=== PATIENT | male | born 1950 | race Caucasian/White ===

== ENCOUNTER 2016-04-08 13:03 | Inpatient (IN) | payer MEDICARE ==
[2016-04-08] MEDS ORDERED: Aspirin Low Dose CHEW TAB* 81 MG PO ONE (13:49)
[2016-04-08 13:59] LABS: Hematocrit 29 % (42-52); Hemoglobin 8.8 g/dl (14.0-18.0); Mean Corpuscular HGB Conc 31 g/dl (31-36); Mean Corpuscular Hemoglobin 20 pg (27-31); Mean Platelet Volume 9 um3 (7.4-10.4); Red Cell Distribution Width 18 % (10.5-15); White Blood Count 8.9 10^3/ul (3.5-10.8)
[2016-04-08 14:00] LABS: Comments Flag Yes
[2016-04-08 14:01] LABS: Mean Corpuscular Volume 64 fL (80-94)
[2016-04-08 14:16] LABS: Albumin 3.1 g/dL (3.2-5.2); BUN/Creatinine Ratio 18.4 (8-20); Calcium 8.6 mg/dL (8.6-10.3); EGFR African American 37.1 (>60); EGFR Non-African American 28.9 (>60); Globulin 3.1 g/dL (2-4); Potassium 4.7 mmol/L (3.5-5.0); Total Bilirubin 0.3 mg/dL (0.2-1.0); Total Protein 6.2 g/dL (6.4-8.9)
[2016-04-08 14:31] LABS: Troponin I 0.06 ng/mL (<0.04)
--- NOTE | 2016-04-08 14:45 | RAD ---
Indication: Shortness of breath. 2 views of the chest including dual energy PA views demonstrate no mediastinal shift. Heart is of normal size and configuration. There is poor inspiratory effort. No alveolar consolidation is noted. IMPRESSION: No active cardiopulmonary disease is identified.
[2016-04-08 15:08] LABS: T4 6.84 g/dL (6.09-12.23)
[2016-04-08 15:09] LABS: TSH (Thyroid Stimulating Horm) 1.21 mcIU/mL (0.34-5.60)
[2016-04-08] MEDS ORDERED: Furosemide IV* 10 MG/ML 2 ML VIAL (20 MG) IV SLOW PU ONE (15:17)
--- NOTE | 2016-04-08 15:51 | ED ---
Lucia Silva Erika, scribed for Luis Perdomo MD on 04/08/16 at 1356 . Complex/Multi-Sys Presentation - HPI Summary HPI Summary: Patient is a 65-year-old male presenting to the ED with a CC of recent weight gain. Patient reports that he has gained 14 lbs in 3 weeks, and 9 lbs in the past 3 days. He notes swelling in all four extremities. Patient denies a diagnosis of CHF. Pt also reports a negative Ankle-brachial index test. He denies fever, chills, dizziness, chest pain, SOB, cough, abdominal pain, diarrhea, and constipation. He does note some mild urinary incontinence. PMHx HTN, diabetes, hyperlipidemia. PSHx cardiac stent - 12 years ago. FHx diabetes, lung cancer, cerebral hemorrhage. Pt is a former smoker, and does not drink. - History Of Current Complaint Chief Complaint: EDGeneral Time Seen by Provider: 04/08/16 13:36 Hx Obtained From: Patient Onset/Duration: Gradual Onset, Lasting Weeks, Worse Since - 3 days Timing: Constant Severity Currently: Moderate Severity Initially: Mild Aggravating Factor(s): Nothing Alleviating Factor(s): Nothing Associated Signs And Symptoms: Positive: Edema - all four extremities. Negative : Dizziness, SOB, Cough, Chest Pain, Diarrhea, Abdominal Pain, Fever - Allergies/Home Medications Allergies/Adverse Reactions: Allergies Allergy/AdvReac Type Severity Reaction Status Date / Time Erythromycin Allergy Intermediate Stomach Verified 04/08/16 13:32 Cramps PMH/Surg Hx/FS Hx/Imm Hx Endocrine/Hematology History: Reports: Hx Anticoagulant Therapy, Hx Diabetes - TYPE II, Hx Anemia Cardiovascular History: Reports: Hx Coronary Artery Disease, Hx Hypercholesterolemia, Hx Hypertension, Other Cardiovascular Problems/Disorders - cardiac cath w/ stents Denies: Hx Pacemaker/ICD Respiratory History: Reports: Hx Asthma GI History: Reports: Hx Gastroesophageal Reflux Disease - ON PRILOSEC History: Denies: Hx Renal Disease Musculoskeletal History: Reports: Hx Arthritis - KNEES Sensory History: Reports: Hx Cataracts, Hx Contacts or Glasses Denies: Hx Hearing Aid Opthamlomology History: Reports: Hx Cataracts, Hx Contacts or Glasses Psychiatric History: Denies: Hx Panic Disorder - Surgical History Surgery Procedure, Year, and Place: RIGHT KNEE SURGERY 1966. CARDIAC CATH WITH STENT 2004-[facility] FOR [address] HAND Hx Anesthesia Reactions: No Infectious Disease History: No Infectious Disease History: Reports: Hx of Known/Suspected MRSA Denies: Traveled Outside the [place] in Last 30 Days - Family History Known Family History: Positive: Hypertension, Diabetes, Other - lung cancer, cerebral hemorrhage - Social History Alcohol Use: None Hx Substance Use: No Substance Use Type: Reports: None Hx Tobacco Use: Yes Smoking Status (MU): Former Smoker Amount Used/How Often: APPROX PACK/DAY Review of Systems Negative: Fever, Chills Negative: Chest Pain Negative: Shortness Of Breath, Cough Negative: Abdominal Pain, Diarrhea Positive: incontinence - urinary, mild Positive: Edema - all four extremities All Other Systems Reviewed And Are Negative: Yes Physical Exam - Summary Physical Exam Summary: VITAL SIGNS: Reviewed. GENERAL: Patient is an obese male who is lying comfortable in the stretcher. Patient is not in any acute respiratory distress. HEAD AND FACE: No signs of trauma. No ecchymosis, hematomas or skull depressions. No sinus tenderness. EYES: PERRLA, EOMI x 2, No injected conjunctiva, no nystagmus. EARS: Hearing grossly intact. Ear canals and tympanic membranes are within normal limits. MOUTH: Oropharynx within normal limits. NECK: Supple, trachea is midline, no adenopathy, no JVD, no carotid bruit, no c- spine tenderness, neck with full ROM. CHEST: Symmetric, no tenderness at palpation LUNGS: Clear to auscultation bilaterally. No wheezing or crackles. CVS: Regular rate and rhythm, S1 and S2 present, no murmurs or gallops appreciated. ABDOMEN: Soft, non-tender. No signs of distention. No rebound no guarding, and no masses palpated. Bowel sounds are normal. EXTREMITIES: FROM in all major joints, Positve UE and LE swelling NEURO: Alert and oriented x 3. No acute neurological deficits. Speech is normal and follows commands. SKIN: Dry and warm Triage Information Reviewed: Yes Vital Signs On Initial Exam: Initial Vitals Temp Pulse Resp BP Pulse Ox 97.3 F 65 16 147/74 99 04/08/16 13:05 04/08/16 13:05 04/08/16 13:05 04/08/16 13:05 04/08/16 13:05 Vital Signs Reviewed: Yes Diagnostics - Vital Signs Vital Signs Temp Pulse Resp BP Pulse Ox 04/08/16 13:05 97.3 F 65 16 147/74 99 - Laboratory Result Diagrams: 04/08/16 13:50 04/08/16 13:50 Lab Statement: Any lab studies that have been ordered have been reviewed, and results considered in the medical decision making process. - Radiology CXR Radiology Interpretation Completed By: Radiologist - IMPRESSION: No active cardiopulmonary disease is identified. - EKG 14:44 Cardiac Rate: Bradycardia - at 58 bpm EKG Rhythm: Sinus Bradycardia EKG Interpretation: No ST elevation Complex Multi-Symp Course/Dx Assessment/Plan: Patient is a 65-year-old male presenting to the ED with a CC of recent weight gain. Patient reports that he has gained 14 lbs in 3 weeks, and 9 lbs in the past 3 days. He notes swelling in all four extremities. Patient denies a diagnosis of CHF. Pt also reports a negative Ankle-brachial index test. He denies fever, chills, dizziness, chest pain, SOB, cough, abdominal pain, diarrhea, and constipation. He does note some mild urinary incontinence. Test results show hypochromic microcytic anemia and acute on chronic renal failure. Creatine kinase is elevated at 339, CKMP of 26.6, myoglobin of 338.3, and troponin of 0.06. Albumin is also 3.1 and total protein is 6.2. CXR shows no acute pathology. EKG shows sinus bradycardia at [address] elevation. I believe that the pt has a new onset of CHF, worsening renal failure, and hypoalbuminemia, which would contribute to his anasarca. In the ED course, the pt does not have any CP or SOB. He has no complaints except for the swelling. He was given aspirin for the elevated troponin and Lasix for the CHF exacerbation. It seems that the pt is intravascularly depleted in combination with being overloaded. I discussed the case with Dr. Lin who accepted the pt for admission. He is hemodynamically stable and A&Ox3. - Diagnoses Differential Diagnoses/HQI/PQRI: Other - CHF, Renal failure, Hypoalbuminemia, Anemia Provider Diagnoses: CHF (congestive heart failure), Acute on chronic renal failure, Anemia, Hypoalbuminemia - Physician Notifications Discussed Care Of Patient With: Dr. Lin (hospitalist) at 15:16 - agrees to admit Discharge - Discharge Plan Condition: Stable Disposition: ADMITTED TO [facility] Referrals: Mario Oakley MD [Primary Care Provider] - The documentation as recorded by the Lucia lopez Erika accurately reflects the service I personally performed and the decisions made by , Luis Perdomo MD.
--- NOTE | 2016-04-08 17:38 | PN ---
Hospitalist Progress Note HOSPITALIST ADDENDUM Case reviewed and d/w Peter CORTEZ. Mr. Guzman is a 65yo M with PMH of HTN, DM, HLD, CKD, referred from his PCP's office due to progressive LE edema, now with 30lbs weight gain. Will admit for cardiac w/u of possible new CHF (?right sided failure) vs renal disease (DM related nephrotic syndrome?). Agree with current management.
[2016-04-08 18:33] LABS: Ferritin 283.7 ng/mL (24-336)
[2016-04-08 18:37] LABS: Folate 11.94 ng/mL (>3.99)
[2016-04-08] MEDS: Metoprolol Tartrate TAB* 50 mg PO SCH (19:19)
[2016-04-08] MEDS: Atorvastatin* 20 MG TAB PO SCH (19:20)
--- NOTE | 2016-04-08 20:04 | RAD ---
HISTORY: Abnormal lab values, evaluate for hydronephrosis COMPARISONS: None relevant TECHNIQUE: Multiple transverse and longitudinal ultrasound images were obtained of the kidneys using grayscale and color Doppler imaging. FINDINGS: RIGHT KIDNEY: The right kidney is normal in shape, size, contour, and echogenicity. There is no hydronephrosis or nephrolithiasis. The right kidney measures 10.7 x 7 x 5.5 cm. LEFT KIDNEY: The left kidney is normal in shape, size, contour, and echogenicity. There is no hydronephrosis or nephrolithiasis. The left kidney measures 12.8 x 6.2 x 4.5 cm. BLADDER: No images are submitted of the bladder. AORTA AND IVC: No images are submitted of the vasculature. RETROPERITONEUM: Unremarkable. OTHER: None. IMPRESSION: NO HYDRONEPHROSIS
[2016-04-08 20:48] LABS: Urine Bacteria Absent (Absent); Urine Bilirubin Negative (Negative); Urine Glucose 2+(150 mg/dL) (Negative); Urine Nitrite Negative (Negative)
--- NOTE | 2016-04-08 21:51 | HP ---
ADMISSION HISTORY AND PHYSICAL: DATE OF ADMISSION: 04/08/16 PRIMARY CARE PROVIDER: Dr. Oakley. ADMITTING PROVIDER: DIEGO Barrett SUPERVISING PHYSICIAN: Dr. You Clarke. * (DICTATED BY DIEGO BARRETT) CHIEF COMPLAINT: Edema. HISTORY OF PRESENT ILLNESS: This is a 65-year-old gentleman with a history of chronic kidney disease, insulin dependent diabetes, hypertension, intermittent low back pain, history of bilateral lower extremity DVTs for which she is still anticoagulated with Coumadin, peripheral neuropathy and coronary artery disease , status post PCI as well as hypertension, hyperlipidemia who presented to the emergency department at the recommendation of his primary care provider with profound edema. The patient believes that he has gained at lease 20 pounds in the last few weeks and has notable edema in his left arm and both of his legs. He states that he has been careful with his diet and despite this has noticed significant weight gain. He denies any associated shortness of breath, however. No cough or recent illness. He is on Lasix and states that he has had a little diuresis despite this. The patient was diagnosed with bilateral lower extremity DVTs sounds like about 6 months ago. He was originally anticoagulated on Xarelto and then switched to Coumadin a few weeks ago because of the cost of Xarelto and it sounds like there was an interruption in his anticoagulation for about 5 days or so. The patient initially thought that the DVTs were spontaneous, but it sounds like they might have been associated with a prolonged car ride as well. The only other new medication that patient reports is Lyrica for his peripheral neuropathy and that was started a couple of weeks ago as well. The patient denies any chest pain or palpations. He denies any abdominal pain, nausea or vomiting. He has noticed some increased weakness in the last couple of months. He is unable to sit or stand after sitting in a chair without some assistance. PAST MEDICAL HISTORY: 1. Insulin dependent diabetes. 2. Bilateral DVT for which she is anticoagulated on Coumadin without history of PE. 3. Chronic kidney disease. 4. Hypertension. 5. History of vertigo. 6. Chronic anemia. 7. Intermittent low back pain. 8. Hyperlipidemia. 9. Coronary artery disease, status post PCI without history of heart failure. 10. Peripheral neuropathy. PAST SURGICAL HISTORY: 1. Carpal tunnel release. 2. Right knee arthroplasty. 3. PCI. 4. Benign cyst excision over his left chest. HOME MEDICATIONS: 1. Albuterol inhalers 2 puffs inhaled q.6 hours as needed for shortness of breath. 2. Allopurinol 300 mg p.o. daily. 3. Atorvastatin 20 mg p.o. daily. 4. Colchicine 0.6 mg p.o. b.i.d. as needed. 5. Trulicity 1.5 mg subcu weekly. 6. Furosemide 20 mg p.o. daily. 7. Lantus 40 units subcu twice daily. 8. Humalog KwikPen 25 units subcu with meals 3 times daily. 9. Lisinopril 40 mg p.o. daily. 10. Metoprolol tartrate 50 mg p.o. twice daily. 11. Omeprazole 20 mg p.o. daily. 12. Lyrica 50 mg p.o. twice daily. 13. Silvadene apply topically twice daily as needed. 14. Coumadin 5 mg p.o. daily. FAMILY HISTORY: The patient denies any family history of anemia or clotting disorders. His mother of a hemorrhagic stroke in her 40s. SOCIAL HISTORY: The patient quit smoking about 22 years ago, had about a 20- pack- year smoking history, rare alcohol consumption. Lives at home with his and granddaughter. REVIEW OF SYSTEMS: As noted above in HPI and otherwise negative. PHYSICAL EXAMINATION GENERAL: This is a pleasant 65-year-old gentleman in no acute distress who appears her stated age. VITAL SIGNS: Temperature 97.3 degrees Fahrenheit, pulse 65 beats per minute, respiratory rate 16 per minute, oxygen saturation 99% on room air, and blood pressure 147/74 mmHg. HEENT: Head is normocephalic, atraumatic with moist mucous membranes. NECK: Free of lymphadenopathy. No obvious JVD. RESPIRATORY: Lungs are clear to auscultation without wheezes, crackles or rhonchi. CARDIOVASCULAR: Heart has a regular rate and rhythm without murmurs, rubs or gallops. ABDOMEN: Soft and nontender to palpation. EXTREMITIES: The patient has marked edema in his left hand especially and also notable in his left distal arm. Both lower extremities have significant edema that appears to be somewhat chronic in nature. Right upper extremity does not appear to have any edema. No significant subcutaneous edema appreciated over his abdomen or back. SKIN: The patient has what looks to be chronic venous stasis changes over his lower extremities bilaterally, but otherwise no acute concerning changes. DIAGNOSTIC STUDIES/LABORATORY DATA: CBC shows a white blood cell count of 8900 , hemoglobin of 8.8 g/dL, which is severely microcytic with an MCV of 64 and elevated RDW to 18, platelet count of 117,000. Comprehensive metabolic panel shows a sodium of 141 mmol/L, potassium 4.7 mmol/L, BUN 42, creatinine 2.28. Random glucose 96 mg/dL. Lactic acid 1.4. Transaminases and total bilirubin within normal limits. Total creatine kinase mildly elevated at 339. Myoglobin elevated at 338. Troponin mildly elevated at 0.06. BNP is normal 61. TSH is normal at 1.21. IMAGING: Chest x-ray shows no acute disease. EKG shows normal sinus rhythm. ASSESSMENT AND PLAN: This is a 65-year-old gentleman with insulin dependent diabetes, hypertension, hyperlipidemia, chronic kidney disease, chronic anemia, history of deep venous thrombosis, peripheral neuropathy and coronary artery disease who presents with marked edema and weight gain without complaints of dyspnea. 1. Edema - differential diagnosis is still quite long. His edema seems to be somewhat focal affecting his left upper extremity and both lower extremities. He does give a history of bilateral deep venous thromboses that occurred after a car ride and he interrupted his anticoagulation for about a week a couple of weeks ago which seemed to correspond with his increased edema. Wonder if he has new clots that may be contributing to his acute symptoms. We will check a D -dimer and if positive, we will get a Doppler of his left upper extremity and both lower extremities to evaluate for deep venous thrombosis. We will also check a renal ultrasound specifically looking for hydronephrosis. Urinalysis is pending help to identify signs of nephrotic syndrome but again, he does not looking diffusely edematous which would be more consistent with renal pathology. He does not have any evidence of left heart failure as he has no associated pulmonary edema, but could consider right heart failure. He is a quite large man. Perhaps untreated sleep apnea could contribute to pulmonary hypertension and subsequent right heart failure. We will obtain echocardiogram. In terms of symptomatic relief though, we will start with diuresing him with IV Lasix, monitor his renal function closely. 2. Chronic kidney disease. His creatinine appears to be slightly above his baseline. Last creatinine from about a month ago was 2.02 and is 2.2 today, somewhere between about 2 seems to be near his baseline. His estimated GFR is 28 today. Baseline is probably stage 3 chronic kidney disease. We will monitor this closely and avoid nephrotoxic agents during his hospital stay. 3. History of deep venous thrombosis. Now anticoagulated with Coumadin. INR not checked in the emergency department, but this has been ordered and is pending. 4. Profound microcytic anemia. Hemoglobin is 8.8. His baseline seems to be near 10 and he has a profound microcytosis. This microcytosis appears to be chronic in nature, suspected that beta thalassemia might be the most likely etiology. The patient denies family history of anemia, but it does have Mediterranean heritage. We will check iron studies along with B12 and folate. 5. Morbid obesity with a BMI of 41. 6. Insulin dependent diabetes - we will continue his home regimen of Lantus and Humalog and we will check glucose at meal time. 7. Peripheral neuropathy. We will continue his Lyrica. 8. Hypertension. We will hold his Lisinopril in the setting of slightly worsening renal function, but continue his beta-christian. 9. Hyperlipidemia. Continue atorvastatin. 10. Code status. The patient is full code. 11. Healthcare proxy is his . 12. DVT prophylaxis. The patient is anticoagulated on Coumadin. DISPOSITION: The patient is being admitted to observation status for profound edema, but no complaints of dyspnea. Further workup is pending at this time. Anticipate possible discharge tomorrow. DIEGO BARRETT CC: Dr. Oakley * [id number]/[facility] #: [id number] PERRY
[2016-04-08] MEDS: Pregabalin CAP(*) 50 MG PO SCH (22:06)
[2016-04-08] MEDS: Insulin GLARGINE(*) 1 UNITS UNIT SUBCUT SCH (22:08)
[2016-04-09] MEDS: Nystatin TOP POWDER* 15 GM BTL TOPICAL SCH ×3 (00:30→20:40)
[2016-04-09] MEDS ORDERED: Saline NASAL SPRAY 0.65%* BTL BOTH NARES PRN (03:19)
[2016-04-09 06:29] LABS: Hematocrit 27 % (42-52); Hemoglobin 8.2 g/dl (14.0-18.0); Mean Corpuscular HGB Conc 30 g/dl (31-36); Mean Corpuscular Hemoglobin 19 pg (27-31); Mean Platelet Volume 9 um3 (7.4-10.4); Red Blood Count 4.22 10^6/ul (4.0-5.4); Red Cell Distribution Width 18 % (10.5-15); White Blood Count 6.6 10^3/ul (3.5-10.8)
[2016-04-09 06:30] LABS: Add Diff/Slide Review? Slide Review Added; Comments Flag Yes; Mean Corpuscular Volume 64 fL (80-94)
[2016-04-09 06:41] LABS: BUN/Creatinine Ratio 19.7 (8-20); EGFR African American 39.1 (>60); EGFR Non-African American 30.4 (>60); Potassium 4.5 mmol/L (3.5-5.0)
[2016-04-09] MEDS ORDERED: Furosemide IV* 10 MG/ML VIAL (40 MG) IV SCH (09:00)
[2016-04-09] MEDS ORDERED: Warfarin TAB(*) 5 MG PO SCH (09:00)
[2016-04-09] MEDS: Pregabalin CAP(*) 50 MG PO SCH ×2 (10:30→20:39)
[2016-04-09] MEDS: Metoprolol Tartrate TAB* 50 mg PO SCH ×2 (10:31→16:59)
[2016-04-09] MEDS: Omeprazole CAP* 20 MG PO SCH (10:31)
[2016-04-09] MEDS: Allopurinol TAB* 300 MG PO SCH (10:32)
[2016-04-09] MEDS: Insulin LISPRO* 1 UNITS UNIT SUBCUT SCH ×3 (10:33→16:59)
[2016-04-09] MEDS: Insulin GLARGINE(*) 1 UNITS UNIT SUBCUT SCH ×2 (10:38→20:38)
[2016-04-09] MEDS ORDERED: Insulin LISPRO* 1 UNITS UNIT SUBCUT ONE (13:26)
--- NOTE | 2016-04-09 14:06 | RAD ---
Indication: Left hand swelling. Duplex Doppler sonography of the left upper extremity deep venous system was performed. Bilaterally the internal jugular veins demonstrates normal phasic flow. The subclavian veins demonstrates adequate augmentation bilaterally with normal phasic flow. The left axillary vein, brachial vein, basilic vein, cephalic vein, radial vein and ulnar vein are patent and compressible. IMPRESSION: No evidence of deep venous thrombosis of the left upper extremity is noted.
--- NOTE | 2016-04-09 15:49 | ECHO ---
Patient: CONOR MARROQUIN Rec#: [id number] : 1950 Date: 04/09/2016 Age: 65y Height: 180 cm / 70.9 in Weight: 131 kg / 288.7 lbs Sex: M BSA: 2.46 Room#: [facility] Admit Date#: 04/08/2016 Type: Inpatient Referring: Peter Cross Reading: Jason Puga MD [employer] Specialist: Garett Hua RDCS CC: Mario Oakley MD Transthoracic Echocardiogram Indication: CHF EDMA BP: 161/60 HR: 69 Rhythm: NSR Findings History: DM,VERTIGO,anemia, HLD,CAD PCIDVT CKD Technical Comments: The study quality is fair. The study is technically limited due to poor parasternal windows. The study is technically limited due to patient body habitus. Left Ventricle: The left ventricular chamber size is normal. There is no left ventricular hypertrophy. Global left ventricular wall motion and contractility are within normal limits. There is normal left ventricular systolic function. The estimated ejection fraction is 55-60%. Closer to 55% Abnormal left ventricular diastolic filling is observed, consistent with impaired relaxation. Left Atrium: The left atrium is mildly dilated. Right Ventricle: The right ventricular cavity size is normal. The right ventricular global systolic function is normal. Right Atrium: The right atrial cavity size is normal. Aortic Valve: The aortic valve is trileaflet. There is no evidence of aortic regurgitation. There is no evidence of aortic stenosis. Mitral Valve: The mitral valve leaflets appear normal. There is a trace of mitral regurgitation. There is no evidence of mitral stenosis. Tricuspid Valve: There is trace tricuspid regurgitation. Pulmonic Valve: The pulmonic valve structure is not well visualized. Pericardium: There is no pericardial effusion. Aorta: There is no dilatation of the ascending aorta. There is no dilatation of the aortic arch. There is no dilation of the aortic root. Pulmonary Artery: The main pulmonary artery is not well visualized. Venous: The venous system is not well visualized. Summary: There was not any prior study for comparison. Conclusions The left ventricular chamber size is normal. There is normal left ventricular systolic function. The estimated ejection fraction is 55-60%. Closer to 55% Abnormal left ventricular diastolic filling is observed, consistent with impaired relaxation. The left atrium is mildly dilated. There is a trace of mitral regurgitation. There is trace tricuspid regurgitation. Measurements Name Value Normal Range RVIDd (AP) 2D 2.5 cm (0.9 - 2.6) RVDdMajor (2D) 2.5 cm (2.2 - 4.4) RAd ISD 4CH 5.2 cm (3.4 - 4.9) RA (A4C)W 2.7 cm (2.9 - 4.6) IVSd (2D) 1.3 cm (0.6 - 1) LVPWd (2D) 1 cm (0.6 - 1) LVIDd (2D) 4.9 cm (3.6 - 5.4) LVIDs (2D) 3.6 cm - LV FS (2D) 27 % (25 - 45) Aortic Annulus 2.3 cm (1.4 - 2.6) Ao root diameter (2D) 3.5 cm (2.1 - 3.5) Ascending Ao 3.3 cm (2.1 - 3.4) Aortic arch 2.6 cm (1.8 - 3.4) LA dimension (AP) 2D 4.7 cm (2.3 - 3.8) LAd ISD 4CH 5.8 cm (2.9 - 5.3) LA ISD 4CH W 3.4 cm (2.5 - 4.5) Name Value Normal Range LA ESV SP 4CH (A/L) 102 ml - LA ESV SP 2CH (A/L) 103 ml - LA ESV BP (A/L) 103 ml - LA ESV BP (A/L) index 41.81 ml/m2 - LA ESV SP 4CH (MOD) 95 ml - LA ESV SP 2CH (MOD) 95 ml - Name Value Normal Range MV E-wave Vmax 0.54 m/sec - MV deceleration time 206 msec - MV A-wave Vmax 0.71 m/sec - MV E:A ratio 0.75 ratio - LV septal e' Vmax 0.06 m/sec - LV lateral e' Vmax 0.08 m/sec - LV E:e' septal ratio 9 ratio - LV E:e' lateral ratio 6.75 ratio - Name Value Normal Range LVOT diameter 2.1 cm - LVOT Vmax 1.1 m/sec - Name Value Normal Range PV Vmax 1 m/sec -
--- NOTE | 2016-04-09 16:38 | PN ---
Subjective Date of Service: 04/09/16 Interval History: Patient seen this morning and again in the afternoon. Feels that the swelling of the arm has improved. Denies chest pain, SOB. No recent changes in diet or medication aside from transition to coumadin from xarelto. Family History: Unchanged from Admission Social History: Unchanged from Admission Past Medical History: Unchanged from Admission Objective Active Medications: Allopurinol (Zyloprim Tab*) 300 mg PO QAM [facility] Last Admin: 04/09/16 10:32 Dose: 300 mg Atorvastatin Calcium (Lipitor*) 20 mg PO QPM [facility] Last Admin: 04/08/16 19:20 Dose: 20 mg Furosemide (Lasix Iv*) 40 mg IV DAILY [facility] Last Admin: 04/09/16 10:40 Dose: 40 mg Furosemide (Lasix Iv*) 40 mg IV ONCE ONE Stop: 04/09/16 16:33 Insulin Glargine (Lantus(*)) 40 units SUBCUT BID [facility] Last Admin: 04/09/16 10:38 Dose: 40 units Insulin Human Lispro (Humalog*) 25 units SUBCUT AC [facility] Last Admin: 04/09/16 13:28 Dose: 25 units Metoprolol Tartrate (Lopressor Tab*) 50 mg PO BID WITH MEALS [facility] Last Admin: 04/09/16 10:31 Dose: 50 mg Nystatin (Nystatin Top Powder*) 1 applic TOPICAL BID [facility] Last Admin: 04/09/16 10:49 Dose: 1 applic Omeprazole (Prilosec Cap*) 20 mg PO DAILY@0730 [facility] Last Admin: 04/09/16 10:31 Dose: 20 mg Pharmacy Profile Note (Coumadin Per Pharmacy*) 1 note FOLLOW UP .PER PHARMACY PROTOC [facility] PRN Reason: Protocol Pregabalin (Lyrica Cap(*)) 50 mg PO BID [facility] Last Admin: 04/09/16 10:30 Dose: 50 mg Sodium Chloride (Sodium Chloride 0.65% Nasal [place]*) 1 spray BOTH NARES Q4H PRN PRN Reason: DRYNESS/CONGESTION Last Admin: 04/09/16 03:30 Dose: 1 spray Vital Signs 04/08/16 04/08/16 04/08/16 19:30 21:51 22:06 Temperature 98.2 F Pulse Rate 67 66 Respiratory 16 20 Rate Blood Pressure 173/76 (mmHg) O2 Sat by Pulse 96 Oximetry 04/08/16 04/09/16 04/09/16 23:35 00:06 01:00 Temperature 98.4 F Pulse Rate 64 67 Respiratory 16 18 Rate Blood Pressure 177/76 (mmHg) O2 Sat by Pulse 98 Oximetry 04/09/16 04/09/16 04/09/16 10:30 11:29 12:30 Temperature 98.5 F Pulse Rate 65 Respiratory 15 16 16 Rate Blood Pressure 151/65 (mmHg) O2 Sat by Pulse 90 Oximetry 04/09/16 14:41 Temperature 98.5 F Pulse Rate 61 Respiratory Rate Blood Pressure 154/70 (mmHg) O2 Sat by Pulse 98 Oximetry Oxygen Devices in Use Now: None Appearance: Middle-aged, M, sitting in chair in NAD Eyes: No Scleral Icterus Ears/Nose/Mouth/Throat: Mucous Membranes Moist Neck: NL Appearance and Movements; NL JVP Respiratory: Symmetrical Chest Expansion and Respiratory Effort, Clear to Auscultation Cardiovascular: NL Sounds; No Murmurs; No JVD, RRR Abdominal: NL Sounds; No Tenderness; No Distention Lymphatic: No Cervical Adenopathy Extremities: - - B/L LE edema to thighs B/L, some L hand edema on dorsum Neurological: Alert and Oriented x 3 Result Diagrams: 04/09/16 05:47 04/09/16 05:47 Microbiology and Other Data: Microbiology 04/08/16 20:20 Skin and Soft Tissue MRSA/MSSA (PCR - Final Leg Right Mrsa Negative S.aureus Negative Gram Stain - Final Wound Culture - Preliminary Strep Agalactiae - (Group B) Assess/Plan/Problems-Billing Assessment: LUE edema and B/L LE edema in a 65 yo M with hx of HTN, CAD s/p PCI, DM, ROBSON on CPAP, HLD, CKD, B/L LE DVTs on coumadin - Patient Problems (1) Edema Current Visit: Yes Comment: Has had long standing edema and states he has been on Lasix for years. Albumin is slightly low, renal function is mostly unchanged. Renal US normal. Echo shows some diastolic dysfunction however no changes on the R side of the heart. LUE doppler negative. Seems to be responding to IV Lasix. Will redose this evening. He may need higher doses of Lasix with his CKD. (2) Troponin I above reference range Current Visit: Yes Comment: Mild elevation. Patient with no complaints of chest pain, no WMA on echo. No further testing at this time. (3) CKD (chronic kidney disease) Current Visit: Yes Comment: Seems to be at baseline (4) Microcytic anemia Current Visit: Yes Comment: Diagnosed with thal minor on Dr. Nunes's outpatient notes. Hb down a bit. Has had some slight bleeding from the nose, INR is elevated. Continue to hold coumadin. (5) DVT (deep venous thrombosis) Current Visit: Yes Comment: INR supratherapeutic, holding coumadin. As per Dr. Nunes patient may need life-long AC (6) Diabetes Current Visit: Yes Comment: Continue home insulin regimen (7) HTN (hypertension) Current Visit: Yes Comment: Continue metoprolol, will resart Lisinopril on d/ c (8) DVT prophylaxis Current Visit: Yes Comment: Coumadin Status and Disposition: Inpatient for additional IV diuresis
[2016-04-09] MEDS ORDERED: Furosemide IV* 10 MG/ML 10 ML VIAL (100 MG) IV ONE (16:45)
[2016-04-09] MEDS: Atorvastatin* 20 MG TAB PO SCH (16:59)
[2016-04-10 05:45] LABS: Comments Flag Yes; Hematocrit 25 % (42-52); Hemoglobin 7.7 g/dl (14.0-18.0); Mean Corpuscular HGB Conc 31 g/dl (31-36); Mean Corpuscular Hemoglobin 19 pg (27-31); Mean Corpuscular Volume 63 fL (80-94); Mean Platelet Volume 9 um3 (7.4-10.4); Red Blood Count 3.97 10^6/ul (4.0-5.4); Red Cell Distribution Width 18 % (10.5-15)
[2016-04-10 05:55] LABS: BUN/Creatinine Ratio 18.2 (8-20); Calcium 7.7 mg/dL (8.6-10.3); EGFR African American 35.7 (>60); EGFR Non-African American 27.8 (>60); Potassium 4.6 mmol/L (3.5-5.0)
[2016-04-10] MEDS: Pregabalin CAP(*) 50 MG PO SCH (08:11)
[2016-04-10] MEDS: Metoprolol Tartrate TAB* 50 mg PO SCH ×2 (08:12→17:20)
[2016-04-10] MEDS: Allopurinol TAB* 300 MG PO SCH (08:12)
[2016-04-10] MEDS: Nystatin TOP POWDER* 15 GM BTL TOPICAL SCH (08:12)
[2016-04-10] MEDS: Omeprazole CAP* 20 MG PO SCH (08:12)
[2016-04-10] MEDS: Insulin LISPRO* 1 UNITS UNIT SUBCUT SCH ×3 (09:00→17:20)
[2016-04-10] MEDS: Insulin GLARGINE(*) 1 UNITS UNIT SUBCUT SCH (09:01)
--- NOTE | 2016-04-10 11:20 | PN ---
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 Subjective: []Weakness, loss of proximal muscle strength for several months, swelling in arm. He is stable today. Less urination with lasix. Wants to go home. No SOB. No fever or chills Allopurinol (Zyloprim Tab*) 300 mg PO QAM [facility] Last Admin: 04/10/16 08:12 Dose: 300 mg Atorvastatin Calcium (Lipitor*) 20 mg PO QPM [facility] Last Admin: 04/09/16 16:59 Dose: 20 mg Insulin Glargine (Lantus(*)) 40 units SUBCUT BID [facility] Last Admin: 04/10/16 09:01 Dose: 40 units Insulin Human Lispro (Humalog*) 25 units SUBCUT AC [facility] Last Admin: 04/10/16 09:00 Dose: 25 units Metoprolol Tartrate (Lopressor Tab*) 50 mg PO BID WITH MEALS [facility] Last Admin: 04/10/16 08:12 Dose: 50 mg Nystatin (Nystatin Top Powder*) 1 applic TOPICAL BID [facility] Last Admin: 04/10/16 08:12 Dose: 1 applic Omeprazole (Prilosec Cap*) 20 mg PO DAILY@0730 [facility] Last Admin: 04/10/16 08:12 Dose: 20 mg Pharmacy Profile Note (Coumadin Per Pharmacy*) 1 note FOLLOW UP .PER PHARMACY PROTOC [facility] PRN Reason: Protocol Pregabalin (Lyrica Cap(*)) 50 mg PO BID [facility] Last Admin: 04/10/16 08:11 Dose: 50 mg Sodium Chloride (Sodium Chloride 0.65% Nasal [place]*) 1 spray BOTH NARES Q4H PRN PRN Reason: DRYNESS/CONGESTION Last Admin: 04/09/16 03:30 Dose: 1 spray Warfarin Sodium (Coumadin Tab(*)) 2 mg PO ONCE ONE Stop: 04/10/16 17:01 Objective: [] Vital Signs Temp Pulse Resp BP Pulse Ox 98.0 F 70 18 152/73 99 04/10/16 07:25 04/10/16 07:25 04/10/16 08:11 04/10/16 07:25 04/10/16 07:25 HEENT: mucosa moist, pale CTA RRR S1S2 [place], NT ND sitting Ext - chronic SIDDHARTHA. Pitting edema left hand and forearm, no rash Assessment: []Upper extremity edema is unexplained at this time, not related to anemia. Chronic anemia and director long term care anticoagulation for DVT. Progression of anemia is not explained by thalassmeia trait. Ddx: Low B12, progressive renal insufficiency, marrow dysfunction. Plan: []1. Will send additional studies anemia today: B12, SPEP, Retic Count, erythropoeitin, LDH now 2. Transfuse 1 UPRBC 3. Will follow up next week in clinc, does not need to wait in house for results. 4. Muscle weakness, check CK 5. Continue coumadin, no indication of acute DVT
[2016-04-10] MEDS ORDERED: Acetaminophen TAB* 325 MG PO ONE (11:22)
[2016-04-10] MEDS ORDERED: diPHENhydraMINE PO* 25 MG PO ONE (11:22)
[2016-04-10 12:09] LABS: Corrected Retic Count 1.1 % (0.5-1.5)
[2016-04-10 14:31] VITALS: BP 159/71
[2016-04-10] MEDS ORDERED: Warfarin TAB(*) 2 MG PO ONE (17:00)
[2016-04-10] MEDS: Atorvastatin* 20 MG TAB PO SCH (17:44)
--- NOTE | 2016-04-11 03:21 | DS ---
CC: Dr. Oakley; Dr. Nunes DISCHARGE SUMMARY: DATE OF ADMISSION: 04/08/16 DATE OF DISCHARGE: 04/10/16 PRIMARY CARE PHYSICIAN: Dr. Oakley. PRINCIPAL DISCHARGE DIAGNOSES: 1. Weight gain, edema. 2. Anemia. SECONDARY DIAGNOSES: 1. Chronic kidney disease. 2. History of microcytic anemia. 3. Bilateral deep venous thromboses, on Coumadin. 4. Hypertension. 5. Hyperlipidemia. 6. Coronary artery disease, status post PCI. 7. Peripheral neuropathy. STUDIES DONE DURING HOSPITALIZATIONS: Chest x-ray, impression: No active cardiopulmonary disease i s noted. Renal ultrasound, impression: No hydronephrosis. Transthoracic echocardiogram, conclusion: Left ventricular chamber size is normal. There is normal left ventricular systolic function. Estimated ejection fraction is 55% to 60%. Abnormal left ventr icular diastolic filling is observed consistent with impaired relaxation. Left atrium is mildly dil ated. There is trace mitral regurgitation. There is trace tricuspid regurgitation. Left upper extremity Doppler, impression: No evidence of DVT in the left upper extremity. HISTORY OF PRESENT ILLNESS AND HOSPITAL SUMMARY: Please see the full history and physical by DIEGO Canales, for full details. Briefly, Mr. Guzman is a 65-year- old male with a past medical hist ory as above, who presented to the hospital with complaints of weight gain, worsening edema particul corey in the left upper extremity. The patient states he had chronic swelling in part of his left mazariegos nd for sometime; however, this worsened recently. He is having difficulty seeing his knuckles. The patient was given IV Lasix over the course of the hospitalization with some improvement in his symp toms. He had an upper extremity ultrasound that did not show any evidence of DVT and an echo that w as largely unremarkable. While hospitalized, the patient's chronic anemia seemed to be worsening. Dr. Nunes, who has seen him as an outpatient, was consulted. He ordered a panel of testing including SPEP, vitamin B2, and a n umber of other labs that are pending at this time. The patient mentioned to Dr. Nunes that he had be en having some proximal muscle weakness. The patient did note to have elevated CKs and myoglobin on admission that were trending down on recheck. The patient was instructed to hold his statin for no w to see if there is any improvement over the next days and follow up with his PCP regarding this. The patient had progressive anemia here in the hospital. Dr. Nunes ordered 1 unit of packed red bloo d cell that was transfused prior to discharge. The patient was given a prescription for a repeat CB C and BMP on 04/13/16 prior to his outpatient appointment with his PCP. He will also follow up as a n outpatient with Dr. Nunes who recommended continued anticoagulation for his previous DVTs. TIME SPENT: Total time spent on this discharge 45 minutes. This is just a summary of hospitalization. Please see the full medical record for further details. [id number]/CPS #: [id number]
[2016-04-11 16:58] LABS: Gamma Globulin 0.4 g/dL (0.6-1.6); Total Protein(PEP) 4.6 g/dL (6.3 - 7.9)
== END 2016-04-10 16:47 | disposition home or self-care (01) | DRG 948 ==
LOC: ED 13:03 → MEDTELE 15:25 → INTOOBSV 16:39 → OBSVTOIN 16:39
PROVIDERS: ADMIT Internal Medicine; ATTEND Hospitalist
PROC: 5A09357 Assistance with Respiratory Ventilation, Less than 24 Consecutive Hours, Continuous Positive Airway Pressure (ICD-10-PCS; principal; 2016-04-09)
PROC: 30233N1 Transfusion of Nonautologous Red Blood Cells into Peripheral Vein, Percutaneous Approach (ICD-10-PCS; 2016-04-10)
DX: R60.9 Edema, unspecified (principal); E11.22 Type 2 diabetes mellitus with diabetic chronic kidney disease; E11.42 Type 2 diabetes mellitus with diabetic polyneuropathy; I08.1 Rheumatic disorders of both mitral and tricuspid valves; Z68.41 Body mass index [BMI] 40.0-44.9, adult; R63.5 Abnormal weight gain; I12.9 Hypertensive chronic kidney disease with stage 1 through stage 4 chronic kidney disease, or unspecified chronic kidney disease; E78.5 Hyperlipidemia, unspecified; I25.10 Atherosclerotic heart disease of native coronary artery without angina pectoris; Z86.718 Personal history of other venous thrombosis and embolism; D53.9 Nutritional anemia, unspecified; M62.81 Muscle weakness (generalized); Z95.5 Presence of coronary angioplasty implant and graft; Z83.3 Family history of diabetes mellitus; Z80.1 Family history of malignant neoplasm of trachea, bronchus and lung; Z82.3 Family history of stroke; Z87.891 Personal history of nicotine dependence; Z88.1 Allergy status to other antibiotic agents; J45.909 Unspecified asthma, uncomplicated; K21.9 Gastro-esophageal reflux disease without esophagitis; M13.862 Other specified arthritis, left knee; M13.861 Other specified arthritis, right knee; Z82.49 Family history of ischemic heart disease and other diseases of the circulatory system; E66.9 Obesity, unspecified; Z96.651 Presence of right artificial knee joint; N18.3 Chronic kidney disease, stage 3 (moderate); D50.9 Iron deficiency anemia, unspecified; E66.01 Morbid (severe) obesity due to excess calories; G47.33 Obstructive sleep apnea (adult) (pediatric); R79.89 Other specified abnormal findings of blood chemistry; R04.0 Epistaxis; D56.3 Thalassemia minor
CPT/HCPCS: 36415; 71020; 76775; 80048; 80053; 81003; 81015; 82550; 82553; 82728; 82746; 83036; 83540; 83550; 83605; 83615; 83874; 83880; 84155; 84165; 84252; 84436; 84443; 84484; 85025; 85045; 85379; 85610; 86850; 86900; 86901; 86922; 87070; 87077; 87184; 87186; 87205; 87640; 87641; 93005; 94660; 94760; 99232; A9270-GY; G0378; J1940; P9040

== ENCOUNTER 2016-06-22 15:42 | Emergency (ER) | payer MEDICARE ==
--- NOTE | 2016-06-22 17:45 | RAD ---
INDICATION: Diabetes mellitus, ulcer evaluate for osteomyelitis. TECHNIQUE: 3 views of the right middle finger were obtained. FINDINGS: There is soft tissue swelling and an ulcer present in the dorsal soft tissues at the level of the middle phalanx. No significant focal osseous abnormality is seen. Joint spaces appear maintained. IMPRESSION: SOFT TISSUE ULCER AND SWELLING, NO EVIDENCE FOR OSTEOMYELITIS. IF THE CLINICAL SUSPICION FOR OSTEOMYELITIS IS HIGH CONSIDER MR IMAGING.
[2016-06-22 18:18] VITALS: BP 181/86
--- NOTE | 2016-06-22 18:46 | UC ---
Qasim Silva Janilya, scribed for Summer Germain MD on 06/22/16 at 1700 . Skin Complaint HPI - HPI Summary HPI Summary: A 66 y/o male came in to [facility] presenting w/ a gradual onset of constant right 3rd finger sore starting 3 days ago. Pt states the finger progressively got swollen and hot. Pt used Neosporin on the area and bandaged the finger. Pt reports no feeling of the finger due to hx of neuropathy. PMHx DM. Lab from Dr. Ramos on 06/22/2016: creatinine of 3.21 H., Glucose was 261, fasting this am. - History of Current Complaint Chief Complaint: UCWounds Stated Complaint: FINGER SKIN COMPLAINT Hx Obtained From: Patient Onset/Duration: Gradual Onset, Lasting Days, Still Present Skin Exposure Onset/Duration: Days Ago Timing: Constant Onset Severity: Moderate Current Severity: Moderate Pain Intensity: 0 Pain Scale Used: 0-10 Numeric Location: Hand (Right) - middle finger between PIP and DIP, dorsum Character: Redness Aggravating: Nothing Alleviating: Nothing Associated Signs & Symptoms: Positive: Drainage, Red Streaks Related History: Diabetes - Allergy/Home Medications Allergies/Adverse Reactions: Allergies Allergy/AdvReac Type Severity Reaction Status Date / Time Erythromycin Allergy Intermediate Stomach Verified 06/22/16 16:12 Cramps Review of Systems Constitutional: Negative Skin: Other - sore of right 3rd finger Eyes: Negative ENT: Negative Respiratory: Negative Cardiovascular: Negative Gastrointestinal: Negative Genitourinary: Negative Motor: Negative Neurovascular: Negative Musculoskeletal: Negative Neurological: Negative Psychological: Negative All Other Systems Reviewed And Are Negative: Yes PMH/Surg Hx/FS Hx/Imm Hx Previously Healthy: No Endocrine History Of: Reports: Diabetes Cardiovascular History Of: Reports: Cardiac Disorders - CHF, stent placement, Hypertension, Congestive Heart Failure Denies: Pacemaker/ICD Respiratory History Of: Reports: Asthma GI/ History Of: Denies: Renal Disease Other History Of: Anticoagulant Therapy - Surgical History Surgical History: Yes Surgery Procedure, Year, and Place: RIGHT KNEE SURGERY 1966. CARDIAC CATH WITH STENT 2004-[facility] FOR [address] HAND[address] BILAT CATARACTS - Family History Known Family History: Positive: Hypertension, Diabetes, Other - lung cancer, cerebral hemorrhage - Social History Alcohol Use: None Substance Use Type: None Smoking Status (MU): Former Smoker Amount Used/How Often: 1ppd Length of Time of Smoking/Using Tobacco: 41 years Have You Smoked in the Last Year: No When Did the Patient Quit Smoking/Using Tobacco: 2002 - Immunization History Most Recent Influenza Vaccination: 2016 Most Recent Tetanus Shot: UTD Most Recent Pneumonia Vaccination: UTD Physical Exam Triage Information Reviewed: Yes Appearance: Well-Appearing, Well-Nourished, Pain Distress Vital Signs: Initial Vital Signs Temp 97.0 F 06/22/16 16:06 Pulse 100 06/22/16 16:06 Resp 20 06/22/16 16:06 BP 178/85 06/22/16 16:06 Pulse Ox 95 06/22/16 16:06 elevated BP noted Vital Signs Reviewed: Yes Eyes: Positive: Conjunctiva Clear ENT: Positive: Normal ENT inspection, Hearing grossly normal. Negative: Muffled /hoarse voice Neck: Positive: Supple Respiratory: Positive: No respiratory distress Cardiovascular: Positive: RRR, Pulses Normal, Brisk Capillary Refill Musculoskeletal: Positive: Strength Intact, ROM Intact Neurological: Positive: Alert, Muscle Tone Normal, Other: - Sensation not intact Psychological Exam: Normal Skin Exam: Other - 2 cm ulcerated draining area on the right 3rd finger dorsum between PIP and DIP joint w/ red streak on lateral aspect to the MCP joint Diagnostics - Radiology finger Xray Interpretation: No Acute Changes - IMPRESSION: SOFT TISSUE ULCER AND SWELLING, NO EVIDENCE FOR OSTEOMYELITIS. IF THE CLINICAL SUSPICION FOR OSTEOMYELITIS IS HIGH CONSIDER MR IMAGING. Radiology Interpretation Completed By: Radiologist Course/Dx - Differential Diagnoses - Skin Complaint Differential Diagnoses: Abscess, Cellulitis, Other - MRSA, osteomyelitis - Diagnoses Provider Diagnoses: Ulcerated finger lesion in DM with neuropathy and Chronic Kidney disease, stage 3. HTN in poor control. Discharge - Discharge Plan Condition: Stable Disposition: HOME Prescriptions: Cephalexin CAP* [Keflex 500 CAP*] 500 mg PO TID #30 cap Patient Education Materials: Cellulitis (ED) Referrals: Josh Reynolds MD [Medical Doctor] - 2 Days Mario Oakley MD [Primary Care Provider] - 2 Days Additional Instructions: Please have your blood pressure checked within a month because it was elevated today. You need strict control of your diabetes and hypertension to help your kidney function. You need strict control of your diabetes to help heal the wound on your finger. Change the dressing on your wound daily. If the red streak goes beyond your middle finger knuckle, you need to go to the closest emergency room immediately. Take your antibiotic as directed. We will contact you if the antibiotic needs to be changed based on the wound culture results. The documentation as recorded by the Qasim lopez Janilya accurately reflects the service I personally performed and the decisions made by me, Summer Germain MD.
== END 2016-06-22 18:30 | disposition home or self-care (01) ==
LOC: UCEAST 15:42
DX: E11.622 Type 2 diabetes mellitus with other skin ulcer (principal); J45.909 Unspecified asthma, uncomplicated; E11.22 Type 2 diabetes mellitus with diabetic chronic kidney disease; I13.0 Hypertensive heart and chronic kidney disease with heart failure and stage 1 through stage 4 chronic kidney disease, or unspecified chronic kidney disease; N18.9 Chronic kidney disease, unspecified; I50.9 Heart failure, unspecified; Z88.3 Allergy status to other anti-infective agents; Z87.891 Personal history of nicotine dependence
CPT/HCPCS: 73140; 87070; 87205; 99212; G0463

== ENCOUNTER 2016-07-17 11:19 | Inpatient (IN) | payer MEDICARE ==
[2016-07-17] MEDS ORDERED: NS 0.9% 1000 ML* 1,000 ML IV ONE (11:58)
--- NOTE | 2016-07-17 12:39 | RAD ---
Indication: Weakness. Recent diagnosis of advanced chronic kidney disease. Diabetic. Comparison: June 05, 2016 Technique: Upright AP 1219 hours Report: Suboptimal inspiration with resulting mild crowding of the pulmonary markings/subsegmental atelectasis. No confluent pulmonary consolidation to suggest pneumonia. Negative for pleural effusion or pneumothorax. Negative for cardiomegaly. Unremarkable central pulmonary vasculature and mediastinal contours. IMPRESSION: Low lung volumes with minimal subsegmental atelectasis.
[2016-07-17 13:17] LABS: Hematocrit 17 % (42-52); Mean Corpuscular HGB Conc 30 g/dl (31-36); Mean Corpuscular Hemoglobin 20 pg (27-31); Mean Corpuscular Volume 67 fL (80-94); Mean Platelet Volume 9 um3 (7.4-10.4); Red Cell Distribution Width 20 % (10.5-15); White Blood Count 5.8 10^3/ul (3.5-10.8)
[2016-07-17 13:22] LABS: Albumin 3.1 g/dL (3.2-5.2); Calcium 8.5 mg/dL (8.6-10.3); Comments Flag Yes; EGFR African American 18.4 (>60); EGFR Non-African American 14.3 (>60); Globulin 2.7 g/dL (2-4); Total Bilirubin 0.2 mg/dL (0.2-1.0); Total Protein 5.8 g/dL (6.4-8.9)
[2016-07-17 13:24] LABS: Add Diff/Slide Review? Slide Review Added
[2016-07-17 13:25] LABS: Hemoglobin 5.2 g/dl (14.0-18.0)
[2016-07-17] MEDS ORDERED: Phytonadione INJ (Adult)* 10 MG/ML 1 ML AMP SUBCUT ONE (13:26)
[2016-07-17 13:27] LABS: Potassium 8.1 mmol/L (3.5-5.0)
[2016-07-17] MEDS ORDERED: Dextrose 50% Syringe 50 ML* 25 GM/50 ML SYRINGE IV PUSH PRN ×2 (13:38→19:09)
[2016-07-17] MEDS ORDERED: Sodium Polystyrene ORAL.SOL* 15 GM/60 ML BTL PO ONE (13:38)
[2016-07-17] MEDS ORDERED: Calcium Gluconate INJ* 1 GM in NS 0.9% 50 ML* 50 ML IVPB ONE (13:38)
[2016-07-17] MEDS ORDERED: Insulin REGULAR(*) 1 UNITS UNIT IV PUSH ONE (13:38)
[2016-07-17 13:52] LABS: BUN/Creatinine Ratio 36.5 (8-20)
[2016-07-17 14:10] LABS: Eosinophils % 1 % (0-6); Immature Granulocytes 2 % (0-9); Neutrophil % 74 % (38-83)
[2016-07-17 14:12] LABS: Calcium 8.3 mg/dL (8.6-10.3); EGFR African American 18.9 (>60); EGFR Non-African American 14.7 (>60)
[2016-07-17 14:13] LABS: Microcytosis 3+
[2016-07-17 14:14] LABS: Target Cells 1+; Tear Drop Cells 1+
[2016-07-17 14:15] LABS: Potassium 7.6 mmol/L (3.5-5.0)
[2016-07-17 14:16] LABS: Add Path Review? YES
[2016-07-17 15:04] LABS: Urine Bacteria Absent (Absent); Urine Bilirubin Negative (Negative); Urine Glucose 2+(150 mg/dL) (Negative); Urine Nitrite Negative (Negative)
[2016-07-17] MEDS ORDERED: Albuterol HFA INHALER* 8 gm MDI INH PRN (15:46)
[2016-07-17] MEDS ORDERED: Pantoprazole IV* 80 MG in NS 0.9% 250 ML* 250 ML IVPB ONE (15:47)
[2016-07-17] MEDS: NS 0.9% 1000 ML* 1,000 ML IV SCH (17:04)
[2016-07-17 17:49] LABS: Calcium 8.5 mg/dL (8.6-10.3); EGFR African American 20.1 (>60); EGFR Non-African American 15.6 (>60)
[2016-07-17] MEDS: Insulin REGULAR(*) 1 UNITS UNIT SUBCUT SCH ×2 (17:51→22:18)
[2016-07-17 17:52] LABS: Potassium 7.4 mmol/L (3.5-5.0)
[2016-07-17 18:07] LABS: BUN/Creatinine Ratio 36.4 (8-20)
[2016-07-17] MEDS: Pantoprazole IV* 80 MG in NS 0.9% 250 ML* 250 ML IVPB SCH (18:28)
[2016-07-17] MEDS ORDERED: Insulin REGULAR(*) 1 UNITS UNIT SUBCUT ONE (19:11)
[2016-07-17] MEDS ORDERED: Metoclopramide IV* 5 MG/ML 2 ML VIAL IV SLOW PU ONE (19:19)
[2016-07-17] MEDS: Sodium Polystyrene ORAL.SOL* 15 GM/60 ML BTL PO SCH (20:27)
--- NOTE | 2016-07-17 20:48 | ED ---
Brent Silva Billy, scribed for Luis Perdomo MD on 07/17/16 at 1200 . Complex/Multi-Sys Presentation - HPI Summary HPI Summary: This patient is a 66 year-old male coming to [facility] from Dr. Ramos's office for evaluation of several complaints. He reports weakness and shortness of breath. He had one episode of melena 4 days ago and has not had any BM since then. He was on Coumadin but he stopped taking it 2 days ago. Denies pain. - History Of Current Complaint Chief Complaint: EDGIBleed Time Seen by Provider: 07/17/16 11:51 Hx Obtained From: Patient Onset/Duration: Gradual Onset Timing: Constant Severity Currently: Moderate Severity Initially: Moderate Aggravating Factor(s): none Alleviating Factor(s): none Associated Signs And Symptoms: Positive: Weakness, SOB, Melena, Other - constipation - Allergies/Home Medications Allergies/Adverse Reactions: Allergies Allergy/AdvReac Type Severity Reaction Status Date / Time Erythromycin AdvReac Intermediate Stomach Verified 07/17/16 13:43 Cramps Home Medications: Home Medications Metoprolol Tartrate TAB* [Lopressor TAB*] 50 mg PO BID 07/17/16 [History Confirmed 07/17/16] Omeprazole CAP* [Prilosec CAP* 20 MG] 20 mg PO DAILY 07/17/16 [History Confirmed 07/17/16] Sulfamethox/Trimethoprim DS* [Bactrim DS 800/160 TAB*] 1 tab PO BID 07/17/16 [ History Confirmed 07/17/16] PMH/Surg Hx/FS Hx/Imm Hx Endocrine/Hematology History: Reports: Hx Anticoagulant Therapy, Hx Diabetes, Hx Anemia Cardiovascular History: Reports: Hx Congestive Heart Failure, Hx Coronary Artery Disease, Hx Hypercholesterolemia, Hx Hypertension, Other Cardiovascular Problems/Disorders - cardiac cath w/ stents Denies: Hx Pacemaker/ICD Respiratory History: Reports: Hx Asthma GI History: Reports: Hx Gastroesophageal Reflux Disease - ON PRILOSEC History: Denies: Hx Renal Disease Musculoskeletal History: Reports: Hx Arthritis - KNEES Sensory History: Reports: Hx Cataracts - removed bilat, Hx Contacts or Glasses Denies: Hx Hearing Aid Opthamlomology History: Reports: Hx Cataracts - removed bilat, Hx Contacts or Glasses Psychiatric History: Denies: Hx Panic Disorder - Surgical History Surgery Procedure, Year, and Place: RIGHT KNEE SURGERY 1966. CARDIAC CATH WITH STENT 2005-[facility] FOR [address] HAND[address] 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, Hx Shingles Denies: Traveled Outside the [place] in Last 30 Days - Family History Known Family History: Positive: Hypertension, Diabetes, Other - lung cancer, cerebral hemorrhage - Social History Alcohol Use: None Hx Substance Use: No Substance Use Type: Reports: None Hx Tobacco Use: Yes Smoking Status (MU): Former Smoker Amount Used/How Often: 1ppd Length of Time of Smoking/Using Tobacco: 41 years Have You Smoked in the Last Year: No Review of Systems Positive: Shortness Of Breath Gastrointestinal: Other - melena, constipation Positive: Weakness All Other Systems Reviewed And Are Negative: Yes Physical Exam - Summary Physical Exam Summary: VITAL SIGNS: Reviewed. GENERAL: Patient is an obese pale male who is lying comfortable in the stretcher. Patient is not in any acute respiratory distress. HEAD AND FACE: Normocephalic and atraumatic. EYES: PERRLA, EOMI x 2, No injected conjunctiva. EARS: Hearing grossly intact. Ear canals and tympanic membranes are WNL. MOUTH: Oropharynx within normal limits. NECK: Supple, trachea is midline, no adenopathy, no JVD. CHEST: Symmetric, no tenderness at palpation LUNGS: Clear to auscultation bilaterally. No wheezing or crackles. CVS: RRR,, S1 and S2 present, no murmurs or gallops appreciated. ABDOMEN: Soft obese, non-tender. Positive bowel sounds. No rebound no guarding , and no masses palpated. No abdominal bruit or pulsations. RECTAL EXAM: Normal sphincter tone. Positive melena. EXTREMITIES: FROM in all major joints, no edema, no cyanosis or clubbing. NEURO: Alert and oriented x 3. No acute neurological deficits. Speech is normal. SKIN: Dry and warm and pale. Triage Information Reviewed: Yes Vital Signs On Initial Exam: Initial Vitals Temp Pulse Resp BP Pulse Ox 97.3 F 70 20 144/45 100 07/17/16 11:23 07/17/16 11:23 07/17/16 11:23 07/17/16 11:23 07/17/16 11:23 Vital Signs Reviewed: Yes Diagnostics - Vital Signs Vital Signs Temp Pulse Resp BP Pulse Ox 07/17/16 11:26 97.8 F 75 20 144/45 100 07/17/16 11:23 97.3 F 70 20 144/45 100 - Laboratory Lab Results: Lab Results 07/17/16 07/17/16 07/17/16 Range/Units 12:50 12:50 12:50 WBC (3.5-10.8) 10^3/ul RBC (4.0-5.4) 10^6/ul Hgb (14.0-18.0) g/dl Hct (42-52) % MCV (80-94) fL MCH (27-31) pg MCHC (31-36) g/dl RDW (10.5-15) % Plt Count (150-450) 10^3/ul MPV (7.4-10.4) um3 Immature Gran % (Auto) (0-9) % Neut % (Auto) Lymph % (Auto) Rawlins % (Auto) Eos % (Auto) Baso % (Auto) Absolute Neuts (auto) (1.5-7.7) 10^3/ul Absolute Lymphs (auto) (1.0-4.8) 10^3/ul Absolute Monos (auto) (0-0.8) 10^3/ul Absolute Eos (auto) (0-0.6) 10^3/ul Absolute Basos (auto) (0-0.2) 10^3/ul Absolute Nucleated RBC 10^3/ul Neutrophils % (38-83) % Band Neutrophils % (0-8) % Lymphocytes % (25-47) % Monocytes % (0-13) % Eosinophils % (0-6) % Nucleated RBC % Normal RBC Morphology Microcytosis Target Cells Tear Drop Cells Hem Pathologist Commnt INR (Anticoag Therapy) 4.59 H (0.89-1.11) APTT 55.4 H (26.0-36.3) seconds Sodium 138 (133-145) mmol/L Potassium 8.1 H* (3.5-5.0) mmol/L Chloride 118 H (101-111) mmol/L Carbon Dioxide 15 L (22-32) mmol/L Anion Gap 5 (2-11) mmol/L BUN 152 H (6-24) mg/dL Creatinine 4.17 H (0.67-1.17) mg/dL Est GFR ( Amer) 18.4 (>60) Est GFR (Non-Af Amer) 14.3 (>60) BUN/Creatinine Ratio 36.5 H (8-20) Glucose 257 H (70-100) mg/dL Calcium 8.5 L (8.6-10.3) mg/dL Total Bilirubin 0.20 (0.2-1.0) mg/dL AST 13 (13-39) U/L ALT 11 (7-52) U/L Alkaline Phosphatase 96 (34-104) U/L Total Protein 5.8 L (6.4-8.9) g/dL Albumin 3.1 L (3.2-5.2) g/dL Globulin 2.7 (2-4) g/dL Albumin/Globulin Ratio 1.1 (1-3) Urine Color Urine Appearance Urine pH (5-9) Ur Specific Surry (1.010-1.030) Urine Protein (Negative) Urine Ketones (Negative) Urine Blood (Negative) Urine Nitrate (Negative) Urine Bilirubin (Negative) Urine Urobilinogen (Negative) Ur Leukocyte Esterase (Negative) Urine WBC (Auto) (Absent) Urine RBC (Auto) (Absent) Ur Squamous Epith Cells (Absent) Amorphous Crystals (Absent) Urine Bacteria (Absent) Urine Glucose (Negative) Blood Type O Positive Antibody Screen Negative Crossmatch See Detail 07/17/16 07/17/16 07/17/16 Range/Units 12:50 13:48 14:00 WBC 5.8 (3.5-10.8) 10^3/ul RBC 2.60 L (4.0-5.4) 10^6/ul Hgb 5.2 L* (14.0-18.0) g/dl Hct 17 L (42-52) % MCV 67 L (80-94) fL MCH 20 L (27-31) pg MCHC 30 L (31-36) g/dl RDW 20 H (10.5-15) % Plt Count 121 L (150-450) 10^3/ul MPV 9 (7.4-10.4) um3 Immature Gran % (Auto) 2 (0-9) % Neut % (Auto) Not Reportable Lymph % (Auto) Not Reportable Rawlins % (Auto) Not Reportable Eos % (Auto) Not Reportable Baso % (Auto) Not Reportable Absolute Neuts (auto) 4.4 (1.5-7.7) 10^3/ul Absolute Lymphs (auto) 1.2 (1.0-4.8) 10^3/ul Absolute Monos (auto) 0.2 (0-0.8) 10^3/ul Absolute Eos (auto) 0.1 (0-0.6) 10^3/ul Absolute Basos (auto) 0 (0-0.2) 10^3/ul Absolute Nucleated RBC 0 10^3/ul Neutrophils % 74 (38-83) % Band Neutrophils % 2 (0-8) % Lymphocytes % 20 L (25-47) % Monocytes % 3 (0-13) % Eosinophils % 1 (0-6) % Nucleated RBC % 0.2 Normal RBC Morphology Not Reportable Microcytosis 3+ Target Cells 1+ Tear Drop Cells 1+ Hem Pathologist Commnt Pending INR (Anticoag Therapy) (0.89-1.11) APTT (26.0-36.3) seconds Sodium 139 (133-145) mmol/L Potassium 7.6 H* (3.5-5.0) mmol/L Chloride 118 H (101-111) mmol/L Carbon Dioxide 16 L (22-32) mmol/L Anion Gap 5 (2-11) mmol/L BUN 143 H (6-24) mg/dL Creatinine 4.09 H (0.67-1.17) mg/dL Est GFR ( Amer) 18.9 (>60) Est GFR (Non-Af Amer) 14.7 (>60) BUN/Creatinine Ratio 35.0 H (8-20) Glucose 242 H (70-100) mg/dL Calcium 8.3 L (8.6-10.3) mg/dL Total Bilirubin (0.2-1.0) mg/dL AST (13-39) U/L ALT (7-52) U/L Alkaline Phosphatase (34-104) U/L Total Protein (6.4-8.9) g/dL Albumin (3.2-5.2) g/dL Globulin (2-4) g/dL Albumin/Globulin Ratio (1-3) Urine Color Yellow Urine Appearance Cloudy Urine pH 5.0 (5-9) Ur Specific Surry 1.015 (1.010-1.030) Urine Protein 3+(>=500 mg/dl) H (Negative) Urine Ketones Negative (Negative) Urine Blood 1+ H (Negative) Urine Nitrate Negative (Negative) Urine Bilirubin Negative (Negative) Urine Urobilinogen Negative (Negative) Ur Leukocyte Esterase Negative (Negative) Urine WBC (Auto) Trace(0-5/hpf) (Absent) Urine RBC (Auto) 1+(3-5/hpf) H (Absent) Ur Squamous Epith Cells Present H (Absent) Amorphous Crystals Present H (Absent) Urine Bacteria Absent (Absent) Urine Glucose 2+(150 mg/dl) H (Negative) Blood Type Antibody Screen Crossmatch Result Diagrams: 07/17/16 12:50 07/17/16 17:25 Lab Statement: Any lab studies that have been ordered have been reviewed, and results considered in the medical decision making process. - Radiology CXR Radiology Interpretation Completed By: Radiologist - Low lung volumes with minimal subsegmental atelectasis. - EKG 1340 EKG Interpretation: NSR 78 bpm, RBBB Re-Evaluation - Re-Evaluation First Eval Re-Evaluation Time: 12:54 Complex Multi-Symp Course/Dx Assessment/Plan: This patient is a 66 year-old male coming to [facility] from Dr. Ramos's office for evaluation of several complaints. He reports weakness and shortness of breath. He had one episode of melena 4 days ago and has not had any BM since then. He was on Coumadin but he stopped taking it 2 days ago. Denies pain. Test results show Hgb of 5.2, Hct of 17. INR is 4.59. Potassium is 7.6, chloride is 118, CO2 16, BUN and creatinine shows acute on chronic renal failure with BUN of 143 and creatinine of 4.09. Calcium is 8.3. UA shows 3+ protein and 1+ blood. The rectal exam shows that the patient had melena. Therefore I believed that the patient has an upper GI bleed. We obtained two IV accesses even though the patient was hemodynamically stable. The patient was given two units packed RBC transfusions and he was also transfused fresh, frozen plasma and given vitamin K since the patient was taking Coumadin. The patient was given protonix. For the hypokalemia, he was given insulin, dextrose , calcium gluconate, kayexalate. At this point, I discussed my findings with Dr. Whitley from GI, and he will consult for the patient. I also discussed the case with Dr. Cardoza from the ICU services who recommends admission to the ICU with admission to the hospitalist services. I also discussed the case with Dr. Goldman who accepted the patient for admission. - Diagnoses Differential Diagnoses/HQI/PQRI: Other - Symptomatic anemia, GI bleed. Provider Diagnoses: GI bleed, Hyperkalemia, Acute on chronic renal failure - Physician Notifications Discussed Care Of Patient With: Dr. Goldman (hospitalist) at 1345: accepts admission. Dr. Cardoza (layout mechanic) at 1348: admit to ICU under the hospitalist. Dr. Whitley () at 1353: will consult for this patient. - Critical Care Time Critical Care Time: 30-74 min Discharge - Discharge Plan Condition: Critical Disposition: ADMITTED TO [facility] documentation as recorded by the Brent lopez Billy accurately reflects the service I personally performed and the decisions made by me, Luis Perdomo MD.
--- NOTE | 2016-07-17 21:49 | HP ---
CC: Dr. Oakley HISTORY AND PHYSICAL: DATE OF ADMISSION: 07/17/16 PRIMARY CARE PHYSICIAN: Dr. Oakley. CHIEF COMPLAINT: Weakness, dyspnea on exertion. HISTORY OF PRESENT ILLNESS: Mr. Guzman is a pleasant 66-year-old man with past medical history of h ypertension; hyperlipidemia; CAD, status post PCI; bilateral lower extremity DVTs, on Coumadin; CKD; peripheral neuropathy; microcytic anemia; and diabetes who presents to the hospital with dyspnea on exertion and melena. The patient states starting about a week ago, he felt a bit weaker than usual . He states he would get tired when walking distances and need to rest and felt weak in the legs. He would get short of breath. About 4 or 5 days ago, he noticed that he had a black stool. This wa s on Wednesday. He states he has not had a bowel movement since then. He had been on Coumadin and sto pped it on Wednesday. He also states he was taken off diuretics a few days ago, although the reason for this is unclear. He states he has had significant weight loss of about 40 pounds since starting the diuretic on May 30, which was initially started by Dr. Krishna. The patient was hospitalized earlier this year for edema, although echocardiogram at that time was relatively normal. The patien t has been following up with Dr. Ramos and he went to see him in the office today and due to these complaints, Dr. Ramos sent him right down to the emergency department. The patient does also endor se taking ibuprofen frequently. He states he has been taking about 4 a day for the past 10 years. He denies any fever, chills, or abdominal pain. Has had a decreased appetite as of late. No nausea or vomiting. Would not say he has felt confused, but "murky." He states the lower extremity edema has been improved. PAST MEDICAL HISTORY: 1. CKD. 2. Bilateral lower extremity DVTs, on Coumadin, which occurred about a year ago. 3. Hypertension. 4. Hyperlipidemia. 5. CAD, status post PCI. 6. Peripheral neuropathy. 7. Microcytic anemia. 8. Diabetes. PAST SURGICAL HISTORY: 1. Right knee arthroplasty. 2. Carpal tunnel, benign cyst. ALLERGIES: The patient reports allergy to ERYTHROMYCIN. FAMILY HISTORY: Significant for mother with stroke. SOCIAL HISTORY: The patient is a former 26-aegr-agec smoker, quit 12 years ago. Denies any alcohol or illicit drug use. REVIEW OF SYSTEMS: A 12-point review of systems negative except for that noticed in the HPI. PHYSICAL EXAMINATION GENERAL: The patient is a pleasant, middle-aged gentleman sitting in chair in no apparent distress. VITAL SIGNS: On admission, temperature 97.3, heart rate of 70, respiratory rate of 20, O2 saturatio n 100% on room air, blood pressure 144/45. HEENT: Head: Normocephalic, atraumatic. Eyes: Pale conjunctivae. Pupils equal, round, reactive to light and accommodation. ENT: Clear posterior oropharynx. Moist mucous membranes. NECK: No cervical adenopathy. LUNGS: Clear to auscultation bilaterally. No wheezes, rales, or rhonchi. CARDIOVASCULAR: Regular rate and rhythm. S1 and S2 present. No murmurs, gallops, or rubs. ABDOMEN: Soft, obese, nontender, nondistended. Bowel sounds are positive. EXTREMITIES: Trace lower extremity edema. Chronic skin changes. NEUROLOGIC: The patient is alert and oriented x3. No focal neurological deficits. LABS AND DIAGNOSTICS: White blood cell count of 5.8, hemoglobin of 5.2, hematocrit of 17, platelet s of 121. INR 4.59. Sodium of 139, potassium of 8.1 with a repeat of 7.6, chloride of 118, carbon dioxide of 16, BUN of 143, creatinine of 4.09, glucose of 242. LFTs within normal limits. Albumin of 3.1. Urine protein was 3+, urine blood 1+, urine rbc's 1+. Chest x-ray personally reviewed shows low lung volumes, no acute disease, some atelectasis. EKG shows normal sinus rhythm with right bundle branch block. ASSESSMENT AND PLAN: Acute blood loss anemia, acute kidney injury on chronic kidney disease in a 66 -year-old male with past medical history of hypertension; hyperlipidemia; coronary artery disease, s tatus post percutaneous coronary intervention; bilateral lower extremity deep venous thrombosis, on Coumadin; chronic kidney disease; peripheral neuropathy; microcytic anemia; diabetes. 1. Acute blood loss anemia secondary to GI bleed: Seems like this is likely an upper GI bleed with the melena and the patient's significantly elevated BUN, although this had been high in the past. His ibuprofen use is certainly concerning. The patient was ordered 2 units of packed red blood cell s, FFP, received vitamin K in the emergency department. GI was consulted. I will start the patient on Protonix drip. We will recheck his CBC and INR in the morning. 2. Acute kidney injury on chronic kidney disease: The patient has potentially a number of underlyi ng causes for this including NSAID use, overdiuresis, blood loss. He also has significant hyperkalem ia with some peak T waves. The patient is receiving calcium gluconate, insulin, D50, and Kayexalate in the emergency department. He received 1 L IV fluid bolus down there. We will continue on 75 cc an hour in addition to the blood products he is getting. We will recheck a BMP in a few hours to en sure his potassium is improving. 3. History of deep venous thrombosis, on Coumadin: Hold Coumadin for now. Recheck INR in the [facility]. 4. Hypertension: For now, we will hold metoprolol, lisinopril. 5. Diabetes: Continue home Lantus. We will write for regular insulin sliding scale while the amy ent is n.p.o. 6. Hyperlipidemia: Continue home statin. 7. DVT prophylaxis: SCDs. 8. Code status: The patient is full code. TIME SPENT: Total time spent on this admission, 65 minutes with over half the time spent face-to-fa ce with the patient in counseling and coordinating care. [id number]/[facility] #: [id number]
[2016-07-17] MEDS: Insulin GLARGINE(*) 1 UNITS UNIT SUBCUT SCH (22:16)
[2016-07-17 22:30] LABS: Calcium 9.2 mg/dL (8.6-10.3); EGFR African American 20.9 (>60); EGFR Non-African American 16.2 (>60)
[2016-07-17 22:33] LABS: Potassium 6.8 mmol/L (3.5-5.0)
[2016-07-17 22:48] LABS: BUN/Creatinine Ratio 38.7 (8-20)
--- NOTE | 2016-07-17 23:52 | CONS ---
GASTROENTEROLOGY CONSULT: DATE OF CONSULT: 07/16/16 CONSULTING PHYSICIANS: Riaz Goldman, Conrado Ramos , Mario Oakley, Diony Nunes * REASON FOR CONSULT: Black stool and hemoglobin 5.2 in a man with severe chronic renal disease and a history of DVT, on warfarin. HISTORY OF PRESENT ILLNESS: This 66-year-old man first consulted Dr. Ramos 2 months ago has been feeling weak over the last couple of months. He started feeling even weaker 2 weeks ago. He did not have any specific gastrointestinal issues and said he was not having heartburn or vomiting. He was having a bowel movement daily of a normal color, he felt reasonably well on Mother's Day. On 07/13/16, however, his stool was black and he had a second black stool and felt weaker and anorectic. He has not had any more stools at all. He states he has never had black stools before. He characteristically has not had any gastrointestinal issues other than heartburn for which he was placed on omeprazole several years ago. He Prilosec and it was converted over to omeprazole generic relatively recently. He had upper endoscopy on 09/29/12, though does not remember it. There was a little bit of gastritis. CLOtest was negative. He had colonoscopy at that time also, which showed a hyperplastic polyp in the rectum. PAST MEDICAL HISTORY: 1. Morbid obesity - he has had a bariatric consult once. 2. Chronic renal disease. 3. Hypertension. 4. History of bilateral lower extremity DVTs in early 2015. He was on Plavix and aspirin at that time and that was mysterious. Plavix was stopped and Xarelto given and then converted over to warfarin due to expense. 5. Coronary artery disease - coronary stent 12 years ago. 6. Chronic anemia - he has had a Hematology consult in the past. 7. Peripheral neuropathy - workup details not available. 8. Right total knee. 9. Diabetes. MEDICATIONS: At home: 1. Bactrim 1 b.i.d. 2. Warfarin 5. 3. Atorvastatin 20. 4. Allopurinol 300. 5. Metoprolol 50 b.i.d. 6. Lisinopril 40%. 7. Insulin lispro and Lantus, 8. Omeprazole 20. 9. Ketoconazole cream. SOCIAL HISTORY: He is . REVIEW OF SYSTEMS: He has had MRSA infections of his lower feet. He has not had syncope, seizures, CVA, blood clots in any area besides his legs, jaundice or hepatitis. PHYSICAL EXAMINATION: He is a morbidly obese man lying in bed with the CPAP attached and he is receiving Kayexalate and insulin glucose infusion because of potassium of 8.1 at 1 p.m. today. Abdomen is obese, soft and nontender. He is alert and oriented. Legs are grossly obese. Rectal deferred. DIAGNOSTIC STUDIES/LAB DATA: Creatinine had been in the 2 since January 2016 and then it is 3 on 06/22/16 jumping to 4 by 2 days ago. IMPRESSION: This man with diabetes, morbid obesity and significant chronic renal disease, on warfarin because of a history of deep venous thromboses, now has a first time melena. He had an EGD that was fairly unremarkable with a negative CLOtest, November 2012. His current bleeding is a little unusual in that setting especially since his INR excess was relatively modest to 5.43. He had a similar INR overshoot 04/08/16 at 6.30 that actually went as high as 6.80 with no apparent bleeding then. Although, all the data does not exactly get together logically, he clearly needs EGD when his metabolic situation is stabilized. [id number]/[facility] #: [id number] [facility]PITALEstella
[2016-07-18 00:44] LABS: Hematocrit 19 % (42-52)
[2016-07-18 00:47] LABS: Comments Flag Yes
[2016-07-18] MEDS ORDERED: Phytonadione Oral Solution* 5 MG/25 ML UDC PO ONE (01:00)
[2016-07-18] MEDS: Sodium Polystyrene ORAL.SOL* 15 GM/60 ML BTL PO SCH (01:52)
[2016-07-18 06:24] LABS: Hematocrit 21 % (42-52); Mean Corpuscular HGB Conc 31 g/dl (31-36); Mean Corpuscular Hemoglobin 23 pg (27-31); Mean Corpuscular Volume 74 fL (80-94); Mean Platelet Volume 9 um3 (7.4-10.4); Red Blood Count 2.77 10^6/ul (4.0-5.4); Red Cell Distribution Width 25 % (10.5-15); White Blood Count 4.8 10^3/ul (3.5-10.8)
[2016-07-18 06:30] LABS: Comments Flag Yes
[2016-07-18 06:31] LABS: Hemoglobin 6.3 g/dl (14.0-18.0)
[2016-07-18 06:35] LABS: BUN/Creatinine Ratio 35.9 (8-20); Blood Urea Nitrogen 130 mg/dL (6-24); CO2 Carbon Dioxide 15 mmol/L (22-32); Calcium 8.4 mg/dL (8.6-10.3); Chloride 126 mmol/L (101-111); EGFR African American 21.7 (>60); EGFR Non-African American 16.9 (>60); Glucose 71 mg/dL (70-100); Sodium 147 mmol/L (133-145)
[2016-07-18] MEDS: Insulin REGULAR(*) 1 UNITS UNIT SUBCUT SCH ×3 (06:47→18:38)
[2016-07-18] MEDS: Pantoprazole IV* 80 MG in NS 0.9% 250 ML* 250 ML IVPB SCH ×3 (07:58→18:39)
[2016-07-18] MEDS: Insulin GLARGINE(*) 1 UNITS UNIT SUBCUT SCH ×2 (09:00→20:41)
[2016-07-18] MEDS ORDERED: Sodium Polystyrene ORAL.SOL* 15 GM/60 ML BTL PO ONE (09:01)
[2016-07-18] MEDS ORDERED: Meperidine SYRINGE* 50 MG/ML ONE (10:58)
[2016-07-18] MEDS ORDERED: Midazolam* 1 MG/ML 10 ML VIAL (10 MG) ONE (10:59)
--- NOTE | 2016-07-18 14:12 | PN ---
Subjective Date of Service: 07/18/16 Interval History: Interviewed and examined patient at bedside; Discussed case with Dr. Goldman ; Reviewed previous notes and radiology results; Notice hgb is still very low (6.2) despite 3 units prbc since yesterday. Additional units ordered by me. CBC ordered for 4 PM Potassium still elevated; Kayexelate ordered Awaiting EGD for presumed upper GI bleed given NSAID use and dark stools, elevated BUN, etc. Patient otherwise in good spirits. Family History: Unchanged from Admission Social History: Unchanged from Admission Past Medical History: Unchanged from Admission Objective Active Medications: . Albuterol (Ventolin Hfa Inhaler*) 2 puff INH Q6H PRN PRN Reason: DYSPNEA Atorvastatin Calcium (Lipitor*) 20 mg PO QPM [facility] Dextrose (D50w Syringe 50 Ml*) 25 gm IV PUSH ONCE PRN PRN Reason: hyperkalemia Last Admin: 07/17/16 15:23 Dose: 25 gm Sodium Chloride (Ns 0.9% 1000 Ml*) 1,000 mls @ 75 mls/hr IV PER RATE [facility] Last Admin: 07/17/16 17:04 Dose: 75 mls/hr Pantoprazole Sodium 80 mg/ (Sodium Chloride) 250 mls @ 25 mls/hr IVPB Q10H [facility] Last Admin: 07/18/16 12:00 Dose: Not Given Insulin Glargine (Lantus(*)) 40 units SUBCUT BID [facility] Last Admin: 07/18/16 09:00 Dose: Not Given Insulin Human Regular (Insulin Regular(*)) 0 - 10 units SUBCUT Q6HR [facility] PRN Reason: Protocol Last Admin: 07/18/16 12:30 Dose: Not Given . Vital Signs 07/17/16 07/17/16 07/17/16 14:30 15:00 16:02 Temperature Pulse Rate 66 Respiratory 12 14 Rate Blood Pressure 105/41 110/85 135/63 (mmHg) O2 Sat by Pulse 97 Oximetry 07/17/16 07/17/16 07/17/16 16:03 16:04 16:15 Temperature 97.6 F 97.6 F Pulse Rate 85 73 Respiratory 16 16 Rate Blood Pressure 135/63 105/81 (mmHg) O2 Sat by Pulse 99 98 Oximetry Appearance: elderly, obese Eyes: No Scleral Icterus Ears/Nose/Mouth/Throat: - - scattered oral lesions - patient says he has recently suffered a mucositis-like picture. Neck: NL Appearance and Movements; NL JVP Respiratory: Symmetrical Chest Expansion and Respiratory Effort Cardiovascular: NL Sounds; No Murmurs; No JVD Abdominal: NL Sounds; No Tenderness; No Distention Lymphatic: No Cervical Adenopathy Extremities: No Clubbing, Cyanosis, - - + lower extremity edema Neurological: Alert and Oriented x 3 Lines/Tubes/Other Access: Clean, Dry and Intact Peripheral IV Nutrition: - - NPO for EGD Result Diagrams: 07/18/16 05:30 07/18/16 07:25 Microbiology and Other Data: Microbiology 07/17/16 21:28 Transfusion Reaction Culture - Preliminary Blood Bag Culture Under Incubation Transfusion Reaction Gram Stain - Final Assess/Plan/Problems-Billing . Assessment: 66 yo man with acute on chronic anemia, presumably from Upper GI bleed given history of heavy NSAID use. Concomitant renal failure -- CKD stage III-IV, with ineffective erythropoiesis. Current Medications: - Albuterol (Ventolin Hfa Inhaler) 2 puff INH Q6H PRN DYSPNEA - Atorvastatin Calcium (Lipitor) 20 mg PO QPM - Dextrose (D50w Syringe 50 Ml) 25 gm IV PUSH ONCE PRN hyperkalemia - NS @ 75 mls/hr - Protonix gtt - lantus 40 units SUBCUT BID - Insulin Human Regular SSI by Protocol . - Patient Problems (1) Acute blood loss anemia Current Visit: Yes Status: Acute Priority: High Code(s): D62 - ACUTE POSTHEMORRHAGIC ANEMIA Comment: - 2 PIV - additional 2 units prbc - total of 5 - recheck cbc at 4 PM and again in AM - IVF ongoing - IV PPI - EGD for source determination (2) Upper GI hemorrhage Current Visit: Yes Status: Acute Priority: High Code(s): K92.2 - GASTROINTESTINAL HEMORRHAGE, UNSPECIFIED Comment: - NSAID use is a strong predisposing factor - PPI gtt ongoing - transfuse given ineffective increase in hgb after 3 units given. - follow cbc (hgb) and hemodynamic / clinical parameters (3) CKD (chronic kidney disease) Current Visit: No Status: Acute Code(s): N18.9 - CHRONIC KIDNEY DISEASE, UNSPECIFIED Comment: - Cr a bit elevated wrt to baseline - Anemia of chronic disease is his baseline . (4) Diabetes Current Visit: No Status: Acute Priority: High Code(s): E11.9 - TYPE 2 DIABETES MELLITUS WITHOUT COMPLICATIONS Comment: - Continue home insulin regimen (5) Microcytic anemia Current Visit: No Status: Acute Code(s): D50.9 - IRON DEFICIENCY ANEMIA, UNSPECIFIED Comment: - Thal minor as per Dr. Nunes's outpatient notes. - Microcytic anemia
[2016-07-18 16:41] LABS: Hematocrit 27 % (42-52); Hemoglobin 8.7 g/dl (14.0-18.0); Mean Corpuscular HGB Conc 32 g/dl (31-36); Mean Corpuscular Hemoglobin 24 pg (27-31); Mean Corpuscular Volume 75 fL (80-94); Mean Platelet Volume 9 um3 (7.4-10.4); Red Blood Count 3.56 10^6/ul (4.0-5.4); White Blood Count 5.8 10^3/ul (3.5-10.8)
[2016-07-18 16:44] LABS: Add Diff/Slide Review? Manual Diff Added; Comments Flag Yes; Red Cell Distribution Width 25 % (10.5-15)
[2016-07-18] MEDS ORDERED: Atorvastatin* 20 MG TAB PO SCH (18:00)
[2016-07-18 18:07] LABS: Eosinophils % 6 % (0-6); Immature Granulocytes 1 % (0-9); Metamyelocytes % 1 % (0-2); Neutrophil % 60 % (38-83)
[2016-07-18 18:08] LABS: Hypochromasia 1+; Microcytosis 1+; Polychromasia 1+
[2016-07-18 18:09] LABS: Basophilic Stippling 1+
[2016-07-18] MEDS: Atorvastatin* 20 MG TAB PO SCH (20:41)
[2016-07-18] MEDS: NS 0.9% 1000 ML* 1,000 ML IV SCH (20:46)
[2016-07-19] MEDS: Insulin REGULAR(*) 1 UNITS UNIT SUBCUT SCH ×5 (00:10→23:41)
--- NOTE | 2016-07-19 03:59 | PRO ---
DATE: 07/17/16 - ROOM #[id number] REFERRING PHYSICIANS: Mario Oakley MD; Conrado Ramos MD* PROCEDURE: Upper gastrointestinal endoscopy through to proximal jejunum. INDICATION: A 66-year-old man with chronic renal disease, diabetes, and bilateral DVTs about a year ago on warfarin came in with melena. As an outpatient, he has been on low dose aspirin and omeprazole 20 mg. He does not have any acid peptic complaints currently, being completely satisfied with reflux control on the omeprazole. He has been transfused a couple of units and his elevated potassium treated now at 5.9, sodium 147, INR 1.92 six hours ago. ENDOSCOPIST: Dr. Whitley. MEDICATIONS: Midazolam 2.5, meperidine 25. FINDINGS: He is a morbidly obese man in the ICU, lying in bed, in no respiratory distress, O2 saturation 92%. He seems quite calm. EGD: Larynx - limited views show no gross pathology and no blood. Esophagus - easily entered and the mucosa is normal in the upper, mid, and lower esophagus with the EG junction at 40 appearing snug without erosions or any chronic changes. There is no hiatal hernia and no laxity. Stomach - generally normal mucosa and normal rugal pattern. No blood is seen. In retroflexion with distention, very subtle pinpoint gastropathy pattern is evident in the mid fundus. It is mild. No varices are seen. There is no blood or bleeding. The antrum has a fair amount of bubbles and there is no blood or abnormality noted until the bubbles are washed clear and then a splotchy mild erythema pattern is seen nonspecific, but potentially an early form of "watermelon stomach." The gastropathy is fairly symmetric and without any actual erosions or granularity which would be against H. pylori or NSAID effect. Pylorus appears normal. Duodenum - the bulb and second through fourth portions appear normal. Jejunum - estimated 15 to 20 cm seen as the patient was quite calm without any gagging and cooperated perfectly. Slow withdrawal from the jejunal point showed no AVMs or red points whatsoever. IMPRESSION: Subtle gastropathy, gastric fundus and somewhat more impressive gastric antrum - the leading possible culprit for accelerated oozing if the INR is out of control, though cannot rule out a lesion more distally in the jejunum. The clinical pattern so far does not suggest that a colonoscopy would be useful. [id number]/[facility] #: [id number] MTDD
[2016-07-19] MEDS: Pantoprazole IV* 80 MG in NS 0.9% 250 ML* 250 ML IVPB SCH ×2 (04:54→17:13)
[2016-07-19 05:34] LABS: Hematocrit 25 % (42-52); Hemoglobin 7.9 g/dl (14.0-18.0); Mean Corpuscular HGB Conc 32 g/dl (31-36); Mean Corpuscular Hemoglobin 24 pg (27-31); Mean Corpuscular Volume 75 fL (80-94); Mean Platelet Volume 8 um3 (7.4-10.4); Red Blood Count 3.35 10^6/ul (4.0-5.4); White Blood Count 5.3 10^3/ul (3.5-10.8)
[2016-07-19 05:35] LABS: BUN/Creatinine Ratio 34.5 (8-20); Calcium 8.1 mg/dL (8.6-10.3); EGFR African American 28.7 (>60); EGFR Non-African American 22.3 (>60); Magnesium 1.6 mg/dL (1.9-2.7); Phosphorus 3.8 mg/dL (2.5-5.0)
[2016-07-19 05:50] LABS: Comments Flag Yes; Red Cell Distribution Width 24 % (10.5-15)
[2016-07-19] MEDS: Insulin GLARGINE(*) 1 UNITS UNIT SUBCUT SCH ×2 (09:00→22:17)
[2016-07-19] MEDS ORDERED: Pantoprazole IV* 40 MG IV SCH (14:00)
--- NOTE | 2016-07-19 16:55 | PN ---
Subjective Date of Service: 07/19/16 Interval History: . patient in good spirits. denies pain eating ok sitting in chair still very weak. observing hgb -- appropriate bump in response to 4th and 5th units prbc, but still not a large buffer for further losses. . Family History: Unchanged from Admission Social History: Unchanged from Admission Past Medical History: Unchanged from Admission Objective Active Medications: . Albuterol (Ventolin Hfa Inhaler*) 2 puff INH Q6H PRN PRN Reason: DYSPNEA Atorvastatin Calcium (Lipitor*) 20 mg PO [facility]EDTIME [facility] Last Admin: 07/18/16 20:41 Dose: 20 mg Dextrose (D50w Syringe 50 Ml*) 25 gm IV PUSH ONCE PRN PRN Reason: hyperkalemia Last Admin: 07/17/16 15:23 Dose: 25 gm Insulin Glargine (Lantus(*)) 40 units SUBCUT BID [facility] Last Admin: 07/19/16 09:00 Dose: Not Given Insulin Human Regular (Insulin Regular(*)) 0 - 10 units SUBCUT Q6HR [facility] PRN Reason: Protocol Last Admin: 07/19/16 14:17 Dose: 3 units Pantoprazole Sodium (Protonix Iv*) 40 mg IV Q12H [facility] . Vital Signs 07/18/16 07/18/16 07/18/16 17:00 17:15 18:00 Temperature Pulse Rate 90 87 86 Respiratory 16 16 12 Rate Blood Pressure 197/87 203/76 (mmHg) O2 Sat by Pulse 98 97 97 Oximetry 07/18/16 07/18/16 07/18/16 19:00 19:36 20:00 Temperature 98.2 F Pulse Rate 89 93 Respiratory 13 15 Rate Blood Pressure (mmHg) O2 Sat by Pulse 98 99 Oximetry Appearance: elderly, good spirits Eyes: No Scleral Icterus Ears/Nose/Mouth/Throat: Clear Oropharnyx Neck: Trachea Midline Respiratory: Symmetrical Chest Expansion and Respiratory Effort Cardiovascular: NL Sounds; No Murmurs; No JVD Abdominal: No Hepatosplenomegaly, - - obese Extremities: - - 1+ lower extremity edema Skin: No Rash or Ulcers Lines/Tubes/Other Access: Clean, Dry and Intact Peripheral IV Nutrition: Taking PO's Result Diagrams: 07/19/16 05:04 07/19/16 05:04 Microbiology and Other Data: Microbiology 07/17/16 21:28 Transfusion Reaction Culture - Preliminary Blood Bag Culture Under Incubation Transfusion Reaction Gram Stain - Final Assess/Plan/Problems-Billing . Assessment: 66 yo man with acute on chronic anemia, presumably from Upper GI bleed given history of heavy NSAID use. Concomitant renal failure -- CKD stage III-IV, with ineffective erythropoiesis. Current Medications: - Albuterol (Ventolin Hfa Inhaler) 2 puff INH Q6H PRN DYSPNEA - Atorvastatin Calcium (Lipitor) 20 mg PO QPM - Dextrose (D50w Syringe 50 Ml) 25 gm IV PUSH ONCE PRN hyperkalemia - NS - stopped - Protonix IV BID - lantus 40 units SUBCUT BID - Insulin Human Regular SSI by Protocol . - Patient Problems (1) Acute blood loss anemia Current Visit: Yes Status: Acute Priority: High Code(s): D62 - ACUTE POSTHEMORRHAGIC ANEMIA Comment: - 2 PIV - total of 5 units prbc - recheck cbc does not indicate further bleeding, especially given IVF ( dilution effect) - IVF stopped - IV PPI (gtt to bolus; convert to oral tomorrow) - EGD for source determination --> gastritis/gastropathy (2) Upper GI hemorrhage Current Visit: Yes Status: Acute Priority: High Code(s): K92.2 - GASTROINTESTINAL HEMORRHAGE, UNSPECIFIED Comment: - NSAID use is a strong predisposing factor - PPI gtt / now boluses - transfuse given ineffective increase in hgb after 3 units given -- better with /. - follow cbc (hgb) and hemodynamic / clinical parameters. (3) CKD (chronic kidney disease) Current Visit: No Status: Acute Code(s): N18.9 - CHRONIC KIDNEY DISEASE, UNSPECIFIED Comment: - Cr improved; presumably 2/2 better intravascular volume - Anemia of chronic renal failure (4) Diabetes Current Visit: No Status: Acute Priority: High Code(s): E11.9 - TYPE 2 DIABETES MELLITUS WITHOUT COMPLICATIONS Comment: - Continue home insulin regimen (5) Microcytic anemia Current Visit: No Status: Acute Code(s): D50.9 - IRON DEFICIENCY ANEMIA, UNSPECIFIED Comment: - Thal minor as per Dr. Nunes's outpatient notes. - Microcytic anemia; mcv 66 on admission. subsequent mcv's are confounded by transfused rbc's.
[2016-07-19 18:08] LABS: Ferritin 422.4 ng/mL (24-336)
[2016-07-19] MEDS: Pantoprazole IV* 40 MG IV SCH (18:37)
[2016-07-19] MEDS ORDERED: amLODIPine TAB* 5 MG PO ONE (18:45)
[2016-07-19] MEDS: Atorvastatin* 20 MG TAB PO SCH (20:23)
[2016-07-20] MEDS: Insulin REGULAR(*) 1 UNITS UNIT SUBCUT SCH ×2 (06:26→13:17)
[2016-07-20 07:03] LABS: Corrected Retic Count 1.9 % (0.5-1.5); Hematocrit 25 % (42-52); Hemoglobin 8.1 g/dl (14.0-18.0); Immature Retic Fraction 0.61; Mean Corpuscular HGB Conc 32 g/dl (31-36); Mean Corpuscular Hemoglobin 24 pg (27-31); Mean Corpuscular Volume 76 fL (80-94); Mean Platelet Volume 8 um3 (7.4-10.4); Red Blood Count 3.36 10^6/ul (4.0-5.4); White Blood Count 6.4 10^3/ul (3.5-10.8)
[2016-07-20 07:04] LABS: Comments Flag Yes; Red Cell Distribution Width 24 % (10.5-15)
[2016-07-20 07:05] LABS: Add Diff/Slide Review? Slide Review Added
[2016-07-20] MEDS: Pantoprazole IV* 40 MG IV SCH (07:08)
[2016-07-20 07:15] LABS: BUN/Creatinine Ratio 30.5 (8-20); EGFR African American 34.4 (>60); EGFR Non-African American 26.8 (>60); Potassium 4.9 mmol/L (3.5-5.0)
[2016-07-20 07:26] LABS: Basophilic Stippling 1+; Target Cells 1+; Tear Drop Cells 1+
[2016-07-20 07:32] VITALS: BP 152/70
[2016-07-20] MEDS ORDERED: amLODIPine TAB* 5 MG PO SCH (09:00)
[2016-07-20] MEDS: Insulin GLARGINE(*) 1 UNITS UNIT SUBCUT SCH (09:31)
--- NOTE | 2016-07-20 16:52 | PN ---
Hospitalist Progress Note . HOSPITALIST DISCHARGE NOTE: See dc instructions and summary by me. Patient stable for dc dc instructions reviewed with the patient at the bedside. DC patient home today.
--- NOTE | 2016-07-21 13:29 | DS ---
CC: Dr. Oakley; Dr. Ramos; Dr. Som Nunes; Dr. Jose Whitley DISCHARGE SUMMARY: DATE OF ADMISSION: 07/17/16 DATE OF DISCHARGE: 07/20/16 STATUS DURING HOSPITALIZATION: Inpatient. PRIMARY CARE PROVIDER: Dr. Mario Oakley. OUTPATIENT DISPUTE RESOLUTION SPECIALIST: Dr. Ramos. OUTPATIENT ASSOCIATE CURATOR: Dr. Som Nunes. CONSULTING RISK MANAGEMENT ANALYST: Dr. Jose Whitley. PRINCIPAL DISCHARGE DIAGNOSES: 1. Acute upper gastrointestinal bleed with acute blood loss anemia and hypovolemic shock, requiring 5 units of packed red blood cells. 2. Acute on chronic renal failure with elevated creatinine to 4.17, up from baseline of around 2 and 2.43, which is his discharge creatinine, as well as hyperkalemia to 8.1 at admission, with discharge value of 4.9, and ongoing metabolic acidosis secondary to renal failure. SECONDARY DIAGNOSES: 1. Baseline microcytic anemia secondary to thalassemia minor trait. 2. Diabetes mellitus. 3. History of bilateral deep venous thrombosis about a year ago - on warfarin in the outpatient setting. 4. Chronic headaches with copious use of NSAIDs in the outpatient setting and NSAID related renal disease (intrarenal failure). 5. Hypertension. 6. Hyperlipidemia. 7. Coronary artery disease - status post PCI. 8. Peripheral neuropathy. DISCHARGE MEDICATION REGIMEN: 1. Amlodipine 10 mg by mouth daily (new) 2. Increased omeprazole to 40 mg by mouth daily, up from 20. 3. Stop warfarin. 4. Stop Bactrim. 5. Insulin glargine 40 units subcutaneously twice daily. 6. Lisinopril 40 mg by mouth daily (see discussion below). 7. Albuterol HFA inhaler two puffs inhaled every 6 hours as needed for dyspnea. 8. Pregabalin/Lyrica 50 mg by mouth twice daily. 9. Lispro 25 units subcu 3 times daily or based on blood sugar readings. 10. Allopurinol 300 mg by mouth in the morning. 11. Lipitor 20 mg by mouth in the evening. 12. Collagenase enzymatic debridement, apply to affected area daily - third finger wound. 13. Ketoconazole 2% cream apply twice daily to digit wound as above. 14. Metoprolol 50 mg by mouth twice daily. HISTORY OF PRESENT ILLNESS AND HOSPITAL COURSE: Please see the thorough H and P by Dr. Riaz Goldman on 07/17/16. In brief, Mr. Guzman is a pleasant, but complicated 66-year-old gentleman with a past medical history including bilateral extremity DVTs, on Coumadin, as well as CKD, with baseline creatinine of around 2 in so far as I can tell, as well as peripheral neuropathy based on microcytic anemia with mention of thalassemia minor trait in outpatient Hematology notes, as well as diabetes, who came to the hospital with worsening dyspnea on exertion and melena. The patient has felt a bit weaker than usual over the past few days. He would get tired with walking and needs to rest and felt weak in his legs. The patient had black stool starting 5 days prior to admission. He did not have any bowel movements between then and the day before admission. The patient was recently taken off diuretics thinking that there was overly aggressive weight loss and he reports about 40 pounds off since 05/30, where as the diuretics were initially started by Dr. Krishna of Cardiology. The patient saw Dr. Ramos, his finisher wallboard and plasterboard, in the outpatient setting, who sent him straight to the emergency room upon hearing these complaints as well as the patient's report of also taking ibuprofen very frequently. The patient reported to me directly that he was taking this on a daily basis even when he did not need it, and he felt it just made him feel better. The patient was noted to have a hemoglobin of 5.2 during his ER evaluation and an INR of 4.59. The patient's potassium, of great concern, was 8.1, with repeat of 7.6. The patient was urgently admitted to the ICU. His EKG did not show peak T waves or evidence of imminent torsades, but he was aggressively treated with IV insulin, calcium gluconate, and aggressive fluids. He was also given several doses of Kayexalate. He was ordered 3 units of packed red blood cells in his first night and he only marginally responded and received a fourth and fifth unit of blood the next morning, at which time his hemoglobin did respond into the 8's. The patient felt subjectively better. He was also transfused 2 units of FFP and also received vitamin K. The patient's Coumadin was obviously held. He was started on a Protonix drip and presumption was an upper GI bleed. The patient ultimately proceeded to EGD once his potassium was stabilized and his vital signs were within normal limits and his other lab work normalized. The patient did not have any active bleeding noted on EGD. Please see the EGD report by Dr. Jose Whitley, which was on 07/18/16. The patient had subtle gastropathy with gastric fundus and somewhat more impressive gastric antrum bleeding, possible culprit for the accelerated oozing if the INR is out of control, though could not rule out a lesion more distally in the jejunum. The patient had normalization of his stools throughout the remainder of the hospitalization. He was restarted on a normal diet. He did well with this and had no dyspnea on exertion. He did ambulate before leaving and did quite well. His creatinine trended downward from an admission value of 4.17, down to a discharge valve of 2.43, and was steadily declining, and in terms of his baseline creatinine, I notice that he had a value of 1.98 in May 2015 and a value of 2.02 in January 2016, so I estimate that is approximately his baseline. With respect to other lab derangements I note he has got an ongoing metabolic acidosis likely secondary to his ongoing CKD, and his sugars are in the 100 to 200 range (typical for him). He is mildly iron deficient and also has anemia of chronic renal failure. The patient is asked to repeat labs later this week and follow up with Dr. Ramos. The question for Dr. Nunes in follow up is whether he needs anticoagulation; my understanding is that he had DVTs approximately 8 months ago and was started on anticoagulation. It would be reasonable, from my perspective, to hold anticoagulation for another week or so and then restart if needed. I will leave the choice of agent to Dr. Nunes and perhaps a NOAC, and in particular Eliquis, might be an option given his INR on presentation was 4.59. With respect to his hypertension, he was started on amlodipine as his systolic blood pressures were in the 180 range consistently during the hospitalization. This might have been a result of his blood transfusions. It was more consistent that he needed additional blood pressure control. I note that although he has got substantial renal dysfunction, his creatinine was downward trending. His ROSA can be reevaluated (considering his creatinine and recent hyperkalemia) but I will defer that to Dr. Ramos, of course. Mr. Guzman is a complicated patient, he can back to the emergency room if he has any worrisome symptoms including, but not limited to, dark stools, further GI bleeding, dyspnea on exertion or any other worrisome symptoms. The patient said he would comply with that instruction. CONDITION ON DISCHARGE: Stable. [id number]/[facility] #: [id number] MTDD
== END 2016-07-20 13:40 | disposition home or self-care (01) | DRG 377 ==
LOC: ED 11:19 → ICU 14:20 → MED 07-19 13:23
PROVIDERS: ADMIT Hospitalist; ATTEND Internal Medicine
PROC: 30233N1 Transfusion of Nonautologous Red Blood Cells into Peripheral Vein, Percutaneous Approach (ICD-10-PCS; principal; 2016-07-17)
PROC: 30233K1 Transfusion of Nonautologous Frozen Plasma into Peripheral Vein, Percutaneous Approach (ICD-10-PCS; 2016-07-17)
PROC: 0DJ08ZZ Inspection of Upper Intestinal Tract, Via Natural or Artificial Opening Endoscopic (ICD-10-PCS; 2016-07-18)
DX: K92.1 Melena (principal); R57.1 Hypovolemic shock; N17.9 Acute kidney failure, unspecified; E87.2 Acidosis; D62 Acute posthemorrhagic anemia; E11.22 Type 2 diabetes mellitus with diabetic chronic kidney disease; J98.11 Atelectasis; I13.10 Hypertensive heart and chronic kidney disease without heart failure, with stage 1 through stage 4 chronic kidney disease, or unspecified chronic kidney disease; N18.3 Chronic kidney disease, stage 3 (moderate); D63.1 Anemia in chronic kidney disease; E87.5 Hyperkalemia; I25.10 Atherosclerotic heart disease of native coronary artery without angina pectoris; E78.5 Hyperlipidemia, unspecified; E11.43 Type 2 diabetes mellitus with diabetic autonomic (poly)neuropathy; K31.9 Disease of stomach and duodenum, unspecified; E11.42 Type 2 diabetes mellitus with diabetic polyneuropathy; G44.89 Other headache syndrome; I45.10 Unspecified right bundle-branch block; Z79.01 Long term (current) use of anticoagulants; Z86.718 Personal history of other venous thrombosis and embolism; Z88.1 Allergy status to other antibiotic agents; Z79.1 Long term (current) use of non-steroidal anti-inflammatories (NSAID); Z87.891 Personal history of nicotine dependence; Z96.651 Presence of right artificial knee joint; Z82.3 Family history of stroke; Z79.899 Other long term (current) drug therapy; E66.9 Obesity, unspecified; Z68.37 Body mass index [BMI] 37.0-37.9, adult; Z95.5 Presence of coronary angioplasty implant and graft
CPT/HCPCS: 36415; 71010; 80048; 80053; 81003; 81015; 82270; 82330; 82728; 83540; 83550; 83615; 83735; 84100; 84466; 85014; 85018; 85025; 85045; 85060; 85610; 85730; 86078; 86850; 86900; 86901; 86922; 86927; 87641; 93005; 94660; 94760; A9270-GY; J0610; J2250; J3430; P9016; P9017; P9040

== ENCOUNTER → 2016-12-08 18:06 | Emergency (ER) | payer MEDICARE ==
[~2016-12-08 18:06] MED LIST: Sodium Polystyrene ORAL.SOL* 15 GM/60 ML BTL PO ONE
--- NOTE | 2016-12-08 23:44 | ED ---
Gelacio Silva Benjamin, scribed for Adan Veronica MD on 12/08/16 at 2318 . Complex/Multi-Sys Presentation - HPI Summary HPI Summary: 66yo male was advised by his PCP to go to the ED. Pt had blood work done earlier today at his PCPs office for a routine checkup and his blood revealed high potassium level. Pt states that he is asymptomatic. - History Of Current Complaint Chief Complaint: EDGeneral Time Seen by Provider: 12/08/16 23:06 Hx Obtained From: Patient Onset/Duration: Gradual Onset, Lasting Hours Severity Currently: None Location: Negative - Allergies/Home Medications Allergies/Adverse Reactions: Allergies Allergy/AdvReac Type Severity Reaction Status Date / Time Erythromycin AdvReac Intermediate Stomach Verified 07/17/16 13:43 Cramps PMH/Surg Hx/FS Hx/Imm Hx Endocrine/Hematology History: Reports: Hx Anticoagulant Therapy, Hx Diabetes, Hx Anemia Cardiovascular History: Reports: Hx Congestive Heart Failure, Hx Coronary Artery Disease, Hx Hypercholesterolemia, Hx Hypertension, Other Cardiovascular Problems/Disorders - cardiac cath w/ stents Denies: Hx Pacemaker/ICD Respiratory History: Reports: Hx Asthma, Hx Chronic Obstructive Pulmonary Disease (COPD), Hx Sleep Apnea GI History: Reports: Hx Gastroesophageal Reflux Disease - ON PRILOSEC Denies: Hx Diverticulosis History: Denies: Hx Chronic Renal Failure, Hx Renal Disease Musculoskeletal History: Reports: Hx Arthritis - KNEES, Hx Back Problems Sensory History: Reports: Hx Cataracts - removed bilat, Hx Contacts or Glasses Denies: Hx Hearing Aid Opthamlomology History: Reports: Hx Cataracts - removed bilat, Hx Contacts or Glasses Psychiatric History: Denies: Hx Panic Disorder - Surgical History Surgery Procedure, Year, and Place: RIGHT KNEE SURGERY 1966. CARDIAC CATH WITH STENT 2004-[facility] FOR [address] HAND[address] 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, Hx Shingles Denies: Hx Hepatitis, Traveled Outside the [place] in Last 30 Days - Family History Known Family History: Positive: Hypertension, Diabetes, Other - lung cancer, cerebral hemorrhage - Social History Lives: With Family Alcohol Use: None Hx Substance Use: No Substance Use Type: Reports: None Hx Tobacco Use: Yes Smoking Status (MU): Former Smoker Type: Cigarettes Amount Used/How Often: 1ppd Length of Time of Smoking/Using Tobacco: 41 years Have You Smoked in the Last Year: No Review of Systems Constitutional: Negative Eyes: Negative ENT: Negative Cardiovascular: Negative Respiratory: Negative Gastrointestinal: Negative Genitourinary: Negative Musculoskeletal: Negative Skin: Negative Neurological: Negative Psychological: Normal All Other Systems Reviewed And Are Negative: Yes Physical Exam Triage Information Reviewed: Yes Vital Signs On Initial Exam: Initial Vitals Temp Pulse Resp BP Pulse Ox 98.6 F 65 20 175/68 97 12/08/16 18:25 12/08/16 18:25 12/08/16 18:25 12/08/16 18:25 12/08/16 18:25 Vital Signs Reviewed: Yes Appearance: Positive: Well-Appearing, No Pain Distress, Well-Nourished Skin: Positive: Warm, Skin Color Reflects Adequate Perfusion, Dry Head/Face: Positive: Normal Head/Face Inspection Eyes: Positive: EOMI, MELISSA ENT: Positive: Normal ENT inspection Neck: Positive: Supple, Nontender Respiratory/Lung Sounds: Positive: Clear to Auscultation, Breath Sounds Present Cardiovascular: Positive: RRR, Pulses are Symmetrical in both Upper and Lower Extremities Abdomen Description: Positive: Nontender, Soft Bowel Sounds: Positive: Present Musculoskeletal: Positive: Strength/ROM Intact Neurological: Positive: Sensory/Motor Intact, Alert, Oriented to Person Place, Time Psychiatric: Positive: Affect/Mood Appropriate Diagnostics - Vital Signs Vital Signs Temp Pulse Resp BP Pulse Ox 12/08/16 22:00 98.2 F 64 16 174/69 97 12/08/16 19:30 97.3 F 66 16 160/66 98 12/08/16 18:25 98.6 F 65 20 175/68 97 - Laboratory Lab Statement: Any lab studies that have been ordered have been reviewed, and results considered in the medical decision making process. Re-Evaluation - Re-Evaluation First Eval Re-Evaluation Time: 23:16 Comment: Reviewed pt's lab results. Complex Multi-Symp Course/Dx Course Of Treatment: Reviewed pts medication and allergy lists. High blood pressure noted. Consulted Dr. Horner (Hospitalist) at 2317 hour regarding pt's case. I RECOMMENDED A RECHECK OF HIS POTASSIUM TO DETERMINE TREATMENT. PATIENT DECLINED A RECHECK OF HIS POTASSIUM IN THE EMERGENCY DEPARTMENT. HE WISHES TO GO HOME AT THIS TIME, HE WILL F/U WITH HIS DOCTOR TOMORROW. WE DISCUSSED TREATING WITH KAYEXALTE; PATIENT WAS WILLING TO BE TREATED. THE EKG HAS MINIMAL T PEAKING, THE PATIENT HAS NOT HAD A LOW POTASSIUM IN THE PAST. TREATING WITH A 1/2 DOSE DUE TO THE POSSIBILITY OF THIS AFTERNOONS K BEING HEMOLIZED GIVING A FALSE HIGH. THE 1/2 DOSE DECREASES THE RISK OF DROPPING THE K TOO LOW. - Diagnoses Provider Diagnoses: Hyperkalemia, Chronic renal insufficiency Discharge - Discharge Plan Condition: Stable Disposition: HOME Patient Education Materials: Hyperkalemia (ED) Referrals: Mario Oakley MD [Primary Care Provider] - Additional Instructions: FOLLOW UP WITH YOUR DOCTOR TOMORROW TO HAVE YOUR POTASSIUM RECHECKED. YOU DECLINED TO HAVE YOUR POTASSIUM RECHECKED IN THE EMERGENCY DEPARTMENT. WE GAVE YOU KAYEXALATE 15 GMS. RETURN TO THE EMERGENCY DEPARTMENT FOR ANY WORSENING OF YOUR CONDITION OR QUESTIONS OR CONCERNS. The documentation as recorded by the Gelacio lopez Benjamin accurately reflects the service I personally performed and the decisions made by me, Adan Veronica MD.
[2016-12-09 02:43] VITALS: BP 185/81
== END | disposition home or self-care (01) ==
LOC: ED 18:06
DX: N18.9 Chronic kidney disease, unspecified (principal); E87.5 Hyperkalemia; Z79.01 Long term (current) use of anticoagulants; Z87.891 Personal history of nicotine dependence
CPT/HCPCS: 93005; 99282; A9270-GY

== ENCOUNTER 2016-12-10 13:37 | Emergency (ER) | payer MEDICARE ==
[2016-12-10] MEDS ORDERED: Aspirin Low Dose CHEW TAB* 81 MG PO ONE (14:16)
--- NOTE | 2016-12-10 14:54 | RAD ---
INDICATION: Hyperkalemia. COMPARISON: Comparison is made with a prior CT angiogram of the chest from June 18, 2015 and prior chest x-ray studies from June 05, 2016 and November 16, 2016. TECHNIQUE: A portable view of the chest was obtained. FINDINGS: The heart is within normal limits in size. There is increased density in the left hilar region suggestive of an infiltrate or hilar mass. The lungs are underinflated otherwise clear. No pleural effusion is seen. The results of this exam were discussed with the referring clinician. IMPRESSION: INCREASED DENSITY IN THE LEFT HILUM MOST CONSISTENT WITH AN INFILTRATE OR HILAR MASS. RECOMMEND A CT OF THE CHEST WITH CONTRAST FOR FURTHER EVALUATION.
[2016-12-10 15:26] LABS: Hematocrit 26 % (42-52); Mean Corpuscular HGB Conc 31 g/dl (31-36); Mean Corpuscular Hemoglobin 20 pg (27-31); Mean Platelet Volume 9 um3 (7.4-10.4); Red Blood Count 4.03 10^6/ul (4.0-5.4); Red Cell Distribution Width 18 % (10.5-15); White Blood Count 7.2 10^3/ul (3.5-10.8)
[2016-12-10 15:29] LABS: Comments Flag Yes
[2016-12-10 15:30] LABS: Mean Corpuscular Volume 64 fL (80-94)
[2016-12-10 15:40] LABS: Albumin 3.3 g/dL (3.2-5.2); BUN/Creatinine Ratio 16.5 (8-20); Calcium 8.1 mg/dL (8.6-10.3); EGFR African American 22.5 (>60); EGFR Non-African American 17.5 (>60); Globulin 3.2 g/dL (2-4); Magnesium 1.5 mg/dL (1.9-2.7); Total Bilirubin 0.3 mg/dL (0.2-1.0); Total Protein 6.5 g/dL (6.4-8.9)
[2016-12-10 15:41] LABS: Potassium 5.1 mmol/L (3.5-5.0)
[2016-12-10 15:42] LABS: Troponin I 0.02 ng/mL (<0.04)
[2016-12-10 16:12] LABS: TSH (Thyroid Stimulating Horm) 3.98 mcIU/mL (0.34-5.60)
--- NOTE | 2016-12-10 16:55 | RAD ---
INDICATION: Enlarged hilum on chest radiograph. COMPARISON: Chest radiograph of the same date and June 18, 2015 CT. TECHNIQUE: Multidetector CT images were obtained from the lung apices to the upper abdomen. Evaluation of the viscera is limited without IV contrast. REPORT: Low lung volumes with mild bibasilar subsegmental atelectasis. No focal pulmonary lesions evident. Negative for pleural effusion or pneumothorax. Negative for axillary, mediastinal, or hilar lymphadenopathy. Negative for cardiomegaly or pericardial effusion. Coronary artery calcifications. Normal diameter thoracic aorta with mild atherosclerotic calcification. Dependent sludge and stones at the gallbladder. No suspicious focal osseous lesions evident. IMPRESSION: No pulmonary or hilar mass evident. Radiographic appearance reflects low lung volumes with crowding of the hilar structures.
[2016-12-10 18:12] VITALS: BP 150/60
--- NOTE | 2016-12-11 08:30 | ED ---
Anita Silva Alfonso, scribed for Luis Perdomo MD on 12/10/16 at 1415 . Complex/Multi-Sys Presentation - HPI Summary HPI Summary: This patient is a 66 year old M presenting to [facility] accompanied by with a chief complaint of hyperkalemia since a few days ago. The patient rates the pain 0/10 in severity. Symptoms aggravated by nothing. Symptoms alleviated by nothing. Patient reports low blood sugar and weakness. Patient denies CP, and SOB. - History Of Current Complaint Chief Complaint: EDWeakness Time Seen by Provider: 12/10/16 14:08 Hx Obtained From: Patient Onset/Duration: Gradual Onset, Lasting Days, Still Present Timing: Constant Aggravating Factor(s): nothing Alleviating Factor(s): nothing Associated Signs And Symptoms: Positive: Other - Patient reports low blood sugar and weakness. Patient denies CP, and SOB. - Allergies/Home Medications Allergies/Adverse Reactions: Allergies Allergy/AdvReac Type Severity Reaction Status Date / Time Erythromycin AdvReac Intermediate Stomach Verified 12/10/16 14:47 Cramps PMH/Surg Hx/FS Hx/Imm Hx Endocrine/Hematology History: Reports: Hx Anticoagulant Therapy, Hx Diabetes, Hx Anemia Cardiovascular History: Reports: Hx Congestive Heart Failure, Hx Coronary Artery Disease, Hx Hypercholesterolemia, Hx Hypertension, Other Cardiovascular Problems/Disorders - cardiac cath w/ stents Denies: Hx Pacemaker/ICD Respiratory History: Reports: Hx Asthma, Hx Chronic Obstructive Pulmonary Disease (COPD), Hx Sleep Apnea GI History: Reports: Hx Gastroesophageal Reflux Disease - ON PRILOSEC Denies: Hx Diverticulosis History: Denies: Hx Chronic Renal Failure, Hx Renal Disease Musculoskeletal History: Reports: Hx Arthritis - KNEES, Hx Back Problems Sensory History: Reports: Hx Cataracts - removed bilat, Hx Contacts or Glasses Denies: Hx Hearing Aid Opthamlomology History: Reports: Hx Cataracts - removed bilat, Hx Contacts or Glasses Psychiatric History: Denies: Hx Panic Disorder - Surgical History Surgery Procedure, Year, and Place: RIGHT KNEE SURGERY 1966. CARDIAC CATH WITH STENT 2004-[facility] FOR [address] HAND[address] BILAT CATARACTS Hx Anesthesia Reactions: No - Immunization History Date of Tetanus Vaccine: UTD Date of Influenza Vaccine: 2016 Infectious Disease History: Reports: Hx of Known/Suspected MRSA - 2008, Hx Shingles Denies: Hx Hepatitis - Family History Known Family History: Positive: Hypertension, Diabetes, Other - lung cancer, cerebral hemorrhage - Social History Alcohol Use: None Hx Substance Use: No Substance Use Type: Reports: None Hx Tobacco Use: Yes Smoking Status (MU): Former Smoker Type: Cigarettes Amount Used/How Often: 1ppd Length of Time of Smoking/Using Tobacco: 41 years Have You Smoked in the Last Year: No Review of Systems Positive: Other - hyperkalemia, low blood sugar Negative: Chest Pain Negative: Shortness Of Breath Positive: Weakness All Other Systems Reviewed And Are Negative: Yes Physical Exam - Summary Physical Exam Summary: VITAL SIGNS: Reviewed. GENERAL: Patient is a well-developed and obese male who is lying comfortable in the stretcher. Patient is not in any acute respiratory distress. HEAD AND FACE: No signs of trauma. No ecchymosis, hematomas or skull depressions. No sinus tenderness. EYES: PERRLA, EOMI x 2, No injected conjunctiva, no nystagmus. EARS: Hearing grossly intact. Ear canals and tympanic membranes are within normal limits. MOUTH: Oropharynx within normal limits. NECK: Supple, trachea is midline, no adenopathy, no JVD, no carotid bruit, no c- spine tenderness, neck with full ROM. CHEST: Symmetric, no tenderness at palpation LUNGS: Clear to auscultation bilaterally. No wheezing or crackles. CVS: Regular rate and rhythm, S1 and S2 present, no murmurs or gallops appreciated. ABDOMEN: Soft, non-tender. No signs of distention. No rebound no guarding, and no masses palpated. Bowel sounds are normal. EXTREMITIES: FROM in all major joints, no edema, no cyanosis or clubbing. NEURO: Alert and oriented x 3. No acute neurological deficits. Speech is normal and follows commands. SKIN: Dry and warm Triage Information Reviewed: Yes Vital Signs On Initial Exam: Initial Vitals Temp Pulse Resp BP Pulse Ox 97.3 F 56 18 114/46 97 12/10/16 14:00 12/10/16 14:00 12/10/16 14:00 12/10/16 14:00 12/10/16 14:00 Vital Signs Reviewed: Yes Diagnostics - Vital Signs Vital Signs Temp Pulse Resp BP Pulse Ox 12/10/16 14:00 97.3 F 56 18 114/46 97 - Laboratory Result Diagrams: 12/10/16 14:55 12/10/16 14:55 Lab Statement: Any lab studies that have been ordered have been reviewed, and results considered in the medical decision making process. - Radiology CXR Radiology Interpretation Completed By: Radiologist - INCREASED DENSITY IN THE LEFT HILUM MOST CONSISTENT WITH AN INFILTRATE OR HILAR MASS. RECOMMEND A CT OF THE CHEST WITH CONTRAST FOR FURTHER EVALUATION. ED physician has reviewed this radiology report and agrees. - CT chest CT Interpretation Completed By: Radiologist - No pulmonary or hilar mass evident. Radiographic appearance reflects low lung volumes with crowding of the hilar structures. ED physician has reviewed this radiology report and agrees. - EKG 1441 Cardiac Rate: Bradycardia - BPM 52 EKG Rhythm: Sinus Bradycardia EKG Interpretation: prolonged MD interval and RBBB Complex Multi-Symp Course/Dx Assessment/Plan: This patient is a 66 year old M presenting to [facility] accompanied by with a chief complaint of hyperkalemia since a few days ago. The patient rates the pain 0/10 in severity. Symptoms aggravated by nothing. Symptoms alleviated by nothing. Patient reports low blood sugar and weakness. Patient denies CP, and SOB. Test results shows mild anemia similar to his baseline, potassium of 5.1, BUN of 58, and creatinine of 3.51 which is similar to his chronic renal failure, glucose of 117, and CPK of 241. An EKG reveals sinus bradycardia, prolonged MD interval, and RBBB. CXR reveals INCREASED DENSITY IN THE LEFT HILUM MOST CONSISTENT WITH AN INFILTRATE OR HILAR MASS. RECOMMEND A CT OF THE CHEST WITH CONTRAST FOR FURTHER EVALUATION. ED physician has reviewed this radiology report and agrees. In the ED course the patient has remained stable and he has no complaints. Radiologist recommended a CT chest. CT Chest reveals No pulmonary or hilar mass evident. Radiographic appearance reflects low lung volumes with crowding of the hilar structures. ED physician has reviewed this radiology report and agrees. At this time all symptoms are improved. The patients blood work at baseline. Therefore he will be discharged to home with PCP follow up. The patient is agreeable with this plan. The patient is hemodynamically stable and alert and oriented x3. - Diagnoses Provider Diagnoses: Weakness, Hyperkalemia Discharge - Discharge Plan Condition: Stable Disposition: HOME Patient Education Materials: Weakness (ED), Hyperkalemia (ED) Referrals: Mario Oakley MD [Primary Care Provider] - 3 Days Additional Instructions: RETURN TO THE EMERGENCY DEPARTMENT FOR CHANGING OR WORSENING SYMPTOMS. The documentation as recorded by the Anita lopez Alfonso accurately reflects the service I personally performed and the decisions made by , Luis Perdomo MD.
== END 2016-12-10 18:12 | disposition home or self-care (01) ==
LOC: ED 13:37
DX: R53.1 Weakness (principal); E87.5 Hyperkalemia; E16.2 Hypoglycemia, unspecified; I50.9 Heart failure, unspecified; I25.10 Atherosclerotic heart disease of native coronary artery without angina pectoris; I10 Essential (primary) hypertension; Z95.5 Presence of coronary angioplasty implant and graft; E78.00 Pure hypercholesterolemia, unspecified; J44.9 Chronic obstructive pulmonary disease, unspecified; K21.9 Gastro-esophageal reflux disease without esophagitis; M17.0 Bilateral primary osteoarthritis of knee; Z98.42 Cataract extraction status, left eye; Z98.41 Cataract extraction status, right eye; Z86.14 Personal history of Methicillin resistant Staphylococcus aureus infection; Z88.1 Allergy status to other antibiotic agents; Z87.891 Personal history of nicotine dependence
CPT/HCPCS: 36415; 71010; 71250; 80053; 82550; 82553; 83605; 83735; 83880; 84443; 84484; 85025; 93005; 99282

== ENCOUNTER 2017-02-12 14:38 | Inpatient (IN) | payer MEDICARE ==
[2017-02-12 15:48] LABS: Hematocrit 26 % (42-52); Hemoglobin 7.9 g/dl (14.0-18.0); Mean Corpuscular HGB Conc 30 g/dl (31-36); Mean Corpuscular Hemoglobin 20 pg (27-31); Mean Platelet Volume 9 um3 (7.4-10.4); Red Blood Count 3.98 10^6/ul (4.0-5.4); Red Cell Distribution Width 19 % (10.5-15); White Blood Count 7.4 10^3/ul (3.5-10.8)
[2017-02-12 15:50] LABS: Comments Flag Yes; Mean Corpuscular Volume 65 fL (80-94)
--- NOTE | 2017-02-12 16:01 | RAD ---
HISTORY: Confusion, hypertension COMPARISONS: None TECHNIQUE: Multiple contiguous axial CT scans were obtained of the head without intravenous contrast. FINDINGS: HEMORRHAGE/INFARCT: There is no hemorrhage or acute infarct. MASSES/SHIFT: There is no mass or shift. EXTRA-AXIAL SPACES: There are no extra-axial fluid collections. SULCI AND VENTRICLES: The sulci and ventricles are normal in size and position for the patient's stated age. CEREBRUM: There are no focal parenchymal abnormalities. BRAINSTEM: There are no focal parenchymal abnormalities. CEREBELLUM: There are no focal parenchymal abnormalities. VESSELS: The vessels are grossly normal. PARANASAL SINUSES: The paranasal sinuses are clear. ORBITS: The orbits are unremarkable. BONES AND SOFT TISSUE: No bone or soft tissue abnormalities are noted. OTHER: None IMPRESSION: NO ACUTE INTRACRANIAL PATHOLOGY.
[2017-02-12 16:03] LABS: Albumin 3.7 g/dL (3.2-5.2); BUN/Creatinine Ratio 20.6 (8-20); C Reactive Protein 30.39 mg/L (< 5.00); Calcium 7.3 mg/dL (8.6-10.3); EGFR African American 16.6 (>60); EGFR Non-African American 12.9 (>60); Globulin 3.4 g/dL (2-4); Total Bilirubin 0.3 mg/dL (0.2-1.0); Total Protein 7.1 g/dL (6.4-8.9)
[2017-02-12 16:04] LABS: Troponin I 0.02 ng/mL (<0.04)
[2017-02-12 16:06] LABS: Potassium 5.3 mmol/L (3.5-5.0)
--- NOTE | 2017-02-12 16:28 | RAD ---
HISTORY: Hypotension, malaise COMPARISONS: December 10, 2016 VIEWS: 1: frontal portable view of the chest at 3:59 PM FINDINGS: LINES AND TUBES: None. CARDIOMEDIASTINAL SILHOUETTE: The cardiomediastinal silhouette is normal for portable technique. PLEURA: The costophrenic angles are sharp. No pleural abnormalities are noted. LUNG PARENCHYMA: The lung volumes are low. The lungs are clear accounting for the phase of respiration. ABDOMEN: The upper abdomen is clear. There is no subphrenic gas. BONES AND SOFT TISSUES: There is remote posttraumatic deformity to the left clavicle. IMPRESSION: LOW LUNG VOLUMES. NO ACTIVE CARDIOPULMONARY DISEASE.
[2017-02-12 17:17] LABS: Erythrocyte Sed Rate 99 mm/Hr (0-40)
--- NOTE | 2017-02-12 17:42 | ADMNOTE ---
Subjective Date of Service: 02/12/17 Interval History: ADMISSION HISTORY AND PHYSICAL EXAM: Allergies Allergy/AdvReac Type Severity Reaction Status Date / Time Erythromycin AdvReac Intermediate Stomach Verified 12/10/16 14:47 Cramps Home Medications Medication Instructions Recorded Confirmed Type Pregabalin CAP(*) [Lyrica CAP(*)] 50 mg PO BID 04/08/16 02/12/17 History Atorvastatin* [Lipitor 20 MG*] 20 mg PO QPM #0 04/10/16 02/12/17 Rx Metoprolol Tartrate TAB* 50 mg PO BID 07/17/16 02/12/17 History [Lopressor TAB*] amLODIPine TAB* [Norvasc 5 mg TAB*] 10 mg PO DAILY #30 tab 07/20/16 02/12/17 Rx Bumetanide TAB* [Bumex 2 MG TAB*] 2 mg PO DAILY 02/12/17 02/12/17 History DOXYcycline CAP(*) [DOXYcycline 100 mg PO TID 02/12/17 02/12/17 History 100MG CAP(*)] Fluticasone NASAL SPRAY 50MCG* 2 spray BOTH NARES DAILY 02/12/17 02/12/17 History [Flonase NASAL SPRAY 50MCG*] Insulin GLARGINE(*) [Lantus(*)] 40 units SUBCUT BID 02/12/17 02/12/17 History Ipratropium [place] (Nasal) 0.03 % BOTH NARES DAILY PRN 02/12/17 02/12/17 History [Ipratropium [place]] Lisinopril TAB* [Prinivil TAB*] 20 mg PO DAILY 02/12/17 02/12/17 History Metolazone TAB* [Zaroxolyn TAB*] 2.5 mg PO EVERY OTHER DAY 02/12/17 02/12/17 History Warfarin TAB(*) [Coumadin TAB(*)] 3 mg PO MOTUWETHFR 02/12/17 02/12/17 History Warfarin TAB(*) [Coumadin TAB(*)] 5 mg PO SUSA 02/12/17 02/12/17 History HPI: His states his main problem at this moment is his confusion. The patient states he has gained 10 lbs and has more swollen legs and has trouble walking. He says he urinates less than he used to. He saw Dr. Oakley today who scheduled some blood tests and imaging tests, some of which were to be done today. Family History: Findings - mother had a CVA Social History: Findings - Lives with his who is his SDM. No alcohol or tobacco use. Past Medical History: Findings - BL DVT's, thall minor, DM, CAD s/p PCI, HTN, CKD Review of Systems - Measurements Intake and Output: Intake and Output Last 24 Hours 02/10/17 02/11/17 02/12/17 02/13/17 06:59 06:59 06:59 06:59 Weight 290 lb - Review of Systems Constitutional Symptoms: Positive: Weight Gain - 10 lbs in a month Dermatology: Positive: Normal HEENT: Positive: Normal Thyroid: Positive: Normal Pulmonary: Positive: Normal Gastroenterology: Positive: Normal Genital - Urinary: Positive: Other - oliguria Musculoskeletal: Negative: Joint Pain, Joint Stiffness, Arthritis, Osteoporosis, Low Back Pain , Sciatica, Joint Deformities, Kyphoscoliosis, Other Endocrinology: Positive: Obesity, Diabetes Mellitus Hematologic/Lymphatic: Positive: Anemia Neurology: Positive: Other - confusion Psychiatry: Positive: Normal Allergic/Immunologic: Negative: Hx Anaphylaxis, Hx Angioedema, Hx Environmental, Hx Seasonal, Athsma, Hx HIV, Immunocompromise, Swollen Glands LymphNodes, Other Objective Vital Signs - 8 hr 02/12/17 14:40 Temperature 95.5 F Pulse Rate 89 Respiratory 19 Rate Blood Pressure 111/70 (mmHg) O2 Sat by Pulse 99 Oximetry Oxygen Devices in Use Now: None Appearance: Alert, sitting on the edge of ED stretcher. Somewhat anxious, otherwise looks comfortable. Eyes: No Scleral Icterus Neck: NL Appearance and Movements; NL JVP, No Thyroid Enlargement, Masses Respiratory: Symmetrical Chest Expansion and Respiratory Effort, Clear to Auscultation, Clear to Percussion Cardiovascular: NL Sounds; No Murmurs; No JVD, RRR, No Edema, - Extremities: No Clubbing, Cyanosis, - - 2-3+ brawny edema BL Skin: No Nodules or Sclerosis, - - lower legs hyperpigmented Neurological: Alert and Oriented x 3, NL Sensation Result Diagrams: 02/12/17 15:34 02/12/17 15:34 Microbiology and Other Data: Microbiology 02/12/17 16:50 Influenza Types A,B Antigen (CAROLYN) - Final Nasopharyngeal Specimen received for Influenza A/B Molecular testing Assess/Plan/Problems-Billing Assessment: - Patient Problems (1) SCHUYLER (acute kidney injury) Current Visit: Yes Status: Acute Code(s): N17.9 - ACUTE KIDNEY FAILURE, UNSPECIFIED SNOMED Code(s): 20091947 Comment: Acute on chronic renal failure. PVR by scan was 19 ml in the evening of the day of admission. Hold diuretics. BMP 02/13. Kayexalate 30 gm po in ED ordered 02/12. (2) DVT (deep venous thrombosis) Current Visit: No Status: Acute Code(s): I82.409 - ACUTE EMBOLISM AND THOMBOS UNSP DEEP VN UNSP LOWER EXTREMITY SNOMED Code(s): 727954165 Comment: INR supratherapeutic, holding coumadin. Vit K 5 mg PO 02/12. INR 02/13. (3) Microcytic anemia Current Visit: No Status: Acute Code(s): D50.9 - IRON DEFICIENCY ANEMIA, UNSPECIFIED SNOMED Code(s): 850742401 Comment: Thal minor as per Dr. Nunes's outpatient notes. CBC 02/13 (4) Diabetes Current Visit: No Status: Acute Priority: High Code(s): E11.9 - TYPE 2 DIABETES MELLITUS WITHOUT COMPLICATIONS SNOMED Code(s): 22021174 Comment: Much lower Lantus dose ordered. Lispro by SS. (5) HTN (hypertension) Current Visit: No Status: Acute Code(s): I10 - ESSENTIAL (PRIMARY) HYPERTENSION SNOMED Code(s): 81865951 Comment: Hold amlodipine and cut metoprolol in half.
[2017-02-12] MEDS ORDERED: Sodium Polystyrene ORAL.SOL* 15 GM/60 ML BTL PO ONE (18:08)
[2017-02-12] MEDS ORDERED: Dextrose 50% Syringe 50 ML* 25 GM/50 ML SYRINGE IV PUSH PRN (18:19)
[2017-02-12] MEDS ORDERED: Phytonadione Oral Solution* 5 MG/25 ML UDC PO ONE (18:56)
--- NOTE | 2017-02-12 21:35 | ED ---
Mikael Silva Tiffany, scribed for Summer Germain MD on 02/12/17 at 1635 . Neurological HPI - HPI Summary HPI Summary: This patient is a 66 year old M presenting to [facility] accompanied by female with a chief complaint of bilateral leg weakness that has worsened since two days ago. The patient has been unable to ambulate the last few days. The patient rates the pain 0/10 in severity. Symptoms aggravated by nothing. Symptoms alleviated by nothing. His denies leg pain. He reports more forgetfulness than usual, weaker than usual, speech slower and thoughts are longer than usual. He also states 10 pound weight gain this week. He reports dizziness yesterday, low blood pressure, and blood sugar running lower than usual. - History of Current Complaint Chief Complaint: EDNeurologicalDeficit Stated Complaint: UNABLE TO WALK Time Seen by Provider: 02/12/17 14:53 Hx Obtained From: Patient, Medical Records, Other: - Dr. Oakley, Dr. Ramos Onset/Duration: Gradual Onset, Still Present, Worse Since - Two days ago Timing: Constant Onset Severity: Moderate Current Severity: Moderate Neurological Deficit Location: Generalized Pain Intensity: 0 Pain Scale Used: 0-10 Numeric Character: Weak, Unable To Describe - feels funny in his head, "not dizzy" Aggravating: Nothing Alleviating: Nothing Associated Signs and Symptoms: Positive: Unsteady Gait - states unable to walk, Weakness - Weaker than usual. Negative: Pain - NEGATIVE: leg pain TPA Considered: No - no definite time of onset Related Hx: Medication Non-Comliant - Additional Pertinent History Primary Care Physician: [id number] Referred By: PCP - Allergy/Home Medications Allergies/Adverse Reactions: Allergies Allergy/AdvReac Type Severity Reaction Status Date / Time Erythromycin AdvReac Intermediate Stomach Verified 12/10/16 14:47 Cramps Home Medications: Home Medications Bumetanide TAB* [Bumex 2 MG TAB*] 2 mg PO DAILY 02/12/17 [History Confirmed ] DOXYcycline CAP(*) [DOXYcycline 100MG CAP(*)] 100 mg PO TID 02/12/17 [History Confirmed 02/12/17] Fluticasone NASAL SPRAY 50MCG* [Flonase NASAL SPRAY 50MCG*] 2 spray BOTH NARES DAILY 02/12/17 [History Confirmed 02/12/17] Insulin GLARGINE(*) [Lantus(*)] 40 units SUBCUT BID 02/12/17 [History Confirmed 02/12/17] Ipratropium [place] (Nasal) [Ipratropium [place]] 0.03 % BOTH NARES DAILY PRN [History Confirmed 02/12/17] Lisinopril TAB* [Prinivil TAB*] 20 mg PO DAILY 02/12/17 [History Confirmed 02/12] Metolazone TAB* [Zaroxolyn TAB*] 2.5 mg PO EVERY OTHER DAY 02/12/17 [History Confirmed 02/12/17] Warfarin TAB(*) [Coumadin TAB(*)] 3 mg PO MOTUWETHFR 02/12/17 [History Confirmed 02/12/17] Warfarin TAB(*) [Coumadin TAB(*)] 5 mg PO SUSA 02/12/17 [History Confirmed 02/12] PMH/Surg Hx/FS Hx/Imm Hx Previously Healthy: No Endocrine/Hematology History: Reports: Hx Anticoagulant Therapy, Hx Diabetes, Hx Anemia Cardiovascular History: Reports: Hx Congestive Heart Failure, Hx Coronary Artery Disease, Hx Hypercholesterolemia, Hx Hypertension, Other Cardiovascular Problems/Disorders - cardiac cath w/ stents Denies: Hx Pacemaker/ICD Respiratory History: Reports: Hx Asthma, Hx Chronic Obstructive Pulmonary Disease (COPD), Hx Sleep Apnea GI History: Reports: Hx Gastroesophageal Reflux Disease - ON PRILOSEC Denies: Hx Diverticulosis History: Denies: Hx Chronic Renal Failure, Hx Renal Disease Musculoskeletal History: Reports: Hx Arthritis - KNEES, Hx Back Problems Sensory History: Reports: Hx Cataracts - removed bilat, Hx Contacts or Glasses Denies: Hx Hearing Aid Opthamlomology History: Reports: Hx Cataracts - removed bilat, Hx Contacts or Glasses Psychiatric History: Denies: Hx Panic Disorder - Surgical History Surgery Procedure, Year, and Place: RIGHT KNEE SURGERY 1966. CARDIAC CATH WITH STENT 2004-[facility] FOR [address] HAND[address] 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 Cardiovascular: Negative Respiratory: Negative Positive: Other - 10 pound weight gain Positive: Other - NEGATIVE: leg pain Neurological: Other - unable to ambulate, more forgetfulness than usual, weaker than usual, speech slower and thoughts are longer than usual, dizziness Psychological: Normal All Other Systems Reviewed And Are Negative: Yes Physical Exam Triage Information Reviewed: Yes Vital Signs On Initial Exam: Initial Vitals Temp Pulse Resp BP Pulse Ox 95.5 F 89 19 111/70 99 02/12/17 14:40 02/12/17 14:40 02/12/17 14:40 02/12/17 14:40 02/12/17 14:40 Vital Signs Reviewed: Yes Appearance: Positive: No Pain Distress, Ill-Appearing, Obese Skin: Positive: Warm, Skin Color Reflects Adequate Perfusion, Scaly Skin/ Lesions - bilat lower extrem, trophic changes, Other - Trophic changes in bilateral legs Head/Face: Positive: Normal Head/Face Inspection Eyes: Positive: EOMI, Conjunctiva Clear ENT: Positive: Normal ENT inspection Neck: Positive: Supple, Nontender, No Lymphadenopathy Respiratory/Lung Sounds: Positive: Clear to Auscultation, Breath Sounds Present , Other - No respiratory distress Cardiovascular: Positive: Normal - Brisk capillary refill, RRR, Pulses are Symmetrical in both Upper and Lower Extremities, Leg Edema Left, Leg Edema Right. Negative: Murmur Abdomen Description: Positive: Nontender, Soft Musculoskeletal: Positive: Strength/ROM Intact Neurological: Positive: Sensory/Motor Intact, Alert, Oriented to Person Place, Time, Facial Symmetry, Speech Normal Psychiatric: Positive: Normal - Dazey Coma Scale Best Eye Response: 4 - Spontaneous Best Motor Response: 6 - Obeys Commands Best Verbal Response: 5 - Oriented - 15 Diagnostics - Vital Signs Vital Signs Temp Pulse Resp BP Pulse Ox 02/12/17 14:40 95.5 F 89 19 111/70 99 - Laboratory Lab Results: Lab Results 02/12/17 02/12/17 02/12/17 Range/Units 15:34 15:34 15:34 WBC 7.4 (3.5-10.8) 10^3/ul RBC 3.98 L (4.0-5.4) 10^6/ul Hgb 7.9 L (14.0-18.0) g/dl Hct 26 L (42-52) % MCV 65 L (80-94) fL MCH 20 L (27-31) pg MCHC 30 L (31-36) g/dl RDW 19 H (10.5-15) % Plt Count 98 L (150-450) 10^3/ul MPV 9 (7.4-10.4) um3 Neut % (Auto) 65.1 (38-83) % Lymph % (Auto) 23.3 L (25-47) % Isabela % (Auto) 7.4 (1-9) % Eos % (Auto) 3.1 (0-6) % Baso % (Auto) 1.1 (0-2) % Absolute Neuts (auto) 4.8 (1.5-7.7) 10^3/ul Absolute Lymphs (auto) 1.7 (1.0-4.8) 10^3/ul Absolute Monos (auto) 0.6 (0-0.8) 10^3/ul Absolute Eos (auto) 0.2 (0-0.6) 10^3/ul Absolute Basos (auto) 0.1 (0-0.2) 10^3/ul Absolute Nucleated RBC 0.02 10^3/ul Nucleated RBC % 0.3 ESR Pending Sodium 141 (133-145) mmol/L Potassium 5.3 H (3.5-5.0) mmol/L Chloride 111 (101-111) mmol/L Carbon Dioxide 18 L (22-32) mmol/L Anion Gap 12 H (2-11) mmol/L BUN 94 H (6-24) mg/dL Creatinine 4.56 H (0.67-1.17) mg/dL Est GFR ( Amer) 16.6 (>60) Est GFR (Non-Af Amer) 12.9 (>60) BUN/Creatinine Ratio 20.6 H (8-20) Glucose 177 H (70-100) mg/dL Lactic Acid (0.5-2.0) mmol/L Calcium 7.3 L (8.6-10.3) mg/dL Total Bilirubin 0.30 (0.2-1.0) mg/dL AST 20 (13-39) U/L ALT 19 (7-52) U/L Alkaline Phosphatase 195 H (34-104) U/L Total Creatine Kinase 246 H (10-223) U/L Troponin I 0.02 (<0.04) ng/mL C-Reactive Protein 30.39 H (< 5.00) mg/L B-Natriuretic Peptide 98 ( - 100) pg/mL Total Protein 7.1 (6.4-8.9) g/dL Albumin 3.7 (3.2-5.2) g/dL Globulin 3.4 (2-4) g/dL Albumin/Globulin Ratio 1.1 (1-3) 12/15/17 Range/Units 15:34 WBC (3.5-10.8) 10^3/ul RBC (4.0-5.4) 10^6/ul Hgb (14.0-18.0) g/dl Hct (42-52) % MCV (80-94) fL MCH (27-31) pg MCHC (31-36) g/dl RDW (10.5-15) % Plt Count (150-450) 10^3/ul MPV (7.4-10.4) um3 Neut % (Auto) (38-83) % Lymph % (Auto) (25-47) % Isabela % (Auto) (1-9) % Eos % (Auto) (0-6) % Baso % (Auto) (0-2) % Absolute Neuts (auto) (1.5-7.7) 10^3/ul Absolute Lymphs (auto) (1.0-4.8) 10^3/ul Absolute Monos (auto) (0-0.8) 10^3/ul Absolute Eos (auto) (0-0.6) 10^3/ul Absolute Basos (auto) (0-0.2) 10^3/ul Absolute Nucleated RBC 10^3/ul Nucleated RBC % ESR Sodium (133-145) mmol/L Potassium (3.5-5.0) mmol/L Chloride (101-111) mmol/L Carbon Dioxide (22-32) mmol/L Anion Gap (2-11) mmol/L BUN (6-24) mg/dL Creatinine (0.67-1.17) mg/dL Est GFR ( Amer) (>60) Est GFR (Non-Af Amer) (>60) BUN/Creatinine Ratio (8-20) Glucose (70-100) mg/dL Lactic Acid 2.3 H* (0.5-2.0) mmol/L Calcium (8.6-10.3) mg/dL Total Bilirubin (0.2-1.0) mg/dL AST (13-39) U/L ALT (7-52) U/L Alkaline Phosphatase (34-104) U/L Total Creatine Kinase (10-223) U/L Troponin I (<0.04) ng/mL C-Reactive Protein (< 5.00) mg/L B-Natriuretic Peptide ( - 100) pg/mL Total Protein (6.4-8.9) g/dL Albumin (3.2-5.2) g/dL Globulin (2-4) g/dL Albumin/Globulin Ratio (1-3) Result Diagrams: 02/12/17 15:34 02/12/17 15:34 Lab Statement: Any lab studies that have been ordered have been reviewed, and results considered in the medical decision making process. - Radiology CXR Radiology Interpretation Completed By: Radiologist - LOW LUNG VOLUMES. NO ACTIVE CARDIOPULMONARY DISEASE. ED physician has reviewed this radiology report. - CT Brain CT Interpretation Completed By: Radiologist - NO ACUTE INTRACRANIAL PATHOLOGY. ED physician has reviewed this radiology report. - EKG 15:42 Cardiac Rate: NL EKG Rhythm: Sinus Bradycardia - 48 BPM EKG Interpretation: First degree AV block (273), RBBB (166), prolonged QTC (524) EKG Comparison: No Significant Change - Compared to 12/10/16 Re-Evaluation - Re-Evaluation First Eval Re-Evaluation Time: 18:49 Change: Unchanged Comment: The patient had a regular follow up doctors appointment today for his R middle finger at 11:00. He told the doctor that he was not urinating enough and was gaining weight. The doctor sent him to the hospital to get a Doppler in his legs and bloodwork but he wasnt able to schedule himself for either. At 14: 15, he decided to come to the ER. Patient reports that his legs are always swelling and he requests that Doppler be done. He denies dizziness, lightheadedness, and numbness. Course/Dx - Course Course Of Treatment: An EKG reveals sinus bradycardia at 48 bpm, first degree AV block (273), right bundle branch block (166), prolonged QTC (524), no change compared to 12/10/16. CXR reveals, per radiologist, LOW LUNG VOLUMES. NO ACTIVE CARDIOPULMONARY DISEASE. CT Brain reveals, per radiologist, NO ACUTE INTRACRANIAL PATHOLOGY. Test results with significant abnormalities including lactic acid 2.3 and INR 6.30, worsening renal function, GFR 12, K+ 5.3, HB 7.9. I was made aware of the elevated lactic acid at 16:06. We discussed patient care with Dr. Hamilton, hospitalist, who will admit patient. Dr. Oakley (PCP) requested that the patient gets bilateral Dopplers. Dr. Ramos advised to not hydrate the patient and give the patient Bictria 15 cc three times a day. The patient is agreeable with this plan. Pt was given Kayexalate in ED. Vit K 5mg po was ordered in ED, but not given. Assessment/Plan: Allergies noted. Pt medications reviewed this visit. - Differential Dx Differential Diagnoses Neuro: Positive: Cerebrovascular Accident, Hyperthermia, Hypoxia, Intracranial Bleed, Metabolic Abnormality - Diagnoses Provider Diagnoses: CKD (chronic kidney disease), Poorly controlled diabetes mellitus, Prolonged INR, Anemia, Hyperkalemia, Bradycardia - Physician Notifications Discussed Care Of Patient With: Raul Hamilton Time Discussed With Above Provider: 17:13 Instructed by Provider To: Other - Dr. Hamilton, hospitalist, will admit patient. At 18:58, Dr. Oakley (PCP) requested that the patient gets bilateral Dopplers. At 19:02, Dr. Ramos advised to not hydrate the patient and give the patient Bictria 15 cc three times a day instead. - Critical Care Time Critical Care Time: 30-74 min - 30min Discharge - Discharge Plan Condition: Good Disposition: ADMITTED TO [facility] documentation as recorded by the Mikael lopez Tiffany accurately reflects the service I personally performed and the decisions made by , Summer Germain MD.
[2017-02-12] MEDS: Insulin LISPRO* 1 UNITS UNIT SUBCUT SCH (21:56)
[2017-02-12] MEDS: Sodium Citrate/Citric Acid* 15 ML UDC PO SCH (21:56)
[2017-02-12] MEDS: Insulin GLARGINE(*) 1 UNITS UNIT SUBCUT SCH (21:56)
[2017-02-12] MEDS: Metoprolol Succinate XL TAB* 25 MG PO SCH (22:02)
[2017-02-13 00:07] LABS: Urine Bacteria Absent (Absent); Urine Bilirubin Negative (Negative); Urine Glucose 2+(150 mg/dL) (Negative); Urine Nitrite Negative (Negative)
[2017-02-13 07:31] LABS: Hematocrit 25 % (42-52); Hemoglobin 7.7 g/dl (14.0-18.0); Mean Corpuscular HGB Conc 31 g/dl (31-36); Mean Corpuscular Hemoglobin 20 pg (27-31); Mean Platelet Volume 9 um3 (7.4-10.4); Red Blood Count 3.83 10^6/ul (4.0-5.4); Red Cell Distribution Width 18 % (10.5-15); White Blood Count 5.6 10^3/ul (3.5-10.8)
[2017-02-13 07:39] LABS: Comments Flag Yes; Mean Corpuscular Volume 64 fL (80-94)
[2017-02-13 07:50] LABS: BUN/Creatinine Ratio 21.9 (8-20); EGFR African American 16.4 (>60); EGFR Non-African American 12.8 (>60); Potassium 4.8 mmol/L (3.5-5.0)
--- NOTE | 2017-02-13 08:35 | RAD ---
INDICATION: Pain and swelling. History of DVT COMPARISON: June 18, 2015 TECHNIQUE: Duplex interrogation of the Lowerextremity was performed. FINDINGS: Deep veins: The common femoral, great saphenous, profunda femoris, proximal, mid, and distal deep femoral, popliteal and posterior tibial veins are patent. The peroneal veins are not identified. This may be related to edema. There is normal compressibility, augmentation, and phasic flow. Superficial veins: There are no findings of superficial thrombophlebitis. Popliteal fossa:There is no evidence of a popliteal cyst. Soft tissues: Bilateral calf edema edema. IMPRESSION: NO EVIDENCE OF DEEP VENOUS THROMBOSIS. MILDLY LIMITED EVALUATION THE TIBIAL VESSELS. THE PERONEAL VESSELS NOT SEEN DUE TO EDEMA.
[2017-02-13] MEDS: Metoprolol Succinate XL TAB* 25 MG PO SCH ×2 (08:57→21:13)
[2017-02-13] MEDS: Insulin LISPRO* 1 UNITS UNIT SUBCUT SCH ×4 (08:57→21:14)
[2017-02-13] MEDS: Sodium Citrate/Citric Acid* 15 ML UDC PO SCH ×3 (08:57→21:13)
[2017-02-13] MEDS: Insulin GLARGINE(*) 1 UNITS UNIT SUBCUT SCH ×2 (08:57→21:15)
--- NOTE | 2017-02-13 10:38 | PN ---
Subjective Date of Service: 02/13/17 Interval History: Seen and examined this AM Agrees that he was confused yesterday but feels better and more lucid this AM He does not think his legs are more swollen over the last week but had gained 10lbs Notes that he has been urinating less over the last week (usually urinated 200cc per void now down to 100cc per void) Family History: Findings - mother had a CVA Social History: Findings - Lives with his who is his SDM. No alcohol or tobacco use. Past Medical History: Findings - BL DVT's, thall minor, DM, CAD s/p PCI, HTN, CKD Objective Active Medications: Atorvastatin Calcium (Lipitor*) 20 mg PO QPM [facility] Citric Acid/Sodium Citrate (Bicitra*) 15 ml PO TID [facility] Last Admin: 02/13/17 08:57 Dose: 15 ml Dextrose (D50w Syringe 50 Ml*) 12.5 gm IV PUSH .FOR FS < 60 - SS PRN PRN Reason: FS < 60 Fluticasone Propionate (Flonase Nasal [place] 50mcg*) 2 spray BOTH NARES DAILY [facility] Insulin Glargine (Lantus(*)) 15 units SUBCUT Q12H [facility] Last Admin: 02/13/17 08:57 Dose: 15 units Insulin Human Lispro (Humalog*) 0 units SUBCUT ACHS [facility] PRN Reason: Protocol Last Admin: 02/13/17 08:57 Dose: 3 units Metoprolol Succinate (Toprol Xl Tab*) 25 mg PO BID [facility] Last Admin: 02/13/17 08:57 Dose: 25 mg Vital Signs - 8 hr 02/13/17 02/13/17 02/13/17 03:51 08:00 08:54 Temperature 97.9 F Pulse Rate 55 59 Respiratory 16 18 16 Rate Blood Pressure 126/61 120/55 (mmHg) O2 Sat by Pulse 95 96 Oximetry 02/13/17 10:09 Temperature Pulse Rate 61 Respiratory Rate Blood Pressure (mmHg) O2 Sat by Pulse Oximetry Oxygen Devices in Use Now: None Appearance: obese, sitting in chair, NAD Ears/Nose/Mouth/Throat: Clear Oropharnyx, Mucous Membranes Moist Neck: NL Appearance and Movements; NL JVP, Trachea Midline Respiratory: Symmetrical Chest Expansion and Respiratory Effort, Clear to Auscultation Cardiovascular: RRR Abdominal: NL Sounds; No Tenderness; No Distention, No Hepatosplenomegaly Lymphatic: No Cervical Adenopathy Extremities: - - 3+ pitting edema Skin: - - right 3rd finger and left 1st finger with dark well circumscribed ulceration, skin break down over right pretibial region Neurological: Alert and Oriented x 3 Result Diagrams: 02/13/17 07:18 02/13/17 07:18 Additional Lab and Data: Lab Results 02/12/17 02/12/17 02/12/17 Range/Units 15:34 15:34 15:34 WBC 7.4 (3.5-10.8) 10^3/ul RBC 3.98 L (4.0-5.4) 10^6/ul Hgb 7.9 L (14.0-18.0) g/dl Hct 26 L (42-52) % MCV 65 L (80-94) fL MCH 20 L (27-31) pg MCHC 30 L (31-36) g/dl RDW 19 H (10.5-15) % Plt Count 98 L (150-450) 10^3/ul MPV 9 (7.4-10.4) um3 Neut % (Auto) 65.1 (38-83) % Lymph % (Auto) 23.3 L (25-47) % [place] % (Auto) 7.4 (1-9) % Eos % (Auto) 3.1 (0-6) % Baso % (Auto) 1.1 (0-2) % Absolute Neuts (auto) 4.8 (1.5-7.7) 10^3/ul Absolute Lymphs (auto) 1.7 (1.0-4.8) 10^3/ul Absolute Monos (auto) 0.6 (0-0.8) 10^3/ul Absolute Eos (auto) 0.2 (0-0.6) 10^3/ul Absolute Basos (auto) 0.1 (0-0.2) 10^3/ul Absolute Nucleated RBC 0.02 10^3/ul Nucleated RBC % 0.3 ESR Pending Sodium 141 (133-145) mmol/L Potassium 5.3 H (3.5-5.0) mmol/L Chloride 111 (101-111) mmol/L Carbon Dioxide 18 L (22-32) mmol/L Anion Gap 12 H (2-11) mmol/L BUN 94 H (6-24) mg/dL Creatinine 4.56 H (0.67-1.17) mg/dL Est GFR ( Amer) 16.6 (>60) Est GFR (Non-Af Amer) 12.9 (>60) BUN/Creatinine Ratio 20.6 H (8-20) Glucose 177 H (70-100) mg/dL Lactic Acid (0.5-2.0) mmol/L Calcium 7.3 L (8.6-10.3) mg/dL Total Bilirubin 0.30 (0.2-1.0) mg/dL AST 20 (13-39) U/L ALT 19 (7-52) U/L Alkaline Phosphatase 195 H (34-104) U/L Total Creatine Kinase 246 H (10-223) U/L Troponin I 0.02 (<0.04) ng/mL C-Reactive Protein 30.39 H (< 5.00) mg/L B-Natriuretic Peptide 98 ( - 100) pg/mL Total Protein 7.1 (6.4-8.9) g/dL Albumin 3.7 (3.2-5.2) g/dL Globulin 3.4 (2-4) g/dL Albumin/Globulin Ratio 1.1 (1-3) // Range/Units 15:34 WBC (3.5-10.8) 10^3/ul RBC (4.0-5.4) 10^6/ul Hgb (14.0-18.0) g/dl Hct (42-52) % MCV (80-94) fL MCH (27-31) pg MCHC (31-36) g/dl RDW (10.5-15) % Plt Count (150-450) 10^3/ul MPV (7.4-10.4) um3 Neut % (Auto) (38-83) % Lymph % (Auto) (25-47) % [place] % (Auto) (1-9) % Eos % (Auto) (0-6) % Baso % (Auto) (0-2) % Absolute Neuts (auto) (1.5-7.7) 10^3/ul Absolute Lymphs (auto) (1.0-4.8) 10^3/ul Absolute Monos (auto) (0-0.8) 10^3/ul Absolute Eos (auto) (0-0.6) 10^3/ul Absolute Basos (auto) (0-0.2) 10^3/ul Absolute Nucleated RBC 10^3/ul Nucleated RBC % ESR Sodium (133-145) mmol/L Potassium (3.5-5.0) mmol/L Chloride (101-111) mmol/L Carbon Dioxide (22-32) mmol/L Anion Gap (2-11) mmol/L BUN (6-24) mg/dL Creatinine (0.67-1.17) mg/dL Est GFR ( Amer) (>60) Est GFR (Non-Af Amer) (>60) BUN/Creatinine Ratio (8-20) Glucose (70-100) mg/dL Lactic Acid 2.3 H* (0.5-2.0) mmol/L Calcium (8.6-10.3) mg/dL Total Bilirubin (0.2-1.0) mg/dL AST (13-39) U/L ALT (7-52) U/L Alkaline Phosphatase (34-104) U/L Total Creatine Kinase (10-223) U/L Troponin I (<0.04) ng/mL C-Reactive Protein (< 5.00) mg/L B-Natriuretic Peptide ( - 100) pg/mL Total Protein (6.4-8.9) g/dL Albumin (3.2-5.2) g/dL Globulin (2-4) g/dL Albumin/Globulin Ratio (1-3) Microbiology and Other Data: Microbiology 02/12/17 16:50 Influenza Types A,B Antigen (CAROLYN) - Final Nasopharyngeal Specimen received for Influenza A/B Molecular testing Assess/Plan/Problems-Billing Assessment: 66 yo M h/o DVT, GIB, thalassemia minor, DM2, HTN, CKD, CAD p/w LE swelling, confusion - Patient Problems (1) Acute on chronic renal failure Comment: Weight gain and decreased UOP seem to coincide with initiation of doxycycline. Possible AIN all though less common with doxycycline. Hold doxy Elevate legs and wrap Restart bumex, hold metolazone Renal consult (2) Supratherapeutic INR Comment: Hold coumadin recheck CBC and INR in AM (3) Diabetes Comment: c/w lower dose lantus in setting of [place]ER lispro SS (4) HTN (hypertension) Comment: Hold amlodipine/lispro Decrease metoprolol dose by 1/2 (5) Metabolic encephalopathy Comment: suspect in setting of uremia improving monitor (6) Anemia Comment: Multifactoral - acute illness, SCHUYLER, thal minor Repeat CBC tomorrow Consult renal and inquire about early EPO (7) DVT (deep venous thrombosis) Comment: INR supratherapeutic, holding coumadin. Vit K 5 mg PO 02/12.
[2017-02-13] MEDS: Fluticasone NASAL SPRAY 50MCG* 16 gm SPRAY BTL BOTH NARES SCH (11:53)
[2017-02-13] MEDS: Atorvastatin* 20 MG TAB PO SCH (17:26)
[2017-02-14 06:06] LABS: Hematocrit 23 % (42-52); Hemoglobin 7.2 g/dl (14.0-18.0); Mean Corpuscular HGB Conc 32 g/dl (31-36); Mean Corpuscular Hemoglobin 20 pg (27-31); Mean Platelet Volume 9 um3 (7.4-10.4); Red Blood Count 3.52 10^6/ul (4.0-5.4); Red Cell Distribution Width 18 % (10.5-15); White Blood Count 8.3 10^3/ul (3.5-10.8)
[2017-02-14 06:14] LABS: BUN/Creatinine Ratio 22.5 (8-20); Calcium 6.5 mg/dL (8.6-10.3); EGFR Non-African American 13.2 (>60); Potassium 4.6 mmol/L (3.5-5.0)
[2017-02-14 06:22] LABS: Comments Flag Yes; Mean Corpuscular Volume 64 fL (80-94)
[2017-02-14] MEDS: Metoprolol Succinate XL TAB* 25 MG PO SCH ×2 (08:51→22:21)
[2017-02-14] MEDS: Sodium Citrate/Citric Acid* 15 ML UDC PO SCH ×3 (08:51→22:22)
[2017-02-14] MEDS: Insulin LISPRO* 1 UNITS UNIT SUBCUT SCH ×4 (08:51→22:34)
[2017-02-14] MEDS: Insulin GLARGINE(*) 1 UNITS UNIT SUBCUT SCH ×2 (08:51→22:20)
[2017-02-14] MEDS: Fluticasone NASAL SPRAY 50MCG* 16 gm SPRAY BTL BOTH NARES SCH (09:54)
[2017-02-14] MEDS ORDERED: Furosemide IV* 10 MG/ML VIAL (40 MG) IV SLOW PU ONE (15:14)
--- NOTE | 2017-02-14 15:22 | PN ---
Subjective Date of Service: 02/14/17 Interval History: Increased SOB overnight, feels better sitting up in chair Legs feel less swollen Family History: Findings - mother had a CVA Social History: Findings - Lives with his who is his SDM. No alcohol or tobacco use. Past Medical History: Findings - BL DVT's, thall minor, DM, CAD s/p PCI, HTN, CKD Objective Active Medications: Atorvastatin Calcium (Lipitor*) 20 mg PO QPM [facility] Last Admin: 02/13/17 17:26 Dose: 20 mg Citric Acid/Sodium Citrate (Bicitra*) 15 ml PO TID [facility] Last Admin: 02/14/17 13:00 Dose: 15 ml Dextrose (D50w Syringe 50 Ml*) 12.5 gm IV PUSH .FOR FS < 60 - SS PRN PRN Reason: FS < 60 Fluticasone Propionate (Flonase Nasal [place] 50mcg*) 2 spray BOTH NARES DAILY [facility] Last Admin: 02/14/17 09:54 Dose: Not Given Furosemide (Lasix Iv*) 40 mg IV SLOW PU ONCE ONE Stop: 02/14/17 15:15 Insulin Glargine (Lantus(*)) 15 units SUBCUT Q12H [facility] Last Admin: 02/14/17 08:51 Dose: 15 units Insulin Human Lispro (Humalog*) 0 units SUBCUT ACHS [facility] PRN Reason: Protocol Last Admin: 02/14/17 13:00 Dose: 6 units Metoprolol Succinate (Toprol Xl Tab*) 25 mg PO BID [facility] Last Admin: 02/14/17 08:51 Dose: 25 mg Vital Signs - 8 hr 02/14/17 02/14/17 02/14/17 07:52 08:00 11:26 Temperature 97.1 F 97.6 F Pulse Rate 65 59 Respiratory 16 20 20 Rate Blood Pressure 135/58 132/58 (mmHg) O2 Sat by Pulse 90 94 Oximetry Oxygen Devices in Use Now: Nasal Cannula Appearance: sitting in chair, nad Eyes: No Scleral Icterus, PERRLA Ears/Nose/Mouth/Throat: Clear Oropharnyx, Mucous Membranes Moist Neck: NL Appearance and Movements; NL JVP, Trachea Midline Respiratory: Symmetrical Chest Expansion and Respiratory Effort, - - decreased in bases, no rales Cardiovascular: RRR Abdominal: NL Sounds; No Tenderness; No Distention, No Hepatosplenomegaly Lymphatic: No Cervical Adenopathy, No Axillary Adenopathy Extremities: - - 2+ le edema Skin: - - right 3rd finger left 1st fingers with well circumscribed lesion with dark center Neurological: Alert and Oriented x 3 Result Diagrams: 02/14/17 05:35 02/14/17 05:35 Additional Lab and Data: Lab Results 02/12/17 02/12/17 02/12/17 Range/Units 15:34 15:34 15:34 WBC 7.4 (3.5-10.8) 10^3/ul RBC 3.98 L (4.0-5.4) 10^6/ul Hgb 7.9 L (14.0-18.0) g/dl Hct 26 L (42-52) % MCV 65 L (80-94) fL MCH 20 L (27-31) pg MCHC 30 L (31-36) g/dl RDW 19 H (10.5-15) % Plt Count 98 L (150-450) 10^3/ul MPV 9 (7.4-10.4) um3 Neut % (Auto) 65.1 (38-83) % Lymph % (Auto) 23.3 L (25-47) % [place] % (Auto) 7.4 (1-9) % Eos % (Auto) 3.1 (0-6) % Baso % (Auto) 1.1 (0-2) % Absolute Neuts (auto) 4.8 (1.5-7.7) 10^3/ul Absolute Lymphs (auto) 1.7 (1.0-4.8) 10^3/ul Absolute Monos (auto) 0.6 (0-0.8) 10^3/ul Absolute Eos (auto) 0.2 (0-0.6) 10^3/ul Absolute Basos (auto) 0.1 (0-0.2) 10^3/ul Absolute Nucleated RBC 0.02 10^3/ul Nucleated RBC % 0.3 ESR Pending Sodium 141 (133-145) mmol/L Potassium 5.3 H (3.5-5.0) mmol/L Chloride 111 (101-111) mmol/L Carbon Dioxide 18 L (22-32) mmol/L Anion Gap 12 H (2-11) mmol/L BUN 94 H (6-24) mg/dL Creatinine 4.56 H (0.67-1.17) mg/dL Est GFR ( Amer) 16.6 (>60) Est GFR (Non-Af Amer) 12.9 (>60) BUN/Creatinine Ratio 20.6 H (8-20) Glucose 177 H (70-100) mg/dL Lactic Acid (0.5-2.0) mmol/L Calcium 7.3 L (8.6-10.3) mg/dL Total Bilirubin 0.30 (0.2-1.0) mg/dL AST 20 (13-39) U/L ALT 19 (7-52) U/L Alkaline Phosphatase 195 H (34-104) U/L Total Creatine Kinase 246 H (10-223) U/L Troponin I 0.02 (<0.04) ng/mL C-Reactive Protein 30.39 H (< 5.00) mg/L B-Natriuretic Peptide 98 ( - 100) pg/mL Total Protein 7.1 (6.4-8.9) g/dL Albumin 3.7 (3.2-5.2) g/dL Globulin 3.4 (2-4) g/dL Albumin/Globulin Ratio 1.1 (1-3) //17 Range/Units 15:34 WBC (3.5-10.8) 10^3/ul RBC (4.0-5.4) 10^6/ul Hgb (14.0-18.0) g/dl Hct (42-52) % MCV (80-94) fL MCH (27-31) pg MCHC (31-36) g/dl RDW (10.5-15) % Plt Count (150-450) 10^3/ul MPV (7.4-10.4) um3 Neut % (Auto) (38-83) % Lymph % (Auto) (25-47) % [place] % (Auto) (1-9) % Eos % (Auto) (0-6) % Baso % (Auto) (0-2) % Absolute Neuts (auto) (1.5-7.7) 10^3/ul Absolute Lymphs (auto) (1.0-4.8) 10^3/ul Absolute Monos (auto) (0-0.8) 10^3/ul Absolute Eos (auto) (0-0.6) 10^3/ul Absolute Basos (auto) (0-0.2) 10^3/ul Absolute Nucleated RBC 10^3/ul Nucleated RBC % ESR Sodium (133-145) mmol/L Potassium (3.5-5.0) mmol/L Chloride (101-111) mmol/L Carbon Dioxide (22-32) mmol/L Anion Gap (2-11) mmol/L BUN (6-24) mg/dL Creatinine (0.67-1.17) mg/dL Est GFR ( Amer) (>60) Est GFR (Non-Af Amer) (>60) BUN/Creatinine Ratio (8-20) Glucose (70-100) mg/dL Lactic Acid 2.3 H* (0.5-2.0) mmol/L Calcium (8.6-10.3) mg/dL Total Bilirubin (0.2-1.0) mg/dL AST (13-39) U/L ALT (7-52) U/L Alkaline Phosphatase (34-104) U/L Total Creatine Kinase (10-223) U/L Troponin I (<0.04) ng/mL C-Reactive Protein (< 5.00) mg/L B-Natriuretic Peptide ( - 100) pg/mL Total Protein (6.4-8.9) g/dL Albumin (3.2-5.2) g/dL Globulin (2-4) g/dL Albumin/Globulin Ratio (1-3) Microbiology and Other Data: Microbiology 02/12/17 16:50 Influenza Types A,B Antigen (CAROLYN) - Final Nasopharyngeal Specimen received for Influenza A/B Molecular testing Assess/Plan/Problems-Billing Assessment: 66 yo M h/o DVT, GIB, thalassemia minor, DM2, HTN, CKD, CAD p/w LE swelling, confusion - Patient Problems (1) Acute on chronic renal failure Comment: Weight gain and decreased UOP seem to coincide with initiation of cephalexin (was not doxy- I confirmed with pharmacy) Suspect AIN in setting of cephalsporin Elevate legs and wrap lasix 40IV today Renal consult (2) Supratherapeutic INR Comment: Hold coumadin recheck CBC and INR in AM (3) Diabetes Comment: c/w lower dose lantus in setting of [place] lispro SS (4) HTN (hypertension) Comment: Hold amlodipine/lispro Decrease metoprolol dose by 1/2 (5) Metabolic encephalopathy Comment: suspect in setting of uremia improving monitor (6) Anemia Comment: Multifactoral - acute illness, SCHUYLER, thal minor Repeat CBC tomorrow Consult renal and inquire about early EPO (7) DVT (deep venous thrombosis) Comment: INR supratherapeutic, holding coumadin. Vit K 5 mg PO 02/12.
[2017-02-14] MEDS: Atorvastatin* 20 MG TAB PO SCH (16:43)
[2017-02-15 05:48] LABS: Hematocrit 22 % (42-52); Hemoglobin 6.9 g/dl (14.0-18.0); Mean Corpuscular HGB Conc 31 g/dl (31-36); Mean Corpuscular Hemoglobin 20 pg (27-31); Mean Platelet Volume 9 um3 (7.4-10.4); Red Blood Count 3.45 10^6/ul (4.0-5.4); Red Cell Distribution Width 18 % (10.5-15); White Blood Count 6.9 10^3/ul (3.5-10.8)
[2017-02-15 05:50] LABS: Comments Flag Yes; Mean Corpuscular Volume 64 fL (80-94)
[2017-02-15] MEDS: Insulin LISPRO* 1 UNITS UNIT SUBCUT SCH ×2 (07:33→11:58)
[2017-02-15 07:50] LABS: BUN/Creatinine Ratio 24.6 (8-20); EGFR African American 18.3 (>60); EGFR Non-African American 14.3 (>60); Potassium 4.4 mmol/L (3.5-5.0)
[2017-02-15 08:08] LABS: Calcium 6.4 mg/dL (8.6-10.3)
[2017-02-15] MEDS: Sodium Citrate/Citric Acid* 15 ML UDC PO SCH ×2 (08:58→13:26)
[2017-02-15] MEDS: Metoprolol Succinate XL TAB* 25 MG PO SCH (08:58)
[2017-02-15] MEDS: Insulin GLARGINE(*) 1 UNITS UNIT SUBCUT SCH (08:59)
[2017-02-15] MEDS: Fluticasone NASAL SPRAY 50MCG* 16 gm SPRAY BTL BOTH NARES SCH (09:02)
[2017-02-15] MEDS ORDERED: Epoetin Alfa* 10,000 UNITS/ML VIAL SUBCUT ONE (10:43)
[2017-02-15] MEDS ORDERED: Calcitriol CAP* 0.25 MCG PO ONE (12:27)
[2017-02-15 14:52] LABS: Ferritin 524.8 ng/mL (24-336)
[2017-02-15 15:50] VITALS: BP 151/73
[2017-02-15] MEDS ORDERED: Fluticasone NASAL SPRAY 50MCG* 16 gm SPRAY BTL BOTH NARES SCH (21:00)
--- NOTE | 2017-02-16 04:03 | PN ---
PROGRESS NOTE: DATE OF SERVICE: 02/15/17 HISTORY: Mr. Guzman is a 66-year-old gentleman, well known to me from previous consultations and outpatient management. He presented with 10 pounds of fluid and worsening renal function, which has been attributed to a probable episode of acute interstitial nephritis secondary to one of the cephalosporins. He is feeling much better at the present time and feels he is ready to go home. He denies chest pain. He still has some shortness of breath and is using oxygen. His edema is mobilizing nicely. His blood pressure is 139/52 with an O2 saturation of 90%, pulse was 72. He maintains a significant anemia with a hemoglobin of 6.9, which is down from 7.9 3 days ago. He has microcytic indices , which has been a long-term finding for him. He maintains a low-grade metabolic acidosis. His creatinine is 4.19 with a BUN of 103. Calcium of 6.4 with an albumin of 3.7. He probably needs to be on some calcitriol 0.25 mcg daily. I agree with the decision to start him on some erythropoietin. We should probably check stools for occult blood again because of his previously known gastrointestinal bleeding. IMPRESSION: 1. Chronic renal insufficiency with [id number] deterioration of renal function. 2. Possible acute interstitial nephritis. 3. Anemia of chronic renal disease. 4. Metabolic acidosis. 5. Hypocalcemia. I have a long discussion with him today about the potential for renal replacement therapy and at some point soon, we should probably make a referral for a vascular access. I will be discussing the case with Dr. Ovalles. [id number]/[facility] #: [id number] PERRY
--- NOTE | 2017-02-16 14:50 | DS ---
CC: Dr. Oakley.* DISCHARGE SUMMARY: DATE OF ADMISSION: 02/12/17 DATE OF DISCHARGE: 02/15/17 PRIMARY CARE PROVIDER: Dr. Oakley. PRIMARY DIAGNOSIS: Acute on chronic kidney failure secondary to suspected acute interstitial nephritis. SECONDARY DIAGNOSES: 1. Hypertension. 2. Atrial fibrillation. 3. Anemia. 4. Supratherapeutic INR. 5. Altered mental status. 6. Thalassemia minor. 7. History of coronary artery disease. 8. History of diabetes. MEDICATIONS ON DISCHARGE: 1. Atorvastatin 20 mg in the evening. 2. Flonase 2 sprays both nares daily. 3. Ipratropium 0.03% both nares daily as needed. 4. Coumadin 3 mg daily. 5. Lyrica 50 mg twice daily. 6. Lisinopril 20 mg daily. 7. Metoprolol 25 mg twice daily. 8. Insulin glargine 15 units twice daily. 9. Insulin Humalog per home sliding dose. 10. Calcitriol 0.25 mg daily. 11. Bumetanide 1 mg daily. PERTINENT LABORATORY DATA: Creatinine on presentation 4.5, peaked at 4.6, down to 4.19 on discharge. BUN peaked at 103. Hemoglobin ranged between 6.9 and 7.9 , 6.9 on discharge. INR 7.0, decreased to 2.8 on on discharge. HISTORY OF PRESENT ILLNESS: This is a 66-year-old man with past medical history as outlined. On the day of admission, presented to the hospital with 1 day of effusion as noted by his , chronic renal failure as well as supratherapeutic INR. No evidence of active GI bleed. His hemoglobin remained relatively stable throughout the course of the hospital stay. His kidney function was notably worse and treated with cephalexin for suspected secondarily superinfected wound on his finger. Suspect acute interstitial nephritis in the setting of cephalosporin, although this is not the most common drug to cause this illness. His kidney function continued to improve, however, his BUN remained elevated. He was noted to have toxic metabolic encephalopathy in the setting of uremia. The patient's medications were adjusted significant prior to his discharge including a significantly less dose of insulin; lower doses, Bumex; lower dose, antihypertensives. The patient felt well back to his baseline on the day of admission. His legs were wrapped and elevated during the course of his hospital stay. His INR normalized. He received 10,000 units of Epogen prior to discharge, started on calcitriol. He was seen in consultation with Dr. Ramos, who will see him in the office. There are no complications in this patient's hospital stay. At followup, please; 1. Multiple labs were ordered for him to be checked prior to followup including CBC, BMP, and INR. Please follow CBC for hemoglobin stability after you receive an Epogen. Please follow BMP for stability of creatinine on different doses of Bumex and INR for continued stability on lower doses of Coumadin. 2. Please follow blood pressure for continued stability on lower doses of antihypertensives. 3. Please follow glucose for continued stability on lower doses of insulin. Up - titrate as necessary. 4. Please ensure follow up with Dr. Ramos as the patient is rapidly progressing towards need for dialysis, which Dr. Ramos discussed with the patient. Reasons to return to the hospital included but not limited to recurring or worsening symptoms, chest pain, shortness of breath, nausea, vomiting, lightheadedness, bleeding from any source, dark black stool, bright red blood from any location, lightheadedness, loss of consciousness, near loss of consciousness, increased fatigue were discussed with the patient and he acknowledged understanding. TIME SPENT: Greater than 60 minutes was spent in discharge of this patient, greater than half was spent [id number] with the patient. [id number]/[facility] #: [id number] MTDD
== END 2017-02-15 18:00 | disposition home or self-care (01) | DRG 682 ==
LOC: ED 14:38 → MEDTELE 18:03
PROVIDERS: ADMIT Internal Medicine; ATTEND Internal Medicine
DX: N17.9 Acute kidney failure, unspecified (principal); G93.41 Metabolic encephalopathy; E11.22 Type 2 diabetes mellitus with diabetic chronic kidney disease; I48.91 Unspecified atrial fibrillation; E83.51 Hypocalcemia; N10 Acute pyelonephritis; I13.10 Hypertensive heart and chronic kidney disease without heart failure, with stage 1 through stage 4 chronic kidney disease, or unspecified chronic kidney disease; N18.9 Chronic kidney disease, unspecified; I25.10 Atherosclerotic heart disease of native coronary artery without angina pectoris; D63.1 Anemia in chronic kidney disease; D56.3 Thalassemia minor; R79.1 Abnormal coagulation profile; Z88.1 Allergy status to other antibiotic agents; Z79.01 Long term (current) use of anticoagulants; Z79.4 Long term (current) use of insulin; Z79.899 Other long term (current) drug therapy; Z82.3 Family history of stroke
CPT/HCPCS: 36415; 70450; 71010; 80048; 80053; 81003; 81015; 82550; 82728; 83540; 83550; 83605; 83880; 84484; 85025; 85610; 85652; 85730; 86140; 87040; 87502; 93005; 93970; 94660; 94760; A9270-GY; J0885; J1940

== ENCOUNTER → 2017-04-14 21:36 | Emergency (ER) | payer MEDICARE | END | disposition left against medical advice (07) | LOC: ED 21:36 | DX: R79.9 Abnormal finding of blood chemistry, unspecified (principal); Z53.21 Procedure and treatment not carried out due to patient leaving prior to being seen by health care provider | CPT/HCPCS: 99281 ==

== ENCOUNTER 2017-04-15 08:48 | Emergency (ER) | payer MEDICARE ==
--- OUTSIDE RECORDS SUMMARY | 2017-04-15 09:13 | XMS REPORT ---
:1950 External Reference #:[id number] Author Organization [employer] Address [address] [address] Phone [phone] Care Team Providers Name Role Phone Mario Oakley MD Primary Care Physician Unavailable Payers Type Date Identification Numbers Payment Subscriber Provider Health Maintenance Effective: Policy Number: Medicare Blue Conor Mendoza (O) 03/01/2015 [id number] o Group Number: [id number] [address] [address] PayID: [id number] SUDHAKAR Romero [address] Commercial Effective: Policy Number: Bsoptions Zelda Marroquin 12/31/2011 [id number] Expires: 02/28/2013 Group Name: [facility] [place] [address] [address] PayID: [id number] SUDHAKAR Romero [id number] Problems Date Description Provider Status Onset: 03/29/2011 Diabetes mellitus Ifrah Valdovinos M.D. Active Onset: 03/31/2013 Coronary arteriosclerosis Serge Krishna M.D. Active Onset: 03/31/2013 Essential hypertension Serge Krishna M.D. Active Onset: 03/31/2013 Precordial pain Serge Krishna M.D. 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 Recreational Drug Use Denies Drug Use Daily Caffeine Consumes on average 2 cups of regular coffee per day Exercise Type/Frequency Does not exercise Allergies, Adverse Reactions, Alerts Date Description Reaction Status Severity Comments 11/23/2006 Erythromycin active GI Upset Medications Medication Date Status Form Strength Qnty SIG Indications Ordering Provider Amlodipine 07/22/ Active Tablets 10mg 90tab 1 by mouth Serge Besylate 2016 s every day Clara Krishna M.D. Albuterol 01/08/ Active Aerosol 90mcg/Act 5gm 2 puffs po R06.02 Luis Bullock 2010 qid prn (pt Gala, not using) Kimmy Lopressor 03/19/ Active Tablets 50mg 180ta 1 po bid Candido 2009 bs Clara Gale M.D.,FACP Accu-Check 12/28/ Active 100un bid prn 250.00 Luis Chicasva Test 2007 [place] M.D. Elio Stockings 06/28/ Active 1Pair use daily Luis Bullock 2007 for leg peggy Cedeño M.D. Prilosec OTC 11/23/ Active Tablets DR 20mg 90tab 1 po qd Luis Bullock 2006 neel Cedeño M.D. Lantus / Active Solution 100Unit/M 40 units bid Unknown Solostar 0000 Pen-Inject L Folic Acid / Active Tablets 1mg take one Unknown 0000 capsule/tabl et daily by mouth Lyrica / Active Capsules 50mg 1 by mouth Unknown 0000 twice a day Lisinopril / Active Tablets 40mg 1 by mouth Unknown 0000 every day Humalog / Active Solution 25 units tid Unknown Kwikpen 0000 Pen-Inject Allopurinol 0000/ Active Tablets 300mg 1 by mouth Unknown 0000 every day Magnesium 00/00/ Active Tablets 400mg 2 by mouth Unknown 0000 every day Vitamin D3 00/00/ Active 1 daily Unknown 0000 Calcium 00/00/ Active 1 daily Unknown 0000 Warfarin 00/ Active Tablets 4mg 1 tab every , Sodium 0000 day (next Jeanne, Inr PA 11/13/16) ( oversees) Diuril 06/05/ Hx Suspension 250mg/5ML R60.1 Serge Krishna 06/05/ Kimmy 2017 Bumetanide 06/05/ Hx Tablets 2mg 90tab 2 tabs daily R60.1 Serge 2017 s prn for D. Brand, weight gain M.D. >3lbs one day to next (No longer using) Metolazone 06/05/ Hx Tablets 2.5mg 30tab 1 by mouth R60.1 Serge 2017 s 1/2 hour D. Brand, before Bumex M.D. prn for sig weight gain (No longer using) Atorvastatin 06/04/ Hx Tablets 80mg 1 by mouth Serge Calcium 2016 - every day D. Brand, 06/05/ M.D. 2016 Tramadol 10/12/ Hx Tablets 37.5-325m 30tab 1 tab by Ishaan Hydrochloride/ 2013 - g s mouth every , Acetaminophen 06/08/ 4-6 hours as M.D. 2016 needed for pain Atorvastatin 07/21/ Hx Tablets 20mg 90tab take 1 Serge Calcium 2012 - tablet at D. Brand, 06/03/ bedtime M.D. 2016 Albuterol 10/10/ Hx Aerosol 90mcg/Act 2 puffs po 786.05 Luis Bullock 2010 - qid prn Gala M.D. 2010 Lisinopril/Hyd 08/08/ Hx Tablets 20-12.5mg 90tab 1 po qd Luis garcialorothiazswetha 2010 [place] 03/30/ M.D. 2013 Pen [place] 04/15/ Hx 32G X 30uni qday with Rachid 03/04" ts Graysontoza Pachikara 03/30/ , M.D. 2013 Albuterol 04/14/ Hx 1unit 2 puffs po 786.05 Luis Bullock Inhaler 2010 up to qid Gala 10/10/ prn M.D. 2010 Victoza 04/14/ Hx Solution 18mg/3ML 1pen 250.00 Luis Bullock 2010 - Gala, 03/30/ M.D. 2013 Bactrim DS 12/18/ Hx Tablets 800-160mg 28tab 1 po bid for Luis Bullock 2008 - s 7 days Gala M.D. 2010 Levitra 06/11/ Hx Tablets 20mg 10tab 1 tablet po Luis Bullock 2008 - qd prn (Pt Gala, 06/08/ no longer M.D. 2017 taking) Pravastatin 06/05/ Hx Tablets 40mg 90tab 1 po qd Luis Bullock Sodium 2008 s Gala, M.D. 2013 Metoprolol 12/28/ Hx Tablets ER 50mg 180ta 1 po bid Luis Bullock Succinate ER 2007 - 24HR manohar Cedeño, M.D. 2009 Glucophage 11/22/ Hx Tablets 500mg 360ta 2 po bid 250.00 Candido 2007 - manohar Gale, M.D.,FACP 2014 Celebrex 11/21/ Hx Capsules 200mg 30cap 1 po qd Luis Bullock 2007 Gala, M.D. 2007 Flexeril 11/21/ Hx Tablets 10mg 90tab 1 po tid prn Luis Bullock 2007 neel Cedeño, M.D. 2008 Lisinopril/Hyd 08/02/ Hx Tablets 20-12.5 90tab 1 po qd Luis Bullock rochlorothiazi 2007 [place] M.D. 2010 K-Dur 06/28/ Hx Tablets ER 20Meq 36tab 1 po qd Candido 2007 - s deboraw-f with Clara Gale, 03/30/ rupert Oneal,FACP 2014 Plavix 11/23/ Hx Tablets 75mg 30tab 1 po qd Luis Bullock 2006 s Gala, M.D. 2016 Glucophage XR / Hx Tablets 500mg 120ta 2 po bid Luis Delarosa - manohar Cedeño, M.D. 2007 Glyburide / Hx Tablets 5mg 180ta 1 po bid Candido - manohar Gale, M.D.,FACP 2014 Zocor / Hx Tablets 40mg 90tab 1 po qhs Luis Cedeño, M.D. 2009 Hyzaar / Hx Tablets 50-12.5 90tab 1 po qd Luis Bullock - neel Cedeño, M.D. 2008 Actos 00/00/ Hx Tablets 30mg 60tab 1 po qd Candido 0000 - s Ran Gale, 03/30/ marquis 2 Kimmy,[facility] 2014 months supply pt is going out of state Cialis // Hx Tablets 20mg 10tab 1 Tab PO shrutin Isamar, 0000 - s MD Alphonso 2008 Plavix /00/ Hx Tablets 75mg 1 po qd Luis E. 0000 - Gala, 11/23/ M.D. 2006 Metoprolol / Hx Tablets 25mg 180ta 1 po bid Luis E. Tartrate - bs Gala, 12/28/ M.D. 2007 Lasix / Hx Tablets 40mg 36tab Unknown 0000 - s 2013 Byetta / Hx Solution 5mcg/0.02 bid Unknown 0000 - ML 2010 Asa / Hx 325mg 90uni 1 po qd Unknown 0000 - ts 2016 Lisinopril 00/ Hx Tablets 40mg 90tab 1 po qd Unknown 0000 - s 2016 Lasix /00/ Hx Tablets 20mg 1 tablet Unknown 0000 - alternating tablets 2017 daily. Glimepiride 00/ Hx Tablets 4mg 90tab 1 po bid Unknown 0000 - s 2016 Metformin HCL 00/ Hx Tablets 850mg 180ta 1 po daily 250.00 Unknown 0000 - bs 2016 Bydureon / Hx Suspension 2mg once weekly Unknown 0000 - Rec 2016 Tradjenta 00/ Hx Tablets 5mg 90tab po qd Unknown 0000 - s 2016 Hydralazine 00/ Hx Tablets 50mg 1 by mouth Unknown HCL 0000 - three times 07/18/ a day 2016 Isosorbide /00/ Hx Tablets ER 60mg 1 by mouth Unknown Mononitrate ER 0000 - 24HR every day 2016 Ventolin HFA / Hx Aerosol 108(90Bas 2 puffs by Unknown 0000 - e) mouth four 05/05/ mcg/Act times a day 2017 as needed Warfarin /00/ Hx Tablets 3mg as directed Unknown Sodium - 2016 Aspirin Adult 00/ Hx Tablets DR 325mg 1 by mouth Unknown Low Dose 0000 every day Stool Softener / Hx Tablets 8.6-50mg 1 tab po Unknown Plus Laxative 0000 daily Amlodipine / Hx Tablets 5mg 1 by mouth Unknown Besylate 0000 - every day 2016 Atorvastatin / Hx Tablets 20mg take 1 Unknown Calcium 0000 tablet at bedtime Metoprolol / Hx Tablets 50mg 1 by mouth Unknown Tartrate 0000 - twice a day 2016 Immunizations CPT Code Status Date Vaccine Lot # [id number] Given 01/03/2009 Influenza Virus Vaccine, Pandemic Formulation 76128 Given 01/03/2009 Administration Swine Flu Shot 13307 Given 12/24/2008 Influenza Virus 3Yrs & Over [id number] 66053 Given 12/29/2007 Influenza Virus 3Yrs & Over 80065 Given 12/29/2007 Influenza Virus 3Yrs & Over 91293 Given 01/04/2007 Pneumonia Vaccine 67372 Given 01/04/2007 Pneumonia Vaccine 34815 Given 01/04/2007 Influenza Virus 3Yrs & Over 77769 Given 10/05/2004 Pneumovax (History By Patient) 82902 Given 01/25/2000 Td (History By Patient) Vital Signs Date Vital Result Comment 03/23/2017 Height 70 inches 5'10" Weight 294.00 lb Heart Rate 62 /min BP Systolic 140 mmHg BP Diastolic 82 mmHg Respiratory Rate 16 /min Body Temperature 98.2 F BMI (Body Mass Index) 42.2 kg/m2 11/11/2016 Height 70 inches 5'10" Weight 281.50 lb Heart Rate 70 /min BP Systolic Sitting 138 mmHg Rue lrg cuff BP Diastolic Sitting 68 mmHg Rue lrg cuff BP Systolic Standing 128 mmHg Rue lrg cuff BP Diastolic Standing 66 mmHg Rue lrg cuff Respiratory Rate 16 /min BMI (Body Mass Index) 40.4 kg/m2 Ejection Fraction 55-60% -echo 08/12/2016 Height 70 inches 5'10" Weight 274.00 lb Heart Rate 72 /min BP Systolic 142 mmHg BP Diastolic 74 mmHg Body Temperature 97.5 F BMI (Body Mass Index) 39.3 kg/m2 07/22/2016 Height 70 inches 5'10" Weight 287.00 lb with shoes Heart Rate 96 /min BP Systolic Sitting 158 mmHg Rue lrg cuff BP Diastolic Sitting 80 mmHg Rue lrg cuff BP Systolic Standing 150 mmHg Rue lrg cuff BP Diastolic Standing 80 mmHg Rue lrg cuff Respiratory Rate 17 /min BMI (Body Mass Index) 41.2 kg/m2 Ejection Fraction 55% 04/09/2016-echo 06/16/2016 Height 70 inches 5'10" Weight 290.00 lb with shoes Heart Rate 100 /min BP Systolic Sitting 156 mmHg Rue lg cuff BP Diastolic Sitting 80 mmHg Rue lg cuff Respiratory Rate 17 /min BMI (Body Mass Index) 41.6 kg/m2 Ejection Fraction 55% - 60% echo 04/09/16 06/09/2016 Height 70 inches 5'10" Weight 299.00 lb Heart Rate 80 /min BP Systolic Sitting 146 mmHg LA lrg cuff BP Diastolic Sitting 72 mmHg LA lrg cuff BMI (Body Mass Index) 42.9 kg/m2 Ejection Fraction 55% - 60% echo 04/09/16 06/05/2016 Height 70 inches 5'10" Weight 311.00 lb no shoes perpatient this Am Heart Rate 90 /min BP Systolic Sitting 182 mmHg Rue lrg cuff BP Diastolic Sitting 82 mmHg Rue lrg cuff Respiratory Rate 20 /min BMI (Body Mass Index) 44.6 kg/m2 Ejection Fraction 55-60% 04/09/2016-echo 01/04/2014 Height 70 inches 5'10" Weight 266.00 lb Body Temperature 98.3 F BMI (Body Mass Index) 38.2 kg/m2 11/23/2013 Height 70 inches 5'10" Heart Rate 68 /min BP Systolic 132 mmHg BP Diastolic 80 mmHg 11/17/2013 Height 70 inches 5'10" Heart Rate 69 /min BP Systolic 147 mmHg BP Diastolic 84 mmHg 10/12/2013 Height 70 inches 5'10" Weight 266.00 lb Heart Rate 75 /min BP Systolic 136 mmHg BP Diastolic 80 mmHg BMI (Body Mass Index) 38.2 kg/m2 03/31/2013 Height 69.5 inches 5'9.50" Weight 273.00 lb no shoes, 9 Lbs decrease from 07/21/12 Heart Rate 70 /min BP Systolic Sitting 138 mmHg LA, Lg cuff BP Diastolic Sitting 78 mmHg LA, Lg cuff BP Systolic Standing 126 mmHg BP Diastolic Standing 74 mmHg Respiratory Rate 18 /min BMI (Body Mass Index) 39.7 kg/m2 04/14/2010 Weight 298.00 lb Heart Rate 98 /min O2 % BldC Oximetry 88 % 10/28/2009 Weight 302.00 lb Heart Rate 79 /min BP Systolic Sitting 160 mmHg BP Diastolic Sitting 82 mmHg 12/18/2008 Weight 303.00 lb up 11# Heart Rate 76 /min BP Systolic Sitting 160 mmHg BP Diastolic Sitting 78 mmHg O2 % BldC Oximetry 92 % 06/11/2008 Height 70 inches 5'10" Weight 294.00 lb Heart Rate 72 /min BP Systolic Sitting 114 mmHg BP Diastolic Sitting 68 mmHg BMI (Body Mass Index) 42.2 kg/m2 06/11/2008 Height 70 inches 5'10" 06/29/2007 Height 70 inches 5'10" Weight 310.00 lb Heart Rate 80 /min BP Systolic Sitting 150 mmHg BP Diastolic Sitting 90 mmHg BMI (Body Mass Index) 44.5 kg/m2 11/23/2006 Height 70 inches 5'10" Weight 304.00 lb Heart Rate 86 /min BP Systolic Sitting 150 mmHg BP Diastolic Sitting 84 mmHg BMI (Body Mass Index) 43.6 kg/m2 Results Test Date Test Result H/L Range Note Wound Culture/Sensi 09/22/2016 Wound/Misc SEE RESULT BELOW 1 Culture-Gram Stain Xray 08/12/2016 Shoulder Right 2+ <pending> VWS Comp Metabolic Panel 07/17/2016 Sodium 138 mmol/L 133-145 2 Chloride 118 mmol/L High 101-111 2 Co2 Carbon Dioxide 15 mmol/L Low 22-32 2 Glucose 257 mg/dL High 70-100 2 Creatinine 4.17 mg/dL High 0.67-1.17 2 Calcium 8.5 mg/dL Low 8.6-10.3 2 Total Protein 5.8 g/dL Low 6.4-8.9 2 Albumin 3.1 g/dL Low 3.2-5.2 2 Globulin 2.7 g/dL 2-4 2 Albumin/Globulin Ratio 1.1 1-3 2 Total Bilirubin 0.20 mg/dL 0.2-1.0 2 Alkaline Phosphatase 96 U/L 34-104 2 Alt 11 U/L 7-52 2 Ast 13 U/L 13-39 2 Egfr Non- 14.3 >60 2 Egfr 18.4 >60 2, 3 Potassium 8.1 mmol/L High 3.5-5.0 2, 4 Anion Gap 5 mmol/L 2-11 2 Blood Urea Nitrogen 152 mg/dL High 6-24 2 BUN/Creatinine Ratio 36.5 High 8-20 2 Laboratory test finding 07/17/2016 Packed Cells SEE RESULTS BELO <SEE 2, 5 NOTE> Fresh Frozen Plasma SEE RESULTS BELO <SEE NOTE> 2, 6 Inr/Protime 07/17/2016 Inr 4.59 High 0.89-1.11 2 Type & Screen 07/17/2016 Patient Blood Type O Positive 2 Antibody Screen NEGATIVE 2 Laboratory test 07/17/2016 Partial Thrombo 55.4 seconds High 26.0-36.3 2 finding Time PTT Laboratory test 07/09/2016 Point of Care 154 mg/dL High 74-106 7 finding Glucose Laboratory test 07/06/2016 Surgical SEE RESULT BELOW 8, 9 finding Pathology Wound Culture/Sensi 06/25/2016 Wound/Misc SEE RESULT BELOW 10 Culture-Gram Stain Laboratory test 06/17/2016 Packed Cells SEE RESULTS BELO 11, 12 finding <SEE NOTE> Type & Screen 06/17/2016 Patient Blood O Positive 11 Type Antibody Screen NEGATIVE 11 Laboratory test finding 06/17/2016 Ferritin 496.0 ng/mL High 24-336 11 Vitamin B12 460 pg/mL 180-914 11, 13 Vitamin D Total 25(Oh) < 7.0 ng/mL Low 30-50 11 CKMB 06/17/2016 CKMB ng/mL 11.7 ng/mL High 0.6-6.3 11 Iron & Iron Binding 06/17/2016 Total Iron Binding 237 g/dL Low 250- 450 11 Capacity Capacity Iron 75 g/dL 50-212 11 Unsaturated Iron Binding 162 g/dL 11 % Iron Saturation 32 % 15-55 11 Laboratory test finding 06/17/2016 Uric Acid 8.2 mg/dL High 4.4-7.6 11 Phosphorus 4.2 mg/dL 2.5-5.0 11 Magnesium 1.5 mg/dL Low 1.9-2.7 11 Lipid Profile (Trig/Chol/HDL) 06/17/2016 Triglycerides 148 mg/dL 11, 14 Cholesterol 205 mg/dL 11, 15 HDL Cholesterol 36.6 mg/dL 11, 16 LDL Cholesterol 139 mg/dL 11, 17 Comp Metabolic Panel 06/17/2016 Sodium 141 mmol/L 133-145 11 Chloride 104 mmol/L 101-111 11 Co2 Carbon Dioxide 26 mmol/L 22-32 11 Glucose 249 mg/dL High 70-100 11 Blood Urea Nitrogen 53 mg/dL High 6-24 11 Creatinine 2.53 mg/dL High 0.67-1.17 11 BUN/Creatinine Ratio 20.9 High 8-20 11 Calcium 8.1 mg/dL Low 8.6-10.3 11 Total Protein 6.0 g/dL Low 6.4-8.9 11 Albumin 3.0 g/dL Low 3.2-5.2 11 Globulin 3.0 g/dL 2-4 11 Albumin/Globulin Ratio 1.0 1-3 11 Total Bilirubin 0.50 mg/dL 0.2-1.0 11 Alkaline Phosphatase 184 U/L High 34-104 11 Alt 19 U/L 7-52 11 Egfr Non- 25.5 >60 11 Egfr 32.8 >60 11, 18 Potassium 4.7 mmol/L 3.5-5.0 11 Anion Gap 11 mmol/L 2-11 11 Ast 27 U/L 13-39 11 Manual Differential 06/17/2016 Neutrophil % 72 % 38-83 11 Lymphocytes % 14 % Low 25-47 11 Monocytes % 10 % 0-13 11 Eosinophils % 2 % 0-6 11 Reactive Lymph % 2 % 0-6 11 Microcytosis 2+ 11 Hypochromasia 1+ 11 Tear Drop Cells 1+ 11 Retic Count 06/17/2016 Retic Count 1.8 % High 0.5-1.5 11 Corrected Retic Count 1.2 % 0.5-1.5 11 Maturation Factor Retic 1.5 11 Retic Index 0.80 11 Mean Retic Volume 99.4 11 Immature Retic Fraction 0.60 11 RBC Retic Count 4.62 10^6/uL 4.6-6.2 11 Hematocrit for Retic CNT 30 % Low 42-52 11 CBC Auto Diff 06/17/2016 White Blood Count 5.6 10^3/uL 3.5-10.8 11 Red Blood Count 4.62 10^6/uL 4.0-5.4 11 Hemoglobin 8.9 g/dL Low 14.0-18.0 11 Hematocrit 30 % Low 42-52 11 Mean Corpuscular Volume 65 fL Low 80-94 11 Mean Corpuscular Hemoglobin 19 pg Low 27-31 11 Mean Corpuscular HGB Conc 30 g/dL Low 31-36 11 Red Cell Distribution Width 19 % High 10.5-15 11 Platelet Count 170 10^3/uL 150-450 11 Mean Platelet Volume 9 um3 7.4-10.4 11 Abs Nucleated RBC 0.01 10^3/uL 11 Abs Neutrophils 4.0 10^3/uL 1.5-7.7 11 Abs Lymphocytes 0.8 10^3/uL Low 1.0-4.8 11 Abs Monocytes 0.6 10^3/uL 0-0.8 11 Abs Eosinophils 0.3 10^3/uL 0-0.6 11 Abs Basophils 0 10^3/uL 0-0.2 11 Laboratory test finding 06/17/2016 B-Type Natriuretic 98 pg/mL 11, 19 Peptide BNP Alkaline Phos 06/17/2016 Alkaline Phosphatase 198 U/L 45 - 115 Isoenzymes Alp Liver 1% 71.8 % 27.8-76.3 Alp Liver 1 142.2 IU/L 16.2-70.2 Alp Liver 2% 12.2 % 0.0-8.0 Alp Liver 2 24.2 IU/L 0.0-5.8 Alp Bone % 16.0 % 19.1-67.7 Alp Bone 31.7 IU/L 12.1-42.7 Alp Intestine % 0.0 % 0.0-20.6 Alp Intestine 0.0 IU/L 0.0-11.0 Alp Placental NotPresent 20 Laboratory test finding 06/17/2016 Erythropoietin 22.6 mIU/mL 2.6 - 18.5 21 Urinalysis Profile 06/17/2016 Urine Color Yellow Urine Appearance Clear Urine Specific [place] 1.013 1.010-1.030 Urine pH 7.0 5-9 Urine Urobilinogen Negative Negative Urine Ketones Negative Negative Urine Protein 3+(>=500 mg/dL) Negative Urine Leukocytes Negative Negative Urine Blood 1+ Negative Urine Nitrite Negative Negative Urine Bilirubin Negative Negative Urine Glucose 3+(>=500 mg/dL) Negative Urine White Blood Cell Trace(0-5/hpf) Absent Urine Red Blood Cell 3+(>10/hpf) Absent Urine Bacteria Absent Absent Urine Squamous Epithelial Cell Present Absent Urine Hyaline Casts Present Absent Laboratory test finding 06/08/2016 B-Type Natriuretic 118 pg/mL High 22 Peptide BNP Basic Metabolic Panel 06/08/2016 Sodium 144 mmol/L 133-145 Potassium 4.1 mmol/L 3.5-5.0 Chloride 109 mmol/L 101-111 Glucose 102 mg/dL High 70-100 Blood Urea Nitrogen 50 mg/dL High 6-24 Creatinine 3.00 mg/dL High 0.67-1.17 BUN/Creatinine Ratio 16.7 8-20 Calcium 7.7 mg/dL Low 8.6-10.3 Egfr Non- 21.0 >60 Egfr 27.0 >60 23 Co2 Carbon Dioxide 26 mmol/L 22-32 Anion Gap 9 mmol/L 2-11 Laboratory test finding 06/05/2016 B-Type Natriuretic <pending> Peptide BNP Laboratory test finding 06/04/2016 B-Type Natriuretic 178 pg/mL High 24 Peptide BNP Urinalysis Profile 06/04/2016 Urine Color Yellow Urine Appearance Clear Urine Specific [place] 1.013 1.010-1.030 Urine pH 5.0 5-9 Urine Urobilinogen Negative Negative Urine Ketones Negative Negative Urine Protein 3+(>=500 mg/dL) Negative Urine Leukocytes Negative Negative Urine Blood 1+ Negative Urine Nitrite Negative Negative Urine Bilirubin Negative Negative Urine Glucose 1+(50 mg/dL) Negative Urine White Blood Cell Trace(0-5/hpf) Absent Urine Red Blood Cell 2+(6-10/hpf) Absent Urine Bacteria Absent Absent Urine Squamous Epithelial Cell Present Absent Urine Hyaline Casts Present Absent Urine Granular Casts Present Absent Laboratory test finding 06/04/2016 Ferritin 587.7 ng/mL High 24-336 Vitamin B12 382 pg/mL 180-914 25 CBC Auto Diff 06/04/2016 White Blood Count 7.1 10^3/uL 3.5-10.8 Red Blood Count 3.83 10^6/uL Low 4.0-5.4 Hemoglobin 7.6 g/dL Low 14.0-18.0 Hematocrit 25 % Low 42-52 Mean Corpuscular Volume 66 fL Low 80-94 26 Mean Corpuscular Hemoglobin 20 pg Low 27-31 Mean Corpuscular HGB Conc 30 g/dL Low 31-36 Red Cell Distribution Width 21 % High 10.5-15 Platelet Count 148 10^3/uL Low 150-450 Mean Platelet Volume 9 um3 7.4-10.4 Abs Neutrophils 5.3 10^3/uL 1.5-7.7 Abs Lymphocytes 1.1 10^3/uL 1.0-4.8 Abs Monocytes 0.5 10^3/uL 0-0.8 Abs Eosinophils 0.1 10^3/uL 0-0.6 Abs Basophils 0.1 10^3/uL 0-0.2 Abs Nucleated RBC 0.02 10^3/uL Granulocyte % 74.9 % 38-83 Lymphocyte % 15.1 % Low 25-47 Monocyte % 7.5 % 1-9 Eosinophil % 1.7 % 0-6 Basophil % 0.8 % 0-2 Nucleated Red Blood Cells % 0.3 Retic Count 06/04/2016 Maturation Factor Retic 2.0 RBC Retic Count 3.83 10^6/uL Low 4.6-6.2 Hematocrit for Retic CNT 25 % Low 42-52 Retic Count 3.0 % High 0.5-1.5 Corrected Retic Count 1.7 % High 0.5-1.5 Retic Index 0.90 Mean Retic Volume 103.8 Immature Retic Fraction 0.56 Comp Metabolic Panel 06/04/2016 Sodium 144 mmol/L 133-145 Potassium 4.8 mmol/L 3.5-5.0 Chloride 114 mmol/L High 101-111 Co2 Carbon Dioxide 22 mmol/L 22-32 Anion Gap 8 mmol/L 2-11 Glucose 67 mg/dL Low 70-100 Blood Urea Nitrogen 51 mg/dL High 6-24 Creatinine 2.83 mg/dL High 0.67-1.17 BUN/Creatinine Ratio 18.0 8-20 Calcium 7.4 mg/dL Low 8.6-10.3 Total Protein 5.1 g/dL Low 6.4-8.9 Albumin 2.6 g/dL Low 3.2-5.2 Globulin 2.5 g/dL 2-4 Albumin/Globulin Ratio 1.0 1-3 Total Bilirubin 0.30 mg/dL 0.2-1.0 Alkaline Phosphatase 219 U/L High 34-104 Alt 14 U/L 7-52 Ast 17 U/L 13-39 Egfr Non- 22.4 >60 Egfr 28.9 >60 27 Lipid Profile (Trig/Chol/HDL) 06/04/2016 Triglycerides 80 mg/dL 28 Cholesterol 135 mg/dL 29 HDL Cholesterol 33.6 mg/dL 30 LDL Cholesterol 85 mg/dL 31 Iron & Iron Binding Capacity 06/04/2016 Iron 48 g/dL Low 50-212 Unsaturated Iron Binding 156 g/dL Total Iron Binding Capacity 204 g/dL Low 250-450 % Iron Saturation 24 % 15-55 Laboratory test finding 06/04/2016 Uric Acid 7.5 mg/dL 4.4-7.6 Phosphorus 4.1 mg/dL 2.5-5.0 Magnesium 1.5 mg/dL Low 1.9-2.7 Creatine Kinase(CK) 220 U/L 10-223 Lipid Profile (Trig/Chol/HDL) 10/15/2012 Triglycerides 250 mg/dL High 40- 200 Cholesterol 146 mg/dL Less than 200 HDL Cholesterol 34 mg/dL Low 40-60 32 Cholesterol/HDL Ratio 4.3 Average 1-4.44 LDL Cholesterol 62.0 Less Than 100 33 Laboratory test finding 10/15/2012 Ast 24 U/L 12-42 34 Creatine Kinase 192 U/L 0-200 35 Laboratory test finding 05/29/2011 Vancomycin Trough 19.9 High 5-10 36 Laboratory test finding 05/22/2011 Vancomycin Trough 17.0 High 5-10 37 Laboratory test finding 05/22/2011 Vancomycin Trough 33.6 High 5-10 38 CBC No Diff 05/19/2011 White Blood Count 5.3 CUMM 4.8-10.8 Red Cell Count 4.24 CUMM Low 4.6-6.2 Hemoglobin 9.2 g/dL Low 14.0-18.0 Hematocrit 30 % Low 42-52 Mean Corpuscular Volume 69 um3 Low 80-94 Mean Corpuscular Hemoglob 22 pg Low 27-31 Mean Corpuscular HGB Cone 31 g/dL Low 32-36 Redcell Distribution WDTH 17 % High 10.5-15 Platelet Count 320 CUMM 150-450 Mean Platelet Volume 7.9 um3 7.4-10.4 Laboratory test finding 05/19/2011 C Reactive Protein 1.1 mg/dL High Less Than 0.5 Hemoglobin A1c 10 % High Less Than 6.0 39 Comp Metabolic Panel 05/19/2011 Sodium 138 mmol/L 135-145 Potassium 4.0 mmol/L 3.5-5.0 Chloride 103 mmol/L 101-111 Co2 (Carbon Dioxide) 23.0 mmol/L 22-32 Anion Gap 12.0 mmol/L High 2-11 40 Glucose 179 mg/dL High 70-100 BUN 11 mg/dL 6-24 Creatinine 0.9 mg/dL 0.50-1.40 One Over Creatinine 1.11 BUN/Creatinine Ratio 12.2 8-20 Calcium 8.3 mg/dL 8.1-9.9 Total Protein 6.7 GM/DL 6.2-8.1 Albumin 3.1 GM/DL Low 3.2-5.2 Globulin 3.6 GM/DL 2-4 Albumin/Globulin Ratio 0.9 Low 1-3 Bilirubin Total 0.6 mg/dL 0.4-1.5 41 Alkaline Phosphatase 75 U/L 39-117 Alt (SGPT) 26 U/L 17-63 Ast (Sgot) 30 U/L 12-42 eGFR Non- 85.5 > 60 eGFR 110.0 > 60 42 Laboratory test finding 05/16/2011 C Reactive Protein 2.7 mg/dL High Less Than 0.5 Hemoglobin A1c 10.4 % High Less Than 6.0 43 Comp Metabolic Panel 05/16/2011 Sodium 139 mmol/L 135-145 Potassium 4.4 mmol/L 3.5-5.0 Chloride 103 mmol/L 101-111 Co2 (Carbon Dioxide) 24.0 mmol/L 22-32 Anion Gap 12.0 mmol/L High 2-11 44 Glucose 244 mg/dL High 70-100 BUN 13 mg/dL 6-24 Creatinine 1.1 mg/dL 0.50-1.40 One Over Creatinine 0.90 BUN/Creatinine Ratio 11.8 8-20 Calcium 8.6 mg/dL 8.1-9.9 Total Protein 6.3 GM/DL 6.2-8.1 Albumin 3.1 GM/DL Low 3.2-5.2 Globulin 3.2 GM/DL 2-4 Albumin/Globulin Ratio 1.0 1-3 Bilirubin Total 0.6 mg/dL 0.4-1.5 45 Alkaline Phosphatase 73 U/L 39-117 Alt (SGPT) 25 U/L 17-63 Ast (Sgot) 23 U/L 12-42 eGFR Non- 67.8 > 60 eGFR 87.2 > 60 46 CBC No Diff 05/16/2011 White Blood Count 6.4 CUMM 4.8-10.8 Red Cell Count 4.30 CUMM Low 4.6-6.2 Hemoglobin 9.3 g/dL Low 14.0-18.0 Hematocrit 30 % Low 42-52 Mean Corpuscular Volume 69 um3 Low 80-94 Mean Corpuscular Hemoglob 22 pg Low 27-31 Mean Corpuscular HGB Cone 31 g/dL Low 32-36 Redcell Distribution WDTH 17 % High 10.5-15 Platelet Count 339 CUMM 150-450 Mean Platelet Volume 7.6 um3 7.4-10.4 Laboratory test finding 05/15/2011 Vancomycin Trough 12.3 High 5-10 47 Laboratory test finding 05/14/2011 Erythrocyte Sed Rate 86 MM/HR High 0- 20 BUN 10 mg/dL 6-24 Creatinine 05/14/2011 Creatinine 0.9 mg/dL 0.50-1.40 One Over Creatinine 1.11 eGFR Non- 85.5 > 60 eGFR 110.0 > 60 48 Laboratory test finding 05/14/2011 C Reactive Protein 3.5 mg/dL High Less Than 0.5 Comp Metabolic Panel 02/07/2011 Sodium 140 mmol/L 135-145 Potassium 5.5 mmol/L High 3.5-5.0 Chloride 101 mmol/L 101-111 Co2 (Carbon Dioxide) 24.0 mmol/L 22-32 Anion Gap 15.0 mmol/L High 2-11 49 Glucose 240 mg/dL High 70-100 BUN 21 mg/dL 6-24 Creatinine 1.1 mg/dL 0.50-1.40 One Over Creatinine 0.90 BUN/Creatinine Ratio 19.1 8-20 Calcium 10.1 mg/dL High 8.1-9.9 Total Protein 6.8 GM/DL 6.2-8.1 Albumin 4.1 GM/DL 3.2-5.2 Globulin 2.7 GM/DL 2-4 Albumin/Globulin Ratio 1.5 1-3 Bilirubin Total 1.2 mg/dL 0.4-1.5 50 Alkaline Phosphatase 73 U/L 39-117 Alt (SGPT) 32 U/L 17-63 Ast (Sgot) 49 U/L High 12-42 eGFR Non- 68.1 > 60 eGFR 87.5 > 60 51 Laboratory test finding 02/07/2011 Troponin-I 0.01 NG/ML 0-0.06 52 CBC Auto Diff 02/07/2011 White Blood Count 9.8 CUMM 4.8-10.8 Red Cell Count 5.30 CUMM 4.6-6.2 Hemoglobin 11.8 g/dL Low 14.0-18.0 Hematocrit 37 % Low 42-52 Mean Corpuscular Volume 70 um3 Low 80-94 Mean Corpuscular Hemoglob 22 pg Low 27-31 Mean Corpuscular HGB Cone 32 g/dL 32-36 Redcell Distribution WDTH 18 % High 10.5-15 Platelet Count 210 CUMM 150-450 Mean Platelet Volume 8.4 um3 7.4-10.4 53 Manual Differential 02/07/2011 Polysegmented Neutrophil 81 % 38-83 Lymphocyte 14 % Low 25-47 Monocyte 3 % 0-13 Eosinophil 2 % 0-6 Absolute Neutrophil Count 7.9 Anisocytosis SLIGHT Laboratory test finding 02/07/2011 Magnesium 1.5 mg/dL Low 1.7-2.6 Protime 02/07/2011 Inr 0.87 Low 0.88-1.13 54 Protime 10.2 SEC Low 10.3-13.5 55 Laboratory test finding 02/07/2011 PTT (Aptt) 26.4 25.15-38.53 D Dimer Quantitative 264 NG/ML High Less Than 230 56 Erythrocyte Sed Rate 24 MM/HR High 0-20 Laboratory test finding 04/14/2010 Hemoglobin A1c 11.5 High 5-7 DR Cedeño's Lab Panel 10/28/2009 TSH 1.68 MIU/ML 0.34-5.60 Comp Metabolic Panel 10/28/2009 Sodium 139 mmol/L 135-145 Potassium 4.6 mmol/L 3.5-5.0 Chloride 106 mmol/L 101-111 Co2 (Carbon Dioxide) 24.0 mmol/L 22-32 Anion Gap 9.0 mmol/L 2-11 57 Glucose 243 mg/dL High 70-100 58 BUN 14 mg/dL 6-24 Creatinine 0.90 mg/dL 0.50-1.40 One Over Creatinine 1.10 BUN/Creatinine Ratio 15.6 8-20 Calcium 9.3 mg/dL 8.1-9.9 59 Total Protein 7.2 GM/DL 6.2-8.1 Albumin 4.2 GM/DL 3.2-5.2 Globulin 3.0 GM/DL 2-4 Albumin/Globulin Ratio 1.4 1-3 Bilirubin Total 0.8 mg/dL 0.4-1.5 60 Alkaline Phosphatase 58 U/L 39-117 Alt (SGPT) 31 U/L 17-63 Ast (Sgot) 33 U/L 12-42 eGFR Non- 91.5 > 60 eGFR 110.7 > 60 61 Lipid Profile (Trig/Chol/HDL) 10/28/2009 Triglyceride 227 mg/dL High 40- 200 Cholesterol 158 mg/dL Less Than 200 62 High Density Lipoprotein 35 mg/dL Low 40-60 63 Cholesterol/HDL Ratio 4.51 AVERAGE 1-4.97 Low Density Lipoprotein 78 mg/dL Less Than 100 64 CBC With Electronic Diff 10/28/2009 White Blood Count 5.7 CUMM 4.8-10.8 Red Cell Count 5.27 CUMM 4.6-6.2 Hemoglobin 12.0 g/dL Low 14.0-18.0 Hematocrit 38 % Low 42-52 Mean Corpuscular Volume 72 um3 Low 80-94 Mean Corpuscular Hemoglob 23 pg Low 27-31 Mean Corpuscular HGB Cone 32 g/dL 32-36 Redcell Distribution WDTH 20 % High 10.5-15 Platelet Count 198 CUMM 150-450 Mean Platelet Volume 7.2 um3 Low 7.4-10.4 65 Laboratory test finding 10/28/2009 PSA,Diagnostic 0.41 NG/ML 0-4 66 Manual Differential 10/28/2009 Polysegmented Neutrophil 44 % 38-83 Band Neutrophil 1 % 0-8 Lymphocyte 41 % 25-47 Monocyte 8 % 0-13 Atypical Lymph 6 % 0-6 Absolute Neutrophil Count 2.5 Anisocytosis SLIGHT Polychromasia SLIGHT Laboratory test finding 10/28/2009 Hemoglobin A1c 8.5 High 5-7 Basic Metabolic Panel 12/21/2008 Sodium 136 mmol/L 135-145 Potassium 5.6 mmol/L High 3.5-5.0 Chloride 99 mmol/L Low 101-111 Co2 (Carbon Dioxide) 25.0 mmol/L 22-32 Anion Gap 12.0 mmol/L High 2-11 67 Glucose 328 mg/dL High 70-100 68 BUN 16 mg/dL 6-24 Creatinine 0.90 mg/dL 0.50-1.40 One Over Creatinine 1.10 BUN/Creatinine Ratio 17.8 8-20 Calcium 9.6 mg/dL 8.1-9.9 69 eGFR Non- 91.8 > 60 eGFR 111.1 > 60 70 Laboratory test finding 12/21/2008 Albumin 3.8 GM/DL 3.6-5.4 Prealbumin 31.7 mg/dL 18-38 71 CBC With Electronic Diff 12/21/2008 White Blood Count 6.6 CUMM 4.8-10.8 Red Cell Count 5.03 CUMM 4.6-6.2 Hemoglobin 11.3 g/dL Low 14.0-18.0 Hematocrit 36 % Low 42-52 Mean Corpuscular Volume 72 um3 Low 80-94 Mean Corpuscular Hemoglob 22 pg Low 27-31 Mean Corpuscular HGB Cone 31 g/dL Low 32-36 Redcell Distribution WDTH 19 % High 10.5-15 Platelet Count 259 CUMM 150-450 Mean Platelet Volume 7.7 um3 7.4-10.4 Gran % 64.1 % 38-83 Lymph % 27.2 % 25-47 Mononuclear % 6.0 % 1-9 Eosinophil % 2.2 % 0-6 Basophil % 0.5 % 0-2 Abs Lymphs 1.8 1.0-4.8 Abs Mononuclear 0.4 0-0.8 Absolute Neutrophil Count 4.3 1.5-7.7 Abs Eosinophils 0.1 0-0.6 Abs Basophils 0 0-0.2 72 Morph 12/21/2008 Anisocytosis 3+ Hypochromasia 1+ Polychromasia 1+ Laboratory test finding 12/21/2008 Hemoglobin A1c 10.0 % High Less Than 6.0 73 Transferrin 211 mg/dL 170-340 74 Laboratory test finding 01/05/2008 Hemoglobin A1c 11.2 % High <6.0 75 CBC With Electronic Diff 01/05/2008 White Blood Count 6.0 CUMM 4.8-10.8 Red Cell Count 5.04 CUMM 4.6-6.2 Hemoglobin 11.3 g/dL Low 14.0-18.0 Hematocrit 35 % Low 42-52 Mean Corpuscular Volume 70 um3 Low 80-94 76 Mean Corpuscular Hemoglob 22 pg Low 27-31 Mean Corpuscular HGB Cone 32 g/dL 32-36 Redcell Distribution WDTH 18 % High 10.5-15 77 Platelet Count 199 CUMM 150-450 Mean Platelet Volume 8.1 um3 7.4-10.4 Gran % 55.2 % 38-83 Lymph % 34.2 % 20-45 Mononuclear % 7.8 % 1-9 Eosinophil % 2.3 % 0-6 Basophil % 0.5 % 0-2 Abs Lymphs 2.0 1.0-4.8 Abs Mononuclear 0.5 0-0.8 Absolute Neutrophil Count 3.3 1.5-7.7 Abs Eosinophils 0.1 0-0.6 Abs Basophils 0 0-0.2 78 Comp Metabolic Panel 01/05/2008 Sodium 139 mmol/L 135-145 Potassium 4.8 mmol/L 3.5-5.0 Chloride 102 mmol/L 101-111 Co2 (Carbon Dioxide) 26.0 mmol/L 22-32 Anion Gap 11.0 mmol/L 2-11 79 Glucose 300 mg/dL High 70-100 80 BUN 24 mg/dL 6-24 Creatinine 0.75 mg/dL 0.50-1.40 One Over Creatinine 1.30 BUN/Creatinine Ratio 32.0 High 8-20 Calcium 9.5 mg/dL 8.1-9.9 81 Total Protein 7.0 GM/DL 6.2-8.1 Albumin 3.8 GM/DL 3.6-5.4 Globulin 3.2 GM/DL 2-4 Albumin/Globulin Ratio 1.2 1-3 Bilirubin Total 0.9 mg/dL 0.4-1.5 Alkaline Phosphatase 77 U/L 39-117 Alt (SGPT) 41 U/L 17-63 Ast (Sgot) 39 U/L 12-42 Lipid Profile (Trig/Chol/HDL) 01/05/2008 Triglyceride 350 mg/dL High 40- 200 Cholesterol 166 mg/dL Less Than 200 82 High Density Lipoprotein 39 mg/dL Low 40-60 83 Cholesterol/HDL Ratio 4.26 AVERAGE 1-4.97 Low Density Lipoprotein 57 mg/dL Less Than 100 84 Laboratory test finding 01/05/2008 TSH 2.46 MIU/ML 0.34-5.60 PSA Screening 0.27 NG/ML 0-4 85 CBC With Electronic Diff 06/29/2007 White Blood Count 6.3 CUMM 4.8-10.8 86 Abs Basophils 0 0-0.2 86 Abs Eosinophils 0.1 0-0.6 86 Absolute Neutrophil Count 3.5 1.5-7.7 86 Abs Lymphs 2.2 1.0-4.8 86 Abs Mononuclear 0.5 0-0.8 86 Basophil % 0.6 % 0-2 86 Hematocrit 39 % Low 42-52 86, 87 Hemoglobin 12.3 g/dL Low 14.0-18.0 86 Eosinophil % 1.7 % 0-6 86 Gran % 54.6 % 38-83 86 Lymph % 35.5 % 20-45 86 Mean Corpuscular HGB Cone 32 g/dL 32-36 86 Mean Corpuscular Hemoglob 22 pg Low 27-31 86 Mean Corpuscular Volume 68 um3 Low 80-94 86, 88 Mean Platelet Volume 8.3 um3 7.4-10.4 86 Mononuclear % 7.6 % 1-9 86 Platelet Count 248 CUMM 150-450 86 Red Cell Count 5.66 CUMM 4.6-6.2 86 Redcell Distribution WDTH 17 % High 10.5-15 86 Comp Metabolic Panel 06/29/2007 One Over Creatinine 1.11 86 Anion Gap 8.0 mmol/L 2-11 86, 89 Albumin/Globulin Ratio 1.2 1-3 86 Albumin 4.0 GM/DL 3.6-5.4 86 Alkaline Phosphatase 71 U/L 39-117 86 Alt (SGPT) 33 U/L 17-63 86 Ast (Sgot) 31 U/L 12-42 86 BUN 15 mg/dL 6-24 86 Calcium 9.3 mg/dL 8.7-10.2 86 Chloride 104 mmol/L 101-111 86 Co2 (Carbon Dioxide) 27.0 mmol/L 22-32 86 Globulin 3.4 GM/DL 2-4 86 Glucose 181 mg/dL High 70-105 86 Potassium 4.3 mmol/L 3.5-5.0 86 Sodium 139 mmol/L 135-145 86 Bilirubin Total 0.7 mg/dL 0.4-1.5 86 Total Protein 7.4 GM/DL 6.2-8.1 86 BUN/Creatinine Ratio 16.7 8-20 86 Creatinine 0.9 mg/dL 0.5-1.4 86 Laboratory test finding 06/29/2007 TSH 2.28 MIU/ML 0.34-5.60 86 Hemoglobin A1c 7.9 % High <6.0 86, 90 Iron & Iron Binding Capacity 06/29/2007 Iron Total 144 g/dL 45-182 86 Total Iron Binding Capacity 318 g/dL 250-450 86 % Iron Saturation 45 % 15-55 86 Unsaturated Iron Binding 174 g/dL 86 Stool Parasite 01/05/2007 Stool Parasite NO PARASITE 91, 92 Identification Identification OBSE <SEE NOTE> Laboratory test 11/24/2006 Hemoglobin A1c 8.5 % High <6. 93, 94 finding 0 Morph 11/24/2006 Basophilic Stippling OCC 93 Microcytosis SLIGHT 93 Polychromasia 1+ 93 Target Cells FEW 93 CBC With Electronic Diff 11/24/2006 White Blood Count 4.6 CUMM Low 4.8- 10.8 93 Abs Basophils 0 0-0.2 93 Abs Eosinophils 0.1 0-0.6 93 Absolute Neutrophil Count 2.1 1.5-7.7 93 Abs Lymphs 2.0 1.0-4.8 93 Abs Mononuclear 0.4 0-0.8 93 Basophil % 0.5 % 0-2 93 Hematocrit 38 % Low 42-52 93, 95 Hemoglobin 11.7 g/dL Low 14.0-18.0 93 Eosinophil % 1.6 % 0-6 93 Gran % 45.5 % 38-83 93 Lymph % 42.9 % 20-45 93 Mean Corpuscular HGB Cone 31 g/dL Low 32-36 93 Mean Corpuscular Hemoglob 22 pg Low 27-31 93 Mean Corpuscular Volume 70 um3 Low 80-94 93, 96 Mean Platelet Volume 8.0 um3 7.4-10.4 93 Mononuclear % 9.5 % High 1-9 93 Platelet Count 243 CUMM 150-450 93 Red Cell Count 5.39 CUMM 4.6-6.2 93 Redcell Distribution WDTH 18 % High 10.5-15 93, 97 Laboratory test finding 11/24/2006 PSA Screening 0.29 NG/ML 0-4 93, 98 TSH 2.71 MIU/ML 0.34-5.60 93 Lipid Profile 11/24/2006 Cholesterol/HDL Ratio 5.13 AVERAGE High 1-4.97 93 (Trig/Chol/HDL) Cholesterol 200 mg/dL Less Than 200 93, 99 Triglyceride 363 mg/dL High 40-200 93 High Density Lipoprotein 39 mg/dL Low 40-60 93, 100 Low Density Lipoprotein 88 mg/dL Less Than 100 93, 101 Comp Metabolic Panel 11/24/2006 One Over Creatinine 1.25 93 Anion Gap 8.0 mmol/L 2-11 93, 102 Albumin/Globulin Ratio 1.3 1-3 93 Albumin 3.6 GM/DL 3.6-5.4 93 Alkaline Phosphatase 67 U/L 39-117 93 Alt (SGPT) 28 U/L 17-63 93 Ast (Sgot) 30 U/L 12-42 93 BUN 12 mg/dL 6-24 93 Calcium 9.2 mg/dL 8.7-10.2 93 Chloride 108 mmol/L 101-111 93 Co2 (Carbon Dioxide) 26.0 mmol/L 22-32 93 Globulin 2.8 GM/DL 2-4 93 Glucose 229 mg/dL High 70-105 93 Potassium 4.2 mmol/L 3.5-5.0 93 Sodium 142 mmol/L 135-145 93 Bilirubin Total 0.7 mg/dL 0.4-1.5 93 Total Protein 6.4 GM/DL 6.2-8.1 93 BUN/Creatinine Ratio 15.0 8-20 93 Creatinine 0.8 mg/dL 0.5-1.4 93 1 SEE RESULT BELOW Name: CONOR MARROQUIN : [address]: Jeison Cho MD Acct: [id number] Unit: [id number] AGE: 66 Location: WOUND Re09/22/16 SEX: M Status: REG REF SPEC: [id number] ADALID: 09/22/16 [facility] DR: Jeison Cho MD REQ: [id number] RECD: 09/22/16 STATUS: HERLINDA SHAY DR: Mario Oakley MD PC _ SOURCE: WOUND SPDESC: ORDERED: Culture Stain Procedure Result Reported Site Wound/Misc Gram Stain Final 09/23/16- 0752 ML No Neutrophils Observed 1+ Epithelial Cells No Organisms Seen Wound/Misc Culture Final 09/25/16- 0838 ML Organism 1 STREP AGALACTIAE - (GROUP B) Quantity 1+ 1. STREP AGALACTIAE - (GROUP B) M.I.C. RX --------- ------ Ampicillin <=0.25 S Penicillin <=0.12 S Clindamycin <=0.25 S Levofloxacin 1 S Linezolid 1 S * Moxifloxacin <=0.25 S * Quinupristin/Dalfopristin <=0.25 S Tetracycline >=16 R Tigecycline <=0.12 S Vancomycin <=0.5 S Imipenem-Deduced S * Ampicillin/Sulbactam-Deduced S Cefazolin-Deduced S CONTINUED ON NEXT PAGE * ML=Testing performed at Main Lab DEPARTMENT OF PATHOLOGY, [address] [place] [address] Shar Burch M.D. Director [facility] # [id number] Patient: CARACONOR Viet [id number] (Continued) Specimen: [id number] Collected: 09/22/16-1429 Received: 09/22/16-145 (Continued) Procedure Result Reported Site Wound/Misc Culture Final (continued) * These antibiotics are not available in the [facility] Formulary Contact the Microbiology Department for any additional antibiotic reporting. * ML - MAIN LAB ([facility]) . END OF REPORT * ML=Testing performed at Main Lab DEPARTMENT OF PATHOLOGY, [address] [place] [address] Shar Burch M.D. Director [facility] # [id number] 2 STEVEN 3 Because ethnic data is not always readily available, this report includes an eGFR for both -Americans and non- Americans. The National Kidney Disease Education Program (NKDEP) does not endorse the use of the MDRD equation for patients that are not between the ages of 18 and 70, are , have extremes of body size, muscle mass, or nutritional status, or are non- or non-. According to the National Kidney Foundation, irrespective of diagnosis, the stage of the disease is based on the level of kidney function: Stage Description GFR(mL/min/1.73 m(2)) 1 Kidney damage with normal or decreased GFR 90 2 Kidney damage with mild decrease in GFR 60-89 3 Moderate decrease in GFR 30-59 4 Severe decrease in GFR 15-29 5 Kidney failure <15 (or dialysis) 4 Critical Result K:8.1 Called to [id number] at: 13:26:02 by:[id number] Read back by:[id number] 5 SEE RESULTS BELOW [id number] OP PC TRANSFUSED 07/17/16 1535 [id number] OP PC TRANSFUSED 07/17/16 1813 [id number] OP PC TRANSFUSED 07/18/16 0939 [id number] OP PC TRANSFUSED 07/18/16 0237 [id number] OP PC TRANSFUSED 07/18/16 1246 6 SEE RESULTS BELOW [id number] OP FFP TRANSFUSED 07/17/16 1730 [id number] OP FFP TRANSFUSED 07/17/16 1539 7 Email Campaign Specialist: [id number] SEE RESULT BELOW Name: CONOR MARROQUIN : [address]: Justin Vo MD Acct: [id number] Unit: [id number] AGE: 66 Location: [facility] Re07/06/16 SEX: M Status: REG REF SPEC: [id number] ADALID: 07/06/16-1329 [facility] DR: Justin Vo MD REQ: [id number] RECD: 07/06/16117 STATUS: SHANNAN SHAY DR: Brayan Oakley MD PC _ ORDERED: LEVEL 4 COMMENTS: [id number] FINAL DIAGNOSIS Skin, right middle finger, biopsy: -- Fungal dermatitis with ulceration, budding yeast forms; see comment. COMMENT: The fungal elements seen are morphologically compatible with Olga species. There is no evidence of pyoderma gangrenosum or necrobiosis lipoidica diabeticorum. Dr. Burch reviewed this case in intradepartmental consultation and agrees with the diagnosis. CLINICAL HISTORY Non-healing wound dorsum right middle finger PRE-OPERATIVE DIAGNOSIS Idiopathic ulcer in a diabetic; rule out pyoderma gangrenosum versus necrobiosis lipoidica diabeticorum versus neuropathic ulcer. GROSS DESCRIPTION The specimen is received in formalin labeled, Incisional Biopsy Non-healing Wound Dorsum Right Middle Finger, and consists of two white-pink irregular skin fragments measuring 0.5 x 0.2 x 0.2 cm and 0.7 x 0.3 x 0.2 cm. The larger fragment is inked, serially sectioned and the specimen is entirely submitted in one cassette. CONTINUED ON NEXT PAGE * ML=Testing performed at Main Lab DEPARTMENT OF PATHOLOGY, [address] [place] [address] Shar Burch M.D. Director [facility] # [id number] RUN DATE: 07/07/16 [facility] LAB LIVE PAGE 2 Patient: CARACONOR [id number] (Continued) MICROSCOPIC DESCRIPTION (Continued) MICROSCOPIC DESCRIPTION Histologic sections show an incisional biopsy of skin excised to include mid reticular dermis. Compact hyper-orthokeratosis is seen with numerous budding yeasts and hyphal elements in the stratum corneum. Yeasts are round to ovoid intermediate in size. The epidermis is focally ulcerated with adjacent acanthosis and expansion of the granular layer. In the area of ulceration there is a perivascular lymphohistiocytic inflammatory infiltrate. Neutrophils are not prominent. Signed (signature on file) Janell King MD 11/15 1554 END OF REPORT * ML=Testing performed at Main Lab DEPARTMENT OF PATHOLOGY, [address] [place] [address] Shar Burch M.D. Director [facility] # [id number] 10 SEE RESULT BELOW Name: CONOR MARROQUIN : [address]: Jeison Cho MD Acct: [id number] Unit: [id number] AGE: 66 Location: WOUND Re06/25/16 SEX: M Status: REG REF SPEC: [id number] ADALID: 06/25/16 [facility] DR: Jeison Cho MD REQ: [id number] RECD: 06/25/16 STATUS: HERLINDA SHAY DR: Mario Oakley MD PC _ SOURCE: WOUND SPDESC: ORDERED: Culture Stain QUERIES: Specimen Description RIGHT #3 DIGIT Procedure Result Reported Site Wound/Misc Gram Stain Final 06/25/16- 6 ML No Neutrophils Observed No Organisms Seen Wound/Misc Culture Final 06/29/16- 832 ML Organism 1 ENTEROCOCCUS FAECALIS Quantity 1+ 1. ENTEROCOCCUS FAECALIS M.I.C. RX --------- ------ Ampicillin <=2 S Penicillin <=0.12 S Ciprofloxacin <=0.5 S Erythromycin 1 I Levofloxacin 0.5 S Linezolid <=0.5 S * Quinupristin/Dalfopristin R Tetracycline >=16 R Imipenem-Deduced S * Ampicillin/Sulbactam-Deduced S * These antibiotics are not available in the [facility] Formulary Contact the Microbiology Department for any additional antibiotic reporting. * ML - MAIN LAB ([facility]) . END OF REPORT * ML=Testing performed at Main Lab DEPARTMENT OF PATHOLOGY, [address] [place] [address] Shar Burch M.D. Director [facility] # [id number] 11 ANEMIA 12 SEE RESULTS BELOW [id number] OP PC TRANSFUSED 06/17/16 1125 13 Normal Range 180 to 914 Indeterminate Range 145 to 180 Deficient Range <145 14 Desirable <150 Borderline high 150-199 High 200-499 Very High >500 15 Desirable <200 Borderline high 200-239 High >239 16 Low <40 Desirable: 40-60 High: >60 17 Desirable: <100 mg/dL Near Optimal: 100-129 mg/dL Borderline High: 130-159 mg/dL High: 160-189 mg/dL Very High: >189 mg/dL 18 Because ethnic data is not always readily available, this report includes an eGFR for both -Americans and non- Americans. The National Kidney Disease Education Program (NKDEP) does not endorse the use of the MDRD equation for patients that are not between the ages of 18 and 70, are , have extremes of body size, muscle mass, or nutritional status, or are non- or non-. According to the National Kidney Foundation, irrespective of diagnosis, the stage of the disease is based on the level of kidney function: Stage Description GFR(mL/min/1.73 m(2)) 1 Kidney damage with normal or decreased GFR 90 2 Kidney damage with mild decrease in GFR 60-89 3 Moderate decrease in GFR 30-59 4 Severe decrease in GFR 15-29 5 Kidney failure <15 (or dialysis) 19 >100 to <200 pg/mL: likely compensated congestive heart failure (CHF) 200 to 400 pg/mL: likely moderate CHF >400 pg/mL: likely moderate to severe CHF 20 REFERENCE VALUE Not present Test Performed by: [facility] [address] [id number] 21 Test Performed by: [facility] [address] [id number] 22 >100 to <200 pg/mL: likely compensated congestive heart failure (CHF) 200 to 400 pg/mL: likely moderate CHF >400 pg/mL: likely moderate to severe CHF 23 Because ethnic data is not always readily available, this report includes an eGFR for both -Americans and non- Americans. The National Kidney Disease Education Program (NKDEP) does not endorse the use of the MDRD equation for patients that are not between the ages of 18 and 70, are , have extremes of body size, muscle mass, or nutritional status, or are non- or non-. According to the National Kidney Foundation, irrespective of diagnosis, the stage of the disease is based on the level of kidney function: Stage Description GFR(mL/min/1.73 m(2)) 1 Kidney damage with normal or decreased GFR 90 2 Kidney damage with mild decrease in GFR 60-89 3 Moderate decrease in GFR 30-59 4 Severe decrease in GFR 15-29 5 Kidney failure <15 (or dialysis) 24 >100 to <200 pg/mL: likely compensated congestive heart failure (CHF) 200 to 400 pg/mL: likely moderate CHF >400 pg/mL: likely moderate to severe CHF 25 Normal Range 180 to 914 Indeterminate Range 145 to 180 Deficient Range <145 26 Consistent with previous results on 04/13/16. 27 Because ethnic data is not always readily available, this report includes an eGFR for both -Americans and non- Americans. The National Kidney Disease Education Program (NKDEP) does not endorse the use of the MDRD equation for patients that are not between the ages of 18 and 70, are , have extremes of body size, muscle mass, or nutritional status, or are non- or non-. According to the National Kidney Foundation, irrespective of diagnosis, the stage of the disease is based on the level of kidney function: Stage Description GFR(mL/min/1.73 m(2)) 1 Kidney damage with normal or decreased GFR 90 2 Kidney damage with mild decrease in GFR 60-89 3 Moderate decrease in GFR 30-59 4 Severe decrease in GFR 15-29 5 Kidney failure <15 (or dialysis) 28 Desirable <150 Borderline high 150-199 High 200-499 Very High >500 29 Desirable <200 Borderline high 200-239 High >239 30 Low <40 Desirable: 40-60 High: >60 31 Desirable: <100 mg/dL Near Optimal: 100-129 mg/dL Borderline High: 130-159 mg/dL High: 160-189 mg/dL Very High: >189 mg/dL 32 HDL Interpretation: Undesirable: High Risk: Less than 40 mg/dL Desirable: Low Risk: Greater than 60 mg/dL 33 LDL Interpretation: Low Risk Optimal Level: LDL Less than 100 mg/dL Near or Above Optimal: LDL 100-129 mg/dL Borderline High Risk: LDL 130-159 mg/dL High Risk: LDL 160-189 mg/dL Very High Risk: LDL Greater than 189 mg/dL 34 FASTING 35 FASTING 36 The detection limit for VANCOMYCIN is 3.5 ug/ml . Values less than 3.5 ug/ml cannot be accurately measured. . RECOMMENDED VANC. TROUGH LEVELS FOR FOLLOWING INFECTIONS: Bacterial meningitis* 15-20 mcg/ml Healthcare associated pneumonia+ 15-20 mcg/ml Ventilator associated pneumonia+ 15-20 mcg/ml Hospital associated pneumonia+ 15-20 mcg/ml Infective Endocarditis# 10-15 mcg/ml * Clin infect Dis 2004; 39:1267-84 + AM J Respir Crit Care Med 2005; 171:388-416 # Circulation 2005; 111:[id number] 37 The detection limit for VANCOMYCIN is 3.5 ug/ml . Values less than 3.5 ug/ml cannot be accurately measured. . RECOMMENDED VANC. TROUGH LEVELS FOR FOLLOWING INFECTIONS: Bacterial meningitis* 15-20 mcg/ml Healthcare associated pneumonia+ 15-20 mcg/ml Ventilator associated pneumonia+ 15-20 mcg/ml Hospital associated pneumonia+ 15-20 mcg/ml Infective Endocarditis# 10-15 mcg/ml * Clin infect Dis 2004; 39:1267-84 + AM J Respir Crit Care Med 2005; 171:388-416 # Circulation 2005; 111:[id number] 38 The detection limit for VANCOMYCIN is 3.5 ug/ml . Values less than 3.5 ug/ml cannot be accurately measured. . RECOMMENDED VANC. TROUGH LEVELS FOR FOLLOWING INFECTIONS: Bacterial meningitis* 15-20 mcg/ml Healthcare associated pneumonia+ 15-20 mcg/ml Ventilator associated pneumonia+ 15-20 mcg/ml Hospital associated pneumonia+ 15-20 mcg/ml Infective Endocarditis# 10-15 mcg/ml * Clin infect Dis 2004; 39:1267-84 + AM J Respir Crit Care Med 2005; 171:388-416 # Circulation 2005; 111:[id number] 39 THERAPEUTIC TARGET FOR THE TREATMENT OF DIABETES MELLITUS PATIENTS IS <7% HBA1C, AND IN SELECTIVE PATIENTS <6.0%. PLEASE REFER TO [employer] DIABETIC CARE GUIDELINES FOR FURTHER INFORMATION. 40 Anion gap measurement may be of limited value in the presence of any alkalosis, especially in a combined acid base disorder. . 41 A metabolite of Naproxen, O-desmethylnaproxen, has been shown to interfere with the Jendrassik-Kishore method for measuring total bilirubin. Samples from patients who have taken Naproxen have shown spurious elevation in total bilirubin levels. 42 Because ethnic data is not always readily available, this report includes an eGFR for both -Americans and non- Americans. The National Kidney Disease Education Program (NKDEP) does not endorse the use of the MDRD equation for patients that are not between the ages of 18 and 70, are , have extremes of body size, muscle mass, or nutritional status, or are non- or non-. According to the National Kidney Foundation, irrespective of diagnosis, the stage of the disease is based on the level of kidney function: Stage Description GFR(mL/min/1.73 m(2)) 1 Kidney damage with normal or decreased GFR 90 2 Kidney damage with mild decrease in GFR 60-89 3 Moderate decrease in GFR 30-59 4 Severe decrease in GFR 15-29 5 Kidney failure <15 (or dialysis) 43 THERAPEUTIC TARGET FOR THE TREATMENT OF DIABETES MELLITUS PATIENTS IS <7% HBA1C, AND IN SELECTIVE PATIENTS <6.0%. PLEASE REFER TO [employer] DIABETIC CARE GUIDELINES FOR FURTHER INFORMATION. 44 Anion gap measurement may be of limited value in the presence of any alkalosis, especially in a combined acid base disorder. . 45 A metabolite of Naproxen, O-desmethylnaproxen, has been shown to interfere with the Jendrassik-Kishore method for measuring total bilirubin. Samples from patients who have taken Naproxen have shown spurious elevation in total bilirubin levels. 46 Because ethnic data is not always readily available, this report includes an eGFR for both -Americans and non- Americans. The National Kidney Disease Education Program (NKDEP) does not endorse the use of the MDRD equation for patients that are not between the ages of 18 and 70, are , have extremes of body size, muscle mass, or nutritional status, or are non- or non-. According to the National Kidney Foundation, irrespective of diagnosis, the stage of the disease is based on the level of kidney function: Stage Description GFR(mL/min/1.73 m(2)) 1 Kidney damage with normal or decreased GFR 90 2 Kidney damage with mild decrease in GFR 60-89 3 Moderate decrease in GFR 30-59 4 Severe decrease in GFR 15-29 5 Kidney failure <15 (or dialysis) 47 The detection limit for VANCOMYCIN is 3.5 ug/ml . Values less than 3.5 ug/ml cannot be accurately measured. . RECOMMENDED VANC. TROUGH LEVELS FOR FOLLOWING INFECTIONS: Bacterial meningitis* 15-20 mcg/ml Healthcare associated pneumonia+ 15-20 mcg/ml Ventilator associated pneumonia+ 15-20 mcg/ml Hospital associated pneumonia+ 15-20 mcg/ml Infective Endocarditis# 10-15 mcg/ml * Clin infect Dis 2004; 39:1267-84 + AM J Respir Crit Care Med 2005; 171:388-416 # Circulation 2005; 111:b740-x664 48 Because ethnic data is not always readily available, this report includes an eGFR for both -Americans and non- Americans. The National Kidney Disease Education Program (NKDEP) does not endorse the use of the MDRD equation for patients that are not between the ages of 18 and 70, are , have extremes of body size, muscle mass, or nutritional status, or are non- or non-. According to the National Kidney Foundation, irrespective of diagnosis, the stage of the disease is based on the level of kidney function: Stage Description GFR(mL/min/1.73 m(2)) 1 Kidney damage with normal or decreased GFR 90 2 Kidney damage with mild decrease in GFR 60-89 3 Moderate decrease in GFR 30-59 4 Severe decrease in GFR 15-29 5 Kidney failure <15 (or dialysis) 49 Anion gap measurement may be of limited value in the presence of any alkalosis, especially in a combined acid base disorder. . 50 A metabolite of Naproxen, O-desmethylnaproxen, has been shown to interfere with the Jendrassik-Severy method for measuring total bilirubin. Samples from patients who have taken Naproxen have shown spurious elevation in total bilirubin levels. 51 Because ethnic data is not always readily available, this report includes an eGFR for both -Americans and non- Americans. The National Kidney Disease Education Program (NKDEP) does not endorse the use of the MDRD equation for patients that are not between the ages of 18 and 70, are , have extremes of body size, muscle mass, or nutritional status, or are non- or non-. According to the National Kidney Foundation, irrespective of diagnosis, the stage of the disease is based on the level of kidney function: Stage Description GFR(mL/min/1.73 m(2)) 1 Kidney damage with normal or decreased GFR 90 2 Kidney damage with mild decrease in GFR 60-89 3 Moderate decrease in GFR 30-59 4 Severe decrease in GFR 15-29 5 Kidney failure <15 (or dialysis) 52 New Reference Range and Interpretation effective 12/02/2001 TnI (ng/ml) INTERPRETATION Less Than 0.06 ng/mL NOT SUPPORTIVE OF DIAGNOSIS OF [place] 0.06 - 0.50 ng/ml INDETERMINATE: SUGGEST SERIAL STUDIES IF CLINICALLY INDICATED. Greater than 0.5 ng/mL CONSISTENT WITH DIAGNOSIS OF [place] . 53 Lymphopenia % 2+ Microcytosis 1+ Anisocytosis 54 Recommended INR for Patients on Oral Anticoagulants Prophylaxis 2.0 - 3.0 Treatment of thrombosis 2.0 - 3.0 Prevention of embolism 2.0 - 3.0 Prevention of embolism from prosthetic heart valves 2.5 - 3.5 55 DIAGNOSIS,TREATMENT,AND THERAPY MUST BE BASED ON THE INR VALUE ALONE. 56 VERBAL TO JOVANNA BY ANJALI at 0311 on 02/07/11. Results read back accurately. Please note: The following may produce a false positive D Dimer test: - Rheumatoid factor greater than 1400 IU/ml - Plasma hemoglobin greater than 0.5 gm/dl - Bilirubin greater than 18 mg/dl - Triglycerides greater than 1327 mg/dl - FDP greater than 10 ug/ml . 57 Anion gap measurement may be of limited value in the presence of any alkalosis, especially in a combined acid base disorder. . 58 Note change in reference range as of 10/20/07. The change was based on recommendations from the [place] [employer]. 59 Please note change in reference range effective 07 . 60 A metabolite of Naproxen, O-desmethylnaproxen, has been shown to interfere with the Jendrassik-Kishore method for measuring total bilirubin. Samples from patients who have taken Naproxen have shown spurious elevation in total bilirubin levels. 61 Because ethnic data is not always readily available, this report includes an eGFR for both -Americans and non- Americans. The National Kidney Disease Education Program (NKDEP) does not endorse the use of the MDRD equation for patients that are not between the ages of 18 and 70, are , have extremes of body size, muscle mass, or nutritional status, or are non- or non-. According to the National Kidney Foundation, irrespective of diagnosis, the stage of the disease is based on the level of kidney function: Stage Description GFR(mL/min/1.73 m(2)) 1 Kidney damage with normal or decreased GFR 90 2 Kidney damage with mild decrease in GFR 60-89 3 Moderate decrease in GFR 30-59 4 Severe decrease in GFR 15-29 5 Kidney failure <15 (or dialysis) 62 CHOLESTEROL INTERPRETATION: Desirable: Less than 200 MG/DL Borderline-High Risk: 200-239 MG/DL High-Risk: 240 MG/DL and over 63 HDL INTERPRETATION: Undesirable: High Risk: Less than 40 MG/DL Desirable: Low Risk: Greater than 60 MG/DL 64 LDL INTERPRETATION: Low Risk Optimal Level: LDL Less than 100 MG/DL Near or Above Optimal: LDL 100-129 MG/DL Borderline High Risk: LDL 130-159 MG/DL High Risk: LDL 160-189 MG/DL Very High Risk: LDL Greater than 189 MG/DL 65 1+ Microcytosis 2+ Anisocytosis 66 * SERUM LEVELS OF PSA MEASURED USING THE [employer] ACCESS HYBRITECH IMMUNOASSAY SHOULD NOT BE INTERPRETED ABSOLUTE EVIDENCE OF THE PRESENCE OR ABSENCE OF DISEASE. THE PSA VALUE SHOULD BE USED IN CONJUNCTION WITH OTHER PERTINENT CLINICAL DIAGNOSTIC PROCEDURES. A PSA value in the range of 0.1 to 0.6 ng/ml is indeterminate if being used as an indicator of recurrent or residual disease. . 67 Anion gap measurement may be of limited value in the presence of any alkalosis, especially in a combined acid base disorder. . 68 Note change in reference range as of 10/20/07. The change was based on recommendations from the [place] [employer]. 69 Please note change in reference range effective 07 . 70 Because ethnic data is not always readily available, this report includes an eGFR for both -Americans and non- Americans. The National Kidney Disease Education Program (NKDEP) does not endorse the use of the MDRD equation for patients that are not between the ages of 18 and 70, are , have extremes of body size, muscle mass, or nutritional status, or are non- or non-. According to the National Kidney Foundation, irrespective of diagnosis, the stage of the disease is based on the level of kidney function: Stage Description GFR(mL/min/1.73 m(2)) 1 Kidney damage with normal or decreased GFR 90 2 Kidney damage with mild decrease in GFR 60-89 3 Moderate decrease in GFR 30-59 4 Severe decrease in GFR 15-29 5 Kidney failure <15 (or dialysis) 71 Please note the change in Reference Range effective 2003 . 72 1+ Microcytosis 1+ Anisocytosis 73 THERAPEUTIC TARGET FOR THE TREATMENT OF DIABETES MELLITUS PATIENTS IS <7% HBA1C, AND IN SELECTIVE PATIENTS <6.0%. PLEASE REFER TO [place] [employer] DIABETIC CARE GUIDELINES FOR FURTHER INFORMATION. 74 Test Performed by: [facility] Dpt of Lab Med and Pathology [address] [place] [id number] Pneumatic System Conveyor Operator: Blake Lim III, M.D. 75 THERAPEUTIC TARGET FOR THE TREATMENT OF DIABETES MELLITUS PATIENTS IS <7% HBA1C, AND IN SELECTIVE PATIENTS <6.0%. PLEASE REFER TO [place] [employer] DIABETIC CARE GUIDELINES FOR FURTHER INFORMATION. 76 CONSISTENT WITH PREVIOUS RESULTS 77 CONSISTENT WITH PREVIOUS RESULTS 78 1+ Microcytosis 1+ Anisocytosis 79 Anion gap measurement may be of limited value in the presence of any alkalosis, especially in a combined acid base disorder. . 80 Note change in reference range as of 10/20/07. The change was based on recommendations from the [place] Diabetes [employer]. 81 Please note change in reference range effective 07 . 82 CHOLESTEROL INTERPRETATION: Desirable: Less than 200 MG/DL Borderline-High Risk: 200-239 MG/DL High-Risk: 240 MG/DL and over 83 HDL INTERPRETATION: Undesirable: High Risk: Less than 40 MG/DL Desirable: Low Risk: Greater than 60 MG/DL 84 LDL INTERPRETATION: Low Risk Optimal Level: LDL Less than 100 MG/DL Near or Above Optimal: LDL 100-129 MG/DL Borderline High Risk: LDL 130-159 MG/DL High Risk: LDL 160-189 MG/DL Very High Risk: LDL Greater than 189 MG/DL 85 * SERUM LEVELS OF PSA MEASURED USING THE [employer] ACCESS HYBRITECH IMMUNOASSAY SHOULD NOT BE INTERPRETED ABSOLUTE EVIDENCE OF THE PRESENCE OR ABSENCE OF DISEASE. THE PSA VALUE SHOULD BE USED IN CONJUNCTION WITH OTHER PERTINENT CLINICAL DIAGNOSTIC PROCEDURES. A PSA value in the range of 0.1 to 0.6 ng/ml is indeterminate if being used as an indicator of recurrent or residual disease. . 86 PATIENT MAY HAVE RESULTS PER DOCTOR'S AUTHORIZATION. Questions regarding this report should be directed to your doctor. 87 2+ Microcytosis 1+ Anisocytosis 88 CONSISTENT WITH PREVIOUS RESULTS 89 Anion gap measurement may be of limited value in the presence of any alkalosis, especially in a combined acid base disorder. . 90 THERAPEUTIC TARGET FOR THE TREATMENT OF DIABETES MELLITUS PATIENTS IS <7% HBA1C, AND IN SELECTIVE PATIENTS <6.0%. PLEASE REFER TO [place] [employer] DIABETIC CARE GUIDELINES FOR FURTHER INFORMATION. 91 FOREIGN OBJECT FOUND IN STOOL 92 NO PARASITE OBSERVED OBJECT RESEMBLES VEGETABLE MATTER (PETE) OR MATERIAL FROM UNDISSOLVED PILL CAPSULE. 93 PATIENT MAY HAVE RESULTS PER DOCTOR'S AUTHORIZATION. Questions regarding this report should be directed to your doctor. 94 THERAPEUTIC TARGET FOR THE TREATMENT OF DIABETES MELLITUS PATIENTS IS <7% HBA1C, AND IN SELECTIVE PATIENTS <6.0%. PLEASE REFER TO [place] [employer] DIABETIC CARE GUIDELINES FOR FURTHER INFORMATION. 95 1+ Microcytosis 1+ Anisocytosis 96 CONSISTENT WITH PREVIOUS RESULTS 97 CONSISTENT WITH PREVIOUS RESULTS 98 * SERUM LEVELS OF PSA MEASURED USING THE [employer] ACCESS HYBRITECH IMMUNOASSAY SHOULD NOT BE INTERPRETED ABSOLUTE EVIDENCE OF THE PRESENCE OR ABSENCE OF DISEASE. THE PSA VALUE SHOULD BE USED IN CONJUNCTION WITH OTHER PERTINENT CLINICAL DIAGNOSTIC PROCEDURES. A PSA value in the range of 0.1 to 0.6 ng/ml is indeterminate if being used as an indicator of recurrent or residual disease. . 99 Classification: Borderline High . 10 Classification: Low 0 . 10 CALCULATED LDL APPROXIMATES THE VALUE OF A DIRECT LDL 1 MEASUREMENT. Classification: Optimal Level . 10 Anion gap measurement may be of limited value in the 2 presence of any alkalosis, especially in a combined acid base disorder. . Procedures Date CPT Code Description Status 10/20/2016 46215 Removal Devitalization Tissue Wound Less Than Equal 20 Completed Square CM 10/13/2016 29746 Removal Devitalization Tissue Wound Less Than Equal 20 Completed Square CM 10/06/2016 96712 Removal Devitalization Tissue Wound Less Than Equal 20 Completed Square CM 09/29/2016 09510 Removal Devitalization Tissue Wound Less Than Equal 20 Completed Square CM 09/22/2016 07510 Removal Devitalization Tissue Wound Less Than Equal 20 Completed Square CM 07/23/2016 09807 Debridement Skin,& sq Tissue Completed 06/25/2016 88987 Debridement Skin,& sq Tissue Completed 06/05/2016 94205 EKG Tracing & Interpretation Completed 04/09/2016 11526 ECHO Transthorasic Realtime 2D W Doppler & Color Completed Flow Hosp 11/07/2013 28431 Carpal Tunnel Release Completed 07/21/2012 41315 EKG Tracing & Interpretation Completed 07/01/2011 87935 Hyperbaric Oxygen Therapy By Physician Completed 06/29/2011 76605 Hyperbaric Oxygen Therapy By Physician Completed 06/24/2011 34668 Hyperbaric Oxygen Therapy By Physician Completed 06/16/2011 25529 Hyperbaric Oxygen Therapy By Physician Completed 06/11/2011 25248 Hyperbaric Oxygen Therapy By Physician Completed 12/18/2008 24974 Noninvasive Ear Or Pulse Oximetry For Oxygen Saturation Completed 08/19/2001 Colonoscopy Completed Encounters Type Date Location Provider CPT E/M Dx Office Visit 02/15/2017 [facility], Juan Ovalles, 43789 N17.9 12:38p Hospitalists M.DAlka N18.4 I25.10 E10.8 Office Visit 02/14/2017 12:38p [facility], Juan Ovalles, 58506 N17.9 Hospitalists M.DAlka N18.4 I25.10 E10.8 Office Visit 02/13/2017 12:37p [facility], Juan Ovalles, 75439 N17.9 Hospitalists M.DAlka N18.4 E10.8 I25.10 Office Visit 02/12/2017 12:36p [facility], Raul Hamilton, 28922 N17.9 Hospitalists M.DAlka N18.4 I25.10 E10.8 Office Visit 12/08/2016 2:15p [facility] Jeison Cho, 73927 S61.202D At [facility].Clara E11.622 I10 E78.5 I89.0 Office Visit 11/24/2016 1:30p [facility] Cho, 53914 S61.202D [facility] E[facility].622 I10 E78.5 I89.0 Office Visit 11/11/2016 11:30a [facility] Of Serge Krishna, 78556 N18.3 [facility] Kimmy I25.10 I12.9 Office Visit 11/03/2016 2:00p [facility] Jeison Cho, 85092 S61.202D [facility] E11.622 I10 E78.5 Office Visit 08/28/2016 9:30a [facility] [place] [address] E11.622 [facility] E78.5 E11.40 I10 E66.01 N18.3 Office Visit 08/12/2016 1:30p [facility] Primitivo Varner M.D. 66028 M65.812 C.MGema Office Visit 08/04/2016 1:00p [facility] At Jeison Cho, 00559 E11.622 [facility] Kimmy E78.5 E11.40 I10 E66.01 N18.3 Office Visit 07/22/2016 11:00a [facility] Serge Krishna, 16632 R06.02 [facility] Kimmy N18.4 I50.9 I25.10 Office Visit 07/20/2016 11:32a [facility], Quique Wilks, 52741 D62 Hospitalists M.D. N17.9 N18.4 E87.5 Office Visit 07/19/2016 11:31a [facility], Quique Wilks, 01382 D62 Hospitalists M.D. N17.9 N18.4 E87.5 Office Visit 07/18/2016 11:31a [facility], Quique Wilks, 58733 D62 Hospitalists M.D. N17.9 N18.4 E87.5 Office Visit 07/17/2016 11:30a [facility], [place] [address] D62 Hospitalists N17.9 N18.4 E87.5 Office Visit 07/09/2016 1:52p [facility] Jeison Cho, 24443 L98.491 At [facility] MGalo E11.622 Office Visit 07/02/2016 2:19p [facility] Salima Booth DNP, 36646 L98.491 At [facility] RN, LAW OFFICE RECEPTIONIST-AYANA E11.622 Z86.14 Office Visit 06/25/2016 1:02p [facility] At Jeison Cho, 22098 E11.622 [facility] Kimmy Office Visit 06/16/2016 2:00p [facility] DIEGO Montano 73665 R60.1 [employer] R06.02 N18.4 Office Visit 06/09/2016 1:00p [facility] DIEGO Montano 17431 N18.4 R06.02 R60.1 Office Visit 06/05/2016 10:15a [facility] Serge Krishna, 95320 R60.1 [employer] M.DAlka I50.9 I25.10 N18.3 Office Visit 04/10/2016 1:33p [facility] [address] R60.1 Hospitalists E11.9 D50.9 Z86.718 Office Visit 04/09/2016 1:32p [facility] [place] [address] R60.1 Hospitalists E11.9 Z79.4 Z86.718 Office Visit 04/08/2016 1:31p [facility] [address] R60.1 Assoc, [place] Hospitalists E11.9 Z79.4 Z86.718 Office Visit 02/19/2014 2:00p [facility] Trudy Ramirez, 76824 354.0 Jennifer Oneal 727.03 Office Visit 10/12/2013 1:30p [facility] Trudy Ramirez, 04292 354.0 Of Jennifer Oneal Office Visit 03/31/2013 1:30p [facility] Serge Elizabeth Tomi, 98439 414.01 [employer] M.DAlka 401.9 786.51 Office Visit 07/21/2012 1:30p [facility] Serge Krishna, 22971 414.9 [facility] M.DAlka 250.00 401.9 Office Visit 04/14/2010 9:00a DO Not Use [employer] 97015 786.05 [facility] M.D. 250.00 272.2 Office Visit 10/28/2009 10:20a DO Not Use [employer] [facility], 61091 250.00 [facility] M.DAlka 401.1 272.2 780.57 Office Visit 12/18/2008 3:45p DO Not Use [employer] [facility], 25811 682.7 [facility].D. 250.00 401.1 414.01 272.2 780.57 Office Visit 06/11/2008 3:00p [facility], 40270 250.00 [facility] M.DAlka 414.01 272.2 401.1 Office Visit 12/29/2007 2:30p [facility], 21022 V04.81 [facility] 401.1 786.05 250.00 Office Visit 06/29/2007 11:30a [facility], 84619 782.3 [facility] 250.00 414.01 401.1 Office Visit 11/23/2006 3:45p [facility], 26609 250.00 [facility] 414.01 401.1 Plan of Care Future Appointment(s):04/12/2017 11:00 am - Magda Holcomb MD at [facility]03/23/2017 - Justin Melendez M.D.R23.8 Other skin changesFollow up:As needed
[2017-04-15 10:18] LABS: INR 5.57 (0.77-1.02)
[2017-04-15] MEDS ORDERED: Phytonadione INJ* 1 MG/0.5 ML ML IM ONE (10:37)
[2017-04-15 11:22] VITALS: BP 141/67
--- NOTE | 2017-04-16 16:21 | ED ---
Antonio Silva Angela, scribed for Luis Perdomo MD on 04/15/17 at 0935 . Complex/Multi-Sys Presentation - HPI Summary HPI Summary: This pt is a 67 y/o male [facility]. Pt reports he had routine blood work done yesterday and last night he received a call from his PCP (Dr. Oakley) to tell him about his elevated INR. Pt was told to come to the ED. He took vitamin K and coumadin last night. Pt currently denies any complains. He denies bloody stools, hematemeis, hematuria, bleeding from anywhere, chest pain, abd pain. He states his last bowel movement was this morning and it was normal. - History Of Current Complaint Chief Complaint: EDGeneral Hx Obtained From: Patient Onset/Duration: Lasting Days - 1 Timing: Days - 1 Severity Currently: None Location: Negative Aggravating Factor(s): nothing Alleviating Factor(s): nothing Associated Signs And Symptoms: Negative: SOB, Chest Pain, Abdominal Pain, Hematemesis, Other - bloody stools, bleeding from anywhere - Allergies/Home Medications Allergies/Adverse Reactions: Allergies Allergy/AdvReac Type Severity Reaction Status Date / Time erythromycin base AdvReac Intermediate Stomach Verified 04/15/17 10:42 Cramps PMH/Surg Hx/FS Hx/Imm Hx Endocrine/Hematology History: Reports: Hx Anticoagulant Therapy, Hx Diabetes, Hx Anemia Cardiovascular History: Reports: Hx Congestive Heart Failure, Hx Coronary Artery Disease, Hx Hypercholesterolemia, Hx Hypertension, Other Cardiovascular Problems/Disorders - cardiac cath w/ stents Denies: Hx Pacemaker/ICD Respiratory History: Reports: Hx Asthma, Hx Chronic Obstructive Pulmonary Disease (COPD), Hx Sleep Apnea GI History: Reports: Hx Gastroesophageal Reflux Disease - ON PRILOSEC Denies: Hx Diverticulosis History: Reports: Hx Acute Renal Failure Denies: Hx Chronic Renal Failure, Hx Renal Disease Musculoskeletal History: Reports: Hx Back Problems Denies: Hx Arthritis, Hx Osteoporosis Sensory History: Reports: Hx Cataracts - removed bilat, Hx Contacts or Glasses Denies: Hx Hearing Aid Opthamlomology History: Reports: Hx Cataracts - removed bilat, Hx Contacts or Glasses Psychiatric History: Denies: Hx Panic Disorder - Surgical History Surgery Procedure, Year, and Place: RIGHT KNEE SURGERY 1967. CARDIAC CATH WITH STENT 2004-[facility] FOR 1.[address] HAND[address] 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, Hx Shingles Denies: Hx Hepatitis, Traveled Outside the [place] in Last 30 Days - Family History Known Family History: Positive: Unknown, Hypertension, Diabetes, Other - lung cancer, cerebral hemorrhage - Social History Alcohol Use: Rare Hx Substance Use: No Substance Use Type: Reports: None Hx Tobacco Use: Yes Smoking Status (MU): Former Smoker Type: Cigarettes Amount Used/How Often: 1ppd Length of Time of Smoking/Using Tobacco: 41 years Have You Smoked in the Last Year: No Review of Systems Negative: Fever, Chills Negative: Chest Pain Negative: Abdominal Pain, Other - bloody stools, hematemesis Negative: hematuria All Other Systems Reviewed And Are Negative: Yes Physical Exam - Summary Physical Exam Summary: VITAL SIGNS: Reviewed. GENERAL: Patient is a well-developed and nourished male who is lying comfortable in the stretcher. Patient is not in any acute respiratory distress. HEAD AND FACE: No signs of trauma. No ecchymosis, hematomas or skull depressions. No sinus tenderness. EYES: PERRLA, EOMI x 2, No injected conjunctiva, no nystagmus. EARS: Hearing grossly intact. Ear canals and tympanic membranes are within normal limits. MOUTH: Oropharynx within normal limits. NECK: Supple, trachea is midline, no adenopathy, no JVD, no carotid bruit, no c- spine tenderness, neck with full ROM. CHEST: Symmetric, no tenderness at palpation LUNGS: Clear to auscultation bilaterally. No wheezing or crackles. CVS: Regular rate and rhythm, S1 and S2 present, no murmurs or gallops appreciated. ABDOMEN: Soft, non-tender. No signs of distention. No rebound no guarding, and no masses palpated. Bowel sounds are normal. EXTREMITIES: FROM in all major joints, no edema, no cyanosis or clubbing. NEURO: Alert and oriented x 3. No acute neurological deficits. Speech is normal and follows commands. SKIN: Dry and warm Triage Information Reviewed: Yes Vital Signs On Initial Exam: Initial Vitals Temp Pulse Resp BP Pulse Ox 97.8 F 65 18 144/67 94 02/15/18 08:54 04/15/17 08:54 04/15/17 08:54 04/15/17 08:54 04/15/17 08:54 Vital Signs Reviewed: Yes Diagnostics - Vital Signs Vital Signs Temp Pulse Resp BP Pulse Ox 04/15/17 08:54 97.8 F 65 18 144/67 94 - Laboratory Lab Statement: Any lab studies that have been ordered have been reviewed, and results considered in the medical decision making process. Complex Multi-Symp Course/Dx Assessment/Plan: This pt is a 67 y/o male presenting to [facility] for an elevated INR of 5. Pt reports he had routine blood work done yesterday and last night he received a call from his PCP (Dr. Oakley) to tell him about his elevated INR. Pt was told to come to the ED. He took vitamin K and coumadin last night. Pt currently denies any complains. He denies bloody stools, hematemeis, hematuria, bleeding from anywhere, chest pain, abd pain. He states his last bowel movement was this morning and it was normal. INR is 5.57. The pt has no bleeding site. Pt was given vitamin K and was requested not to take Coumadin today. Pt will follow up with his PCP tomorrow for a repeat INR level. Pt is hemodynamically stable, alert and oriented x3. He was recommended to return to the ED if he develops any type of bleeding. Pt understands and agrees. - Diagnoses Provider Diagnoses: Elevated INR Discharge - Discharge Plan Condition: Stable Disposition: HOME Patient Education Materials: Elevated INR (ED) Referrals: Mario Oakley MD [Primary Care Provider] - Additional Instructions: STOP taking Coumadin for 1 day. Please follow up with your primary care provider , Dr. Oakley. RETURN TO THE ED FOR ANY WORSENING SYMPTOMS. The documentation as recorded by the Antonio lopez Angela accurately reflects the service I personally performed and the decisions made by me, Luis Perdomo MD.
== END 2017-04-15 11:21 | disposition home or self-care (01) ==
LOC: ED 08:48
DX: R79.1 Abnormal coagulation profile (principal); I25.10 Atherosclerotic heart disease of native coronary artery without angina pectoris; Z87.19 Personal history of other diseases of the digestive system; Z87.891 Personal history of nicotine dependence; Z79.01 Long term (current) use of anticoagulants; Z86.79 Personal history of other diseases of the circulatory system
CPT/HCPCS: 36415; 85610; 96372; 99282; J3430

== ENCOUNTER 2017-04-30 22:24 | Emergency (ER) | payer MEDICARE ==
[2017-04-30] MEDS ORDERED: Furosemide IV* 10 MG/ML 10 ML VIAL (100 MG) IV ONE (23:27)
[2017-05-01 00:17] LABS: EGFR Non-African American 12.9 (>60)
[2017-05-01 00:29] LABS: Urine Appearance Clear; Urine Blood 1+ (Negative); Urine Color Yellow; Urine Ketones Negative (Negative); Urine Protein 3+(>=500 mg/dL) (Negative); Urine Specific Gravity 1.009 (1.010-1.030); Urine Urobilinogen Negative (Negative)
[2017-05-01 01:09] LABS: Hematocrit 26 % (42-52); Hemoglobin 7.7 g/dl (14.0-18.0); Mean Corpuscular HGB Conc 30 g/dl (31-36); Mean Corpuscular Hemoglobin 20 pg (27-31); Mean Corpuscular Volume 67 fL (80-94); Red Blood Count 3.84 10^6/ul (4.0-5.4); Red Cell Distribution Width 20 % (10.5-15); White Blood Count 4.8 10^3/ul (3.5-10.8)
[2017-05-01 01:37] VITALS: BP 148/65
[2017-05-01 01:42] LABS: Monocytes % 9 % (0-7)
--- NOTE | 2017-05-01 01:42 | ED ---
Cammie Silva Emily, scribed for William Edmond MD on 04/30/17 at 2327 . Shortness of Breath - HPI Summary HPI Summary: This patient is a 67 year old M presenting to [facility] accompanied by family with a chief complaint of SOB that began on January 2017. The patient rates the pain 0/10 in severity. Symptoms aggravated by nothing. Symptoms alleviated by nothing. Patient reports dark yellow urine, bilateral lower extremity swelling, and recent weight gain. Patient denies difficulty urinating, fever, cough, congestion, and CP. Pt reports seeing PCP earlier today due decreased urinary output. Pt has a history of end stage renal disease without dialysis treatment. - History of Current Complaint Chief Complaint: EDShortnessOfBreath Time Seen by Provider: 04/30/17 23:04 Hx Obtained From: Patient Onset/Duration: Sudden Onset, Lasting Weeks, Still Present Timing: Constant Current Severity: Mild Dyspnea At: Exertion Aggrevating Factors: Nothing Alleviating Factors: Nothing Associated Signs & Symptoms: Edema - Allergy/Home Medications Allergies/Adverse Reactions: Allergies Allergy/AdvReac Type Severity Reaction Status Date / Time erythromycin base AdvReac Intermediate Stomach Verified 04/30/17 23:10 Cramps PMH/Surg Hx/FS Hx/Imm Hx Previously Healthy: No Endocrine/Hematology History: Reports: Hx Anticoagulant Therapy, Hx Diabetes, Hx Anemia Cardiovascular History: Reports: Hx Congestive Heart Failure, Hx Coronary Artery Disease, Hx Hypercholesterolemia, Hx Hypertension, Other Cardiovascular Problems/Disorders - cardiac cath w/ stents Denies: Hx Pacemaker/ICD Respiratory History: Reports: Hx Asthma, Hx Chronic Obstructive Pulmonary Disease (COPD), Hx Sleep Apnea GI History: Reports: Hx Gastroesophageal Reflux Disease - ON PRILOSEC Denies: Hx Diverticulosis History: Reports: Hx Acute Renal Failure Denies: Hx Chronic Renal Failure, Hx Renal Disease Musculoskeletal History: Reports: Hx Back Problems Denies: Hx Arthritis, Hx Osteoporosis Sensory History: Reports: Hx Cataracts - removed bilat, Hx Contacts or Glasses Denies: Hx Hearing Aid Opthamlomology History: Reports: Hx Cataracts - removed bilat, Hx Contacts or Glasses Psychiatric History: Denies: Hx Panic Disorder - Surgical History Surgery Procedure, Year, and Place: RIGHT KNEE SURGERY 1966. CARDIAC CATH WITH STENT 2004-[facility] FOR 1.[address] HAND[address] 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, Hx Shingles Denies: Hx Hepatitis, Traveled Outside the [place] in Last 30 Days - Family History Known Family History: Positive: Hypertension, Diabetes, Other - lung cancer, cerebral hemorrhage - Social History Occupation: Retired Lives: With Family Alcohol Use: Rare Hx Substance Use: No Substance Use Type: Reports: None Hx Tobacco Use: Yes Smoking Status (MU): Former Smoker Type: Cigarettes Amount Used/How Often: 1ppd Length of Time of Smoking/Using Tobacco: 41 years Have You Smoked in the Last Year: No Review of Systems Negative: Fever Positive: Other - Negative congestion Negative: Chest Pain Positive: Shortness Of Breath. Negative: Cough Positive: Other - Positive recent weight gain Positive: other - Positive dark yellow urine. Negative difficulty urinating Positive: Edema All Other Systems Reviewed And Are Negative: Yes Physical Exam - Summary Physical Exam Summary: Appearance: Well appearing, no pain distress Skin: warm, dry, reflects adequate perfusion Head/face: normal Eyes: EOMI, MELISSA ENT: normal Neck: supple, non-tender, no JVD Respiratory: breath sounds present, diminished in the bases with fine crackles Cardiovascular: RRR, pulses symmetrical Abdomen: non-tender, soft Bowel: present Musculoskeletal: strength/ROM intact, lower extremity edema all the way up to genitals Neuro: normal, sensory motor intact, A&Ox3 Triage Information Reviewed: Yes Vital Signs On Initial Exam: Initial Vitals Temp Pulse Resp BP Pulse Ox 97 F 65 22 154/73 95 04/30/17 22:39 04/30/17 22:39 04/30/17 22:39 04/30/17 22:39 04/30/17 22:39 Vital Signs Reviewed: Yes Diagnostics - Vital Signs Vital Signs Temp Pulse Resp BP Pulse Ox 04/30/17 23:00 62 14 95 04/30/17 22:49 66 17 91 04/30/17 22:46 97 F 67 22 166/84 95 04/30/17 22:39 97 F 65 22 154/73 95 - Laboratory Lab Results: Lab Results 04/30/17 05/01/17 05/01/17 Range/Units 23:55 00:05 00:30 WBC 4.8 (3.5-10.8) 10^3/ul RBC 3.84 L (4.0-5.4) 10^6/ul Hgb 7.7 L (14.0-18.0) g/dl Hct 26 L (42-52) % MCV 67 L (80-94) fL MCH 20 L (27-31) pg MCHC 30 L (31-36) g/dl RDW 20 H (10.5-15) % Plt Count Pending MPV Pending Neutrophils % Pending Normal RBC Morphology Pending Sodium 141 (133-145) mmol/L Potassium 4.3 (3.5-5.0) mmol/L Chloride 111 (101-111) mmol/L Carbon Dioxide 18 L (22-32) mmol/L Anion Gap 12 H (2-11) mmol/L BUN 71 H (6-24) mg/dL Creatinine 4.55 H (0.67-1.17) mg/dL Est GFR ( Amer) 16.6 (>60) Est GFR (Non-Af Amer) 12.9 (>60) BUN/Creatinine Ratio 15.6 (8-20) Glucose 280 H (70-100) mg/dL Calcium 7.1 L (8.6-10.3) mg/dL Total Bilirubin 0.30 (0.2-1.0) mg/dL AST 15 (13-39) U/L ALT 12 (7-52) U/L Alkaline Phosphatase 184 H (34-104) U/L B-Natriuretic Peptide ( - 100) pg/mL Total Protein 6.9 (6.4-8.9) g/dL Albumin 3.3 (3.2-5.2) g/dL Globulin 3.6 (2-4) g/dL Albumin/Globulin Ratio 0.9 L (1-3) Urine Color Yellow Urine Appearance Clear Urine pH 5.0 (5-9) Ur Specific [place] 1.009 L (1.010-1.030) Urine Protein 3+(>=500 mg/dl) A (Negative) Urine Ketones Negative (Negative) Urine Blood 1+ A (Negative) Urine Nitrate Negative (Negative) Urine Bilirubin Negative (Negative) Urine Urobilinogen Negative (Negative) Ur Leukocyte Esterase Negative (Negative) Urine WBC (Auto) Trace(0-5/hpf) (Absent) Urine RBC (Auto) 2+(6-10/hpf) A (Absent) Ur Squamous Epith Cells Present A (Absent) Urine Bacteria Absent (Absent) Hyaline Casts Present A (Absent) Urine Glucose 3+(>=500 mg/dl) A (Negative) 05/01/17 Range/Units 00:45 WBC (3.5-10.8) 10^3/ul RBC (4.0-5.4) 10^6/ul Hgb (14.0-18.0) g/dl Hct (42-52) % MCV (80-94) fL MCH (27-31) pg MCHC (31-36) g/dl RDW (10.5-15) % Plt Count MPV Neutrophils % Normal RBC Morphology Sodium (133-145) mmol/L Potassium (3.5-5.0) mmol/L Chloride (101-111) mmol/L Carbon Dioxide (22-32) mmol/L Anion Gap (2-11) mmol/L BUN (6-24) mg/dL Creatinine (0.67-1.17) mg/dL Est GFR ( Amer) (>60) Est GFR (Non-Af Amer) (>60) BUN/Creatinine Ratio (8-20) Glucose (70-100) mg/dL Calcium (8.6-10.3) mg/dL Total Bilirubin (0.2-1.0) mg/dL AST (13-39) U/L ALT (7-52) U/L Alkaline Phosphatase (34-104) U/L B-Natriuretic Peptide 163 H ( - 100) pg/mL Total Protein (6.4-8.9) g/dL Albumin (3.2-5.2) g/dL Globulin (2-4) g/dL Albumin/Globulin Ratio (1-3) Urine Color Urine Appearance Urine pH (5-9) Ur Specific [place] (1.010-1.030) Urine Protein (Negative) Urine Ketones (Negative) Urine Blood (Negative) Urine Nitrate (Negative) Urine Bilirubin (Negative) Urine Urobilinogen (Negative) Ur Leukocyte Esterase (Negative) Urine WBC (Auto) (Absent) Urine RBC (Auto) (Absent) Ur Squamous Epith Cells (Absent) Urine Bacteria (Absent) Hyaline Casts (Absent) Urine Glucose (Negative) Result Diagrams: 05/01/17 00:30 04/30/17 23:55 Lab Statement: Any lab studies that have been ordered have been reviewed, and results considered in the medical decision making process. - Radiology CXR Radiology Interpretation Completed By: ED Physician - CXR reveals, per ED physician, elevated right toby diaphragm with little effusion. No significant change from previous CXR. - EKG 2334 Cardiac Rate: NL EKG Rhythm: Sinus Rhythm - [address] Segment: Non-Specific EKG Interpretation: Left axis deviation. RBBB. QTC prolongation. 1st degree AV block Re-Evaluation - Re-Evaluation First Eval Re-Evaluation Time: 01:00 Change: Improved Course/Dx - Course Course Of Treatment: pt with decreased UOP. Lasix having less effect. No resting SOB. Tiny effusion on xray.Heavy chronic edema and stable anemia. IV lasix here. K+ is wnl. D/C with f/u Nephro for plan on dialysis. - Diagnoses Provider Diagnoses: End stage renal disease, Chronic anemia, Peripheral edema, Dyspnea on exertion Discharge - Discharge Plan Condition: Good Disposition: HOME Patient Education Materials: Dialysis Diet (DC), End Stage Kidney Disease (ED) Referrals: Mario Oakley MD [Primary Care Provider] - Conrado Ramos MD [Medical Doctor] - Additional Instructions: Call Dr Ramos on Wednesday to discuss when you will start dialysis. Return with shortness of breath at rest, fever, worse or other concerns as discuss. STRICTLY avoid salt in the diet and keep your blood pressure and diabetes well controlled. The documentation as recorded by the Cammie lopez Emily accurately reflects the service I personally performed and the decisions made by me, William Edmond MD.
[2017-05-01 01:43] LABS: Mean Platelet Volume 9 um3 (7.4-10.4)
[2017-05-01 01:44] LABS: Platelet Count 55 10^3/ul (150-450)
--- NOTE | 2017-05-01 07:35 | RAD ---
HISTORY: CHF, end-stage renal disease, shortness of breath COMPARISONS: February 12, 2017 VIEWS: 4: Frontal dual-energy and lateral views of the chest. FINDINGS: CARDIOMEDIASTINAL SILHOUETTE: The cardiomediastinal silhouette is normal. KAUSHIK: The kaushik are normal. PLEURA: The costophrenic angles are sharp. No pleural abnormalities are noted. LUNG PARENCHYMA: The lung volumes are low. There is prominence of the central pulmonary S. Jolie with a mild diffuse pattern of reticular opacification. ABDOMEN: The upper abdomen is clear. There is no subphrenic gas. BONES AND SOFT TISSUES: No bone or soft tissue abnormalities are noted. OTHER: None. IMPRESSION: LOW LUNG VOLUMES WITH PULMONARY VASCULAR CONGESTION AND MILD PULMONARY INTERSTITIAL EDEMA.
== END 2017-05-01 01:39 | disposition home or self-care (01) ==
LOC: ED 22:24
DX: N18.6 End stage renal disease (principal); D64.9 Anemia, unspecified; R60.9 Edema, unspecified; R06.00 Dyspnea, unspecified; Z88.3 Allergy status to other anti-infective agents; Z87.891 Personal history of nicotine dependence
CPT/HCPCS: 36415; 71046; 80053; 81003; 81015; 83880; 85025; 87086; 93005; 96374; 99284; J1940

== ENCOUNTER 2017-05-03 13:04 | Inpatient (IN) | payer MEDICARE ==
[2017-05-03] MEDS ORDERED: Acetaminophen TAB* 325 MG PO PRN (14:11)
[2017-05-03] MEDS ORDERED: Morphine INJ* 2 MG/ML 1 ML CARPUJECT IV PRN (14:11)
[2017-05-03] MEDS ORDERED: NS 0.9% IVPB ONE (14:30)
[2017-05-03] MEDS ORDERED: CALCIUM GLUCONATE IVPB ONE (14:30)
[2017-05-03 14:34] LABS: INR 2.99 (0.77-1.02)
[2017-05-03 14:43] LABS: EGFR Non-African American 13.1 (>60)
[2017-05-03] MEDS ORDERED: Dextrose 50% Syringe 50 ML* 25 GM/50 ML SYRINGE IV PUSH PRN (14:56)
--- NOTE | 2017-05-03 15:07 | RAD ---
INDICATION: Anasarca COMPARISON: April 30, 2017 TECHNIQUE: An AP portable view obtained at 1435 hours is submitted. FINDINGS: Bones/Soft Tissues: There are no acute bony findings. Cardiomediastinal: The cardiomediastinal silhouette is normal. The pulmonary interstitium appears normal. Vascular congestive findings have essentially resolved. Lungs: There are no infiltrates. The examination is expiratory with vascular crowding Pleura: Small bilateral pleural effusions.. Other: None IMPRESSION: EXPIRATORY EXAMINATION. SMALL BILATERAL PLEURAL EFFUSIONS.
[2017-05-03] MEDS ORDERED: Phytonadione INJ (Adult)* 10 MG in NS 0.9% 50 ML* 50 ML IV ONE (15:15)
[2017-05-03] MEDS: Insulin LISPRO* 1 UNITS UNIT SUBCUT SCH ×2 (16:46→22:57)
--- NOTE | 2017-05-03 22:13 | HP ---
CC: Dr. Oakley; Dr. Ramos; Dr. Melendez * HISTORY AND PHYSICAL: DATE OF ADMISSION: 05/03/17 PRIMARY CARE PROVIDER: Dr. Oakley. CHIEF COMPLAINT: Lower extremity swelling, lethargy "moving slowly." HISTORY OF PRESENT ILLNESS: Damian Guzman is a 67-year-old male who was hospitalized at our facility in January of 2017 for acute renal failure, it was thought to be due to acute interstitial nephritis possibly due to cephalosporins. Since then, he had been under the care of precision millwright Dr. Ramos. He came in to see Dr. Ramos today with complaints of feeling sluggish, gaining weight, not urinating that well. At that point, Dr. Ramos checked the patient's blood work and the patient was noted to have worsening renal failure with worsening metabolic acidosis. The patient is being directly admitted from Dr. Ramos's office for preparation for dialysis. Please also note that the patient was in the hospital on 04/30/17 and received a dose of Lasix prescribed by the ED physician. The medication was intravenous. The patient stated that he had urine output at 200 mL total. Usually, he urinates 3 times a day, approximately 100 mL each time. He stated that he gained approximately 20 pounds in the past 1 month. PAST MEDICAL HISTORY: 1. History of chronic kidney disease stage 4, thought to be combination of chronic kidney disease, diabetes and interstitial nephritis due to cephalosporin in 2017. 2. History of bilateral idiopathic DVT. 3. History of long-term anticoagulation for it. 4. History of thalassemia trait with chronic anemia. It appears that the patient had approximately 7 units transfused in 2017 due to his chronic anemia. 5. History of thrombocytopenia that had been intermittent with recent worsening. 6. History of status post right knee arthroplasty. 7. History of carpal tunnel surgery in the past. 8. History of GI bleed in June of 2016, presumed upper GI, although the source was never discovered. 9. History of chronic elevation of alkaline phosphatase with alk phos isoenzymes indicating liver. 10. History of coronary artery disease, status post PCI in the past. 11. Hypertension. 12. Gastroesophageal reflux disease. CURRENT MEDICATIONS: Include: 1. Aspirin 81 mg daily. 2. Atorvastatin 20 mg daily. 3. Bumetanide 3 mg in the morning and 2 mg at night. 4. Calcitriol 0.25 mcg daily. 5. Fluticasone nasal spray 1 spray each nostril daily. 6. Hydralazine 50 mg 3 times a day. 7. Atrovent nebulizer on p.r.n. basis. 8. Imdur ER 60 mg daily. 9. Lantus 15 units every 12 hours. 10. Lisinopril 20 mg daily. 11. Lyrica 50 mg b.i.d. 12. Metolazone 2.5 mg 1 tablet 45 minutes prior to bumetanide. 13. Metoprolol succinate 50 mg b.i.d. 14. Omeprazole delayed release 20 mg daily. 15. "Stool softener" on a daily basis. 16. Coumadin 3 mg daily. ALLERGIES: ERYTHROMYCIN BASE. FAMILY HISTORY: Positive for mother with CVA. SOCIAL HISTORY: The patient quit smoking after smoking 30-pack years 12 years ago. He denies any alcohol or drug use. He is retired and lives with his . His is a surrogate. REVIEW OF SYSTEMS: Please see history of present illness. Specifically, the patient stated that he has been gaining weight approximately 20 pounds in the past 1 month. He has chronic bilateral leg edema that has gotten worse. He feels very sluggish today and was noted to have sugars in the 60s. He is presenting directly for admission from Dr. Ramos's office and has not eaten since the morning. He stated that his urination and the urine quantity has markedly decreased. He was noted to have "spots" on his fingers of bilateral hands that had been evaluated in the past. The patient stated that in the past that was diagnosed as Staphylococcus infection or yeast infection. The patient has obstructive sleep apnea and he uses CPAP at night. All the remaining 12 systems were reviewed with the patient and were otherwise negative. PHYSICAL EXAMINATION GENERAL: The patient is a pleasant 67-year-old obese male who is in no acute distress. Alert, awake, and oriented x3. VITAL SIGNS: Blood pressure 140/63, heart rate of 48 and regular, respiratory rate 18, oxygen saturation 96% on room air, temperature 98.0. HEENT: Head: Atraumatic, normocephalic. Eyes: Pupils are equal and reactive to light and accommodation. Oropharynx clear. Mucosa moist. NECK: Supple. No JVD. No bruits bilaterally. RESPIRATORY: Crackles at bilateral bases, otherwise clear. CARDIOVASCULAR: Regular rate and rhythm. Bradycardia. No murmur. ABDOMEN: Protuberant, soft, nontender, edematous. Bowel sounds are present in all 4 quadrants. EXTREMITIES: There is +3 pitting pedal edema in bilateral lower extremities to the level of bilateral knees. There is no clubbing or cyanosis. NEURO EVALUATION: Cranial nerves II through XII grossly intact. Motor strength is 5/5 bilaterally. Sensation grossly intact. SKIN: On evaluation of the skin, the patient has dark discolored appearing nodular lesions on his knuckles and those lesions are scattered on fingers of bilateral hands. Dorsal aspect, there appear to be may be subcutaneous hemorrhages, they are not blanching, they are 0.5 cm in diameter, some of them are covered with eschar. The patient approximately has 4 of them on one hand and 3 on the other. PSYCHIATRIC EVALUATION: The patient is rather a poor historian, oriented x2 with no evidence of anxiety or depression. DIAGNOSTIC STUDIES/LAB DATA: White blood cell count 5.5, hemoglobin of 8.1, hematocrit of 27, MCV of 67, and platelets of 46. INR was 2.99. Sodium 147, potassium 3.6, chloride 113, carbon dioxide 21, BUN 78, creatinine 4.5. The patient's glucose level was 60, calcium of 7.0. Liver function test unremarkable apart from alkaline phosphatase of 195 consistent with prior. The patient's EKG showed sinus bradycardia with a heart rate of 47 beats per minute with prolonged QTc of 526 msec, as well as right bundle branch block and left anterior toby block which has not changed from prior. The patient's QTc was prolonged in the past. Portable chest x-ray was read by Radiology as "expiratory examination revealed small bilateral pleural effusions." ASSESSMENT AND PLAN: 1. Acute on chronic renal failure and the patient with history of interstitial nephritis and diabetes. The patient currently has metabolic acidosis due to renal failure. He is going to be placed on admission. Dr. Ramos already discussed the case with Dr. Melendez who is planning to perform hemodialysis access in the morning. For that, I need to reverse patient's INR. The patient is going to be observed on telemetry monitoring bed. 2. Bradycardia. The patient has QT prolongation. It is possible that it is due to combination of uremia and hypocalcemia. The patient's hypocalcemia was treated with an ampule of calcium gluconate. We will observe patient on telemetry monitoring bed for the time being. 3. For hypertension, Imdur and hydralazine is going to be continued. I will hold patient's lisinopril and I also will hold patient's metoprolol due to bradycardia. 4. Diabetes. The patient is hypoglycemic. He has not eaten since the morning. He is going to be placed on renal diabetic diet. I will place him on insulin sliding scale and for the time being hold the other diabetic medications. 5. The patient's anemia and thrombocytopenia are worsening of chronic. For the time being, no transfusion is necessary. Ask Dr. Nunes or another political consultant from Oncology to weigh-in in regards to safety of performing surgery and vascular access tomorrow in face of patient's thrombocytopenia. 6. The patient has history of DVT and he is on Coumadin. His INR is 2.9 and needs to be reversed prior to anticipated surgery tomorrow. 7. For obstructive sleep apnea, the patient is going to be placed on CPAP. 8. In regards to patient's chronic finger lesions. At this point, the patient probably requires a Dermatology evaluation and probably biopsy. At this point, it is not an acute situation and the patient can have it done as outpatient. He apparently is already scheduled with the carpet repairer as outpatient. 9. The patient's code status is full and his surrogate is his . 10. For DVT prophylaxis, the patient for time being is therapeutic on INR. TIME SPENT: Approximately 80 minutes was spent on admission of this patient, more than half that time was spent [id number] with the patient doing the interview and physical exam. [id number]/[facility] #: [id number] [facility]
[2017-05-03] MEDS: hydrALAZINE TAB* 25 MG PO SCH (22:56)
[2017-05-03] MEDS: Pregabalin CAP(*) 50 MG PO SCH (22:57)
[2017-05-03] MEDS: Docusate CAP* 100 MG PO SCH (22:57)
[2017-05-04] MEDS: Omeprazole CAP* 20 MG PO SCH (05:33)
[2017-05-04 05:54] LABS: INR 1.74 (0.77-1.02)
[2017-05-04 06:05] LABS: EGFR Non-African American 12.9 (>60)
[2017-05-04 06:18] LABS: Hematocrit 25 % (42-52); Hemoglobin 7.7 g/dl (14.0-18.0); Mean Corpuscular HGB Conc 31 g/dl (31-36); Mean Corpuscular Hemoglobin 20 pg (27-31); Mean Corpuscular Volume 66 fL (80-94); Mean Platelet Volume 9 um3 (7.4-10.4); Platelet Count 27 10^3/ul (150-450); Red Blood Count 3.77 10^6/ul (4.0-5.4); Red Cell Distribution Width 20 % (10.5-15); White Blood Count 3.9 10^3/ul (3.5-10.8)
[2017-05-04] MEDS: Insulin LISPRO* 1 UNITS UNIT SUBCUT SCH ×4 (07:43→21:18)
[2017-05-04] MEDS ORDERED: Pregabalin CAP(*) 50 MG PO SCH (09:00)
[2017-05-04] MEDS ORDERED: ceFAZolin 1 GM VIAL(*) 2 GM in NS 0.9% 100 ML* 100 ML IVPB ONE (09:00)
[2017-05-04] MEDS ORDERED: Phytonadione Oral Solution* 5 MG/25 ML UDC PO ONE (10:00)
--- NOTE | 2017-05-04 10:21 | PN ---
Subjective Date of Service: 05/04/17 Interval History: Notes "twitching" in his head when eyes were closed now occurs with eyes open. Feels fatigued and it is difficult to walk otherwise has no complaints. Denies CP/SOB, N/V, LH, pain Objective Active Medications: Acetaminophen (Tylenol Tab*) 650 mg PO Q4H PRN PRN Reason: FEVER/PAIN Calcitriol (Rocaltrol Cap*) 0.25 mcg PO DAILY [facility] Dextrose (D50w Syringe 50 Ml*) 12.5 gm IV PUSH .FOR FS < 60 - SS PRN PRN Reason: FS < 60 Docusate Sodium (Colace Cap*) 100 mg PO BID [facility] Last Admin: 05/03/17 22:57 Dose: 100 mg Hydralazine HCl (Apresoline Tab*) 50 mg PO TID [facility] Last Admin: 05/03/17 22:56 Dose: 50 mg Insulin Human Lispro (Humalog*) 0 units SUBCUT ACHS [facility] PRN Reason: Protocol Last Admin: 05/04/17 07:43 Dose: Not Given Isosorbide Mononitrate (Imdur Er Tab*) 60 mg PO DAILY [facility] Omeprazole (Prilosec Cap*) 20 mg PO DAILY@0600 [facility] Last Admin: 05/04/17 05:33 Dose: 20 mg Pregabalin (Lyrica Cap(*)) 50 mg PO BID [facility] Last Admin: 05/03/17 22:57 Dose: 50 mg Vital Signs - 8 hr 05/04/17 05/04/17 05/04/17 03:36 07:29 08:00 Temperature 96.3 F Pulse Rate 60 56 Respiratory 18 20 20 Rate Blood Pressure 140/65 128/62 (mmHg) O2 Sat by Pulse 97 96 Oximetry Oxygen Devices in Use Now: None, CPAP Appearance: obese, NAD Eyes: No Scleral Icterus, PERRLA Ears/Nose/Mouth/Throat: - - dry MM Neck: NL Appearance and Movements; NL JVP, Trachea Midline Respiratory: Symmetrical Chest Expansion and Respiratory Effort, - - trace rales b/l bases Cardiovascular: NL Sounds; No Murmurs; No JVD, RRR Abdominal: NL Sounds; No Tenderness; No Distention, No Hepatosplenomegaly Lymphatic: No Cervical Adenopathy Extremities: - - tense b/l LE pitting edema Skin: - - LE chronic venous stasis changes, left 3rd finger laceration with healing ulcer, right hand with several deep red non uniform non blantching macules with areas of ulceration Neurological: Alert and Oriented x 3, - - cn2-12 intact Result Diagrams: 05/04/17 05:41 05/04/17 05:41 Microbiology and Other Data: Microbiology 05/03/17 14:40 Nasal Screen MRSA (PCR)(CAROLYN) - Final Nasal Mrsa Not Detected Assess/Plan/Problems-Billing Assessment: 67 yo M h/o CKD, b/l LE DVTs 05/2015 on coumadin, chronic anemia out of proportion to thalasemia trait, GI bleed, CAD, HTN 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 There was some concern for marrow dysfunction contributing to anemia when seen by [facility] 04/2016. Holding AC. May need ddAVP and/or transfusion during catheter placement depending on levels tomorrow and surgeon's comfort level (4) Anticoagulant effect Comment: As noted above. Hold AC Vitamin K 5 PO today repeat INR tomorrow (5) DVT (deep venous thrombosis) Comment: b/l LE on 05/2015 No e/o of DVTs on repeat imaging since then Hold AC prior to procedure (6) DVT prophylaxis Comment: SCDs (no clots on repeat imaging of LE since DVT diagnosed)
[2017-05-04] MEDS: Calcitriol CAP* 0.25 MCG PO SCH (10:43)
[2017-05-04] MEDS: hydrALAZINE TAB* 25 MG PO SCH ×3 (10:43→21:19)
[2017-05-04] MEDS: Isosorbide Mononitrate ER TAB* 60 MG PO SCH (10:44)
[2017-05-04] MEDS: Pregabalin CAP(*) 50 MG PO SCH ×2 (10:44→21:19)
[2017-05-04] MEDS: Docusate CAP* 100 MG PO SCH ×2 (10:46→21:19)
[2017-05-04] MEDS: Sevelamer TAB* 800 MG PO SCH ×3 (12:45→17:25)
[2017-05-04] MEDS: Nystatin TOP POWDER* 15 GM BTL TOPICAL SCH ×2 (13:39→21:19)
[2017-05-05] MEDS: Omeprazole CAP* 20 MG PO SCH (05:45)
[2017-05-05 05:58] LABS: EGFR Non-African American 13.7 (>60)
[2017-05-05 06:12] LABS: Hematocrit 23 % (42-52); Mean Corpuscular HGB Conc 31 g/dl (31-36); Mean Corpuscular Hemoglobin 20 pg (27-31); Mean Corpuscular Volume 66 fL (80-94); Red Blood Count 3.44 10^6/ul (4.0-5.4); Red Cell Distribution Width 20 % (10.5-15); White Blood Count 4.1 10^3/ul (3.5-10.8)
[2017-05-05 06:13] LABS: ABS Basophils 0 10^3/ul (0-0.2); ABS Eosinophils 0.1 10^3/ul (0-0.6); ABS Lymphocytes 0.9 10^3/ul (1.0-4.8); ABS Monocytes 0.4 10^3/ul (0-0.8); ABS Neutrophils 2.7 10^3/ul (1.5-7.7); ABS Nucleated RBC 0.1 10^3/ul; Eosinophil % 1.9 % (0-6); Lymphocyte % 21.3 % (25-47); Nucleated Red Blood Cells % 2.2
[2017-05-05 07:04] LABS: Mean Platelet Volume 9 um3 (7.4-10.4); Platelet Count 29 10^3/ul (150-450)
[2017-05-05 08:56] LABS: INR 1.25 (0.77-1.02)
[2017-05-05] MEDS: Docusate CAP* 100 MG PO SCH ×2 (09:23→21:46)
[2017-05-05] MEDS: Calcitriol CAP* 0.25 MCG PO SCH (09:23)
[2017-05-05] MEDS: Isosorbide Mononitrate ER TAB* 60 MG PO SCH (09:23)
[2017-05-05] MEDS: Pregabalin CAP(*) 50 MG PO SCH ×2 (09:23→21:45)
[2017-05-05] MEDS: hydrALAZINE TAB* 25 MG PO SCH ×3 (09:23→21:46)
[2017-05-05] MEDS: Sevelamer TAB* 800 MG PO SCH ×3 (09:23→21:45)
[2017-05-05] MEDS: Nystatin TOP POWDER* 15 GM BTL TOPICAL SCH ×2 (09:26→21:46)
[2017-05-05] MEDS: Insulin LISPRO* 1 UNITS UNIT SUBCUT SCH ×3 (09:35→18:38)
[2017-05-05] MEDS ORDERED: LORazepam TAB(*) 0.5 MG PO PRN (12:08)
[2017-05-05] MEDS ORDERED: Calcium Gluconate INJ* 2 GM in NS 0.9% 100 ML* 100 ML IV ONE (16:16)
--- NOTE | 2017-05-05 16:16 | PN ---
Subjective Date of Service: 05/05/17 Interval History: Seen after bone marrow biopsy No complaints except for continued twitching of face Denies CP/SOB/N/V/LH loss appetite NPO currently for tunneled catheter placement later today Objective Active Medications: Acetaminophen (Tylenol Tab*) 650 mg PO Q4H PRN PRN Reason: FEVER/PAIN Calcitriol (Rocaltrol Cap*) 0.25 mcg PO DAILY [facility] Last Admin: 05/05/17 09:23 Dose: 0.25 mcg Dextrose (D50w Syringe 50 Ml*) 12.5 gm IV PUSH .FOR FS < 60 - SS PRN PRN Reason: FS < 60 Docusate Sodium (Colace Cap*) 100 mg PO BID [facility] Last Admin: 05/05/17 09:23 Dose: 100 mg Hydralazine HCl (Apresoline Tab*) 50 mg PO TID [facility] Last Admin: 05/05/17 09:23 Dose: 50 mg Insulin Human Lispro (Humalog*) 0 units SUBCUT ACHS [facility] PRN Reason: Protocol Last Admin: 05/05/17 12:11 Dose: Not Given Isosorbide Mononitrate (Imdur Er Tab*) 60 mg PO DAILY [facility] Last Admin: 05/05/17 09:23 Dose: 60 mg Lorazepam (Ativan Tab(*)) 0.5 mg PO Q6H PRN PRN Reason: ANXIETY Last Admin: 05/05/17 13:55 Dose: 0.5 mg Nystatin (Nystatin Top Powder*) 1 applic TOPICAL BID [facility] Last Admin: 05/05/17 09:26 Dose: Not Given Omeprazole (Prilosec Cap*) 20 mg PO DAILY@0600 [facility] Last Admin: 05/05/17 05:45 Dose: 20 mg Pregabalin (Lyrica Cap(*)) 50 mg PO BID [facility] Last Admin: 05/05/17 09:23 Dose: 50 mg Sevelamer Carbonate (Renvela Tab*) 800 mg PO 0800,1200,1700 [facility] Last Admin: 05/05/17 12:42 Dose: Not Given Vital Signs - 8 hr 05/05/17 05/05/17 05/05/17 08:56 09:23 11:00 Temperature Pulse Rate 67 Respiratory 18 18 18 Rate Blood Pressure 136/60 (mmHg) O2 Sat by Pulse Oximetry 05/05/17 05/05/17 05/05/17 11:10 11:15 13:55 Temperature 98.3 F Pulse Rate 61 Respiratory 18 18 Rate Blood Pressure 98/85 128/82 (mmHg) O2 Sat by Pulse 95 Oximetry 05/05/17 14:02 Temperature 96.4 F Pulse Rate 66 Respiratory 18 Rate Blood Pressure 136/62 (mmHg) O2 Sat by Pulse 97 Oximetry Oxygen Devices in Use Now: None Appearance: NAD Eyes: No Scleral Icterus, PERRLA Ears/Nose/Mouth/Throat: Clear Oropharnyx, - - dry MM Neck: NL Appearance and Movements; NL JVP, Trachea Midline Respiratory: Symmetrical Chest Expansion and Respiratory Effort, Clear to Auscultation Cardiovascular: RRR Abdominal: NL Sounds; No Tenderness; No Distention, No Hepatosplenomegaly Lymphatic: No Cervical Adenopathy Neurological: Alert and Oriented x 3 Result Diagrams: 05/05/17 05:06 05/05/17 05:06 Microbiology and Other Data: Microbiology 05/03/17 14:40 Nasal Screen MRSA (PCR)(CAROLYN) - Final Nasal Mrsa Not Detected Assess/Plan/Problems-Billing Assessment: 67 yo M h/o CKD, b/l LE DVTs 05/2015 on coumadin, chronic anemia 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 Titrate as necessary (2) Acute on chronic kidney failure Comment: Plan for tunneled catheter. 1 U Platelets prior. Discussed with surgery Plan for dialysis Wednesday. Joshua Ramos (3) Thrombocytopenia Comment: Unclear etiology for sudden drop Appreciate hematology assistance. s/p BM biopsy 05/05 Holding AC. (4) Anticoagulant effect Comment: As noted above. Hold AC received total 15mg vitamin K (5) DVT (deep venous thrombosis) Comment: b/l LE on US 05/2015 No e/o of DVTs on repeat imaging since then Hold AC prior to procedure and while thrombocytopenic (6) DVT prophylaxis Comment: SCDs (no clots on repeat imaging of LE since DVT diagnosed)
[2017-05-05] MEDS ORDERED: Lidocaine 1% MPF wEPI 200,000* 30 ML SDV ONE (17:51)
[2017-05-05] MEDS ORDERED: ceFAZolin 2 GM in 100 MLS NS (*) BAG IVPB ONE (18:48)
[2017-05-05] MEDS ORDERED: fentaNYL* 50 MCG/ML 2 ML VIAL (100 MCG VIAL) ONE (19:10)
[2017-05-05] MEDS ORDERED: Midazolam* 1 MG/ML 5 ML VIAL (5 MG) ONE (19:10)
--- NOTE | 2017-05-05 20:05 | BRIEFOPN ---
Brief Operative Note - Surgery Procedures: Procedures Pre-OP Diagnoses: ESRD Post-op Diagnosis: same Procedure: placement of hemosplit hemodialysis catheter Surgeon: Michelle Asst: none Anethesia: local, MAC EBL: minimal IVF: minimal Specimen: none Drains: 23cm 14.5fr curved catheter placed via R IJV
--- NOTE | 2017-05-05 22:06 | RAD ---
CPT II Codes: 6045F INDICATION: Hemodialysis catheter placement. 66.9 seconds of fluoroscopy time was used. Fluoroscopic services provided for referring physician for dialysis catheter placement. Single spot image demonstrates catheter in the superior vena cava. IMPRESSION: Fluoroscopic services provided for referring physician for hemodialysis catheter placement.
[2017-05-05 22:49] LABS: Mean Platelet Volume 10 um3 (7.4-10.4)
[2017-05-05 22:53] LABS: Platelet Count 36 10^3/ul (150-450)
[2017-05-06] MEDS: Insulin LISPRO* 1 UNITS UNIT SUBCUT SCH ×5 (01:27→20:30)
[2017-05-06] MEDS: Omeprazole CAP* 20 MG PO SCH (06:29)
[2017-05-06] MEDS: Docusate CAP* 100 MG PO SCH ×2 (08:14→20:29)
[2017-05-06] MEDS: hydrALAZINE TAB* 25 MG PO SCH ×3 (08:14→20:29)
[2017-05-06] MEDS: Calcitriol CAP* 0.25 MCG PO SCH (08:14)
[2017-05-06] MEDS: Pregabalin CAP(*) 50 MG PO SCH ×2 (08:14→20:29)
[2017-05-06] MEDS: Isosorbide Mononitrate ER TAB* 60 MG PO SCH (08:14)
[2017-05-06] MEDS: Sevelamer TAB* 800 MG PO SCH ×3 (08:15→17:01)
[2017-05-06] MEDS ORDERED: Castor Oil (Pharmaceutic Aid)* 118 ML BTL PO ONE (09:22)
[2017-05-06] MEDS: Nystatin TOP POWDER* 15 GM BTL TOPICAL SCH ×2 (09:30→20:34)
[2017-05-06] MEDS ORDERED: oxyCODONE TAB* 5 MG TAB PO PRN (11:28)
[2017-05-06 12:00] LABS: Hematocrit 24 % (42-52); Hemoglobin 7.2 g/dl (14.0-18.0); Mean Corpuscular HGB Conc 30 g/dl (31-36); Mean Corpuscular Hemoglobin 20 pg (27-31); Mean Corpuscular Volume 66 fL (80-94); Red Blood Count 3.66 10^6/ul (4.0-5.4); Red Cell Distribution Width 20 % (10.5-15)
[2017-05-06 12:04] LABS: EGFR Non-African American 12.5 (>60)
[2017-05-06 13:02] LABS: Monocytes % 8 % (0-7)
[2017-05-06 13:39] LABS: Mean Platelet Volume 9 um3 (7.4-10.4); Platelet Count 32 10^3/ul (150-450)
--- NOTE | 2017-05-06 16:09 | PN ---
Progress Note - Progress Note Date of Service: 05/06/17 SOAP: Subjective: Pt stable no complaints. For HD tomorrow Objective: afebrile cathter in place: no redness or hematoma Assessment: POD 1 tunned HD catheter Plan: plan per nephrology
--- NOTE | 2017-05-06 16:51 | CONS ---
MEDICAL ONCOLOGY/HEMATOLOGY CONSULTATION NOTE: DATE OF CONSULTATION: 05/04/17 REASON FOR CONSULTATION: Thrombocytopenia, anemia, history of hypercoagulable state. HISTORY OF PRESENT ILLNESS: Mr. Guzman is a 67-year-old male who was hospitalized in January 2017 with acute renal failure. At that time, his creatinine was 4.6 and subsequently improved down to 3.4 and now was readmitted with the creatinine of 4.5. It should be noted that his creatinines had been elevated over 2 since January 2016; it had been completely normal as recently as August 2012. This episode in January was felt to be due to acute interstitial nephritis possibly due to cephalosporins. He has remained under the care of Dr. Ramos. Following office visit there, complaining of twitching with worsening renal failure and worsening metabolic acidosis. He was directly admitted to the hospital in preparation for dialysis. He had also been in the emergency room from 04/30/17 to 05/01/17 and was treated at that point with Lasix with a good urine output. This patient has been followed in our office at [facility] for multiple issues. He has a history of thalassemia minor often known as thalassemia trait or thalassemia carrier. He has had hemoglobin electrophoresis in the past, hemoglobin A2 of 4.4, hemoglobin F of 3.3, and hemoglobin A of 92.3. With this one would typically expect a hemoglobin within 1 to 2 g of normal. In the past, he has run levels below this, even preceding his acute renal failure or any renal issues. For example, in 2012 his hemoglobin was in the 10s and in 2015 at the time of first abnormal renal issues , his hemoglobin was 9.9; and even in far back as 2010, he had a hemoglobin of 10.2. Associated with this he has had platelet counts in the normal range through 2012 and then mildly diminished platelet counts starting in 2015, but typically over 100,000. In January when he was hospitalized with the renal issues, his platelet count fell to as low as 59 and just before the current admission his platelet count was 127 in April, 55 when seen in the emergency room a few days before admission, and then following from there 246 on admission , and 27 on the . White cell count has not been an issue. White cells have been normal and no early forms are seen. He also has had a history of deep venous thrombosis present in May 2015 with redness and swelling in his left lower extremity. He was found at that time to have a left common femoral and profunda DVT along with a right posterior peroneal vein DVT. CTA was negative for any pulmonary emboli. He was placed on Xarelto in May 2015. He had a GI bleed in April 2016 on NSAIDs. He was switched in July 2016 from Xarelto to Coumadin due to cost of the Xarelto. He has remained on Coumadin and has had, for the most part, therapeutic INRs, although at times including in January with his renal failure and elevation to INR of 7, in early April an elevation to 5.09 and 5.57 and on admission was 2.99. He was last seen in our office in October 2016 at that point he was doing fine from a Hematology standpoint. Recommendations were to remain on Coumadin to follow carefully and to avoid NSAIDs. He is known to have factor V Leiden heterozygosity and given idiopathic bilateral DVTs, it was felt reasonable for him to remain on lifelong anticoagulation. PAST MEDICAL HISTORY: Otherwise significant for: 1. Chronic kidney disease stage 4 related to underlying chronic kidney disease , diabetes, and interstitial nephritis. 2. Status post right knee arthroplasty. 3. Carpal tunnel surgery. 4. GI bleed in 2017 related to NSAIDs. 5. History of coronary artery disease, status post PCI. 6. Hypertension. 7. GERD. 8. Sleep apnea, using CPAP. MEDICATIONS: At the time of admission include: 1. Aspirin 81 mg daily. 2. Atorvastatin 20 mg daily. 3. Bumetanide 3 mg in the morning and 2 mg at night. 4. Calcitriol 0.25 mcg daily. 5. Fluticasone nasal spray each nostril daily. 6. Hydralazine 50 mg t.i.d. 7. Imdur ER 60 mg daily. 8. Lantus 15 units twice a day. 9. Lisinopril 20 mg daily. 10. Lyrica 50 mg b.i.d. 11. Metolazone 2.5 mg prior to the bumetanide. 12. Metoprolol 50 mg b.i.d. 13. Omeprazole 20 mg daily. 14. Stool softener. 15. Coumadin 3 mg daily 16. Atrovent nebulizer p.r.n. ALLERGIES: ERYTHROMYCIN. FAMILY HISTORY: Noncontributory for any hematologic issues. SOCIAL HISTORY: The patient smoked for [id number], quitting 12 years ago. No significant alcohol. The patient is retired, lives with his . He is in the room with his 2 brothers at the time of this interview. REVIEW OF SYSTEMS: Weight has gone up approximately 20 pounds over the past month. He has been much less active and has had worsening leg edema and worsening ambulation even with the walker due to this. No significant bleeding or bruising recently. Denies any shortness of breath, chest pain, or palpitations. Denies any change in the bowel or bladder habits. Review of systems is otherwise negative. PHYSICAL EXAM: A 67-year-old male who moves very slowly and has difficulty standing from his recliner chair without significant assistance. Vital Signs: Blood pressure 140/65, pulse 69, afebrile, weight 310 pounds, and a height of 5 feet 10 inches. HEENT: PERRL, EOMI. No erythema or exudates. No palpable cervical, supraclavicular, or axillary adenopathy. Lungs: Clear. Heart: Regular rate and rhythm without murmurs, rubs, or gallops. Abdomen: Soft and nontender, quite obese with active bowel sounds throughout. Extremities: 3+ pitting edema bilaterally. Back: No CVA or spinal tenderness. DIAGNOSTIC STUDIES/LAB DATA: Most recent laboratory studies included CBC with a white count of 3900, hematocrit 25, hemoglobin 7.7, platelet count of 27,000. Chemistry studies: Sodium 146, potassium 3.5, chloride 113, bicarb 20, BUN 79, creatinine 4.56, glucose 155. LFTs with mildly elevated alkaline phosphatase at 166. Normal transaminases and bilirubin. Albumin of 3.0. INR on admission was 2.99 and this morning 1.76. IMPRESSION AND PLAN: A 67-year-old male with underlying hemologic conditions as outlined below: 1. History of thalassemia minor with chronically low MCV and mild anemia in the past. However, even since , his anemia has been somewhat out of proportion to what one would except with thalassemia minor indicating there could be some further process above and beyond his recent kidney issues causing the anemia. 2. History of bilateral DVTs in 2016 on chronic anticoagulation since, given the fact that he has factor V Leiden and he presented with spontaneous lower extremity DVTs. He should remain on lifelong anticoagulation, unless there is an absolute contraindication to it. His Coumadin is currently being held in preparation for dialysis catheter and has received a total of 15 mg of vitamin K and with this his INR has been coming down nicely and hopefully would be in a range for dialysis catheter by tomorrow. 3. Thrombocytopenia and worsening anemia. These 2 problems are both that were not seen for some time now, but are much worse at the present time. Certainly there could be a contribution of the renal failure to his anemia, but his anemia is out of proportion to that and the thrombocytopenia should not in anyway be related to the renal failure. It is only possible that he has either a destruction problem in terms of breakdown of cells such as ITP or that he has a production problem in the marrow going on for some time. To try to sort this out help with further management, a bone marrow aspirate and biopsy will be needed. This was explained to the patient including risks and benefits and he is agreeable that procedure to be done on 05/05. His brothers are present and although not his healthcare proxies, certainly are agreeable with this approach. If this turns out to be a production problem, given the fact that he has had issues ongoing for some time and it is possible that there is an underlying myelodysplastic syndrome and/or a underlying multiple myeloma. It is also possible that he could have a hypoplastic marrow for any one of the number of reasons including mild aplastic anemia. Once the bone marrow has been obtained further recommendation with follow. If this turns out to be destruction issue then use of either steroids or Rituxan would be considered. Given his renal and fluid issues, certainly would not be a good candidate for IV IgG. 4. Need for dialysis catheter, although he is in renal failure and therefore __ ___ platelets, I believe this can be done safely as long as he received a platelet pack at the time of his dialysis catheter placement. I would expect this to help for the short period of time during his surgery. Would recommend just one single donor platelet pack. [id number]/[facility] #: [id number] [facility] HOSPITALEstella
--- NOTE | 2017-05-06 17:54 | PN ---
Subjective Date of Service: 05/06/17 Interval History: Pain around cath site. Also feels like dressing is tight Twitch/spasm in face now gone Objective Active Medications: Acetaminophen (Tylenol Tab*) 650 mg PO Q4H PRN PRN Reason: FEVER/PAIN Calcitriol (Rocaltrol Cap*) 0.25 mcg PO DAILY [facility] Last Admin: 05/06/17 08:14 Dose: 0.25 mcg Dextrose (D50w Syringe 50 Ml*) 12.5 gm IV PUSH .FOR FS < 60 - SS PRN PRN Reason: FS < 60 Docusate Sodium (Colace Cap*) 100 mg PO BID [facility] Last Admin: 05/06/17 08:14 Dose: 100 mg Hydralazine HCl (Apresoline Tab*) 50 mg PO TID [facility] Last Admin: 05/06/17 13:10 Dose: 50 mg Insulin Human Lispro (Humalog*) 0 units SUBCUT ACHS [facility] PRN Reason: Protocol Last Admin: 05/06/17 16:58 Dose: 4 units Isosorbide Mononitrate (Imdur Er Tab*) 60 mg PO DAILY [facility] Last Admin: 05/06/17 08:14 Dose: 60 mg Lorazepam (Ativan Tab(*)) 0.5 mg PO Q6H PRN PRN Reason: ANXIETY Last Admin: 05/05/17 13:55 Dose: 0.5 mg Nystatin (Nystatin Top Powder*) 1 applic TOPICAL BID [facility] Last Admin: 05/06/17 09:30 Dose: 1 applic Omeprazole (Prilosec Cap*) 20 mg PO DAILY@0600 [facility] Last Admin: 05/06/17 06:29 Dose: 20 mg Oxycodone HCl (Roxycodone Tab*) 5 mg PO Q6H PRN PRN Reason: PAIN Last Admin: 05/06/17 12:32 Dose: 5 mg Pregabalin (Lyrica Cap(*)) 50 mg PO BID [facility] Last Admin: 05/06/17 08:14 Dose: 50 mg Sevelamer Carbonate (Renvela Tab*) 800 mg PO 0800,1200,1700 [facility] Last Admin: 05/06/17 17:01 Dose: 800 mg Vital Signs - 8 hr 05/06/17 05/06/17 05/06/17 11:08 12:32 14:25 Temperature 95.6 F Pulse Rate 59 Respiratory 20 20 20 Rate Blood Pressure 135/49 (mmHg) O2 Sat by Pulse 95 Oximetry 05/06/17 05/06/17 05/06/17 14:54 15:42 15:44 Temperature 95.9 F Pulse Rate 56 Respiratory 20 16 Rate Blood Pressure 120/58 (mmHg) O2 Sat by Pulse 94 Oximetry Oxygen Devices in Use Now: None, CPAP Appearance: sitting in chair, NAD Eyes: No Scleral Icterus, PERRLA Ears/Nose/Mouth/Throat: Clear Oropharnyx, Mucous Membranes Moist Neck: NL Appearance and Movements; NL JVP, Trachea Midline Respiratory: Symmetrical Chest Expansion and Respiratory Effort, Clear to Auscultation Cardiovascular: NL Sounds; No Murmurs; No JVD, RRR Abdominal: NL Sounds; No Tenderness; No Distention, No Hepatosplenomegaly Lymphatic: No Cervical Adenopathy Skin: - - 2+ le edema Neurological: Alert and Oriented x 3 Lines/Tubes/Other Access: Clean, Dry and Intact Central Line - tunneled cath right IJ c/d/i Result Diagrams: 05/06/17 11:17 05/06/17 11:17 Microbiology and Other Data: Microbiology 05/03/17 14:40 Nasal Screen MRSA (PCR)(CAROLYN) - Final Nasal Mrsa Not Detected Assess/Plan/Problems-Billing Assessment: 67 yo M h/o CKD, b/l LE DVTs 05/2015 on coumadin, chronic anemia 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 improved with ativan and 2mg dose calcium gluconate on 05/05 (2) Acute on chronic kidney failure Comment: tunneled catheter placed 05/05 1 U Platelets 05/05 Plan for dialysis Wednesday. Dw Dr. Ramos necessary labs to start outpatient HD all collected (hep B done as outpatient) (3) Thrombocytopenia Comment: Unclear etiology for sudden drop Appreciate hematology assistance. s/p BM biopsy 05/05 Holding AC. (4) Anticoagulant effect Comment: As noted above. Hold AC received total 15mg vitamin K (5) DVT (deep venous thrombosis) Comment: b/l LE on US 05/2015 No e/o of DVTs on repeat imaging since then Hold AC prior to procedure and while thrombocytopenic (6) DVT prophylaxis Comment: SCDs (no clots on repeat imaging of LE since DVT diagnosed)
--- NOTE | 2017-05-06 21:58 | RAD ---
Indication: Pneumonia. Single frontal view of the chest performed at 2143 hours was reviewed. Comparison is made with previous exam dated May 03, 2017. No mediastinal shift is noted. Heart is of normal size and configuration. Lung hyman appear clear. Elevated right hemidiaphragm which is unchanged. IMPRESSION: NO ACTIVE CARDIOPULMONARY DISEASE IS NOTED.
[2017-05-06 22:03] LABS: Urine Appearance Cloudy; Urine Blood 1+ (Negative); Urine Color Yellow; Urine Ketones Negative (Negative); Urine Protein 3+(>=500 mg/dL) (Negative); Urine Specific Gravity 1.014 (1.010-1.030); Urine Urobilinogen Negative (Negative)
[2017-05-07] MEDS: Omeprazole CAP* 20 MG PO SCH (05:50)
[2017-05-07] MEDS: Insulin LISPRO* 1 UNITS UNIT SUBCUT SCH ×4 (09:31→21:36)
[2017-05-07] MEDS: Calcitriol CAP* 0.25 MCG PO SCH (09:31)
[2017-05-07] MEDS: Docusate CAP* 100 MG PO SCH ×2 (09:31→19:40)
[2017-05-07] MEDS: hydrALAZINE TAB* 25 MG PO SCH ×3 (09:31→19:43)
[2017-05-07] MEDS: Isosorbide Mononitrate ER TAB* 60 MG PO SCH (09:31)
[2017-05-07] MEDS: Pregabalin CAP(*) 50 MG PO SCH ×2 (09:31→19:42)
[2017-05-07] MEDS: Sevelamer TAB* 800 MG PO SCH ×3 (09:31→18:09)
[2017-05-07] MEDS: Nystatin TOP POWDER* 15 GM BTL TOPICAL SCH ×2 (09:35→19:43)
--- NOTE | 2017-05-07 11:41 | PN ---
Progress Note - Progress Note Date of Service: 05/07/17 SOAP: Subjective: []Not feeling well today. Very weak and tired. Had difficulty with body temperature overnight. HD today. Has some bleeding at catheter site, no other bruising. Acetaminophen (Tylenol Tab*) 650 mg PO Q4H PRN PRN Reason: FEVER/PAIN Calcitriol (Rocaltrol Cap*) 0.25 mcg PO DAILY [facility] Last Admin: 05/07/17 09:31 Dose: 0.25 mcg Dextrose (D50w Syringe 50 Ml*) 12.5 gm IV PUSH .FOR FS < 60 - SS PRN PRN Reason: FS < 60 Docusate Sodium (Colace Cap*) 100 mg PO BID [facility] Last Admin: 05/07/17 09:31 Dose: 100 mg Hydralazine HCl (Apresoline Tab*) 50 mg PO TID [facility] Last Admin: 05/07/17 09:31 Dose: 50 mg Dexamethasone Sodium Phosphate (40 mg/ Sodium Chloride) 60 mls @ 210 mls/hr IVPB Q24H [facility] Stop: 05/10/17 12:18 Insulin Human Lispro (Humalog*) 0 units SUBCUT ACHS [facility] PRN Reason: Protocol Isosorbide Mononitrate (Imdur Er Tab*) 60 mg PO DAILY [facility] Last Admin: 05/07/17 09:31 Dose: 60 mg Lorazepam (Ativan Tab(*)) 0.5 mg PO Q6H PRN PRN Reason: ANXIETY Last Admin: 05/05/17 13:55 Dose: 0.5 mg Nystatin (Nystatin Top Powder*) 1 applic TOPICAL BID [facility] Last Admin: 05/07/17 09:35 Dose: Not Given Omeprazole (Prilosec Cap*) 40 mg PO DAILY@0600 [facility] Oxycodone HCl (Roxycodone Tab*) 5 mg PO Q6H PRN PRN Reason: PAIN Last Admin: 05/06/17 12:32 Dose: 5 mg Pregabalin (Lyrica Cap(*)) 50 mg PO BID [facility] Last Admin: 05/07/17 09:31 Dose: 50 mg Sevelamer Carbonate (Renvela Tab*) 800 mg PO 0800,1200,1700 [facility] Last Admin: 05/07/17 09:31 Dose: 800 mg Objective: [] Vital Signs Temp Pulse Resp BP Pulse Ox 97.2 F 64 16 115/55 95 05/07/17 07:51 05/07/17 07:51 05/07/17 09:31 05/07/17 07:51 05/07/17 07:51 HEEENT: pale, no thrush, no LAD. Bipap on. oozing at tunneled catheter site. CTA distant S1S2 obese and non specific exam otherwise +[address] scan 11/2016 with normal size spleen Peripheral smear: c/w thalassemia, small, hypochromic RBC, normal polys and no dysplasia. Aspirate and bone marrow: there are some increased blasts on aspirate, increased RBC precursors. Core with normal cellularity, flow is pending. reviewed with pathology. Assessment: []67 year hold history of Beta Thalassemia minor presents in AR[facility] with anemia and thrombocytopenia. Anemia progressive along with progression of CRI and is accounted for by thalassemia and renal disease. Thrombocytopenia is new from January of last year. Ddx: developing dysplasia with question of increased blasts on marrow aspirate, overlay of ITP, high RBC in marrow raises question of consumption of of RBC and plts. Plan: []1. Check Reti count and Warren 2. Final bone marrow results pending 3. Treat empirically ITP: Dex 40 mg IV daily x 4 days 4. Tx PRBC as needed for anemia. Will follow
[2017-05-07] MEDS: Dexamethasone IV* 40 MG in NS 0.9% 50 ML* 50 ML IVPB SCH (12:29)
[2017-05-07 12:37] LABS: Corrected Retic Count 1.1 % (0.5-1.5); Hematocrit for Retic CNT 22 % (42-52); Immature Retic Fraction 0.52; RBC Retic Count 3.38 10^6/ul (4.6-6.2)
[2017-05-07] MEDS ORDERED: Heparin DIALYSIS ONLY(*) 1,000 UNITS/ML VIAL DIALYSIS ONE (16:00)
[2017-05-07] MEDS ORDERED: Epoetin Alfa* 10,000 UNITS/ML VIAL IV ONE (16:00)
--- NOTE | 2017-05-07 17:53 | PN ---
Subjective Date of Service: 05/07/17 Interval History: Seen at prior to initiation Feels much weaker and generally unwell. Facial spasms remain improved Appetite decreased today but no N/V Objective Active Medications: Acetaminophen (Tylenol Tab*) 650 mg PO Q4H PRN PRN Reason: FEVER/PAIN Calcitriol (Rocaltrol Cap*) 0.25 mcg PO DAILY [facility] Last Admin: 05/07/17 09:31 Dose: 0.25 mcg Dextrose (D50w Syringe 50 Ml*) 12.5 gm IV PUSH .FOR FS < 60 - SS PRN PRN Reason: FS < 60 Docusate Sodium (Colace Cap*) 100 mg PO BID [facility] Last Admin: 05/07/17 09:31 Dose: 100 mg Hydralazine HCl (Apresoline Tab*) 50 mg PO TID [facility] Last Admin: 05/07/17 13:38 Dose: Not Given Dexamethasone Sodium Phosphate (40 mg/ Sodium Chloride) 60 mls @ 210 mls/hr IVPB Q24H [facility] Stop: 05/10/17 12:18 Last Admin: 05/07/17 12:29 Dose: 210 mls/hr Insulin Human Lispro (Humalog*) 0 units SUBCUT ACHS [facility] PRN Reason: Protocol Last Admin: 05/07/17 12:28 Dose: 3 unit Isosorbide Mononitrate (Imdur Er Tab*) 60 mg PO DAILY [facility] Last Admin: 05/07/17 09:31 Dose: 60 mg Lorazepam (Ativan Tab(*)) 0.5 mg PO Q6H PRN PRN Reason: ANXIETY Last Admin: 05/05/17 13:55 Dose: 0.5 mg Nystatin (Nystatin Top Powder*) 1 applic TOPICAL BID [facility] Last Admin: 05/07/17 09:35 Dose: Not Given Omeprazole (Prilosec Cap*) 40 mg PO DAILY@0600 [facility] Oxycodone HCl (Roxycodone Tab*) 5 mg PO Q6H PRN PRN Reason: PAIN Last Admin: 05/06/17 12:32 Dose: 5 mg Pregabalin (Lyrica Cap(*)) 50 mg PO BID [facility] Last Admin: 05/07/17 09:31 Dose: 50 mg Sevelamer Carbonate (Renvela Tab*) 800 mg PO 0800,1200,1700 [facility] Last Admin: 05/07/17 12:29 Dose: 800 mg Vital Signs - 8 hr 05/07/17 05/07/17 11:46 12:19 Temperature 96.9 F Pulse Rate 61 Respiratory 18 18 Rate Blood Pressure 104/54 (mmHg) O2 Sat by Pulse 97 Oximetry Oxygen Devices in Use Now: Nasal Cannula Appearance: obese, NAD, sitting in chair Eyes: No Scleral Icterus, PERRLA Ears/Nose/Mouth/Throat: Clear Oropharnyx, Mucous Membranes Moist Neck: NL Appearance and Movements; NL JVP, Trachea Midline Respiratory: Symmetrical Chest Expansion and Respiratory Effort, Clear to Auscultation Cardiovascular: RRR Abdominal: NL Sounds; No Tenderness; No Distention, No Hepatosplenomegaly Extremities: - - tense 2+ LE edema b/l Skin: - - b/l hands with healing eschars, LE chronic venous stasis changes Lines/Tubes/Other Access: Clean, Dry and Intact Central Line - right tunneled IJ c/d/i Result Diagrams: 05/06/17 11:17 05/06/17 11:17 Microbiology and Other Data: Microbiology 05/03/17 14:40 Nasal Screen MRSA (PCR)(CAROLYN) - Final Nasal Mrsa Not Detected Assess/Plan/Problems-Billing Assessment: 67 yo M h/o CKD, b/l LE DVTs 05/2015 on coumadin, chronic anemia out of proportion to thalasemia trait, GI bleed, CAD, HTN 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 improved with ativan and 2mg dose calcium gluconate on 05/05 (2) Acute on chronic kidney failure Comment: tunneled catheter placed 05/05 1 U Platelets 05/05 Dialysis Wednesday necessary labs to start outpatient HD all collected (3) Thrombocytopenia Comment: Unclear etiology for sudden drop Appreciate hematology assistance. s/p BM biopsy 05/05 start therapeutic and diagnostic therapy with dexamethasone 40mg daily x 4 days PPI and insulin doses increased (4) Anticoagulant effect Comment: INR reversed with Vit K on arrival (5) DVT (deep venous thrombosis) Comment: b/l LE on US 05/2015 No e/o of DVTs on repeat imaging since then Hold AC prior to procedure and while thrombocytopenic (6) DVT prophylaxis Comment: SCDs (no clots on repeat imaging of LE since DVT diagnosed)
[2017-05-08] MEDS: Omeprazole CAP* 20 MG PO SCH (06:14)
[2017-05-08 08:00] LABS: Hematocrit 26 % (42-52); Hemoglobin 7.9 g/dl (14.0-18.0); Mean Corpuscular HGB Conc 30 g/dl (31-36); Mean Corpuscular Hemoglobin 21 pg (27-31); Mean Corpuscular Volume 68 fL (80-94); Red Blood Count 3.83 10^6/ul (4.0-5.4); Red Cell Distribution Width 20 % (10.5-15); White Blood Count 6.3 10^3/ul (3.5-10.8)
[2017-05-08 08:55] LABS: Platelet Count 37 10^3/ul (150-450)
[2017-05-08 09:30] LABS: Monocytes % 5 % (0-7)
[2017-05-08] MEDS: Insulin LISPRO* 1 UNITS UNIT SUBCUT SCH ×4 (09:37→22:25)
[2017-05-08] MEDS: hydrALAZINE TAB* 25 MG PO SCH ×3 (09:39→19:51)
[2017-05-08] MEDS: Isosorbide Mononitrate ER TAB* 60 MG PO SCH (09:39)
[2017-05-08] MEDS: Calcitriol CAP* 0.25 MCG PO SCH (09:39)
[2017-05-08] MEDS: Sevelamer TAB* 800 MG PO SCH ×3 (09:39→17:09)
[2017-05-08] MEDS: Pregabalin CAP(*) 50 MG PO SCH ×2 (09:39→19:52)
[2017-05-08] MEDS: Docusate CAP* 100 MG PO SCH ×2 (09:41→19:51)
[2017-05-08] MEDS: Nystatin TOP POWDER* 15 GM BTL TOPICAL SCH ×2 (09:41→20:03)
--- NOTE | 2017-05-08 10:09 | PN ---
Subjective Date of Service: 05/08/17 Interval History: No overnight events. Feels better today after first session of HD yesterday. Sleeping at night and during the day, poor appetite with aversion to meat. No pain, no bleeding, has not walked out of his room. Family History: Unchanged from Admission Social History: Unchanged from Admission Past Medical History: Unchanged from Admission Objective Active Medications: Acetaminophen (Tylenol Tab*) 650 mg PO Q4H PRN PRN Reason: FEVER/PAIN Calcitriol (Rocaltrol Cap*) 0.25 mcg PO DAILY [facility] Last Admin: 05/08/17 09:39 Dose: 0.25 mcg Dextrose (D50w Syringe 50 Ml*) 12.5 gm IV PUSH .FOR FS < 60 - SS PRN PRN Reason: FS < 60 Docusate Sodium (Colace Cap*) 100 mg PO BID [facility] Last Admin: 05/08/17 09:41 Dose: Not Given Hydralazine HCl (Apresoline Tab*) 50 mg PO TID [facility] Last Admin: 05/08/17 09:39 Dose: 50 mg Dexamethasone Sodium Phosphate (40 mg/ Sodium Chloride) 60 mls @ 210 mls/hr IVPB Q24H [facility] Stop: 05/10/17 12:18 Last Admin: 05/07/17 12:29 Dose: 210 mls/hr Insulin Human Lispro (Humalog*) 0 units SUBCUT ACHS [facility] PRN Reason: Protocol Last Admin: 05/08/17 09:37 Dose: 12 unit Isosorbide Mononitrate (Imdur Er Tab*) 60 mg PO DAILY [facility] Last Admin: 05/08/17 09:39 Dose: 60 mg Lorazepam (Ativan Tab(*)) 0.5 mg PO Q6H PRN PRN Reason: ANXIETY Last Admin: 05/05/17 13:55 Dose: 0.5 mg Nystatin (Nystatin Top Powder*) 1 applic TOPICAL BID [facility] Last Admin: 05/08/17 09:41 Dose: Not Given Omeprazole (Prilosec Cap*) 40 mg PO DAILY@0600 [facility] Last Admin: 05/08/17 06:14 Dose: 40 mg Oxycodone HCl (Roxycodone Tab*) 5 mg PO Q6H PRN PRN Reason: PAIN Last Admin: 05/06/17 12:32 Dose: 5 mg Pregabalin (Lyrica Cap(*)) 50 mg PO BID [facility] Last Admin: 05/08/17 09:39 Dose: 50 mg Sevelamer Carbonate (Renvela Tab*) 800 mg PO 0800,1200,1700 [facility] Last Admin: 05/08/17 09:39 Dose: 800 mg Vital Signs - 8 hr 05/08/17 05/08/17 05/08/17 04:12 08:00 08:32 Temperature 97.0 F Pulse Rate 65 80 Respiratory 18 18 16 Rate Blood Pressure 154/75 (mmHg) O2 Sat by Pulse 95 95 Oximetry 05/08/17 05/08/17 08:41 09:39 Temperature 97.5 F Pulse Rate 78 Respiratory 20 18 Rate Blood Pressure 144/85 (mmHg) O2 Sat by Pulse 94 Oximetry Oxygen Devices in Use Now: None Appearance: alert, sitting up in bed eating breakfast Eyes: No Scleral Icterus, PERRLA Ears/Nose/Mouth/Throat: NL Teeth, Lips, Gums Neck: - - echymoses on neck, JVP ~12cm sitting upright Respiratory: Symmetrical Chest Expansion and Respiratory Effort, - - decreased breath sounds at the bases Cardiovascular: - - no rub. right chest wall permcath. 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 with increased fatigue with hospital course notable for right tunneled IJ placement, initiation of HD, and new dx (potential) ITP - Patient Problems (1) ESRD (end stage renal disease) Current Visit: Yes Status: Acute Code(s): N18.6 - END STAGE RENAL DISEASE SNOMED Code(s): 07127336 Comment: New to HD; first session yesterday and tolerated it well He does not yet have a HD unit outpatient Lytes okay this morning Permcath in place Volume status okay, will hold off on diuresis to allow blood pressure room for HD Etiology unclear--hepatitis panel and HIV negative, other serologies pending (2) Anticoagulant effect Current Visit: Yes Status: Acute Code(s): TZQ1580 - SNOMED Code(s): 36228400 Comment: INR reversed with Vit K on arrival (3) DVT (deep venous thrombosis) Current Visit: Yes Status: Acute Code(s): I82.409 - ACUTE EMBOLISM AND THOMBOS UNSP DEEP VN UNSP LOWER EXTREMITY SNOMED Code(s): 434415552 Comment: Now off AC due to thrombocytopenia; repeat dopplers have been negative b/l LE on US 05/2015 (4) Thrombocytopenia Current Visit: Yes Status: Acute Code(s): D69.6 - THROMBOCYTOPENIA, UNSPECIFIED SNOMED Code(s): 964593141 Comment: Concerning for new diagnosis of ITP s/p BM biopsy 05/05; hematology following dexamethasone 40mg daily; today is day 2 of 4 PPI and insulin doses increased (5) Twitch Current Visit: Yes Status: Acute Code(s): R25.3 - FASCICULATION SNOMED Code(s): 59145498 Comment: Likely related to uremia; I suspect this will continue to improve with dialysis improved with ativan in the meantime and 2mg dose calcium gluconate on 05/05
[2017-05-08] MEDS ORDERED: Dexamethasone IV* 4 MG/ML 5 ML VIAL (20 MG) ONE (12:39)
[2017-05-08] MEDS: Dexamethasone IV* 40 MG in NS 0.9% 50 ML* 50 ML IVPB SCH (13:27)
[2017-05-08] MEDS ORDERED: NIFEdipine CAP* 10 MG PO ONE (17:56)
--- NOTE | 2017-05-09 03:20 | OP ---
CC: Conrado Ramos MD; [facility]; Mario Oakley MD OPERATIVE REPORT: DATE OF OPERATION: 05/05/17 DATE OF : 48 I was contacted by the hospitalist services to evaluate Mr. Guzman for a placement of a hemodialysis catheter. His chart was reviewed. He was noted to be thrombocytopenic and underwent platelet transf usion on day of surgery. I discussed this with hospitalist service and later on with the nephrologis t. I described the insertion of hemodialysis catheter to the patient. He understood the risks, bene fits and alteratives and signed consent. SURGEON: Brayan Martinez MD LOG INSPECTOR: None. ANESTHESIA: Local MAC anesthesia. PRE-OP DIAGNOSIS: End-stage renal disease. POST-OP DIAGNOSIS: End-stage renal disease. OPERATIVE PROCEDURE: Insertion of tunneled hemodialysis catheter. ESTIMATED BLOOD LOSS: Minimal blood loss. FLUIDS: Minimal crystalloids were given. DESCRIPTION OF PROCEDURE: The patient was brought to the operating room and placed on the operating room table in supine position. Preoperative antibiotics were given. General sedation was given. Th e patient's right upper chest and neck were clipped of hair and prepped and draped in a standard eduar gical fashion and a time- out was performed. The right IJ vein was accessed. Wire inserted under fluoroscopy and noted to be in the appropriate p osition. We then dilated this under fluoroscopy and put in a HemoSplit split-away catheter. Next, the 23-cm 8-Guyanese split-away catheter was then tunneled by a separate incision along the upper chest to the initial stick site. This was then placed into the split-away catheter, which was remov ed showing that the catheter was in appropriate position. There was no twisting or kinking. Blood w as aspirated from both lumen with ease and then these lumen were flushed with saline and then followe d by heparinized saline. The stick site was sutured with 4-0 Monocryl sutures. A HemoSplit catheter was sutured to the skin with 3-0 Prolene suture. Sterile dressing was applied. Patient tolerated th e procedure well, was taken to the PACU in stable condition. [id number]/[facility] #: [id number]
[2017-05-09] MEDS: Omeprazole CAP* 20 MG PO SCH (05:38)
[2017-05-09 06:32] LABS: Platelet Count 45 10^3/ul (150-450)
[2017-05-09 06:32] LABS: EGFR Non-African American 13.9 (>60)
[2017-05-09 06:33] LABS: ABS Basophils 0 10^3/ul (0-0.2); ABS Eosinophils 0 10^3/ul (0-0.6); ABS Lymphocytes 0.5 10^3/ul (1.0-4.8); ABS Monocytes 0.5 10^3/ul (0-0.8); ABS Neutrophils 8.6 10^3/ul (1.5-7.7); ABS Nucleated RBC 0.1 10^3/ul; Eosinophil % 0.1 % (0-6); Hematocrit 24 % (42-52); Hemoglobin 7.4 g/dl (14.0-18.0); Lymphocyte % 5.1 % (25-47); Mean Corpuscular HGB Conc 31 g/dl (31-36); Mean Corpuscular Hemoglobin 20 pg (27-31); Mean Corpuscular Volume 65 fL (80-94); Nucleated Red Blood Cells % 1.2; Red Blood Count 3.71 10^6/ul (4.0-5.4); Red Cell Distribution Width 20 % (10.5-15); White Blood Count 9.6 10^3/ul (3.5-10.8)
[2017-05-09] MEDS: Calcitriol CAP* 0.25 MCG PO SCH (09:02)
[2017-05-09] MEDS: Pregabalin CAP(*) 50 MG PO SCH ×2 (09:02→19:58)
[2017-05-09] MEDS: Sevelamer TAB* 800 MG PO SCH ×3 (09:02→17:53)
[2017-05-09] MEDS: hydrALAZINE TAB* 25 MG PO SCH ×3 (09:02→19:58)
[2017-05-09] MEDS: Insulin LISPRO* 1 UNITS UNIT SUBCUT SCH ×4 (09:03→22:00)
[2017-05-09] MEDS: Isosorbide Mononitrate ER TAB* 60 MG PO SCH (09:03)
[2017-05-09] MEDS: Docusate CAP* 100 MG PO SCH ×2 (09:03→19:58)
[2017-05-09] MEDS: Nystatin TOP POWDER* 15 GM BTL TOPICAL SCH ×2 (09:14→19:58)
[2017-05-09] MEDS ORDERED: Dexamethasone IV* 4 MG/ML 5 ML VIAL (20 MG) ONE (12:15)
--- NOTE | 2017-05-09 12:17 | PN ---
Subjective Date of Service: 05/09/17 Interval History: no overnight events. feels good today, his family is visiting. no shortness of breath, orthopnea, chest pain, fevers Family History: Unchanged from Admission Social History: Unchanged from Admission Past Medical History: Unchanged from Admission Objective Active Medications: Acetaminophen (Tylenol Tab*) 650 mg PO Q4H PRN PRN Reason: FEVER/PAIN Calcitriol (Rocaltrol Cap*) 0.25 mcg PO DAILY [facility] Last Admin: 05/09/17 09:02 Dose: 0.25 mcg Dextrose (D50w Syringe 50 Ml*) 12.5 gm IV PUSH .FOR FS < 60 - SS PRN PRN Reason: FS < 60 Docusate Sodium (Colace Cap*) 100 mg PO BID [facility] Last Admin: 05/09/17 09:03 Dose: 100 mg Hydralazine HCl (Apresoline Tab*) 50 mg PO TID [facility] Last Admin: 05/09/17 09:02 Dose: 50 mg Dexamethasone Sodium Phosphate (40 mg/ Sodium Chloride) 60 mls @ 210 mls/hr IVPB Q24H [facility] Stop: 05/10/17 12:18 Last Admin: 05/08/17 13:27 Dose: 210 mls/hr Insulin Human Lispro (Humalog*) 0 units SUBCUT ACHS [facility] PRN Reason: Protocol Last Admin: 05/09/17 09:03 Dose: 12 unit Isosorbide Mononitrate (Imdur Er Tab*) 60 mg PO DAILY [facility] Last Admin: 05/09/17 09:03 Dose: 60 mg Lorazepam (Ativan Tab(*)) 0.5 mg PO Q6H PRN PRN Reason: ANXIETY Last Admin: 05/05/17 13:55 Dose: 0.5 mg Nystatin (Nystatin Top Powder*) 1 applic TOPICAL BID [facility] Last Admin: 05/09/17 09:14 Dose: 1 applic Omeprazole (Prilosec Cap*) 40 mg PO DAILY@0600 [facility] Last Admin: 05/09/17 05:38 Dose: 40 mg Oxycodone HCl (Roxycodone Tab*) 5 mg PO Q6H PRN PRN Reason: PAIN Last Admin: 05/06/17 12:32 Dose: 5 mg Pregabalin (Lyrica Cap(*)) 50 mg PO BID [facility] Last Admin: 05/09/17 09:02 Dose: 50 mg Sevelamer Carbonate (Renvela Tab*) 800 mg PO 0800,1200,1700 [facility] Last Admin: 05/09/17 09:02 Dose: 800 mg Vital Signs - 8 hr 05/09/17 05/09/17 05/09/17 07:21 08:00 09:02 Temperature 97.4 F Pulse Rate 69 Respiratory 16 18 18 Rate Blood Pressure 147/75 (mmHg) O2 Sat by Pulse 95 Oximetry 05/09/17 11:29 Temperature 96.7 F Pulse Rate 80 Respiratory 16 Rate Blood Pressure 154/83 (mmHg) O2 Sat by Pulse 94 Oximetry Oxygen Devices in Use Now: None Appearance: alert, sitting up in chair, nontoxic Eyes: No Scleral Icterus Ears/Nose/Mouth/Throat: NL Teeth, Lips, Gums Neck: NL Appearance and Movements; NL JVP Respiratory: Symmetrical Chest Expansion and Respiratory Effort, Clear to Auscultation Cardiovascular: - - permcath right chest wall. no rub. 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 - Patient Problems (1) ESRD (end stage renal disease) Current Visit: Yes Status: Acute Code(s): N18.6 - END STAGE RENAL DISEASE SNOMED Code(s): 09229661 Comment: New to HD; first session was Wednesday and he tolerated it well He does not yet have a HD unit outpatient; CM working on this Lytes okay Permcath in place Volume status okay, will hold off on diuresis to allow blood pressure room for HD Etiology unclear--hepatitis panel and HIV negative, other serologies pending (2) Anticoagulant effect Current Visit: Yes Status: Acute Code(s): YIW7190 - SNOMED Code(s): 72187863 Comment: INR reversed with Vit K on arrival for permcath placement (3) DVT (deep venous thrombosis) Current Visit: Yes Status: Acute Code(s): I82.409 - ACUTE EMBOLISM AND THOMBOS UNSP DEEP VN UNSP LOWER EXTREMITY SNOMED Code(s): 798651221 Comment: Now off AC due to thrombocytopenia; repeat dopplers have been negative diagnosed in b/l LE 05/2015 (4) Thrombocytopenia Current Visit: Yes Status: Acute Code(s): D69.6 - THROMBOCYTOPENIA, UNSPECIFIED SNOMED Code(s): 740851494 Comment: Concerning for new diagnosis of ITP s/p BM biopsy 05/05; hematology following and results pending dexamethasone 40mg daily; today is day 3 of 4 PPI and insulin doses increased (5) Twitch Current Visit: Yes Status: Acute Code(s): R25.3 - FASCICULATION SNOMED Code(s): 84694124 Comment: Likely related to uremia; I suspect this will continue to improve with dialysis improved with ativan in the meantime and 2mg dose calcium gluconate on 05/05 (6) Diabetes Current Visit: No Status: Acute Priority: High Code(s): E11.9 - TYPE 2 DIABETES MELLITUS WITHOUT COMPLICATIONS SNOMED Code(s): 59098316 Comment: lantus was held at admission given worsening renal function, but blood glucose is now poorly controlled, especially on decadron. He takes 15U lantus Bid at home; I am restarting it at 20 U nightly
[2017-05-09] MEDS: Dexamethasone IV* 40 MG in NS 0.9% 50 ML* 50 ML IVPB SCH (12:57)
[2017-05-09] MEDS ORDERED: Insulin GLARGINE(*) 1 UNITS UNIT SUBCUT SCH (22:00)
[2017-05-10] MEDS: Omeprazole CAP* 20 MG PO SCH (05:46)
[2017-05-10] MEDS: Pregabalin CAP(*) 50 MG PO SCH ×2 (08:10→21:24)
[2017-05-10] MEDS: Isosorbide Mononitrate ER TAB* 60 MG PO SCH (08:10)
[2017-05-10] MEDS: Docusate CAP* 100 MG PO SCH ×2 (08:10→21:24)
[2017-05-10] MEDS: hydrALAZINE TAB* 25 MG PO SCH ×3 (08:11→21:24)
[2017-05-10] MEDS: Sevelamer TAB* 800 MG PO SCH ×3 (08:11→17:45)
[2017-05-10] MEDS: Calcitriol CAP* 0.25 MCG PO SCH (08:11)
[2017-05-10] MEDS ORDERED: Insulin GLARGINE(*) 1 UNITS UNIT SUBCUT ONE (08:16)
[2017-05-10] MEDS: Insulin LISPRO* 1 UNITS UNIT SUBCUT SCH ×4 (08:19→21:24)
[2017-05-10] MEDS: Metoprolol Succinate XL TAB* 50 MG PO SCH ×2 (11:11→21:24)
[2017-05-10] MEDS ORDERED: Dexamethasone IV* 4 MG/ML 5 ML VIAL (20 MG) ONE ×2 (11:33→11:34)
[2017-05-10] MEDS: Dexamethasone IV* 40 MG in NS 0.9% 50 ML* 50 ML IVPB SCH (11:54)
[2017-05-10] MEDS: Nystatin TOP POWDER* 15 GM BTL TOPICAL SCH ×2 (13:50→21:25)
--- NOTE | 2017-05-10 15:42 | PN ---
Subjective Date of Service: 05/10/17 Interval History: pt feels well, no new complaints. HD was delayed today and he is still waiting to be dialyzed today Facial twitch resolved with HD Family History: Unchanged from Admission Social History: Unchanged from Admission Past Medical History: Unchanged from Admission Objective Active Medications: Acetaminophen (Tylenol Tab*) 650 mg PO Q4H PRN PRN Reason: FEVER/PAIN Calcitriol (Rocaltrol Cap*) 0.25 mcg PO DAILY [facility] Last Admin: 05/10/17 08:11 Dose: 0.25 mcg Dextrose (D50w Syringe 50 Ml*) 12.5 gm IV PUSH .FOR FS < 60 - SS PRN PRN Reason: FS < 60 Docusate Sodium (Colace Cap*) 100 mg PO BID [facility] Last Admin: 05/10/17 08:10 Dose: 100 mg Hydralazine HCl (Apresoline Tab*) 50 mg PO TID [facility] Last Admin: 05/10/17 13:51 Dose: 50 mg Insulin Glargine (Lantus(*)) 30 units SUBCUT Q24H [facility] Insulin Human Lispro (Humalog*) 0 units SUBCUT ACHS [facility] PRN Reason: Protocol Last Admin: 05/10/17 12:35 Dose: 9 unit Isosorbide Mononitrate (Imdur Er Tab*) 60 mg PO DAILY [facility] Last Admin: 05/10/17 08:10 Dose: 60 mg Lorazepam (Ativan Tab(*)) 0.5 mg PO Q6H PRN PRN Reason: ANXIETY Last Admin: 05/05/17 13:55 Dose: 0.5 mg Metoprolol Succinate (Toprol Xl Tab*) 50 mg PO BID [facility] Last Admin: 05/10/17 11:11 Dose: 50 mg Nystatin (Nystatin Top Powder*) 1 applic TOPICAL BID [facility] Last Admin: 05/10/17 13:50 Dose: Not Given Omeprazole (Prilosec Cap*) 40 mg PO DAILY@0600 [facility] Last Admin: 05/10/17 05:46 Dose: 40 mg Oxycodone HCl (Roxycodone Tab*) 5 mg PO Q6H PRN PRN Reason: PAIN Last Admin: 05/06/17 12:32 Dose: 5 mg Pregabalin (Lyrica Cap(*)) 50 mg PO BID [facility] Last Admin: 05/10/17 08:10 Dose: 50 mg Sevelamer Carbonate (Renvela Tab*) 800 mg PO 0800,1200,1700 [facility] Last Admin: 05/10/17 13:51 Dose: 800 mg Vital Signs - 8 hr 05/10/17 05/10/17 05/10/17 08:00 08:04 08:10 Temperature 97.8 F Pulse Rate 70 Respiratory 18 16 18 Rate Blood Pressure 167/79 (mmHg) O2 Sat by Pulse 98 Oximetry 05/10/17 05/10/17 10:42 11:14 Temperature Pulse Rate 88 79 Respiratory 16 Rate Blood Pressure 179/84 159/48 (mmHg) O2 Sat by Pulse 97 Oximetry Oxygen Devices in Use Now: CPAP Appearance: 67 yo M in nAD, AAOx3 Eyes: No Scleral Icterus, PERRLA Ears/Nose/Mouth/Throat: NL Teeth, Lips, Gums, Mucous Membranes Moist Neck: NL Appearance and Movements; NL JVP, Trachea Midline Respiratory: Symmetrical Chest Expansion and Respiratory Effort, Clear to Auscultation Cardiovascular: NL Sounds; No Murmurs; No JVD, RRR Abdominal: NL Sounds; No Tenderness; No Distention Lymphatic: No Cervical Adenopathy Extremities: No Clubbing, Cyanosis, - - +1=2 nontpitting pedal edema b/l Skin: No Rash or Ulcers, No Nodules or Sclerosis Neurological: Alert and Oriented x 3, NL Muscle Strength and Tone Result Diagrams: 05/09/17 05:44 05/09/17 05:45 Microbiology and Other Data: Microbiology 05/03/17 14:40 Nasal Screen MRSA (PCR)(CAROLYN) - Final Nasal Mrsa Not Detected Assess/Plan/Problems-Billing Assessment: 67 yo M h/o CKD, b/l LE DVTs 05/2015 on coumadin, chronic anemia out of proportion to thalasemia trait, GI bleed, CAD, HTN 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 - Patient Problems (1) Acute on chronic kidney failure Comment: tunneled catheter placed 05/05 1 U Platelets transfused on 05/05 Dialysis today necessary labs to start outpatient HD all collected (2) DVT (deep venous thrombosis) Comment: Now off AC due to thrombocytopenia; repeat dopplers have been negative diagnosed in b/l LE 05/2015 (3) ESRD (end stage renal disease) Comment: New to HD; first session was Wednesday and he tolerated it well He does not yet have a HD unit outpatient; CM working on this Lytes okay Permcath in place Volume status okay, will hold off on diuresis to allow blood pressure room for HD Etiology unclear--hepatitis panel and HIV negative, other serologies pending (4) Thrombocytopenia Comment: Concerning for new diagnosis of ITP s/p BM biopsy 05/05; hematology following and results pending dexamethasone 40mg daily; today is day 4 of 4 (5) Twitch Comment: Likely related to uremia resolved after HD (6) Anemia Comment: Multifactoral - acute illness, SCHUYLER, thal minor (7) Diabetes Comment: lantus was held at admission given worsening renal function, but blood glucose is now poorly controlled, especially on decadron. Increasing Lantus to 30 u daily (8) HTN (hypertension) Comment: uncontroled, restarting BB. 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
[2017-05-10] MEDS ORDERED: Epoetin Alfa* 10,000 UNITS/ML VIAL IV ONE (19:00)
[2017-05-10] MEDS ORDERED: Heparin DIALYSIS ONLY(*) 1,000 UNITS/ML VIAL DIALYSIS ONE (19:00)
[2017-05-10] MEDS ORDERED: Insulin GLARGINE(*) 1 UNITS UNIT SUBCUT SCH (21:00)
[2017-05-11] MEDS: Omeprazole CAP* 20 MG PO SCH (05:26)
[2017-05-11 06:06] LABS: ABS Basophils 0 10^3/ul (0-0.2); ABS Eosinophils 0 10^3/ul (0-0.6); ABS Lymphocytes 0.5 10^3/ul (1.0-4.8); ABS Monocytes 1.4 10^3/ul (0-0.8); ABS Neutrophils 8.8 10^3/ul (1.5-7.7); ABS Nucleated RBC 0.2 10^3/ul; Eosinophil % 0.1 % (0-6); Hematocrit 25 % (42-52); Hemoglobin 7.9 g/dl (14.0-18.0); Lymphocyte % 4.4 % (25-47); Mean Corpuscular HGB Conc 31 g/dl (31-36); Mean Corpuscular Hemoglobin 20 pg (27-31); Mean Corpuscular Volume 65 fL (80-94); Nucleated Red Blood Cells % 1.7; Red Blood Count 3.89 10^6/ul (4.0-5.4); Red Cell Distribution Width 19 % (10.5-15); White Blood Count 10.8 10^3/ul (3.5-10.8)
[2017-05-11 06:08] LABS: EGFR Non-African American 19.5 (>60)
[2017-05-11 06:28] LABS: Platelet Count 60 10^3/ul (150-450)
[2017-05-11] MEDS: Calcitriol CAP* 0.25 MCG PO SCH (08:05)
[2017-05-11] MEDS: hydrALAZINE TAB* 25 MG PO SCH ×2 (08:06→13:00)
[2017-05-11] MEDS: Docusate CAP* 100 MG PO SCH (08:06)
[2017-05-11] MEDS: Sevelamer TAB* 800 MG PO SCH ×2 (08:06→13:00)
[2017-05-11] MEDS: Pregabalin CAP(*) 50 MG PO SCH (08:06)
[2017-05-11] MEDS: Isosorbide Mononitrate ER TAB* 60 MG PO SCH (08:06)
[2017-05-11] MEDS: Metoprolol Succinate XL TAB* 50 MG PO SCH (08:06)
[2017-05-11] MEDS: Insulin LISPRO* 1 UNITS UNIT SUBCUT SCH ×2 (08:09→13:00)
[2017-05-11] MEDS: Nystatin TOP POWDER* 15 GM BTL TOPICAL SCH (08:09)
[2017-05-11] MEDS ORDERED: Lisinopril TAB* 10 MG PO SCH (09:00)
[2017-05-11 18:45] VITALS: BP 134/65
--- NOTE | 2017-05-12 07:01 | DS ---
CC: Dr. Oakley; Dr. Ramos; Dr. Nunes; Dr. Fernandez; Dr. Martinez* DISCHARGE SUMMARY: DATE OF ADMISSION: 05/03/17 DATE OF DISCHARGE: 05/11/17 PRIMARY CARE PROVIDER: Dr. Oakley. DISCHARGE DIAGNOSES: 1. Acute on chronic renal failure, status post setting up dialysis and dialysis catheter placed by Dr. Martinez on 05/05/17. 2. Thrombocytopenia, resolving. 3. Worsening of chronic microcytic anemia due to combination of chronic kidney disease and thalassemia trait. SECONDARY DIAGNOSES: 1. History of chronic kidney disease with now established end-stage renal disease, on dialysis that begun this hospital stay. 2. History of bilateral idiopathic deep venous thrombosis with factor V Leiden , heterozygote, on lifetime anticoagulation with Coumadin. 3. History of thalassemia trait with chronic anemia. 4. History of recurrent thrombocytopenia. 5. History of status post right knee arthroplasty. 6. History of carpal tunnel surgery remotely. 7. History of gastrointestinal bleed in June of 2016, presumed upper gastrointestinal. 8. History of chronic elevation of alkaline phosphatase with alk phos isoenzymes indicating liver. 9. History of coronary artery disease, status post PCI in the past. 10. Hypertension. 11. Gastroesophageal reflux disease. MEDICATIONS AT DISCHARGE: Include: 1. Coumadin 3 mg daily with next INR to be drawn on 05/14/17. 2. Lipitor 20 mg daily. 3. Calcitriol 0.25 mcg daily. 4. Fluticasone nasal spray, 2 sprays both nostrils daily. 5. Hydralazine 50 mg 3 times a day. 6. Insulin Lantus 15 units twice a day. 7. Imdur ER 60 mg daily. 8. Lisinopril 20 mg daily. 9. Metoprolol succinate 50 mg b.i.d. 10. Omeprazole 20 mg daily. 11. Lyrica 50 mg b.i.d. 12. Renvela 800 mg 3 times a day. 13. Coumadin 3 mg daily. The patient is set up for dialysis on Tuesdays, , and Saturdays with next dialysis being on at 6:15 a.m. He was asked to come into dialysis 30 minutes earlier. FOLLOWUP INSTRUCTIONS: At discharge, the patient is recommended to follow up with his primary care provider in 4 to 6 days. His next blood work including INR and CBC should be checked on 05/14/17 with reports of CBC to be sent to Dr. Nunes. For followup, the patient also needs to set up an appointment to see Dr. Nunes in approximately 2 weeks in regards to his thrombocytopenia and remaining lab work from pathology from bone marrow biopsy. CONSULTATIONS DURING THE HOSPITAL STAY: Included: 1. Dr. Martinez from Surgery. 2. Dr. Ramos from Nephrology. 3. Dr. Harris and Dr. Nunes from Oncology. LABORATORY DATA AND STUDIES PERFORMED DURING THE HOSPITAL STAY: Included, on , white blood cell count of 10.8, hemoglobin of 7.9, hematocrit of 25, MCV of 65, and platelets of 60. Sodium was 138, potassium 3.9, chloride 99, carbon dioxide 26, BUN 68, and creatinine 3.19. The patient's bone marrow biopsy obtained on 05/05/17 resulted in, impression: "Mildly hypercellular bone marrow for age with mixed trilineage hematopoiesis. No evidence of myeloid, erythroid, or megakaryocytic dysplasia identified. No increase in blast or plasma cells seen. Minimal iron stores on iron, staying within appropriate controls." Flow cytometry and myelodysplastic panel is still pending at the time of this discharge. PROCEDURES PERFORMED DURING THE HOSPITAL STAY: Included tunneled hemodialysis catheter placed in the right IJ area by Dr. Martinez on 05/05/17. HOSPITALIZATION COURSE: Damian Guzman is a 67-year-old male with history of bilateral DVTs, factor V heterozygote, on chronic Coumadin. The patient also has a history of thrombocytopenia and thalassemia trait who has chronic microcytic anemia. He presented to the hospital with worsening renal function to establish hemodialysis. Due to the patient's thrombocytopenia, Hematology saw the patient in consultation. His Coumadin was held and then reversed and his INR was reversed. Dr. Nunes saw the patient and obtained a bone marrow biopsy with the results being inconclusive, basically negative. The patient was treated with 4 days of dexamethasone IV with good results with his platelets coming back up to the level of 60 from the level of 27 at admission. The patient had a dialysis catheter placed by Dr. Martinez on 05/05/17 and his dialysis was first started on 05/07/17. The patient had slight uremia with reported facial twitching and occasional hallucinations. The patient stated that when he would close his eyes from time to time he would see the things that he saw in TV prior. Nevertheless, by the time of discharge, those symptoms resolved. His thrombocytopenia started improving by the time of discharge also. Please also note that the patient's direct Warren test was negative. At discharge, the patient's Coumadin is being restarted as was OK'ed by hematology . He is to have a CBC drawn in less than a week as mentioned above. Next INR is also due at the same time. He is to follow up with Dr. Oakley in 4 to 7 days. His next dialysis is on , 05/13/17. He is recommended to see Dr. Nunes in approximately 2 weeks for followup. At discharge, due to thrombocytopenia, his aspirin was held for the time being and his Coumadin was restarted. PHYSICAL EXAMINATION: At the time of discharge, blood pressure of 129/67, heart rate of 59 and regular, respiratory rate of 14, oxygen saturation is 95% on room air, and temperature 97.7. General: The patient is a very pleasant 67- year-old morbidly obese male, who is in no acute distress. Alert, awake, and oriented x3. HEENT: Head, atraumatic and normocephalic. Eyes, pupils are equal , round, and reactive to light and accommodation. Oropharynx clear. Mucosa moist. Neck: Supple. No JVD, no bruits bilaterally. Cardiovascular: Regular rate and rhythm. No murmur. Respiratory: Clear to auscultation bilaterally. Abdomen: Soft and nontender. Bowel sounds present in all 4 quadrants. Extremities: There is +2 pitting pedal edema bilaterally. Pulses are +2 bilaterally. There is no clubbing or cyanosis. Neuro Evaluation: Speech clear. Cranial nerves II through XII are grossly intact. Motor strength is 5/ 5 bilaterally. On evaluation of the patient's right-sided dialysis catheter, there is no evidence of discharge. The catheter is sutured well. There is no evidence of infection of the surrounding skin. Please note that this is a short summary of the patient's hospital stay, please refer to further medical records for details. TIME SPENT: Approximately 40 minutes was spent on the patient's discharge. [id number]/[facility] #: [id number] MTDD
== END 2017-05-11 18:44 | disposition home or self-care (01) | DRG 674 ==
LOC: MEDTELE 13:04
PROVIDERS: ADMIT Internal Medicine; ATTEND Internal Medicine
PROC: 0JH63XZ Insertion of Tunneled Vascular Access Device into Chest Subcutaneous Tissue and Fascia, Percutaneous Approach (ICD-10-PCS; 2017-05-05)
PROC: B513ZZA Fluoroscopy of Right Jugular Veins, Guidance (ICD-10-PCS; 2017-05-05)
PROC: 30233R1 Transfusion of Nonautologous Platelets into Peripheral Vein, Percutaneous Approach (ICD-10-PCS; 2017-05-05)
PROC: 07DR3ZX Extraction of Iliac Bone Marrow, Percutaneous Approach, Diagnostic (ICD-10-PCS; 2017-05-05)
PROC: 05HM33Z Insertion of Infusion Device into Right Internal Jugular Vein, Percutaneous Approach (ICD-10-PCS; principal; 2017-05-05 21:30)
PROC: 5A1D70Z Performance of Urinary Filtration, Intermittent, Less than 6 Hours Per Day (ICD-10-PCS; 2017-05-07)
PROC: 5A1D70Z Performance of Urinary Filtration, Intermittent, Less than 6 Hours Per Day (ICD-10-PCS; 2017-05-10)
DX: N17.9 Acute kidney failure, unspecified (principal); D69.3 Immune thrombocytopenic purpura; E11.22 Type 2 diabetes mellitus with diabetic chronic kidney disease; D68.51 Activated protein C resistance; E87.2 Acidosis; I82.403 Acute embolism and thrombosis of unspecified deep veins of lower extremity, bilateral; E11.649 Type 2 diabetes mellitus with hypoglycemia without coma; I12.0 Hypertensive chronic kidney disease with stage 5 chronic kidney disease or end stage renal disease; E83.51 Hypocalcemia; I45.2 Bifascicular block; Z68.41 Body mass index [BMI] 40.0-44.9, adult; N18.6 End stage renal disease; D63.1 Anemia in chronic kidney disease; I12.9 Hypertensive chronic kidney disease with stage 1 through stage 4 chronic kidney disease, or unspecified chronic kidney disease; I25.10 Atherosclerotic heart disease of native coronary artery without angina pectoris; Z96.651 Presence of right artificial knee joint; G47.30 Sleep apnea, unspecified; R25.3 Fasciculation; E66.9 Obesity, unspecified; G47.33 Obstructive sleep apnea (adult) (pediatric); L98.9 Disorder of the skin and subcutaneous tissue, unspecified; R00.1 Bradycardia, unspecified; D56.3 Thalassemia minor; R44.1 Visual hallucinations; Z82.3 Family history of stroke; Z99.2 Dependence on renal dialysis; Z86.718 Personal history of other venous thrombosis and embolism; Z88.1 Allergy status to other antibiotic agents; Z87.891 Personal history of nicotine dependence; Z79.01 Long term (current) use of anticoagulants; Z79.4 Long term (current) use of insulin
CPT/HCPCS: 36415; 38222; 71045; 76000; 80048; 80076; 81003; 81015; 82607; 82947; 83735; 84100; 85025; 85027; 85045; 85049; 85060; 85097; 85610; 86480; 86703; 86704; 86706; 86708; 86709; 86803; 86880; 87040; 87086; 87340; 87641; 88184; 88187; 88188; 88271; 88305; 88311; 88313; 90935; 93005; 99223; 99231; 99232; A9270-GY; C1750; G0257; G8978-GP-CI; G8978-GP-CJ; G8979-GP-CI; J0610; J0690; J0885; J1100; J1642; J1644; J2001; J2250; J3010; J3430; P9035

== ENCOUNTER 2017-09-03 13:22 | Day surgery (SDC) | payer MEDICARE ==
[~2017-09-03 13:22] MED LIST changes: +Buffered Lidocaine 0.9% SYRIN* 5 ML/SYR SYRINGE INTRADERM ONE; +NS 0.9% 1000 ML* 1,000 ML IV SCH; -Sodium Polystyrene ORAL.SOL* 15 GM/60 ML BTL PO ONE
[2017-09-03] MEDS ORDERED: Propofol* 10 MG/ML 20 ML BTL IV PUSH ONE (13:53)
[2017-09-03] MEDS ORDERED: Lidocaine 0.5%* 50 ML SDV ONE (14:17)
[2017-09-03] MEDS ORDERED: Heparin VIAL(*) 5000 UNITS/ML VIAL (FIVE THOUSAND) ONE ×2 (14:17→16:26)
[2017-09-03] MEDS ORDERED: Lidocaine 1%* 5 ML VIAL ONE ×2 (14:32→14:33)
--- NOTE | 2017-09-03 16:43 | BRIEFOPN ---
Brief Operative Note - Surgery Procedures: Procedures (05/03/17) ASSISTANCE WITH RESPIRATORY VENTILATION, <24 HRS, CPAP (04/09/16) CARPAL TUNNEL RELEASE (11/07/13) CATARAC PHACOEMULS/ASPIR (09/14/02) CLOSURE SKIN & SUBCUTANEOUS NEC (01/25/00) COLONOSCOPY (08/19/01) EXTRACTION OF ILIAC BONE MARROW, PERC APPROACH, DIAGN (05/03/17) FLUOROSCOPY OF RIGHT JUGULAR VEINS, GUIDANCE (05/03/17) INSERT INFUSION DEV IN R INT JUGULAR VEIN, PERC (05/03/17) INSERT LENS AT CATAR EXT (09/14/02) INSERTION OF VAD INTO CHEST SUBCU/FASCIA, PERC APPROACH (05/03/17) INSPECTION OF UPPER INTESTINAL TRACT, ENDO (07/17/16) TRANSFUSE NONAUT FROZEN PLASMA IN PERIPH VEIN, PERC (07/17/16) TRANSFUSE NONAUT PLATELETS IN PERIPH VEIN, PERC (05/03/17) TRANSFUSE NONAUT RED BLOOD CELLS IN PERIPH VEIN, PERC (07/17/16) 09/03/17 Op Note (dictated) Pre-op dx: ESRD Post-op dx: same Procedure: placement of hemodialysis catheter Surgeon: Tanvir Asst: none Anesth: local-MAC EBL: 3 cc complications: none SCDs on during surgery Abx: not indicated Pt. tolerated procedure well and was transferred to in a stable condition. CLFoster
[2017-09-03 17:04] VITALS: BP 121/64
[2017-09-03] MEDS ORDERED: Naloxone* 0.4 MG/ML 1 ML VIAL IV PRN (17:39)
--- NOTE | 2017-09-03 18:19 | RAD ---
INDICATION: The patient is status post tunneled hemodialysis catheter placement COMPARISON: Chest x-ray May 06, 2017 TECHNIQUE: Single AP portable view of the chest was obtained. FINDINGS: Image quality is compromised due to the relative inferiority of a portable chest x-ray. There has been interval removal of the right internal jugular vein tunneled hemodialysis catheter and placement of a right subclavian vein tunneled hemodialysis catheter. The distal tip of the catheter terminates at the mid-level SVC while the proximal tip appears to be at the junction of the SVC and right brachiocephalic vein. There is no pneumothorax. The lungs are clear. IMPRESSION: Interval removal of the right internal jugular vein tunneled hemodialysis catheter with placement of a right subclavian vein tunneled hemodialysis catheter as described above. There is no pneumothorax.
--- NOTE | 2017-09-03 20:31 | RAD ---
CPT II Codes: G9500 INDICATION: Renal failure. TECHNIQUE: Intraoperative fluoroscopy was provided during placement of a left subclavian tunneled hemodialysis catheter. FINDINGS: 2 spot films depict a wire entering the right subclavian vein and terminating beyond the [id number] just above the heart. The previously placed right internal jugular vein hemodialysis catheter is noted in position. The later images depicted a catheter terminating at the mid-level superior vena cava. Fluoroscopy time: 46 seconds IMPRESSION: As above.
--- NOTE | 2017-09-04 03:48 | OP ---
CC: [facility]; Dr. Conrado Ramos; Dr. Mario Oakley OPERATIVE SUMMARY: DATE OF OPERATION: 09/03/17 DATE OF : 48 SURGEON: Mariana Ramey MD. EMBEDDED HARDWARE ENGINEER: There is no production assistant for this case. PRE-OP DIAGNOSIS: Renal failure. POST-OP DIAGNOSIS: Renal failure. OPERATIVE PROCEDURE: Hemodialysis catheter placement. INDICATIONS: Mr. Guzman is a 67-year-old male, who has been seen in dialysis and has been having difficulty with his hemodialysis catheter prompting a plan for request for change of the hemodialysis catheter. DESCRIPTION OF PROCEDURE: He was brought to the operating room, placed on the OR table in supine position and given IV sedation. The chest wall was prepped and draped in the usual sterile fashion including the previous hemodialysis catheter. Once he was hooked up to EKG leads adequately, the area was infiltrated with local anesthetic after he had been prepped and draped. Then, using a Seldinger technique, under fluoroscopic visualization, a wire was placed into the right subclavian vein. The catheter was then tunneled from a point on the anterior chest wall superomedial to the nipple and tunneled to the wire exit site. Then, a dilator and introducer were placed over the wire. The wire and dilator were removed. The catheter was advanced through the introducer under fluoroscopic visualization to an appropriate depth. The introducer was peeled away. The position of the catheter was again checked with fluoroscopy and found to be adequate. So, it was secured in place using a 4-0 Prolene stitch to anchor it. The stab wound at the wire exit site was also closed with 4-0 Prolene. The catheter had been flushed with saline to ascertain that it worked well and then it was filled with appropriate amounts of heparinized saline. It should be mentioned that the old catheter was removed by using a clamp to loosen the tissue around the cuff and then withdrawing the catheter from its tract. Dry sterile dressing was applied. All sponge and instrument counts were correct. The patient tolerated the procedure well and was transferred to Recovery in a stable condition. [id number]/[facility] #: [id number] [facility]
== END 2017-09-03 17:35 | disposition home or self-care (01) ==
LOC: OR 13:22
PROVIDERS: ATTEND Surgery
DX: T82.898A Other specified complication of vascular prosthetic devices, implants and grafts, initial encounter (principal); N18.6 End stage renal disease; E13.22 Other specified diabetes mellitus with diabetic chronic kidney disease; Z99.2 Dependence on renal dialysis; Z79.4 Long term (current) use of insulin; I12.9 Hypertensive chronic kidney disease with stage 1 through stage 4 chronic kidney disease, or unspecified chronic kidney disease; I25.10 Atherosclerotic heart disease of native coronary artery without angina pectoris; Z87.891 Personal history of nicotine dependence; Z86.718 Personal history of other venous thrombosis and embolism; E66.01 Morbid (severe) obesity due to excess calories; D69.6 Thrombocytopenia, unspecified; D68.51 Activated protein C resistance
CPT/HCPCS: 71045; 76000; J1644; J2704

== ENCOUNTER → 2017-09-10 10:09 | Day surgery (SDC) | payer MEDICARE ==
[~2017-09-10 10:09] MED LIST changes: -Buffered Lidocaine 0.9% SYRIN* 5 ML/SYR SYRINGE INTRADERM ONE; +Heparin 2 UNITS/ML IVPREMIX* 2,000 ML IV ONE; +Heparin(*) 1000 UNIT/ML 10 ML VIAL CATH LAB IV ONE; +Iodixanol* (CONTRAST) 320 MG/ML 100 ML SDV ONE; +LORazepam TAB(*) 1 MG ONE; +Lidocaine 1% INJ* 10 MG/ML 30 ML SDV ONE; +Midazolam* 1 MG/ML 5 ML VIAL (5 MG) ONE; -NS 0.9% 1000 ML* 1,000 ML IV SCH; +fentaNYL* 50 MCG/ML 2 ML VIAL (100 MCG VIAL) ONE; +nitroGLYCERIN DRIP* 25,000 MCG/250 ML BTL ONE
[2017-09-10 17:10] VITALS: BP 125/66
--- NOTE | 2017-09-13 09:16 | RAD ---
CPT II Codes: G9500 Procedure(s) performed: 1. Diagnostic fistulogram of the patient's left brachiocephalic fistula. 2. Balloon angioplasty of the left cephalic and subclavian veins. Date of service: September 10, 2017 Indication for procedure: Failure of maturation Comparison: Ultrasound July 23, 2017 Contrast: 65 mL Visipaque 320 Fluoroscopy Time: 14 minutes Vessels Accessed: Percutaneous access was obtained with ultrasound guidance in the distal left cephalic vein in the antegrade direction towards the heart. Catheter angiography, with the catheter tip located within the lumen of the following vessels, was performed at the left cephalic vein and superior vena cava. Anesthesia: Conscious sedation with IV Fentanyl and Versed as well as local 1% lidocaine injected locally at the arteriotomy site. Conscious sedation time: Timeout: 1449 hours Case end: 1603 hours Total conscious sedation time: 1 hour and 14 minutes Additional medications: * The patient received 1 mg of p.o. Ativan prior to the onset of the procedure. Procedure and Imaging findings: Prior to the procedure the risk and benefits were carefully explained and informed consent was obtained from the patient. The hemodialysis fistula was examined to determine strength of palpable thrill, condition of the overlying skin and direction of flow. There is no palpable thrill and only a faint "normal" with auscultation. The patient was appropriately positioned on the table in the angiography suite. The skin overlying and surrounding the hemodialysis fistula was prepped and draped in standard sterile fashion. Sterile precautions were employed including use of cap, mask, gown and sterile gloves. A formal time out was performed and all members of the team and the patient agreed to the patient, procedure and laterality. The fistula was examined with ultrasound and airport representative images were obtained. The arterial anastomosis appeared to be widely patent on grayscale and color flow imaging. Under sonographic control the fistula was accessed in the antegrade direction with an 18 gauge needle. An image was recorded. Under fluoroscopic control a 0.035 inch Bentson wire was advanced proximally and the needle was exchange for a 5 Pashto SideArm sheath. Through the sheath a venogram of the distal venous outflow was conducted demonstrating overall patency of the cephalic outflow though the venous outflow does not show signs of hypertrophy maturation. The vein measures approximately 7 mm in diameter along its entire length. There are several foci of mild stenoses and collateral veins are seen filling at the level of the proximal humerus. The wire was reinserted and a 5-Pashto curved tip catheter was advanced to the level of the humerus. Further venography was performed demonstrating persistent narrowing of the cephalic vein, mild stenosis at the junction of the cephalic vein and subclavian vein but adequately patent subclavian vein and SVC beyond that. Based on the preliminary intravascular angiographic studies the following interventions were pursued. Over the wire, the 5-Pashto access sheath was exchanged for a 6-Pashto access sheath to accommodate an 8 mm balloon. With the wire securing access an 8 mm x 100 mm Fortrex balloon was advanced into the midportion of the left subclavian vein and balloon angioplasty was performed across the junction of the cephalic vein and subclavian vein. The balloon remained inflated for a total of 4 minutes to address vasospasm. The balloon was drawn back and balloon angioplasty was performed along the entire length of the cephalic vein each time the balloon remained inflated for a total of 4 minutes in the hopes of adequately addressing venoplasty. Reflux into the arterial anastomosis was performed with the balloon deflated occluding the cephalic outflow. This reveal narrowing at the arterial anastomosis that unfortunately was not readily apparent until after the fistulogram during image review on a PACS monitor. The diameter of the arterial anastomosis is approximately one third the diameter of the vein. At this point the patient began complaining of extreme left upper arm pain. Contrast was injected into the venous outflow to visualized an anticipated dissection based on the patient's pain complaint. There is no dissection or extravasation. Instead, there was long segment narrowing from the proximal third humerus level cephalic vein to the junction with the subclavian vein compatible with spasm. Nitroglycerin injection was considered but was avoided as the patient was already hypotensive. After a few minutes the patient reported no more arm pain and subsequent venogram demonstrated adequate patency of the previously angioplastied cephalic and subclavian vein segments. Final venogram demonstrated patency throughout the length of the cephalic vein into the subclavian vein. At the time of the fistulogram, angioplasty of the arterial anastomosis was not deemed necessary. The wire and access sheath were removed.Gentle pressure was held at the access site for 10 minutes and no significant bleeding or hematoma formation occurred. The site was dressed with sterile gauze and the patient left the angiography suite in stable condition. SUMMARY OF PROCEDURE, IMAGING FINDINGS AND INTERVENTIONS PERFORMED: 1. Diagnostic studies performed: * Percutaneous access fistula was obtained at the left cephalic vein just proximal to the arterial anastomosis in the antegrade direction (i.e. towards the heart) with ultrasound guidance. A sonographic image was recorded. * Sonographic imaging at the onset of the procedure demonstrated the arterial anastomosis to be adequately patent with brisk flow. * Diagnostic catheter angiography (necessary to perform the appropriate interventions) was performed with the catheter tip in the left cephalic vein and superior vena cava. * Catheter arteriography was performed of the left cephalic vein, left subclavian vein, superior vena cava and pulmonary arterial vasculature. * The cephalic vein was occluded with the 8 mm balloon and reflux angiography into the arterial anastomosis was performed imaging the distal left brachial artery, arterial anastomosis and proximal most portions of the radial ulnar arteries. 2. Interpretation of diagnostic studies performed: * Long segment narrowing of the cephalic vein consistent with failure of maturation. The vein measures approximately 7 mm throughout its length with varying degrees of mild stenoses and stenoses at the junction of the cephalic vein and subclavian vein. * No evidence of central venous occlusion. * It was not appreciated until reviewing the images on a PACS monitor after the fistulogram, but there is narrowing at the arterial anastomosis measuring approximately 30% the diameter of the outflow cephalic vein. 3. Surgical interventions performed: * Balloon angioplasty of the cephalic outflow vein with an 8 mm x 100 mm Fortrex balloon along the entire cephalic venous outflow and into the left subclavian vein across the junction of the cephalic vein and subclavian vein. 4. Interpretation of interventions performed: * Shortly after venoplasty the patient experienced severe left upper arm pain which turned out to be long segment spasm of the proximal cephalic vein. This resolved spontaneously after a few minutes. There was never any extravasation or evidence of dissection. * Final venogram demonstrates patency throughout the cephalic outflow vein with no substantial change from the initial venogram. Plan: 1. The patient will be advised to return to interventional radiology to perform angioplasty at the arterial anastomosis. 2. Continue hemodialysis through the tunneled hemodialysis catheter currently positioned in the patient's right subclavian vein.
== END | disposition home or self-care (01) ==
LOC: CHICATH 10:09
PROVIDERS: ATTEND Radiology Diagnostic Radiology
DX: T82.858A Stenosis of other vascular prosthetic devices, implants and grafts, initial encounter (principal); N18.4 Chronic kidney disease, stage 4 (severe); D63.1 Anemia in chronic kidney disease; Z79.4 Long term (current) use of insulin; E11.9 Type 2 diabetes mellitus without complications; Z99.2 Dependence on renal dialysis; E87.8 Other disorders of electrolyte and fluid balance, not elsewhere classified; N25.81 Secondary hyperparathyroidism of renal origin; E46 Unspecified protein-calorie malnutrition
CPT/HCPCS: 36901; 37249; 76937; 99156; 99157; A9270-GY; C1725; C1769; C1887; J1644; J2250; J3010

== ENCOUNTER → 2017-09-17 12:11 | Day surgery (SDC) | payer MEDICARE ==
[~2017-09-17 12:11] MED LIST changes: -Heparin 2 UNITS/ML IVPREMIX* 2,000 ML IV ONE; -Heparin(*) 1000 UNIT/ML 10 ML VIAL CATH LAB IV ONE; -Iodixanol* (CONTRAST) 320 MG/ML 100 ML SDV ONE; -Lidocaine 1% INJ* 10 MG/ML 30 ML SDV ONE; -Midazolam* 1 MG/ML 5 ML VIAL (5 MG) ONE; -fentaNYL* 50 MCG/ML 2 ML VIAL (100 MCG VIAL) ONE; -nitroGLYCERIN DRIP* 25,000 MCG/250 ML BTL ONE
[2017-09-17 13:41] LABS: ABS Basophils 0.1 10^3/ul (0-0.2); ABS Eosinophils 0.3 10^3/ul (0-0.6); ABS Lymphocytes 1.8 10^3/ul (1.0-4.8); ABS Monocytes 0.7 10^3/ul (0-0.8); ABS Neutrophils 4.7 10^3/ul (1.5-7.7); ABS Nucleated RBC 0 10^3/ul; Eosinophil % 3.4 % (0-6); Hematocrit 31 % (42-52); Hemoglobin 9.7 g/dl (14.0-18.0); Lymphocyte % 23.5 % (25-47); Mean Corpuscular HGB Conc 31 g/dl (31-36); Mean Corpuscular Hemoglobin 22 pg (27-31); Mean Corpuscular Volume 71 fL (80-94); Mean Platelet Volume 8.6 um3 (7.4-10.4); Nucleated Red Blood Cells % 0.1; Platelet Count 135 10^3/ul (150-450); Red Blood Count 4.45 10^6/ul (4.00-5.40); Red Cell Distribution Width 18 % (10.5-15); White Blood Count 7.5 10^3/ul (3.5-10.8)
[2017-09-17 13:43] LABS: EGFR Non-African American 15.5 (>60); INR 0.99 (0.77-1.02)
== END | disposition home or self-care (01) ==
LOC: CHICATH 12:11
PROVIDERS: ATTEND Radiology Diagnostic Radiology
DX: N18.6 End stage renal disease (principal); Z53.09 Procedure and treatment not carried out because of other contraindication; R00.1 Bradycardia, unspecified; Z95.5 Presence of coronary angioplasty implant and graft; E11.40 Type 2 diabetes mellitus with diabetic neuropathy, unspecified; M10.9 Gout, unspecified
CPT/HCPCS: 36415; 80048; 85025; 85610; 85730; A9270-GY

== ENCOUNTER → 2017-09-22 07:06 | Day surgery (SDC) | payer MEDICARE ==
[~2017-09-22 07:06] MED LIST changes: +Heparin 2 UNITS/ML IVPREMIX* 1,000 ML IV ONE; +Heparin(*) 1000 UNIT/ML 10 ML VIAL CATH LAB IV ONE; +Iodixanol* (CONTRAST) 320 MG/ML 100 ML SDV ONE; +Lidocaine 1% INJ* 10 MG/ML 30 ML SDV ONE; +Midazolam* 1 MG/ML 10 ML VIAL (10 MG) ONE; +fentaNYL* 50 MCG/ML 2 ML VIAL (100 MCG VIAL) ONE
--- NOTE | 2017-09-22 17:01 | RAD ---
CPT II Codes: G9500 Procedure(s) performed: 1. Diagnostic fistulogram of the patient's left upper extremity brachiocephalic fistula. 2. Balloon angioplasty of the arterial anastomosis including the left brachial artery and immediate venous outflow. 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 Catheter angiography, with the catheter tip located within the lumen of the following vessels, was performed at the left cephalic vein and left brachial artery. Anesthesia: Conscious sedation with IV Fentanyl and Versed as well as local 1% lidocaine injected locally at the arteriotomy site. Conscious sedation time: Timeout: 812 hours Case end: 855 hours Total conscious sedation time: 43 minutes Additional medications: * The patient received 1 mg of p.o. Ativan prior to the onset of the procedure. Procedure and Imaging findings: Prior to the procedure the risk and benefits were carefully explained and informed consent was obtained from the patient. The hemodialysis fistula was examined to determine strength of palpable thrill, condition of the overlying skin and direction of flow. The patient was appropriately positioned on the table in the angiography suite. The skin overlying and surrounding the hemodialysis fistula was prepped and draped in standard sterile fashion. Sterile precautions were employed including use of cap, mask, gown and sterile gloves. A formal time out was performed and all members of the team and the patient agreed to the patient, procedure and laterality. The fistula was examined with ultrasound and scheduling representative images were obtained. Under sonographic control the fistula was accessed in the antegrade direction with a 21 gauge micropuncture needle. An image was recorded. Under fluoroscopic control a microwire was advanced proximally and the needle was exchange for a 5 Nauruan catheter. With the catheter tip at the left brachial artery contrast arteriography was performed showing the distal left brachial artery and proximal radial and ulnar arteries to be adequately patent. Again seen is stenosis at the arterial anastomosis. The venous outflow of the graft is patent up to the mid-level left humerus. A 0.035" wire was advanced through the 5 Nauruan catheter and the simple catheter was exchanged for a 5 Nauruan sidearm sheath. Under fluoroscopic control the hydrophilic wire was advanced into the left brachial artery to the level of the axilla securing access across the fistula. Based on the preliminary intravascular angiographic studies the following interventions were pursued. Over the wire a 5 mm x 40 mm Fortrex balloon was advanced across the arterial anastomosis and balloon angioplasty was performed. During each inflation the balloon remained inflated for minimum of 3 minutes to address spasm. With the wire still securing access across the fistula, the balloon was removed and contrast venography with the sheath and the cephalic vein showed the arterial anastomosis to be widely patent. Contrast refluxed into the distal brachial artery documenting patency of the brachial artery and proximal radial ulnar arteries. The sheath was secured to the patient's arm and the patient was transported to the holding area to have the sheath removed at bedside. The patient left the angiography suite in stable condition. SUMMARY OF PROCEDURE, IMAGING FINDINGS AND INTERVENTIONS PERFORMED: 1. Diagnostic studies performed: * Percutaneous fistula was obtained at the distal left cephalic vein at the level of the distal humerus in the retrograde direction (i.e. towards the arterial anastomosis) with ultrasound guidance. A sonographic image was recorded. * Diagnostic catheter angiography (necessary to perform the appropriate interventions) was performed with the catheter tip in the left brachial artery and left cephalic vein. * Catheter arteriography was performed of the distal left cephalic vein, distal left brachial vein and proximal radial and ulnar arteries. 2. Interpretation of diagnostic studies performed: * Again seen is focal stenosis at the arterial anastomosis 3. Surgical interventions performed: * Balloon angioplasty of the arterial anastomosis utilizing a 5 mm x 40 mm Fortrex balloon. 4. Interpretation of interventions performed: * Postprocedural fistulography and venography demonstrated improved patency and brisk flow through the arterial anastomosis with cephalad flow in the distal left cephalic vein up to the level of the mid-level left humerus. Plan: 1. The patient will be monitored for improved maturation of hemodialysis fistula. 2. Further balloon angioplasty versus surgical revision may be necessary in the future. 3. The patient will continue to receive hemodialysis from the right subclavian vein tunneled hemodialysis catheter placed by surgery.
== END | disposition home or self-care (01) ==
LOC: CHICATH 07:06
PROVIDERS: ATTEND Radiology Diagnostic Radiology
DX: N18.6 End stage renal disease (principal); E11.9 Type 2 diabetes mellitus without complications; Z79.4 Long term (current) use of insulin; Z79.01 Long term (current) use of anticoagulants; Z87.891 Personal history of nicotine dependence; J45.909 Unspecified asthma, uncomplicated; I10 Essential (primary) hypertension; E78.5 Hyperlipidemia, unspecified; D64.89 Other specified anemias
CPT/HCPCS: 36901; 36902; 76937; 99156; 99157; A9270-GY; C1725; C1769; J1644; J2250; J3010

== ENCOUNTER 2017-10-11 10:39 | Day surgery (SDC) | payer MEDICARE ==
[2017-10-11] MEDS ORDERED: Buffered Lidocaine 0.9% SYRIN* 5 ML/SYR SYRINGE INTRADERM ONE (11:03)
[2017-10-11] MEDS ORDERED: NS 0.9% 1000 ML* 1,000 ML IV SCH (11:15)
[2017-10-11] MEDS ORDERED: ceFAZolin 2 GM PREMIX (*) 2 GM/50 ML BAG IVPB ONE (12:32)
[2017-10-11] MEDS ORDERED: Heparin VIAL(*) 5000 UNITS/ML VIAL (FIVE THOUSAND) ONE ×2 (12:40→15:03)
[2017-10-11] MEDS ORDERED: Lidocaine 1% INJ* 10 MG/ML 30 ML SDV ONE (12:41)
[2017-10-11] MEDS ORDERED: Lidocaine 2% PF * 5 ML VIAL ONE (12:46)
[2017-10-11] MEDS ORDERED: Propofol* 10 MG/ML 20 ML BTL IV PUSH ONE (12:46)
[2017-10-11] MEDS ORDERED: KETAMINE HCL* 50 MG/ML 10 ML VIAL ONE (12:47)
[2017-10-11] MEDS ORDERED: Propofol* 500 MG/50 ML BTL ONE (12:48)
[2017-10-11] MEDS ORDERED: Iohexol 180 (CONTRAST) 10 ML SDV IV ONE ×2 (13:55→14:18)
[2017-10-11] MEDS ORDERED: Ondansetron INJ* 2 MG/ML VIAL IV PRN (14:32)
[2017-10-11] MEDS ORDERED: Naloxone* 0.4 MG/ML 1 ML VIAL IV PRN (14:32)
[2017-10-11] MEDS ORDERED: Acetaminophen IV 1GM/100ML * 1,000 MG/100 ML VIAL IVPB ONE (14:32)
--- NOTE | 2017-10-11 15:37 | BRIEFOPN ---
Brief Operative Note - Surgery Procedures: Procedures OPERATIVE REPORT PRE-OP: ESRD POST-OP:ESRD PROCEDURE: Placement of 32 cm BioFlo DuraMax Right subclavian vein hemodialysis catheter (Change of existing catheter over a wire). SURGEON: MD Leila ANESTHESIA:Local with MAC Dr. Andrew Lerma ASST:none IVF:min EBL:min SPECIMEN:none DRAIN: none WOUND CLASS:One COMPLICATIONS: none TO PACU
--- NOTE | 2017-10-11 16:31 | RAD ---
INDICATION: Dialysis catheter placement COMPARISON: September 03, 2017 TECHNIQUE: An AP portable view obtained at 1555 hours is submitted. FINDINGS: Bones/Soft Tissues: There are no acute bony findings. There is a right subclavian catheter terminating in the superior vena cava Cardiomediastinal: The cardiomediastinal silhouette is normal. Lungs: There are no infiltrates. There is no pneumothorax Pleura: There are no pleural effusions. Other: None IMPRESSION: RIGHT SUBCLAVIAN CATHETER. LUNGS CLEAR.
[2017-10-11 16:34] VITALS: BP 148/64
--- NOTE | 2017-10-11 17:12 | RAD ---
INDICATION: Hemodialysis catheter change COMPARISON: None FINDINGS: 163.1 seconds of fluoroscopy were provided for the surgical department. Fluoroscopic spot imaging of the chest were obtained for operative control and show placement of a subclavian catheter in expected position . CPT II Codes: G9500 (fluoro time doc)
--- NOTE | 2017-10-11 23:50 | OP ---
CC: [facility]; Dr. Oakley; Dr. Conrado Ramos from Nephrology OPERATIVE REPORT: DATE OF OPERATION: 10/11/17 DATE OF : 48 SURGEON: Sergey Dee MD CAR SALES REPRESENTATIVE: None. ANESTHESIOLOGIST: Dr. Lerma. ANESTHESIA: Local with monitored anesthesia care. PRE-OP DIAGNOSIS: Nonfunctioning existing right subclavian vein hemodialysis catheter. POST-OP DIAGNOSIS: Nonfunctioning existing right subclavian vein hemodialysis catheter. OPERATIVE PROCEDURE: Replacement of existing right subclavian vein hemodialysis catheter with a new 32 cm BioFlo DuraMax tunneled hemodialysis catheter. BRIEF HISTORY: Mr. Damian Guzman is a 67-year-old gentleman who has had 2 right- sided hemodialysis catheters, 1 in the right internal jugular and second in the right subclavian vein placed in the last 6 months. Both of these have had trouble with blood clotting and not in function. He has recently had a new left upper arm fistula placed and has had a percutaneous dilation of the junction between t he left cephalic and axillary vein. He is now being taken back to the operating room today for replacement of his old catheter or placeme nt of a new hemodialysis catheter, preferably on the right side. The procedure was discussed with the patient and the risks of, but not limited to bleeding, infection , pneumothorax, cardiopulmonary injury, risks of anesthesia, and discomfort were all explained. ESTIMATED BLOOD LOSS: Minimal. IV FLUIDS: Minimal. SPECIMENS: None. WOUND CLASSIFICATION: 1. DRAINS: None. DESCRIPTION OF PROCEDURE: Written informed consent was obtained, the right chest was marked with ind elible ink and preoperative antibiotics were administered. The patient was taken to the operating ro om, placed in the supine position. Sequential compression devices and warming blanket were applied. The entire right neck, right chest, and the existing catheter were prepped and draped in the usual st erile fashion. Time-out verification was completed. Initially both ports, i.e., the arterial and venous ports were then tested. Both flushed well with s maverick. I was able to draw blood easily through the venous port; however, there was no blood draw pos sible from the arterial port. I next then used Omnipaque IV contrast dye and performed a venogram through both ports using fluorosc opy. This showed easily flushing with rapid washout of both arterial and venous site at the catheter tip in the superior vena cava without evidence of thrombosis or blood clot noted in the surrounding vein. It was also noted that the existing catheter had its cuff protruding from the exit site. At this point, I made a decision to attempt to change the catheter over a guidewire as there were no signs of infection. I was able to pass the guidewire through the venous port without difficulty and confirmed up to the right heart with fluoroscopy. In light of the fact that the cuff was outside the skin, I felt that a new tunnel is necessary and th us, this was freed completely, and knowing that I could pass a guidewire through the venous port to c hange over the wire, I cut down at the initial puncture site just below the clavicle and exposed the catheter. This was then pulled up into the field of view with care not to pull it out from the venou s side and the catheter was cut just proximal to the cuff and brought up through the tunneled site to give myself a little bit more length on the catheter. Next, a new tunneled site was then marked on the skin and anesthetized. A counter incision was made somewhat more lateral on the right chest wall and I, after measuring distances, used a 32 cm length c atheter and this was tunneled up to the puncture site. Next, using the sheath Peel-Away system under fluoroscopy, the catheter was then placed through the s viviana and passed into the junction of the superior vena cava and the right atrium, somewhat deeper in to the atrium. At this point, the catheter flushed well and withdrew blood with both ports vigorously without diffic ulty. They were flushed with heparin solution. The cuff was well in the subcutaneous tunnel. There was no kinking at the clavicle or on the subcuta neous tissue. Hemostasis was assured. All incisions were closed with 3-0 and 4-0 Vicryl sutures. Occlusive Tegader m dressings were applied. I did suture the catheter and its exit site to the skin with 2 separate 3- 0 Prolene sutures and the device that comes with the catheter itself. The patient tolerated the procedure well and was taken to the recovery room in stable condition. The postprocedural chest x-ray showed the catheter to be in good position without evidence of pneumot horax. [id number]/[facility] #: [id number]
== END 2017-10-11 16:56 | disposition home or self-care (01) ==
LOC: OR 10:39
PROVIDERS: ATTEND Surgery
DX: T82.898A Other specified complication of vascular prosthetic devices, implants and grafts, initial encounter (principal); N18.6 End stage renal disease; Z49.01 Encounter for fitting and adjustment of extracorporeal dialysis catheter; Z87.891 Personal history of nicotine dependence; G47.33 Obstructive sleep apnea (adult) (pediatric); E11.9 Type 2 diabetes mellitus without complications; Z95.5 Presence of coronary angioplasty implant and graft; I25.10 Atherosclerotic heart disease of native coronary artery without angina pectoris; E66.01 Morbid (severe) obesity due to excess calories; I12.9 Hypertensive chronic kidney disease with stage 1 through stage 4 chronic kidney disease, or unspecified chronic kidney disease; Z99.2 Dependence on renal dialysis
CPT/HCPCS: 36415; 71045; 76001; 84132; C1750; C1769; J0690; J1644; J2704

== ENCOUNTER 2017-10-24 08:22 | Day surgery (SDC) | payer MEDICARE ==
[2017-10-24] MEDS ORDERED: Buffered Lidocaine 0.9% SYRIN* 5 ML/SYR SYRINGE INTRADERM ONE (08:28)
[2017-10-24] MEDS ORDERED: Metoprolol Tartrate TAB* 25 MG ONE (08:34)
[2017-10-24] MEDS ORDERED: Propofol* 500 MG/50 ML BTL ONE (08:37)
[2017-10-24] MEDS ORDERED: KETAMINE HCL* 50 MG/ML 10 ML VIAL ONE (08:37)
[2017-10-24] MEDS ORDERED: Levalbuterol 0.63MG/3ML NEB* UNIT OF USE INH ONE (08:52)
[2017-10-24] MEDS ORDERED: ceFAZolin 2 GM PREMIX (*) 2 GM/50 ML BAG IVPB ONE (09:01)
[2017-10-24] MEDS ORDERED: Lidocaine 2% PF * 5 ML VIAL ONE (09:44)
[2017-10-24] MEDS ORDERED: Naloxone* 0.4 MG/ML 1 ML VIAL IV PRN (10:36)
[2017-10-24] MEDS ORDERED: Ondansetron INJ* 2 MG/ML VIAL IV PRN (10:36)
[2017-10-24] MEDS ORDERED: fentaNYL* 50 MCG/ML 2 ML VIAL (100 MCG VIAL) IV PRN (10:36)
[2017-10-24] MEDS ORDERED: Acetaminophen TAB* 325 MG PO PRN (10:36)
[2017-10-24 11:02] VITALS: BP 157/75
[2017-10-24] MEDS ORDERED: Lidocaine 1% INJ* 10 MG/ML 30 ML SDV ONE (11:08)
[2017-10-24] MEDS ORDERED: Heparin VIAL(*) 5000 UNITS/ML VIAL (FIVE THOUSAND) ONE (11:08)
--- NOTE | 2017-10-24 11:39 | RAD ---
CPT II Codes: G9500 INDICATION: HD catheter placement TECHNIQUE: Intraoperative fluoroscopy was provided during (re)placement of a hemodialysis catheter. FINDINGS: 3 spot films depict wire access followed by catheter placement in the right subclavian vein. The catheter terminates at the right cavoatrial junction. Fluoroscopy time: 26 seconds IMPRESSION: As above.
--- NOTE | 2017-10-24 11:40 | RAD ---
INDICATION: Replacement of right subclavian vein hemodialysis catheter COMPARISON: Most recent comparison radiograph is dated October 11, 2017 TECHNIQUE: Single AP portable view of the chest was obtained. FINDINGS: Image quality is compromised due to the relative inferiority of a portable chest x-ray. Again seen is a right hemodialysis catheter now with the tip terminating at the expected location of the right atrium. The lungs are grossly clear. There is no pneumothorax. IMPRESSION: Replacement of right hemodialysis catheter, now with the tip terminating overlying the right atrium.
--- NOTE | 2017-10-27 09:28 | OP ---
CC: Dr. Justin Melendez; Conrado Ramos MD OPERATIVE REPORT: DATE OF OPERATION: 10/24/17 DATE OF : 48 SURGEON: Justin Melendez MD METAL CASTING TRADES WORKER: None. ANESTHESIOLOGIST: Dr. Colon. ANESTHESIA: LMAC anesthesia. PRE-OP DIAGNOSIS: Failure of hemodialysis catheter. POST-OP DIAGNOSIS: Failure of hemodialysis catheter. OPERATIVE PROCEDURE: Replacement of hemostasis catheter. DESCRIPTION OF PROCEDURE: The patient was supine on the operative table. The entire right chest and neck region was prepped with antiseptic, draped in a sterile fashion. He was given intravenous anti biotics. He had the warmer on and stockings in place. The area was draped sterilely. The old cj ter exit was draped out of the sterile field. The local anesthetic was administered and then the inc ision by the clavicle was re-entered. The mid portion of the catheter was identified. The catheter was clamped and cut and a guidewire passed through the distal segment into the venous system. This w as done under fluoroscopy. After adequate positioning of the guidewire in the superior vena cava, th e distal part of the catheter was removed and a new tunnel site was created more medially. Local ane sthetic was administered. A small incision was created and a 36-cm hemodialysis catheter was opal ed in through the exit site to the previous incision and then the guidewire was used to deliver the c atheter through the peel-away introducer. The catheter was noted in good position in the distal SVC just at the atrial junction and the clavicular site was closed with 5-0 Vicryl followed by Steri-Stri ps at the exit site. A Prolene suture was used to secure the catheter at the skin. A sterile dressi ng, Tegaderm was then placed over the catheter site. The drapes were then brought somewhat downward to expose the exit site on the lower lateral chest and the remainder of the previous catheter was rem jenn in its entirety. A bandage was placed at the site as well. He tolerated the procedure well, wa s brought to recovery in good condition. There were no complications, no drains. Pathologic specime n is the old catheter. Sponge and instrument counts were correct. Estimated blood loss 100 mL. [id number]/[facility] #: [id number]
== END 2017-10-24 11:39 | disposition home or self-care (01) ==
LOC: SDS 08:22
PROVIDERS: ATTEND Surgery
DX: T82.868A Thrombosis due to vascular prosthetic devices, implants and grafts, initial encounter (principal); Y83.1 Surgical operation with implant of artificial internal device as the cause of abnormal reaction of the patient, or of later complication, without mention of misadventure at the time of the procedure; N18.6 End stage renal disease; I25.10 Atherosclerotic heart disease of native coronary artery without angina pectoris; I12.9 Hypertensive chronic kidney disease with stage 1 through stage 4 chronic kidney disease, or unspecified chronic kidney disease; E66.01 Morbid (severe) obesity due to excess calories; Z87.891 Personal history of nicotine dependence; D68.51 Activated protein C resistance; Z86.718 Personal history of other venous thrombosis and embolism
CPT/HCPCS: 36415; 71045; 76000; 84132; 88300; J0690; J1644; J2704